=== PATIENT | female | born 1930 | race Caucasian/White ===

== ENCOUNTER → 2016-03-18 | Outpatient (CLI) | payer OTHER ==
[~2016-03-18] MED LIST: ACET-1311 PO; AMLO-110 PO; BIMA0.01 OPB; CHOL100027 PO; CLOP1TAB15 PO; LATA0.5S OPB; LEVE100021 PO; LOPE2TAB84 PO; MELO7.5T5 PO; METO-551 PO; MULT-506 PO; PANT1TAB48 PO; PLV75 PO; PRAV20TA PO; SIMV40TA2 PO
== END | disposition home or self-care (01) ==
LOC: C.LABSPEC 16:51
PROVIDERS: ATTEND Internal Medicine
DX: B34.9 Viral infection, unspecified (principal)

== ENCOUNTER → 2016-04-11 | Outpatient (CLI) | payer OTHER ==
--- NOTE | 2016-04-11 16:35 | DIAGNOSTIC IMAGING REPORT ---
AP PELVIS AND BILATERAL HIPS 5 VIEWS CLINICAL HISTORY: Pelvic and hip pain status post trauma COMPARISON: Conventional radiographic study of the left hip dated 08/19/2015, lumbar spine series dated 08/19/2015 DISCUSSION: There are degenerative changes present within the lower lumbar spine. A lucency beneath the right L4 pedicle was present on prior study and likely relates to facet joint arthropathy. There is a transitional vertebra present. No acute pelvic or hip fractures are visualized. There is no dislocation. There are mild degenerative changes present. IMPRESSION: No acute pelvic or hip fractures are visualized. Electronically signed by: Franck Rubin M.D. 04/11/2016 4:34 PM Dictated Date/Time: 04/11/2016 4:32 PM
--- NOTE | 2016-04-11 16:36 | DIAGNOSTIC IMAGING REPORT ---
LEFT FEMUR 4 VIEWS CLINICAL HISTORY: Left leg pain status post trauma COMPARISON: None DISCUSSION: No fractures or dislocations are visualized. IMPRESSION: No fractures or dislocations identified. Electronically signed by: Franck Rubin M.D. 04/11/2016 4:35 PM Dictated Date/Time: 04/11/2016 4:34 PM
--- NOTE | 2016-04-11 16:38 | DIAGNOSTIC IMAGING REPORT ---
LEFT WRIST MIN 3 VIEWS ROUTINE CLINICAL HISTORY: Left wrist pain status post trauma COMPARISON: None. DISCUSSION: The bones are osteopenic. No acute fractures or dislocations are visualized. There are osteoarthritic changes at the level of the first carpometacarpal joint. There is no evidence for soft tissue swelling. IMPRESSION: No acute fractures or dislocations identified. Electronically signed by: Franck Rubin M.D. 04/11/2016 4:37 PM Dictated Date/Time: 04/11/2016 4:36 PM
--- NOTE | 2016-04-11 16:38 | DIAGNOSTIC IMAGING REPORT ---
LEFT SHOULDER MIN 2 VIEWS ROUTINE, LEFT HUMERUS MIN 2 VIEWS ROUTINE CLINICAL HISTORY: Fall. Left shoulder and left arm pain. COMPARISON STUDY: None. FINDINGS: Lateral soft tissue swelling within the left shoulder. The bones are osteopenic. There is also lateral soft tissue swelling within the proximal arm. No fracture or dislocation. IMPRESSION: No fracture or dislocation within the left shoulder or left humerus. Electronically signed by: Saran Hawthorne M.D. 04/11/2016 4:36 PM Dictated Date/Time: 04/11/2016 4:33 PM
[2016-04-11 18:23] LABS: BASO % 0.4 %; BASO ABS # 0.06 K/uL (0-0.2); COMPLETE YES; EOS % 1.6 %; HEMATOCRIT 40.3 % (37-47); IG% 0.4 %; LYMPH % 43.9 %; LYMPH ABS # 6.22 K/uL (1.2-3.4); MEAN CELL VOLUME 94.6 fL (80-100); MEAN CORPUSCULAR HEMOGLOBIN 31.7 pg (25-34); MEAN CORPUSCULAR HGB CONC 33.5 g/dl (32-36); MONO % 6.5 %; NEUT % 47.2 %; PLATELET COUNT 246 K/uL (130-400); RED BLOOD COUNT 4.26 M/uL (4.2-5.4); WHITE BLOOD COUNT 14.18 K/uL (4.8-10.8)
== END | disposition home or self-care (01) ==
LOC: C.RAD1850 15:44
PROVIDERS: ATTEND Nurse Practitioner Adult Health
DX: R58 Hemorrhage, not elsewhere classified (principal); W19.XXXA Unspecified fall, initial encounter; M25.552 Pain in left hip; M79.605 Pain in left leg; M25.512 Pain in left shoulder

== ENCOUNTER → 2016-05-03 | Outpatient (CLI) | payer OTHER ==
--- NOTE | 2016-05-03 12:10 | DIAGNOSTIC IMAGING REPORT ---
LEFT THIGH ULTRASOUND CLINICAL HISTORY: Hematoma of left leg. Bruising. Recent fall. COMPARISON STUDY: Left femur radiographs April 11, 2016. FINDINGS: Sonography of the proximal lateral left thigh revealed a fluid collection measuring 4.1 x 2.4 x 4.5 cm within the deep soft tissues. This was minimally complex. Note is also made of an adjacent echogenic focus within the subcutaneous tissues that measures 6.9 x 2.4 x 5.5 cm. This is located immediately superior to the fluid collection. IMPRESSION: 4.1 x 2.4 x 4.5 cm collection within the deep soft tissues of the lateral left thigh. Given the clinical history, this likely reflects a resolving hematoma. Adjacent echogenic subcutaneous tissues may reflect a contusion. Follow-up in 2 months to ensure resolution is recommended. Electronically signed by: Rubio Rodriguez M.D. 05/03/2016 12:09 PM Dictated Date/Time: 05/03/2016 12:06 PM
== END | disposition home or self-care (01) ==
LOC: C.ULTR 11:28
PROVIDERS: ATTEND Nurse Practitioner Adult Health
DX: S80.10XA Contusion of unspecified lower leg, initial encounter (principal); X58.XXXA Exposure to other specified factors, initial encounter

== ENCOUNTER 2016-09-02 02:32 | Emergency (ER) | payer OTHER ==
[~2016-09-02] VITALS: Ht 142.2 cm; Wt 82.9 kg
[~2016-09-02 02:32] MED LIST changes: -AMLO-110 PO; -CLOP1TAB15 PO; -LEVE100021 PO; -PRAV20TA PO
[2016-09-02 02:37] VITALS: Ht 142.2 cm; Wt 82.9 kg
[2016-09-02] MEDS ORDERED: HydrALAZINE HCL 20 MG/ML VIAL IV. STA (02:48)
--- NOTE | 2016-09-02 03:07 | EMERGENCY ROOM VISIT NOTE ---
History Report prepared by Brea: Ronald Villalobos Under the Supervision of: Dr. Zara Stark M.D. First contact with patient: 02:38 Chief Complaint: NOSE BLEED (MINOR) Stated Complaint: NOSEBLEED History of Present Illness The patient is a 86 year old female who presents to the Emergency Room from [facility] with complaints of resolved right sided nosebleed starting about 5 hours ago. She noticed it while brushing her teeth. She did not think there was a large amount of blood from her nose or any gushing blood. The bleeding stopped about an hour ago. She currently denies any bleeding. The [facility] staff found her blood pressure to be 210/115. The patient's blood pressure systolically is in the 140s-150s. She has been taking Plavix for the past year. She is not on aspirin. She denies headache, chest pain, shortness of breath, abdominal pain, blood in urine, rectal bleeding, lower extremity pain/ swelling, or any other complaints. Source of History: patient Onset: about 5 hours ago Position: nose Quality: other (nosebleed) Timing: resolved Associated Symptoms: No headache, No chest pain, No SOB, No abdominal pain Review of Systems See HPI for pertinent positives & negatives. A total of 10 systems reviewed and were otherwise negative. Past Medical & Surgical Medical Problems: (1) Benign hypertension (2) Cataract surgery (3) Cholecystectomy (4) Craniotomy (5) History of - pneumonia (6) History of - tubal ligation (7) History of appendectomy (8) History of asthma (9) History of bronchitis (10) Hyperlipidemia (11) Tonsillectomy and adenoidectomy Family History Gallbladder disease Heart disease Hypertension Social History Smoking Status: Never Smoker Alcohol Use: none Drug Use: none Marital Status: Housing Status: lives with family Occupation Status: retired Current/Historical Medications Scheduled Amlodipine (Norvasc), 5 MG PO DAILY Cholecalciferol (Vitamin D 1000 Unit), 2,000 INTER.UNIT PO DAILY Clopidogrel (Plavix), 75 MG PO DAILY Latanoprost (Xalatan 0.005% Oph Keiko), 1 DROPS OPB HS Levetiracetam (Levetiracetam), 1,000 MG PO Q12 Metoprolol Tartrate (Lopressor), 50 MG PO BID Multivitamin (Multivitamin), 1 TAB PO QPM Pantoprazole (Protonix), 40 MG PO QAM Pravastatin (Pravachol ), 20 MG PO HS Scheduled PRN Acetaminophen (Tylenol), 325-650 MG PO BID PRN for Pain or Fever Loperamide Hcl (Anti-Diarrheal), 2 MG PO UD PRN for Diarrhea Allergies Coded Allergies: Penicillins (Verified Allergy, Mild, RASH, 09/02/16) Sulfa Drugs (Verified Allergy, Mild, RASH, 09/02/16) Aspirin (Verified Adverse Reaction, Unknown, BLEEDING, 09/02/16) Physical Exam Vital Signs Date Time Temp Pulse Resp B/P (MAP) Pulse Ox O2 Delivery O2 Flow Rate FiO2 09/02/16 04:14 37.1 60 16 166/93 94 09/02/16 03:58 60 16 166/93 94 Room Air 09/02/16 03:47 60 16 161/91 95 Room Air 09/02/16 03:03 60 09/02/16 03:00 61 16 157/76 96 Room Air 09/02/16 02:37 37.1 68 16 204/93 95 Room Air Physical Exam Vital signs reviewed. Noted to be hypertensive. General: Elderly, well-appearing, in no significant distress. HEENT: No scleral icterus, PERRLA, neck supple. Atraumatic. No active nasal bleeding. Cardiovascular: Regular rate and rhythm. Systolic ejection murmur. Pulmonary: Clear to auscultation bilaterally, normal work of breathing. Abdomen: Soft, nontender, nondistended, positive bowel sounds. Musculoskeletal: Atraumatic, no peripheral edema. Neurologic: Patient awake alert and oriented x 3, full strength in all 4 extremities. Cranial nerves 2 through 12 grossly intact. Skin: Warm, dry, no rash Medical Decision & Procedures Laboratory Results 09/02/16 02:20 Red Blood Count 4.34, Mean Corpuscular Volume 89.9, Mean Corpuscular Hemoglobin 28.8, Mean Corpuscular Hemoglobin Concent 32.1, Mean Platelet Volume 9.8, Neutrophils (%) (Auto) 38.3, Lymphocytes (%) (Auto) 53.2, Monocytes (%) (Auto) 6.3, Eosinophils (%) (Auto) 1.5, Basophils (%) (Auto) 0.4, Neutrophils # (Auto) 5.37, Lymphocytes # (Auto) 7.47, Monocytes # (Auto) 0.88, Eosinophils # (Auto) 0.21, Basophils # (Auto) 0.06 09/02/16 02:20 Test 09/02/16 02:20 09/02/16 03:30 White Blood Count 14.03 K/uL (4.8-10.8) Red Blood Count 4.34 M/uL (4.2-5.4) Hemoglobin 12.5 g/dL (12.0-16.0) Hematocrit 39.0 % (37-47) Mean Corpuscular Volume 89.9 fL (80-100) Mean Corpuscular Hemoglobin 28.8 pg (25-34) Mean Corpuscular Hemoglobin Concent 32.1 g/dl (32-36) Platelet Count 316 K/uL (130-400) Mean Platelet Volume 9.8 fL (7.4-10.4) Neutrophils (%) (Auto) 38.3 % Lymphocytes (%) (Auto) 53.2 % Monocytes (%) (Auto) 6.3 % Eosinophils (%) (Auto) 1.5 % Basophils (%) (Auto) 0.4 % Neutrophils # (Auto) 5.37 K/uL (1.4-6.5) Lymphocytes # (Auto) 7.47 K/uL (1.2-3.4) Monocytes # (Auto) 0.88 K/uL (0.11-0.59) Eosinophils # (Auto) 0.21 K/uL (0-0.5) Basophils # (Auto) 0.06 K/uL (0-0.2) RDW Standard Deviation 45.0 fL (36.4-46.3) RDW Coefficient of Variation 13.7 % (11.5-14.5) Immature Granulocyte % (Auto) 0.3 % Immature Granulocyte # (Auto) 0.04 K/uL (0.00-0.02) Red Blood Cell Morphology Unremarkable Anion Gap 5.0 mmol/L (3-11) Est Creatinine Clear Calc Drug Dose 37.0 ml/min Estimated GFR () 61.4 Estimated GFR (Non- 53.0 BUN/Creatinine Ratio 19.2 (10-20) Calcium Level 9.0 mg/dl (8.5-10.1) Total Bilirubin 0.3 mg/dl (0.2-1) Direct Bilirubin 0.1 mg/dl (0-0.2) Aspartate Amino Transf (AST/SGOT) 22 U/L (15-37) Alanine Aminotransferase (ALT/SGPT) 18 U/L (12-78) Alkaline Phosphatase 115 U/L (45-117) Total Protein 7.1 gm/dl (6.4-8.2) Albumin 3.5 gm/dl (3.4-5.0) Prothrombin Time 10.7 SECONDS (9.0-12.0) Prothromb Time International Ratio 1.0 (0.9-1.1) Activated Partial Thromboplast Time 26.1 SECONDS (21.0-31.0) Partial Thromboplastin Ratio 1.0 Laboratory results per my review. Medications Administered Medications (Trade) Dose Ordered Sig/Azra Route Start Time Stop Time Status Last Admin Dose Admin Amlodipine Besylate (Norvasc Tab) 5 mg NOW ONCE PO 09/02/16 04:00 09/02/16 04:01 DC 09/02/16 04:09 5 MG ED Course 0238: Past medical records reviewed. The patient was evaluated in room B12B. A complete history and physical examination was performed. 0400: Norvasc Tab 5 mg PO. Upon reevaluation, the patient appeared to have improvement of her symptoms. I discussed findings with her. She verbalized agreement of the treatment plan. She was discharged home. Medical Decision Medication Reconciliation: I attest that I have personally reviewed the patient' s current medication list. Blood Pressure Screening: Patient was found to have an elevated blood pressure and was referred to their primary doctor for recheck and further treatment. Differential diagnosis: Etiologies such as anterior epistaxis, coagulopathy, traumatic injury, fracture , septal hematoma, posterior epistaxis as well as other pathologies were entertained. This patient was evaluated and appeared to be in no significant distress. Patient's epistaxis had stopped bleeding at the time of my evaluation. Patient' s blood pressure was noted to be markedly elevated. On repeat, the blood pressure tended to travel down. Laboratory work is fairly unrevealing. H&H is stable. There is no more active bleeding. The patient was started on Norvasc 5 mg daily as she states high blood pressure has been an issue for the last several weeks. She declined any diuretic therapy. The patient will continue her other medications as prescribed and follow-up with her physician within the week for reevaluation. She will return to the ER for worsening of symptoms or any medical concerns. Impression Primary Impression: Epistaxis Additional Impression: Hypertension Scribe Attestation The scribe's documentation has been prepared under my direction and personally reviewed by me in its entirety. I confirm that the note above accurately reflects all work, treatment, procedures, and medical decision making performed by me. Departure Information Dispostion Home / Self-Care Prescriptions Amlodipine (Norvasc) 5 Mg Tab 5 MG PO DAILY, #30 TAB Prov: Zara Stark M.D. 09/02/16 Referrals [facility] (PCP) Landon Regan M.D. Forms HOME CARE DOCUMENTATION FORM, IMPORTANT VISIT INFORMATION, WORK / SCHOOL INSTRUCTIONS Patient Instructions My [facility] Additional Instructions Diagnosis: Epistaxis, hypertension Norvasc 5 mg daily Continue other medications as prescribed. Do not blow nose for 2 days. Use saline nasal spray several times daily. Use a humidifier in your bedroom. Follow up with your doctor this week for reevaluation. Return to emergency for worsening of symptoms or any medical concerns. Problem Qualifiers
[2016-09-02 03:28] LABS: MEAN CELL VOLUME 89.9 fL (80-100); MEAN CORPUSCULAR HEMOGLOBIN 28.8 pg (25-34); MEAN CORPUSCULAR HGB CONC 32.1 g/dl (32-36); MEAN PLATELET VOLUME 9.8 fL (7.4-10.4); PLATELET COUNT 316 K/uL (130-400); RED BLOOD COUNT 4.34 M/uL (4.2-5.4); WHITE BLOOD COUNT 14.03 K/uL (4.8-10.8)
[2016-09-02 03:35] LABS: BUN/CREATININE RATIO 19.2 (10-20); CREATININE 0.98 mg/dl (0.60-1.20); POTASSIUM 4.1 mmol/L (3.5-5.1)
[2016-09-02 03:56] LABS: PROTHROMBIN TIME (PATIENT) 10.7 SECONDS (9.0-12.0)
[2016-09-02] MEDS ORDERED: AMLO-110 PO (03:56)
[2016-09-02] MEDS ORDERED: PRAV20TA PO (03:57)
[2016-09-02] MEDS ORDERED: CLOP1TAB15 PO (03:58)
[2016-09-02] MEDS ORDERED: LEVE100021 PO (03:58)
[2016-09-02] MEDS ORDERED: AMLODIPINE BESYLATE 5 MG TAB PO ONE (04:00)
[2016-09-02 04:14] VITALS: BP 166/93; PULSE 60; TEMP 37.1; O2SAT 94
[2016-09-02 04:15] LABS: BASO % 0.4 %; BASO ABS # 0.06 K/uL (0-0.2); COMPLETE YES; EOS % 1.5 %; IG% 0.3 %; LYMPH % 53.2 %; LYMPH ABS # 7.47 K/uL (1.2-3.4); MONO % 6.3 %; NEUT % 38.3 %
== END 2016-09-02 04:14 | disposition home or self-care (01) ==
LOC: EDBD 02:32 → C.EDB 02:33
DX: R04.0 Epistaxis (principal); I10 Essential (primary) hypertension; Z79.01 Long term (current) use of anticoagulants; Z90.49 Acquired absence of other specified parts of digestive tract; Z98.49 Cataract extraction status, unspecified eye; Z87.01 Personal history of pneumonia (recurrent); Z98.51 Tubal ligation status; J45.909 Unspecified asthma, uncomplicated; E78.5 Hyperlipidemia, unspecified; Z82.49 Family history of ischemic heart disease and other diseases of the circulatory system; Z79.899 Other long term (current) drug therapy

== ENCOUNTER → 2016-11-01 | Outpatient (CLI) | payer OTHER ==
[~2016-11-01] MED LIST changes: +AMLO-110 PO; -BIMA0.01 OPB; +CLOP1TAB15 PO; +LEVE100021 PO; -MELO7.5T5 PO; -PLV75 PO; +PRAV20TA PO; -SIMV40TA2 PO
[2016-11-01 10:28] LABS: HEMATOCRIT 38.5 % (37-47); MEAN CELL VOLUME 87.1 fL (80-100); MEAN CORPUSCULAR HEMOGLOBIN 28.1 pg (25-34); MEAN CORPUSCULAR HGB CONC 32.2 g/dl (32-36); MEAN PLATELET VOLUME 9.5 fL (7.4-10.4); PLATELET COUNT 320 K/uL (130-400); RED BLOOD COUNT 4.42 M/uL (4.2-5.4); WHITE BLOOD COUNT 15.92 K/uL (4.8-10.8)
[2016-11-01 10:49] LABS: ALT/SGPT 18 U/L (12-78); BLOOD UREA NITROGEN 15 mg/dl (7-18); BUN/CREATININE RATIO 16.8 (10-20); CALCIUM 9.1 mg/dl (8.5-10.1); CARBON DIOXIDE 31 mmol/L (21-32); CHLORIDE 105 mmol/L (98-107); CHOLESTEROL 151 mg/dl (0-200); CREATININE 0.91 mg/dl (0.60-1.20); GLUCOSE 100 mg/dl (70-99); POTASSIUM 4.2 mmol/L (3.5-5.1); SODIUM 142 mmol/L (136-145); TRIGLYCERIDES 125 mg/dl (0-150); VERY LOW DENSITY LIPOPROT CALC 25 mg/dl
[2016-11-01 10:51] LABS: AST/SGOT 24 U/L (15-37); HDL CHOLESTEROL 50 mg/dl; LDL CHOLESTEROL CALCULATED 76 mg/dl
[2016-11-01 12:41] LABS: EOSINOPHIL % 0.9 %; LYMPH ABS # 9.65 K/uL (1.2-3.4); LYMPHOCYTE % 60.6 %; NEUTROPHILS % 34.2 %; SMUDGE CELLS PRESENT
[2016-11-01 12:49] LABS: COMPLETE YES
== END | disposition home or self-care (01) ==
LOC: C.LAB 08:26
PROVIDERS: ATTEND Internal Medicine
DX: D72.829 Elevated white blood cell count, unspecified (principal); I10 Essential (primary) hypertension; E78.5 Hyperlipidemia, unspecified

== ENCOUNTER → 2017-05-03 | Outpatient (CLI) | payer OTHER ==
[~2017-05-03] MED LIST changes: -AMLO-110 PO; +PANT1TAB3 PO; -PANT1TAB48 PO
--- NOTE | 2017-05-03 12:40 | DIAGNOSTIC IMAGING REPORT ---
CHEST 2 VIEWS ROUTINE CLINICAL HISTORY: R05 [id number] [id number] Hypoxemia dyspnea COMPARISON STUDY: 05/07/2015 FINDINGS: The bones soft tissues and hemidiaphragms are normal. The cardiomediastinal silhouette is normal. The lungs are clear. The pulmonary vasculature is normal. Small hiatal hernia IMPRESSION: Small hiatal hernia. Otherwise negative study. The above report was generated using voice recognition software. It may contain grammatical, syntax or spelling errors. Electronically signed by: Villa Powell M.D. 05/03/2017 12:39 PM Dictated Date/Time: 05/03/2017 12:38 PM
[2017-05-03 14:39] LABS: HEMATOCRIT 38.6 % (37-47); HEMOGLOBIN 12.8 g/dL (12.0-16.0); MEAN CELL VOLUME 86.7 fL (80-100); MEAN CORPUSCULAR HEMOGLOBIN 28.8 pg (25-34); MEAN CORPUSCULAR HGB CONC 33.2 g/dl (32-36); MEAN PLATELET VOLUME 9.8 fL (7.4-10.4); PLATELET COUNT 285 K/uL (130-400); RED CELL DISTRIBUTION WIDTH CV 14.8 % (11.5-14.5); WHITE BLOOD COUNT 13.67 K/uL (4.8-10.8)
[2017-05-03 14:55] LABS: BLOOD UREA NITROGEN 14 mg/dl (7-18); CALCIUM 9.2 mg/dl (8.5-10.1); CARBON DIOXIDE 29 mmol/L (21-32); GLUCOSE 113 mg/dl (70-99); POTASSIUM 3.9 mmol/L (3.5-5.1); SODIUM 138 mmol/L (136-145)
[2017-05-03 15:16] LABS: BASO % 0.4 %; BASO ABS # 0.05 K/uL (0-0.2); EOS % 0.9 %; EOS ABS # 0.12 K/uL (0-0.5); IG# 0.01 K/uL (0.00-0.02); LYMPH % 51.4 %; LYMPH ABS # 7.02 K/uL (1.2-3.4); MONO % 5.4 %; MONO ABS # 0.74 K/uL (0.11-0.59); NEUT % 41.8 %; NEUT ABS # 5.73 K/uL (1.4-6.5)
== END | disposition home or self-care (01) ==
LOC: C.RAD1850 12:22
PROVIDERS: ATTEND Internal Medicine
DX: R50.9 Fever, unspecified (principal); R05 Cough; R09.02 Hypoxemia

== ENCOUNTER → 2017-06-15 | Outpatient (CLI) | payer OTHER ==
[2017-06-15 12:41] LABS: HEMATOCRIT 38.6 % (37-47); HEMOGLOBIN 12.4 g/dL (12.0-16.0); MEAN CELL VOLUME 86.4 fL (80-100); MEAN CORPUSCULAR HEMOGLOBIN 27.7 pg (25-34); MEAN CORPUSCULAR HGB CONC 32.1 g/dl (32-36); MEAN PLATELET VOLUME 9.2 fL (7.4-10.4); PLATELET COUNT 369 K/uL (130-400); RED CELL DISTRIBUTION WIDTH CV 15.1 % (11.5-14.5); RED CELL DISTRIBUTION WIDTH SD 47.5 fL (36.4-46.3); WHITE BLOOD COUNT 18.23 K/uL (4.8-10.8)
[2017-06-15 13:58] LABS: BASO % 0.3 %; BASO ABS # 0.06 K/uL (0-0.2); EOS % 1.5 %; EOS ABS # 0.28 K/uL (0-0.5); IG# 0.03 K/uL (0.00-0.02); LYMPH % 50.7 %; LYMPH ABS # 9.25 K/uL (1.2-3.4); MONO % 4.7 %; MONO ABS # 0.85 K/uL (0.11-0.59); NEUT % 42.6 %; NEUT ABS # 7.76 K/uL (1.4-6.5)
== END | disposition home or self-care (01) ==
LOC: C.LABBFT 08:39
PROVIDERS: ATTEND Internal Medicine
DX: Z85.6 Personal history of leukemia (principal)

== ENCOUNTER → 2017-10-10 | Outpatient (CLI) | payer OTHER ==
[~2017-10-10] MED LIST changes: +ACET-1256 PO; -ACET-1311 PO; +AMLO5TAB2 PO; +CRFUDL PO; +LCTX PO; +LVQ750 PO
--- NOTE | 2017-10-10 11:37 | DIAGNOSTIC IMAGING REPORT ---
DOUBLE CONTRAST BARIUM ESOPHAGRAM CLINICAL HISTORY: Pneumonia. COMPARISON STUDY: Upper GI series dated 07/20/2005. TECHNIQUE: A standard air contrast barium esophagram is performed. Multiple spot images of the esophagus are acquired both upright and prone. FINDINGS: The patient swallowed barium and the barium pill without difficulty. The mucosal pattern is normal. The distal esophagus is tortuous, and there is moderate dysmotility in the mid to distal third. There is no evidence of intrinsic or extrinsic mass lesion. No aspiration was seen. The gastroesophageal junction distended normally. Gastroesophageal reflux was observed during the examination. A small hiatal hernia is identified. Fluoroscopy time: 1.4 minutes. Fluoroscopic images: 22 IMPRESSION: 1. Esophageal dysmotility. 2. Gastroesophageal reflux was observed. 3. Small hiatal hernia. Electronically signed by: Conner Wilson M.D. 10/10/2017 11:36 AM Dictated Date/Time: 10/10/2017 11:33 AM
--- NOTE | 2017-10-10 11:53 | SWALLOWING EVALUATION ---
HISTORY: This 87 year-old woman, from [facility], who was referred for a Barium Swallow followed by a VFSS at [facility]. 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 She has been seen by speech therapy multiple times in the past for bedside swallows secondary to right lower lobe pneumonia and was WFL on all evals. Currently the patient reports her diet level is regular with thins. PROCEDURE: The patient was seen in the Radiology Department of [facility] for the Barium Swallow ONLY. The VFSS was not completed secondary to pt. being WFL and no s/s of aspiration. Cursory examination of the oral cavity revealed adequate dentition. Movement of the articulators was WNL. Volitional phonation exercises completed in the A-P plane revealed bilateral vocal fold movement and vocal intensity within functional limits. Pt. was given multiple cups of barium in multiple positions as well as barium pill throughout the study. RESULTS OBTAINED FROM VIEWING OF BARIUM SWALLOW STUDYOral Phase:Pt. had adequate lip closure and no labial escape of any food or liquid items presented. Pt. had adequate tongue control and bolus hold by demonstrating a cohesive bolus between tongue and palatal seal. Bolus preparation and mastication was WFL as timely and efficient chewing and mashing was observed with all consistencies. Bolus transport and lingual motion were functional as pt. demonstrated brisk tongue motion and no oral residue resulting in complete oral clearance. * Overall WFL for oral phase of swallow. Pharyngeal Phase:Soft Palate Elevation was complete for all boluses and no bolus was between the soft palate and the pharyngeal wall. Laryngeal elevation was WFL. Anterior Hyoid excursion was noted anterior movement and epiglottic inversion. Pharyngeal contraction was complete for all tested items. Tongue base retraction was noted with all consistencies and tongue base made effective contact with posterior pharyngeal wall throughout study. There was mild Pharyngeal residue throughout the pharyngeal cavity after the swallow which was cleared with double swallows. *Overall WFL for pharyngeal stage of the swallow. Esophageal Phase:Opening and closing of the UES was timely and efficient with complete clearance of all tested items. SUMMARY/RECOMMENDATIONS: VIDEO SWALLOW STUDY WAS NOT COMPLETED SECONDARY TO NO ASPIRATION, PENETRATION, OR DIFFICULTY OBSERVED DRUING THE BARIUM SWALLOW *ALL INFORMATION WAS OBTAINED FROM VIEWING BARIUM SWALLOW STUDY* Overall pt. presents with NO oral or pharyngeal dysphagia. NO aspiration and NO penetration occurred throughout the BARIUM SWALLOW study. Recommendin. Regular diet with thin liquids All results and recommendations were discussed with the pt. Thank you for referral of this patient. Please contact me at if any additional information is needed.
== END | disposition home or self-care (01) ==
LOC: C.RAD 10:47
PROVIDERS: ATTEND Nurse Practitioner Family
DX: R13.10 Dysphagia, unspecified (principal); J18.1 Lobar pneumonia, unspecified organism

== ENCOUNTER 2018-08-27 01:18 | Observation (INO) ==
[2018-08-27 02:18] LABS: Hematocrit (blood only) 34.4 % (37-47); Hemoglobin 10.8 g/dL (12.0-16.0); Mean Corpuscular Hgb Conc 31.4 g/dL (32-36); Mean Corpuscular Volume 84.9 fL (80-100); Mean Platelet Volume 9.2 fL (7.4-10.4); Platelet Count 311 K/uL (130-400); RDW Coefficient of Variation 15.5 % (11.5-14.5); RDW Standard Deviation 47.9 fL (36.4-46.3); Red Blood Count 4.05 M/uL (4.2-5.4)
[2018-08-27 02:35] LABS: BUN Creatinine Ratio 14.2 (10-20); Blood Urea Nitrogen 14 mg/dl (7-18); Calcium 8.7 mg/dl (8.5-10.1); Carbon Dioxide 30 mmol/L (21-32); Chloride 107 mmol/L (98-107); Creatinine Clr Calc Pharmacy 38.1 ml/min; Est GFR (African American) 59.1; Glucose 105 mg/dl (70-99); Sodium 142 mmol/L (136-145)
[2018-08-27 02:39] LABS: Troponin I < 0.015 ng/ml (0-0.045)
[2018-08-27 03:16] LABS: Basophils # (auto) 0.06 K/uL (0-0.2); Basophils % (auto) 0.2 %; Eosinophils # (auto) 0.35 K/uL (0-0.5); Eosinophils % (auto) 1.4 %; Immature Granulocytes # (auto) 0.07 K/uL (0.00-0.02); Immature Granulocytes % (auto) 0.3 %; Lymphocytes # (auto) 16.01 K/uL (1.2-3.4); Lymphocytes % (auto) 64.3 %; Monocytes # (auto) 1.26 K/uL (0.11-0.59); Monocytes % (auto) 5.1 %; Neutrophils # (auto) 7.15 K/uL (1.4-6.5); Neutrophils % (auto) 28.7 %; Smudge Cells Present
[2018-08-27 03:26] LABS: Appearance Urine Clear (Clear); Bacteria Urine Automated Negative (Negative); Bilirubin Urine Negative (Negative); Blood Urine Negative (Negative); Cast Urine Automated 0 /lpf (0-5); Color Urine Yellow; Epithelial Cell Urine Auto 20-30 /lpf (0-5); Glucose Urine UA Negative (Negative); Ketones Urine Negative (Negative); Leukocyte Esterase Urine Trace (Negative); Nitrite Urine Negative (Negative); Protein Urine Negative (Negative); RBC Urine Automated 0-4 /hpf (0-4); Specific Gravity Urine 1.012 (1.000-1.030); Urobilinogen Urine Negative (Negative); pH Urine 7.5 (4.5-7.5)
--- NOTE | 2018-08-27 04:16 | History & Physical Report ---
Date of Service August 27, 2018 Assessment & Plan (1) Substernal chest pain: 88 yo F with history of HTN, HLD, CVA, ,GERD, CLL, Asthma, Epilepsy, Osteopenia, Meningioma presenting with history of chest pain. patient arrived afebrile , vs. WBC ct 24.97 however chronically elevated and within baseline, anemic at baseline, bmp unremarkable, UA unremarkable, ekg neg for ischemic changes, initial troponin negative. Patient did not receive aspirin due to listed allergy. - Admit To Telemetry - chest pain etiology unclear. ischemic less likely given negative ekg, initial troponin. however patient has multiple CAD risk factors as above. Chest pain may be secondary to known history of Aortic Stenosis - follow q6H troponin - currently chest pain remains resolved - patient to follow with Dr. Shea in outpatient setting regarding A.S. (2) Aortic stenosis: possible contributor to symptoms last echo 2013 shoed only mild Aortic stenosis recent PCP note reported progression to severe A.S. consider repeat Echocardiogram to evaluate (3) Hypertension: Continue Metoprolol, Amlodipine (4) Hyperlipidemia: Continue Pravastatin (5) History of stroke: Continue Plavix (6) History of chronic lymphocytic leukemia: asx stable elevation of WBC ct continue to monitor (7) Meningioma: s/p resection asx, stable (8) History of esophageal reflux: PPI (9) Seizure disorder: Continue Keppra asx (10) DVT prophylaxis: SCD's History of Present Illness Chief Complaint: chest pain Primary Care Provider: Landon Regan MD 88 yo F with history of HTN, HLD, CVA, ,GERD, CLL, Asthma, Epilepsy, Osteopenia, Meningioma presenting with history of chest pain. Patient reports chest pain radiating to back, shoulders, bilaterally. Pain started 10: 30 pm, sharp quality involving back with pressure sensation in chest, like a tightness. It lasted about 1-2 hrs. Symptoms occurred while patient was using the bathroom. She took no medication for symptoms. She also reported l ightheadedness, no fevers, chills, n/v, abdominal pain, sob, palpitation. Pain never recurred. She denies calf pain. Patient does have history asthma but feels symptoms are distinct form those symptoms. In the ED, patient arrived afebrile , vs. WBC ct 24.97 however chronically elevated and within baseline, anemic at baseline, bmp unremarkable, UA unremarkable, ekg neg for ischemic changes, initial troponin negative. Patient did not receive aspirin due to listed allergy. Allergies Allergy/AdvReac Type Severity Reaction Status Date / Time Penicillins Allergy Mild RASH Verified 08/27/18 03:10 Sulfa (Sulfonamide Allergy Mild RASH Verified 08/27/18 03:10 Antibiotics) aspirin AdvReac Unknown BLEEDING Verified 08/27/18 03:10 Home Medications Home Medications Medication Instructions Recorded Confirmed Type acetaminophen 500 mg tablet 500 - 1,000 mg PO BID PRN #30 tab 07/16/18 08/27/18 History MDD 3g/24hr amlodipine 5 mg tablet 5 mg PO DAILY #30 tab 07/16/18 08/27/18 History cholecalciferol (vitamin D3) 2,000 2,000 unit PO DAILY #30 tab 07/16/18 08/27/18 History unit tablet levetiracetam 1,000 mg tablet 1,000 mg PO BID #60 tab 07/16/18 08/27/18 History loperamide 2 mg capsule 2 mg PO UD PRN #30 cap MDD 8 caps 07/16/18 08/27/18 History pravastatin 20 mg tablet 20 mg PO DAILY #28 tab 07/16/18 08/27/18 History clopidogrel 75 mg tablet 75 mg PO DAILY #90 tab 08/14/18 08/27/18 Rx metoprolol tartrate 50 mg tablet 50 mg PO BID #180 tab 08/14/18 08/27/18 Rx multivitamin capsule 1 cap PO DAILY #30 cap 08/14/18 08/27/18 Rx pantoprazole 40 mg tablet,delayed 40 mg PO BID #180 tab 08/14/18 08/27/18 Rx release latanoprost 1 drops OPB QPM 08/27/18 08/27/18 History ranitidine HCl 150 mg PO BID 08/27/18 08/27/18 History sucralfate 1 gm PO TID PRN 08/27/18 08/27/18 History Past Med/Surg History Medical History Osteopenia (Acute) Meningioma (Acute) Left hip pain (Acute) Hypertension (Acute) Hyperlipidemia (Acute) History of stroke (Acute) History of fall (Acute) History of esophageal reflux (Acute) History of chronic lymphocytic leukemia (Acute) History of bronchitis (Acute 11/24/12) History of asthma (Acute 11/24/12) Glaucoma (Acute) 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) Aortic stenosis (Acute) Allergic rhinitis (Acute) Asthma (Acute) Asthma exacerbation (Acute 03/02/14) Craniotomy (Resolved 12/13/12) History of - pneumonia (Resolved 11/24/12) History of - tubal ligation (Resolved 11/24/12) Intractable nausea and vomiting PNA (pneumonia) (Acute) RLL pneumonia (Acute 03/02/14) Surgical History History of appendectomy (Acute 11/24/12) Social History Preferred Language: Greek Communication Ability: Effective Outboard Motor Assembler Required: No Beliefs That Will Affect Care: None Current Living Situation: Alone and Personal Care Facility Feels Safe at Home: Yes Safety Concerns: Feels Safe At This Time Smoking Status: Never smoker Hx Alcohol Use: No Hx Substance Use: No Review of Systems Review of Systems: All systems reviewed & are unremarkable except as noted in HPI & below Physical Exam Physical Exam: GENERAL APPEARANCE: alert and cooperative, and appears to be in no acute distress. HEAD: normocephalic. EYES: PERRL, EOMI. vision is grossly intact. EARS: hearing grossly intact. NOSE: No nasal discharge. NECK: Neck supple, non-tender without lymphadenopathy CARDIAC: Normal S1 and S2. Systolic ejection murmur, Rhythm is regular LUNGS: Clear to auscultation and percussion without rales, rhonchi, wheezing or diminished breath sounds. ABDOMEN: Positive bowel sounds. Soft, nondistended, nontender. No guarding or rebound. No masses. LOWER EXTREMITY: no edema NEUROLOGICAL: CN II-XII grossly intact. Strength and sensation symmetric and grossly intact throughout. SKIN: Skin normal color, texture and turgor with no lesions or eruptions. Results & Data Vital Signs (Past 12 Hours) Vital Signs Temp Pulse Resp BP Pulse Ox 08/27/18 02:31 64 24 155/52 H 94 08/27/18 02:30 63 22 93 08/27/18 02:06 61 28 H 141/80 H 94 08/27/18 02:00 62 18 94 08/27/18 01:30 62 21 146/63 H 93 08/27/18 01:25 36.5 C 63 17 148/75 H 95 08/27/18 01:24 65 24 95 08/27/18 01:22 63 20 148/75 H 95 Laboratory Results Laboratory Results WBC 24.90 K/uL (4.8-10.8) H 08/27/18 02:07 RBC 4.05 M/uL (4.2-5.4) L 08/27/18 02:07 Hgb 10.8 g/dL (12.0-16.0) L 08/27/18 02:07 Hct 34.4 % (37-47) L 08/27/18 02:07 MCV 84.9 fL (80-100) 08/27/18 02:07 MCH 26.7 pg (25-34) 08/27/18 02:07 MCHC 31.4 g/dL (32-36) L 08/27/18 02:07 RDW Std Deviation 47.9 fL (36.4-46.3) H 08/27/18 02:07 RDW Coeff of Esteban 15.5 % (11.5-14.5) H 08/27/18 02:07 Plt Count 311 K/uL (130-400) 08/27/18 02:07 MPV 9.2 fL (7.4-10.4) 08/27/18 02:07 Immature Gran % (Auto) 0.3 % 08/27/18 02:07 Neut % (Auto) 28.7 % 08/27/18 02:07 Lymph % (Auto) 64.3 % 08/27/18 02:07 [place] % (Auto) 5.1 % 08/27/18 02:07 Eos % (Auto) 1.4 % 08/27/18 02:07 Baso % (Auto) 0.2 % 08/27/18 02:07 Immature Gran # (Auto) 0.07 K/uL (0.00-0.02) H 08/27/18 02:07 Neut # (Auto) 7.15 K/uL (1.4-6.5) H 08/27/18 02:07 Lymph # (Auto) 16.01 K/uL (1.2-3.4) H 08/27/18 02:07 [place] # (Auto) 1.26 K/uL (0.11-0.59) H 08/27/18 02:07 Eos # (Auto) 0.35 K/uL (0-0.5) 08/27/18 02:07 Baso # (Auto) 0.06 K/uL (0-0.2) 08/27/18 02:07 Smudge Cells Present 08/27/18 02:07 Sodium 142 mmol/L (136-145) 08/27/18 02:07 Potassium 4.0 mmol/L (3.5-5.1) 08/27/18 02:07 Chloride 107 mmol/L (98-107) 08/27/18 02:07 Carbon Dioxide 30 mmol/L (21-32) 08/27/18 02:07 Anion Gap 5.0 (3-11) 08/27/18 02:07 BUN 14 mg/dl (7-18) 08/27/18 02:07 Creatinine 1.00 mg/dl (0.6-1.2) 08/27/18 02:07 Est Cr Clr Drug Dosing 38.1 ml/min 08/27/18 02:07 Est GFR ( Amer) 59.1 08/27/18 02:07 Est GFR (Non-Af Amer) 51.0 08/27/18 02:07 BUN/Creatinine Ratio 14.2 (10-20) 08/27/18 02:07 Glucose 105 mg/dl (70-99) H 08/27/18 02:07 Calcium 8.7 mg/dl (8.5-10.1) 08/27/18 02:07 Troponin I < 0.015 ng/ml (0-0.045) 08/27/18 02:07 Urine Color Yellow 08/27/18 03:00 Urine Appearance Clear (Clear) 08/27/18 03:00 Urine pH 7.5 (4.5-7.5) 08/27/18 03:00 Ur Specific [place] 1.012 (1.000-1.030) 08/27/18 03:00 Urine Protein Negative (Negative) 08/27/18 03:00 Urine Glucose (UA) Negative (Negative) 08/27/18 03:00 Urine Ketones Negative (Negative) 08/27/18 03:00 Urine Blood Negative (Negative) 08/27/18 03:00 Urine Nitrite Negative (Negative) 08/27/18 03:00 Urine Bilirubin Negative (Negative) 08/27/18 03:00 Urine Urobilinogen Negative (Negative) 08/27/18 03:00 Ur Leukocyte Esterase Trace (Negative) H 08/27/18 03:00 Urine WBC (Auto) 1-5 /hpf (0-5) 08/27/18 03:00 Urine RBC (Auto) 0-4 /hpf (0-4) 08/27/18 03:00 U Hyaline Cast (Auto) 0 /lpf (0-5) 08/27/18 03:00 U Epithel Cells (Auto) 20-30 /lpf (0-5) H 08/27/18 03:00 Urine Bacteria (Auto) Negative (Negative) 08/27/18 03:00 ECG Indication: chest pain Rate (beats per minute): 62 Rhythm: normal sinus Comparison ECG Date: from (August 11, 2017) Change: the following changes noted (no PVC present) Code Status & VTE Plan VTE Prophylaxis Plan VTE Prophylaxis will be ordered: Yes Supervising Physician Co-Signing Physician Notes Attending addendum: I have physically seen this patient, have supervised the medical residents activities, and agree with the H&P unless as otherwise noted. Assessment and Plan: Substernal chest pain self-limited/hypertension/aortic stenosis- The patient will be admitted to telemetry for serial cardiac enzymes, serial EKG's, cardiac rhythm monitoring and a 2-D echocardiogram with Dopplers. Continue amlodipine 5 mg p.o. daily, clopidogrel 75 mg p.o. daily, and metoprolol tartrate 50 mg p.o. twice daily. Patient not started on aspirin due to reported issue with bleeding. Consult cardiology Dr. Kenyon. Hyperlipidemia- Continue pravastatin. Check a fasting lipid panel. Remainder of orders and notations as noted. PG Care Time/CCT Total # of Minutes Spent Total Time Spent with Patient: Total time spent is greater than 50% in coordination of care (as documented) at patient's floor/unit and/or counseling patient:
--- NOTE | 2018-08-27 05:17 | Emergency Department Note ---
Entered by Paul Licea acting as a scribe for ED Provider Note Name: Mere Mesa Age: 88, female Arrives Via: EMS Informant: Patient CC: Chest pain HPI: The patient is an 88 year old female who presents to the emergency department with complaints of resolved chest pain beginning last night. The patient states that she had an episode of back pain that went around to her chest. She notes that her symptoms lasted for 2 hours but went away prior to EMS arrival. She denies any current discomfort. She reports that she felt fine during the day. She also complains of mild leg swelling. She denies any SOB, LOC, heart palpitations, headache, fever, rashes, diarrhea, urinary symptoms, and bloody/black stools. The patient states that she has a history of high cholesterol and hypertension but does not have a history of diabetes and heart attacks. She notes that her mom, dad, and two brothers all have had a history of heart attacks. ROS: See above HPI for pertinent positives & negatives. A total of 10 systems reviewed and were otherwise negative. Past Medical History: High cholesterol, hypertension, previous stroke, meningioma, asthma, pneumonia, stroke Past Surgical History: Appendectomy, tubal ligation Family History: Heart attacks Social History: Never smoker, does not drink alcohol, does not use drugs Home Medications: Please see medication list Allergies: Penicillins, Sulfa, Aspirin Physical: Vitals: BP 148/75 H, Pulse 63, Resp 17, Temp 97.7 F, O2 Sat 95 Exam: GENERAL: Patient is well appearing and in no acute distress. EYES: No scleral icterus, unremarkable pupils. ENT: Mucous membranes moist, no nasal congestion. NECK: No masses appreciated, no meningismus, trachea is midline. RESPIRATORY: No dyspnea. Clear to auscultation and equal bilaterally. No wheeze, no rhonchi. CARDIOVASCULAR: Regular rate and rhythm. No rubs and gallops appreciated. Systolic murmur. GASTROINTESTINAL: Abdomen soft, non-tender, no peritonitis. Bowel sounds positive. No masses appreciated. BACK: No midline tenderness, no CVA tenderness EXTREMITIES: Normal motion all extremities, no cyanosis. 2+ edema to the bilateral legs. NEUROLOGIC: Alert and oriented, no acute motor or sensory deficits, no focal weakness, cranial nerves grossly intact. SKIN: No rash, no jaundice, no diaphoresis. ED Course: Prior Medical Record, Triage/Nursing Notes, Medications, Allergies reviewed by Me 0120: The patient was evaluated in room B9. A complete history and physical exam was performed. 0248: Dr. Stallings - CHENTE Renner, was paged. 0311: Upon reevaluation, the patient is stable. I discussed the findings and the treatment plan with the patient. She expresses agreement and understanding. I spoke with Dr. Langley - objects conservator for CHENTE Meza. The patient will be evaluated for further management. Vital Signs: reviewed and remarkable for wnl Labs: Reviewed and remarkable for normal trop Interventions: Saline Lock, Aspirin Held as she notes allergy with excessive bleeding Imaging: CHEST X-ray: X ray results are stated below per my interpretation: Chest: 1 view: No infiltrate, no effusion, normal cardiac border. EKG: EKG results per my interpretation. Indication - Chest pain. Normal sinus, 62, no ectopy, no ischemia. Consults: 0311: I spoke with Dr. Langley - objects conservator for CHENTE Briceño. The patient will be evaluated for further management. Blood pressure: Elevated - Will be monitored by hospitalist. Disposition: Hospitalization Differential diagnosis includes: shingles, musculoskeletal pain, pericarditis, myocarditis, cardiac ischemia, pericardial tamponade, pneumonia, pneumothorax, pleural effusion, hemothorax, pleurisy, aortic pathology, pulmonary embolism, intra-abdominal process, as well as others were considered. Medical Decision Making: Pleasant 88 yr old female with HTN, DLP, known valvular disease and multiple fam with CAD/NH . She arrives for evaluation of substernal chest pain now resolved. Labs/ekg looking ok. CXR with calcified aorta but no acute findings. She has no further pain nor shob/breathlessness. Symptoms do not seem compatible with dissection, pe, pna. She was stable throughout ED stay and will come in for cardiac rule out given high risk criteria. Not given ASA as notes significant bleeding issue to asa in past. Impression: Substernal chest pain Federico Panchal MD The scribe's documentation has been prepared under my direction and personally reviewed by me in its entirety. I confirm that the note above accurately reflects all work, treatment, procedures, and medical decision making performed by me. 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) Aortic stenosis (Acute) Allergic rhinitis (Acute) Asthma (Acute) Asthma exacerbation (Acute 03/02/14) Craniotomy (Resolved 12/13/12) History of - pneumonia (Resolved 11/24/12) History of - tubal ligation (Resolved 11/24/12) Intractable nausea and vomiting PNA (pneumonia) (Acute) RLL pneumonia (Acute 03/02/14) Surgical History History of appendectomy (Acute 11/24/12) Social History Preferred Language: Upper Sorbian Communication Ability: Effective Feels Safe at Home: Yes Smoking Status: Never smoker Hx Alcohol Use: No Hx Substance Use: No Results & Data Vital Signs Vital Signs - 24 hr 08/27/18 01:22 08/27/18 01:24 08/27/18 01:25 Temperature 36.5 C Temperature Source Oral Sepsis Recent Fever Within 48 Hours No Sepsis New/Unexplained Change in Mental Status No Sepsis Action Taken by Nursing No Action Required Pulse Rate 63 65 63 Pulse Rate [Right] Pulse Rate from SpO2 Sensor 64 65 Pulse Rhythm Regular Pulse Rhythm [Right] Pulse Strength Normal Pulse Strength [Right] Respiratory Rate 20 24 17 Respiratory Effort / Characteristics Non-Labored Respiratory Depth Normal Respiratory Pattern Regular Blood Pressure 148/75 H 148/75 H Blood Pressure [Right Arm] Blood Pressure Mean 99 99 Blood Pressure Mean [Right Arm] Blood Pressure Position Lying Pulse Oximetry 95 95 95 Oxygen Delivery Method Room Air 08/27/18 01:30 08/27/18 02:00 08/27/18 02:06 Temperature Temperature Source Sepsis Recent Fever Within 48 Hours Sepsis New/Unexplained Change in Mental Status Sepsis Action Taken by Nursing Pulse Rate 62 62 61 Pulse Rate [Right] Pulse Rate from SpO2 Sensor 62 62 61 Pulse Rhythm Pulse Rhythm [Right] Pulse Strength Pulse Strength [Right] Respiratory Rate 21 18 28 H Respiratory Effort / Characteristics Respiratory Depth Respiratory Pattern Blood Pressure 146/63 H 141/80 H Blood Pressure [Right Arm] Blood Pressure Mean 90 100 Blood Pressure Mean [Right Arm] Blood Pressure Position Pulse Oximetry 93 94 94 Oxygen Delivery Method 08/27/18 02:30 08/27/18 02:31 08/27/18 04:23 Temperature Temperature Source Sepsis Recent Fever Within 48 Hours Sepsis New/Unexplained Change in Mental Status Sepsis Action Taken by Nursing Pulse Rate 63 64 Pulse Rate [Right] 60 Pulse Rate from SpO2 Sensor 64 63 Pulse Rhythm Pulse Rhythm [Right] Regular Pulse Strength Pulse Strength [Right] Normal Respiratory Rate 22 24 16 Respiratory Effort / Characteristics Non-Labored Spontaneous Respiratory Depth Normal Respiratory Pattern Blood Pressure 155/52 H Blood Pressure [Right Arm] 138/87 Blood Pressure Mean 86 Blood Pressure Mean [Right Arm] 104 Blood Pressure Position Pulse Oximetry 93 94 94 Oxygen Delivery Method Room Air 08/27/18 05:08 Temperature Temperature Source Sepsis Recent Fever Within 48 Hours Sepsis New/Unexplained Change in Mental Status Sepsis Action Taken by Nursing Pulse Rate 65 Pulse Rate [Right] Pulse Rate from SpO2 Sensor Pulse Rhythm Pulse Rhythm [Right] Pulse Strength Pulse Strength [Right] Respiratory Rate 16 Respiratory Effort / Characteristics Respiratory Depth Respiratory Pattern Blood Pressure 155/71 H Blood Pressure [Right Arm] Blood Pressure Mean Blood Pressure Mean [Right Arm] Blood Pressure Position Pulse Oximetry 95 Oxygen Delivery Method Room Air Home Medications Current Medication List: was personally reviewed by me Laboratory Data Attestation: I reviewed the patient's lab results. Result diagrams: 08/27/18 02:07 08/27/18 02:07 Lab Results 08/27/18 08/27/18 08/27/18 Range/Units 02:07 02:07 03:00 WBC 24.90 H (4.8-10.8) K/uL RBC 4.05 L (4.2-5.4) M/uL Hgb 10.8 L (12.0-16.0) g/dL Hct 34.4 L (37-47) % MCV 84.9 (80-100) fL MCH 26.7 (25-34) pg MCHC 31.4 L (32-36) g/dL RDW Std Deviation 47.9 H (36.4-46.3) fL RDW Coeff of Esteban 15.5 H (11.5-14.5) % Plt Count 311 (130-400) K/uL MPV 9.2 (7.4-10.4) fL Immature Gran % (Auto) 0.3 % Neut % (Auto) 28.7 % Lymph % (Auto) 64.3 % [place] % (Auto) 5.1 % Eos % (Auto) 1.4 % Baso % (Auto) 0.2 % Immature Gran # (Auto) 0.07 H (0.00-0.02) K/uL Neut # (Auto) 7.15 H (1.4-6.5) K/uL Lymph # (Auto) 16.01 H (1.2-3.4) K/uL [place] # (Auto) 1.26 H (0.11-0.59) K/uL Eos # (Auto) 0.35 (0-0.5) K/uL Baso # (Auto) 0.06 (0-0.2) K/uL Smudge Cells Present Sodium 142 (136-145) mmol/L Potassium 4.0 (3.5-5.1) mmol/L Chloride 107 (98-107) mmol/L Carbon Dioxide 30 (21-32) mmol/L Anion Gap 5.0 (3-11) BUN 14 (7-18) mg/dl Creatinine 1.00 (0.6-1.2) mg/dl Est Cr Clr Drug Dosing 38.1 ml/min Est GFR ( Amer) 59.1 Est GFR (Non-Af Amer) 51.0 BUN/Creatinine Ratio 14.2 (10-20) Glucose 105 H (70-99) mg/dl Calcium 8.7 (8.5-10.1) mg/dl Troponin I < 0.015 (0-0.045) ng/ml Urine Color Yellow Urine Appearance Clear (Clear) Urine pH 7.5 (4.5-7.5) Ur Specific [place] 1.012 (1.000-1.030) Urine Protein Negative (Negative) Urine Glucose (UA) Negative (Negative) Urine Ketones Negative (Negative) Urine Blood Negative (Negative) Urine Nitrite Negative (Negative) Urine Bilirubin Negative (Negative) Urine Urobilinogen Negative (Negative) Ur Leukocyte Esterase Trace H (Negative) Urine WBC (Auto) 1-5 (0-5) /hpf Urine RBC (Auto) 0-4 (0-4) /hpf U Hyaline Cast (Auto) 0 (0-5) /lpf U Epithel Cells (Auto) 20-30 H (0-5) /lpf Urine Bacteria (Auto) Negative (Negative) Discharge Plan Visit Data Chief Complaint: Cardiac Assessment Stated Complaint: CHEST PAIN ED Provider: Federico Panchal Discharge Problem: Substernal chest pain Patient Disposition: Being Evaluated by Hospitalist Discharge Instructions Interventions: ED Discharge Assessment Last Done: 08/27/18 05:08 Forms Stand Alone Forms: My [facility] Prescriptions Prescriptions: No Action levetiracetam 1,000 mg tablet 1,000 mg PO BID Qty: 60 RF: 0 cholecalciferol (vitamin D3) 2,000 unit tablet 2,000 unit PO DAILY Qty: 30 RF: 0 acetaminophen 500 mg tablet 500 - 1,000 mg PO BID MDD 3g/24hr PRN (Reason: Pain) Qty: 30 RF: 0 pravastatin 20 mg tablet 20 mg PO DAILY Qty: 28 RF: 0 amlodipine 5 mg tablet 5 mg PO DAILY Qty: 30 RF: 0 loperamide 2 mg capsule 2 mg PO UD MDD 8 caps PRN (Reason: loose stools) Qty: 30 RF: 0 clopidogrel 75 mg tablet 75 mg PO DAILY Qty: 90 RF: 3 metoprolol tartrate 50 mg tablet 50 mg PO BID Qty: 180 RF: 3 multivitamin capsule 1 cap PO DAILY Qty: 30 RF: 0 pantoprazole 40 mg tablet,delayed release (DR/EC) 40 mg PO BID Qty: 180 RF: 3 ranitidine HCl 150 mg Tablet 150 mg PO BID RF: 0 sucralfate 100 mg/mL suspension 1 gm PO TID PRN (Reason: indigestion or nausea) RF: 0 latanoprost 0.005 % drops 1 drops OPB QPM RF: 0 Referrals Referrals: Pro,Landon Spear MD [Primary Care Provider] - The scribe's documentation has been prepared under my direction and personally reviewed by me in its entirety. I confirm that the note above accurately reflects all work, treatment, procedures, and medical decision making performed by me.
[2018-08-27] MEDS ORDERED: ALUMINUM/MAGNESIUM SUSP 30 ML UDC PO PRN (05:58)
[2018-08-27] MEDS ORDERED: NITROGLYCERIN SL 0.4 MG/TAB TAB SL PRN (05:58)
[2018-08-27] MEDS ORDERED: ACETAMINOPHEN 325 MG TAB PO PRN (05:58)
[2018-08-27] MEDS ORDERED: ONDANSETRON INJ 2 MG/ML 2 ML VIAL IV PRN (05:58)
--- NOTE | 2018-08-27 07:10 | XRay Report ---
XR chest 1V portable CLINICAL HISTORY: 88 years-old Female presenting with CP. TECHNIQUE: Portable upright AP view of the chest was obtained. COMPARISON: 08/11/2017. FINDINGS: Atherosclerosis of the aortic arch. Cardiac silhouette enlarged. Mitral annular calcification noted. Mildly low lung volumes. Diffusely coarsened lung markings. Prior right midlung opacity has resolved. No focal opacity. No large effusion or pneumothorax. Degenerative changes of the thoracic spine. Upp er abdomen normal. IMPRESSION: 1. Cardiomegaly. No evidence of volume overload or pulmonary edema. 2. Mildly low lung volumes with hypoventilatory changes. Electronically signed by: Jensen Yuan M.D. 08/27/2018 7:09 AM
--- NOTE | 2018-08-27 07:45 | Family Medicine Progress Note ---
Date of Service August 27, 2018 Assessment & Plan (1) Substernal chest pain: See discharge summary from same date. Supervising Physician Co-Signing Physician Notes See discharge summary from same date. Results & Data Vital Signs (Past 12 Hours) Vital Signs Temp Pulse Pulse Resp BP BP Pulse Ox 08/27/18 06:55 36.7 C 59 L 18 127/73 92 08/27/18 05:45 36.5 C 66 16 152/78 H 92 08/27/18 05:08 65 16 155/71 H 95 08/27/18 04:23 60 16 138/87 94 08/27/18 02:31 64 24 155/52 H 94 08/27/18 02:30 63 22 93 08/27/18 02:06 61 28 H 141/80 H 94 08/27/18 02:00 62 18 94 08/27/18 01:30 62 21 146/63 H 93 08/27/18 01:25 36.5 C 63 17 148/75 H 95 08/27/18 01:24 65 24 95 08/27/18 01:22 63 20 148/75 H 95
[2018-08-27] MEDS ORDERED: AMLODIPINE BESYLATE 5 MG TAB PO SCH (09:00)
[2018-08-27] MEDS ORDERED: CLOPIDOGREL BISULFATE 75 MG TAB PO SCH (09:00)
[2018-08-27] MEDS ORDERED: METOPROLOL TARTRATE 50 MG TAB PO SCH (09:00)
[2018-08-27] MEDS ORDERED: PRAVASTATIN SOD 20 MG TAB PO SCH (09:00)
[2018-08-27] MEDS ORDERED: levETIRAcetam 500 MG TAB PO SCH (09:00)
[2018-08-27] MEDS ORDERED: PANTOprazole 40 MG TAB PO SCH (09:00)
--- NOTE | 2018-08-27 17:43 | Discharge Summary ---
Date of Service August 27, 2018 Admission HPI Per Admitting Provider 88 yo F with history of HTN, HLD, CVA, ,GERD, CLL, Asthma, Epilepsy, Osteopenia, Meningioma presenting with history of chest pain. Patient reports chest pain radiating to back, shoulders, bilaterally. Pain started 10: 30 pm, sharp quality involving back with pressure sensation in chest, like a tightness. It lasted about 1-2 hrs. Symptoms occurred while patient was using the bathroom. She took no medication for symptoms. She also reported lightheadedness, no fevers, chills, n/v, abdominal pain, sob, palpitation. Pain never recurred. She denies calf pain. Patient does have history asthma but feels symptoms are distinct form those symptoms. In the ED, patient arrived afebrile , vs. WBC ct 24.97 however chronically elevated and within baseline, anemic at baseline, bmp unremarkable, UA unremarkable, ekg neg for ischemic changes, initial troponin negative. Patient did not receive aspirin due to listed allergy. Admission Exam Per Admitting Provider GENERAL APPEARANCE: alert and cooperative, and appears to be in no acute distress. HEAD: normocephalic. EYES: PERRL, EOMI. vision is grossly intact. EARS: hearing grossly intact. NOSE: No nasal discharge. NECK: Neck supple, non-tender without lymphadenopathy CARDIAC: Normal S1 and S2. Systolic ejection murmur, Rhythm is regular LUNGS: Clear to auscultation and percussion without rales, rhonchi, wheezing or diminished breath sounds. ABDOMEN: Positive bowel sounds. Soft, nondistended, nontender. No guarding or rebound. No masses. LOWER EXTREMITY: no edema NEUROLOGICAL: CN II-XII grossly intact. Strength and sensation symmetric and grossly intact throughout. SKIN: Skin normal color, texture and turgor with no lesions or eruptions. Principal Diagnosis Chest Pain Discharge Exam General: Alert, oriented. No acute distress HEENT: NC/AT, PERRLA, EOMI, oropharynx moist. Chest: Nontender to palpation. CV: RRR, blowing murmur appreciated Resp: Breath sounds clear bilaterally, no increased effort of breathing. No crackles/rhonchi/rales. Abdomen: Soft, nontender, nondistended. No guarding. No organomegaly appreciated. Extremities: Dependent edema noted in lower extremities bilaterally. Discharge Data Allergies Allergy/AdvReac Type Severity Reaction Status Date / Time Penicillins Allergy Mild RASH Verified 08/27/18 03:10 Sulfa (Sulfonamide Allergy Mild RASH Verified 08/27/18 03:10 Antibiotics) aspirin AdvReac Unknown BLEEDING Verified 08/27/18 03:10 Consultations 08/27/18 02:46 ED Decision to Admit Stat 08/27/18 05:58 Consult Case Management - Discharge Planning Routine 08/27/18 16:23 Consult Case Management - Discharge Planning Routine Hospital Course (1) Substernal chest pain: 88 yo F with history of HTN, HLD, CVA, ,GERD, CLL, Asthma, Epilepsy, Osteopenia, Meningioma presenting with history of chest pain. Admitted on August 27 2018 and discharged the same day after ACS rule-out. Chest Pain -Described as back pain associated with chest pressure and tightness. -Normal EKG, negative troponin trend and no arrhythmias noted on telemetry overnight. -Echocardiography showed severe aortic stenosis -chest pain etiology unclear. ischemic less likely given negative ekg, troponin. However patient has multiple CAD risk factors as above. -Chest pain may be secondary to known history of Aortic Stenosis, esophageal spasm/reflux, etc. 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 Kenyon upon discharge, as well as PCP for continued workup (possible stress test?) and monitoring. (2) Aortic stenosis: possible contributor to symptoms last echo 2012 showed only mild Aortic stenosis recent PCP note reported progression to severe A.S. Followup with pt's blackjack supervisor and PCP strongly recommended. (3) Hypertension: Metoprolol, Amlodipine was continued (4) Hyperlipidemia: Pravastatin was continued (5) History of stroke: Plavix was continued. (6) History of chronic lymphocytic leukemia: Asymptomatic stable elevation of WBC ct Pt states she follows with PCP Dr. Regan, close PCP followup recommended. (7) Meningioma: s/p resection stable (8) History of esophageal reflux: PPI was continued. (9) Seizure disorder: Keppra was continued (10) DVT prophylaxis: SCD's Total Time Total Time Spent Total Time Spent (In Minutes): 60 Discharge Plan Discharge Items Patient Disposition: Home - Self-Care Reason For Visit: CHEST PAIN Discharge Diagnosis: NONTYPICAL CHEST PAIN Discharge Goals: Decrease discomfort and Improve function Activity: Per 'Additional Instructions' section Non-emergency contact: Primary Care Provider Call non-emergency contact if: your symptoms worsen and you have a fever Follow-up/Referrals: ProLandon MD [Primary Care Provider] - Diet: Regular Addtl Provider Instructions: Chest Pain -You were admitted to determine the cause of your chest pain. -We ruled out a heart cause as your EKG, heart enzymes and overnight monitoring of your heart showed no abnormalities. We also did an ultrasound of your heart and that showed severe aortic stenosis. Please follow up with your blackjack supervisor Dr. Kenyon in the next week. -We are not sure the cause of your chest pain but it is possible that it was related to you esophageal reflux, your asthma or your Hx of aortic stenosis. -Please followup with your primary care physician within the next week for this chest pain. Prescriptions: Continued levetiracetam 1,000 mg tablet 1,000 mg PO BID Qty: 60 RF: 0 cholecalciferol (vitamin D3) 2,000 unit tablet 2,000 unit PO DAILY Qty: 30 RF: 0 acetaminophen 500 mg tablet 500 - 1,000 mg PO BID MDD 3g/24hr PRN (Reason: Pain) Qty: 30 RF: 0 pravastatin 20 mg tablet 20 mg PO DAILY Qty: 28 RF: 0 amlodipine 5 mg tablet 5 mg PO DAILY Qty: 30 RF: 0 loperamide 2 mg capsule 2 mg PO UD MDD 8 caps PRN (Reason: loose stools) Qty: 30 RF: 0 clopidogrel 75 mg tablet 75 mg PO DAILY Qty: 90 RF: 3 metoprolol tartrate 50 mg tablet 50 mg PO BID Qty: 180 RF: 3 multivitamin capsule 1 cap PO DAILY Qty: 30 RF: 0 pantoprazole 40 mg tablet,delayed release (DR/EC) 40 mg PO BID Qty: 180 RF: 3 ranitidine HCl 150 mg Tablet 150 mg PO BID RF: 0 sucralfate 100 mg/mL suspension 1 gm PO TID PRN (Reason: indigestion or nausea) RF: 0 latanoprost 0.005 % drops 1 drops OPB QPM RF: 0 Stand-Alone Forms: My [facility] [employer]/Other Patient Handouts: GERD, Tips Control Acid Reflux, Stenosis Aortic Valve Dc Discharge Orders: Discharge Order (Routine); Ordered 08/27/18 Ordered By: Nataliya Dalton Admission Data Admit Date/Time: 08/27/18 04:15 Attending Provider: Mohamud Rutledge Admit Provider: Scot Stallings Primary Care Provider: Landon Regan Other Providers: Scot Stallings Service: Telemetry Other Interventions: Discharge Summary Assessment (RN) Last Done: 08/27/18 16:41 DC Date/Time DO NOT enter until pt leaves facility: 08/27/18 19:09 Supervising Physician Co-Signing Physician Notes Attending attestation Pt seen and examined in concert with Dr. Dalton. In agreement with the documented findings as noted in the resident documentation with any exceptions or additions as noted here. Resting comfortably in bed without recurrence of chest discomfort. Per patient, got up from the chair to go to the restroom and became mildly lightheaded, which is chronic for her, and then developed her chronic bilateral sharp back pain with the chest pressure in question for approx 2 hours without other symptoms. Chest pressure evaluated ~10 years prior w/ stress testing. On examination, S1/S2 nl RRR, +ve 3/6 ÁNGEL Nontypical chest pain - Negative troponins x 2. Echocardiogram w/ severe aortic stenosis without likely contributory to pain Aortic stenosis - follows w/ Dr. Kenyon, would follow for outpatient evaluation and management Else see resident documentation as noted. Resident Activity Tracking Resident Involvement: Resident Care Provided Care Provided: Adult Hospital Medicine
[2018-08-27] MEDS ORDERED: LATANOPROST 0.005% OP SOLN 2.5 ML BTL OPB SCH (21:00)
== END 2018-08-27 19:09 | disposition home or self-care (01) ==
LOC: ED 01:18 → 2S 01:18 → SUATTDRO 04:15 → 2S 05:08

== ENCOUNTER 2019-01-10 19:30 | Inpatient (IN) ==
--- NOTE | 2019-01-10 20:39 | XRay Report ---
XR chest 1V portable HISTORY: 88 years-old Female SOB acute shortness of breath COMPARISON: Chest radiograph 08/27/2018 TECHNIQUE: Portable AP view of the chest FINDINGS: Cardiac silhouette is enlarged, unchanged. Hiatal hernia. Calcified plaque of the thoracic aortic arc h. No pneumothorax, pleural effusion, overt pulmonary edema or airspace consolidation. Mild linear waggoner bsegmental atelectasis/scarring of the lung bases and lateral right midlung. Degenerative changes of the shoulders and spine. IMPRESSION: 1. Cardiomegaly without acute process. 2. Hiatal hernia. The above report was generated using voice recognition software. It may contain grammatical, syntax o r spelling errors. Electronically signed by: Chuy Mohamud M.D. 01/10/2019 8:38 PM
[2019-01-10 21:45] LABS: Hematocrit (blood only) 25.3 % (37-47); Hemoglobin 7.6 g/dL (12.0-16.0); Mean Corpuscular Volume 76.4 fL (80-100); Mean Platelet Volume 8.4 fL (7.4-10.4); Platelet Count 396 K/uL (130-400); RDW Coefficient of Variation 15.8 % (11.5-14.5); RDW Standard Deviation 44.1 fL (36.4-46.3); Red Blood Count 3.31 M/uL (4.2-5.4); White Blood Count 24.76 K/uL (4.8-10.8)
[2019-01-10 21:55] LABS: Partial Thromboplastin Ratio 0.9; Partial Thromboplastin Time 24.4 Seconds (21.0-31.0); Prothrombin Time 10.6 Seconds (9.0-12.0)
[2019-01-10 22:06] LABS: Alanine Aminotransferase 15 U/L (12-78); Aspartate Aminotransferase 20 U/L (15-37); BUN Creatinine Ratio 12.8 (10-20); Blood Urea Nitrogen 15 mg/dl (7-18); Calcium 8.9 mg/dl (8.5-10.1); Carbon Dioxide 25 mmol/L (21-32); Chloride 106 mmol/L (98-107); Creatinine Clr Calc Pharmacy 32.4 ml/min; Est GFR (African American) 49.4; Est GFR (Non-African American) 42.6; Glucose 114 mg/dl (70-99); Potassium 4.5 mmol/L (3.5-5.1); Sodium 138 mmol/L (136-145)
[2019-01-10 22:10] LABS: Albumin Globulin Ratio 1.1 (0.9-2); Alkaline Phosphatase 118 U/L (45-117); Bilirubin,Total 0.2 mg/dl (0.2-1); Globulin 3.7 gm/dl (2.5-4.0); Total Protein 7.7 gm/dl (6.4-8.2); Troponin I < 0.015 ng/ml (0-0.045)
[2019-01-10 22:54] LABS: Basophils # (auto) 0.08 K/uL (0-0.2); Basophils % (auto) 0.3 %; Eosinophils % (auto) 1.6 %; Hypochromasia Present; Immature Granulocytes # (auto) 0.04 K/uL (0.00-0.02); Immature Granulocytes % (auto) 0.2 %; Lymphocytes # (auto) 16.94 K/uL (1.2-3.4); Lymphocytes % (auto) 68.4 %; Monocytes # (auto) 1.31 K/uL (0.11-0.59); Monocytes % (auto) 5.3 %; Neutrophils # (auto) 5.99 K/uL (1.4-6.5); Neutrophils % (auto) 24.2 %; Ovalocytes 1+; Smudge Cells Present
--- NOTE | 2019-01-11 00:41 | Emergency Department Note ---
Entered by Caty Lino acting as a scribe for Jozef Royal MD History of Present Illness General Chief complaint: Respiratory Problems Stated complaint: COUGH, SOB, FLUID RETENTION, PULSE 80 Time Seen by Provider: 01/10/19 20:42 Source: patient History of Present Illness Onset (ago): day(s) (several) Location: chest Pain Consistency: + intermittent Maximum Pain Intensity: 0 Quality: + other (cough) Associated symptoms: + denies other symptoms (blood in stools) and + other (congestion, leg swelling); no fever/chills The patient is a 88 year old female who presents to the Emergency Room with complaints of an intermittent cough beginning several days ago. The patient states she visited her PCP 2 hours ago who listened to her chest, said it was congested, and told her she needed to go to the ER for possible pneumonia. The patient notes her cough brings up clear mucous but no blood. She notes swelling in her legs. She denies fever, chills, blood in stools. She reports she is currently on Plavix. She denies taking a diarrhetic. The patient reports being treated for bronchitis with Azithromycin 10 days ago. The patient reports a history of leukemia, an irregular heartbeat, and seizures. She denies a history of lung problems. She reports chronic lightheadedness, but currently no change from her normal. Home Medications Home Medications Medication Instructions Recorded Confirmed Type acetaminophen 500 mg tablet 500 - 1,000 mg PO BID PRN #30 tab 07/16/18 01/10/19 History MDD 3g/24hr cholecalciferol (vitamin D3) 2,000 2,000 unit PO DAILY #30 tab 07/16/18 01/10/19 History unit tablet levetiracetam 1,000 mg tablet 1,000 mg PO BID #60 tab 07/16/18 01/10/19 History loperamide 2 mg capsule 2 mg PO UD PRN #30 cap MDD 8 caps 07/16/18 01/10/19 History clopidogrel 75 mg tablet 75 mg PO DAILY #90 tab 08/14/18 01/10/19 Rx multivitamin capsule 1 cap PO DAILY #30 cap 08/14/18 01/10/19 Rx latanoprost 1 drops OPB QPM 08/27/18 01/10/19 History sucralfate 1 gm PO TID PRN 08/27/18 01/10/19 History metoprolol tartrate 50 mg tablet 50 mg PO BID #180 tab 09/12/18 01/10/19 Rx amlodipine 5 mg tablet 5 mg PO DAILY #90 tab 11/06/18 01/10/19 Rx pravastatin 20 mg tablet 20 mg PO DAILY #90 tab 11/06/18 01/10/19 Rx pantoprazole 40 mg tablet,delayed 40 mg PO BID #180 tab 12/10/18 01/10/19 Rx release famotidine 20 mg tablet 20 mg PO DAILY 12/31/18 01/10/19 History Allergies Allergy/AdvReac Type Severity Reaction Status Date / Time Penicillins Allergy Mild RASH Verified 01/10/19 22:30 Sulfa (Sulfonamide Allergy Mild RASH Verified 01/10/19 22:30 Antibiotics) aspirin AdvReac Unknown BLEEDING Verified 01/10/19 22:30 Past Med/Surg History Medical History Osteopenia (Acute) Meningioma (Acute) Left hip pain (Acute) Hypertension (Acute) Hyperlipidemia (Acute) History of stroke (Acute) History of fall (Acute) History of esophageal reflux (Acute) History of chronic lymphocytic leukemia (Acute) History of bronchitis (Acute 11/24/12) History of asthma (Acute 11/24/12) Glaucoma (Acute) 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) Aortic stenosis (Acute) Allergic rhinitis (Acute) Asthma (Acute) Asthma exacerbation (Acute 03/02/14) Craniotomy (Resolved 12/13/12) History of - pneumonia (Resolved 11/24/12) History of - tubal ligation (Resolved 11/24/12) Intractable nausea and vomiting PNA (pneumonia) (Acute) RLL pneumonia (Acute 03/02/14) Surgical History History of appendectomy (Acute 11/24/12) Family History Other No pertinent family history Social History Preferred Language: Estonian Communication Ability: Effective Insurance Account Specialist Required: No Beliefs That Will Affect Care: None Current Living Situation: Alone and Personal Care Facility Feels Safe at Home: Yes Smoking Status: Never smoker Hx Alcohol Use: No Hx Substance Use: No Seatbelt Use: always Review of Systems See HPI for pertinent positives & negatives. and A total of 10 systems reviewed and were otherwise negative Physical Exam Vital Signs Vital Signs - 24 hr 01/10/19 19:56 01/10/19 20:08 01/10/19 20:30 Temperature 36.7 C Temperature Source Oral Sepsis Recent Fever Within 48 Hours No Sepsis New/Unexplained Change in Mental Status No Sepsis Action Taken by Nursing No Action Required Pulse Rate 58 L 63 61 Pulse Rate from SpO2 Sensor 61 59 L Respiratory Rate 20 21 22 Blood Pressure 94/47 L 122/58 L 124/51 L Blood Pressure Mean 62 79 75 Pulse Oximetry 96 93 94 Oxygen Delivery Method Room Air 01/10/19 20:39 01/10/19 20:41 01/10/19 20:42 Temperature Temperature Source Sepsis Recent Fever Within 48 Hours Sepsis New/Unexplained Change in Mental Status Sepsis Action Taken by Nursing Pulse Rate 60 Pulse Rate from SpO2 Sensor 62 Respiratory Rate 22 Blood Pressure 124/51 L Blood Pressure Mean 75 Pulse Oximetry 96 95 95 Oxygen Delivery Method Room Air Room Air 01/10/19 21:00 01/10/19 21:30 01/10/19 22:01 Temperature Temperature Source Sepsis Recent Fever Within 48 Hours Sepsis New/Unexplained Change in Mental Status Sepsis Action Taken by Nursing Pulse Rate 59 L 59 L 59 L Pulse Rate from SpO2 Sensor 59 L Respiratory Rate 19 21 22 Blood Pressure 126/76 123/55 L 123/77 Blood Pressure Mean 92 77 92 Pulse Oximetry 96 96 94 Oxygen Delivery Method Room Air Room Air 01/10/19 22:30 01/10/19 23:02 01/10/19 23:30 Temperature Temperature Source Sepsis Recent Fever Within 48 Hours Sepsis New/Unexplained Change in Mental Status Sepsis Action Taken by Nursing Pulse Rate 58 L 60 60 Pulse Rate from SpO2 Sensor 58 L Respiratory Rate 23 22 18 Blood Pressure 129/61 137/50 L 115/46 L Blood Pressure Mean 83 79 69 Pulse Oximetry 94 94 94 Oxygen Delivery Method Room Air 01/11/19 00:33 01/11/19 01:01 Temperature Temperature Source Sepsis Recent Fever Within 48 Hours Sepsis New/Unexplained Change in Mental Status Sepsis Action Taken by Nursing Pulse Rate 68 62 Pulse Rate from SpO2 Sensor 67 62 Respiratory Rate 27 H 23 Blood Pressure 117/75 144/58 H Blood Pressure Mean 89 86 Pulse Oximetry 93 93 Oxygen Delivery Method General: Non-ill appearing older female in no acute distress. HEENT: Normal cephalic atraumatic. Pupils are equal round and reactive to light. Extraocular movements are intact. Oropharynx is pink with moist mucous membranes. No swelling of the mouth lips or tongue. Neck: Supple with a midline trachea. No meningeal signs or stiffness, no JVD or bruits. No Stridor. Chest: Clear to auscultation bilaterally. No wheezes or rhonchi. No increased work of breathing. Heart: regular rate and rhythm. Abdomen: Soft nontender, nondistended without rebound guarding or rigidity. Extremities: No cyanosis clubbing or edema. No calf tenderness or asymmetry Spine/Back. Non tender to palpation. No CVA tenderness Skin: Good turgor without rashes. Neurologic exam: Cranial nerves two through 12 are intact. Motor and sensation are intact and symmetrical throughout. Course 2044: Past medical records reviewed. The patient was evaluated in room B04B. A complete history and physical exam was performed. 2244: Upon reevaluation, the patient was resting more comfortably. I discussed findings and results with the patient. She verbalized agreement of the treatment plan. 2319: Upon reevaluation, I discussed findings and results with the patient. She verbalized agreement of the treatment plan. I spoke with Dr. Stallings of the [facility] Hospitalist Service. The patient will be evaluated for further management and care. Medical Decision Making Differential Diagnosis Differential diagnosis: CHF, cardiac disease, PE, pneumonia, electrolyte and metabolic abnormality Medical Records Attestation: I reviewed the patient's medical records. Home Medications Current Medication List: was personally reviewed by me Laboratory Data Attestation: I reviewed the patient's lab results. Result diagrams: 01/10/19 21:37 01/10/19 21:37 Lab Results 01/10/19 01/10/19 01/10/19 Range/Units 21:37 21:37 21:37 WBC 24.76 H (4.8-10.8) K/uL RBC 3.31 L (4.2-5.4) M/uL Hgb 7.6 L (12.0-16.0) g/dL Hct 25.3 L (37-47) % MCV 76.4 L (80-100) fL MCH 23.0 L (25-34) pg MCHC 30.0 L (32-36) g/dL RDW Std Deviation 44.1 (36.4-46.3) fL RDW Coeff of Esteban 15.8 H (11.5-14.5) % Plt Count 396 (130-400) K/uL MPV 8.4 (7.4-10.4) fL Immature Gran % (Auto) 0.2 % Neut % (Auto) 24.2 % Lymph % (Auto) 68.4 % Stearns % (Auto) 5.3 % Eos % (Auto) 1.6 % Baso % (Auto) 0.3 % Immature Gran # (Auto) 0.04 H (0.00-0.02) K/uL Neut # (Auto) 5.99 (1.4-6.5) K/uL Lymph # (Auto) 16.94 H (1.2-3.4) K/uL Stearns # (Auto) 1.31 H (0.11-0.59) K/uL Eos # (Auto) 0.40 (0-0.5) K/uL Baso # (Auto) 0.08 (0-0.2) K/uL Smudge Cells Present Hypochromasia Present Ovalocytes 1+ PT 10.6 (9.0-12.0) Seconds INR 1.0 (0.9-1.1) APTT 24.4 (21.0-31.0) Seconds PTT Ratio 0.9 Sodium 138 (136-145) mmol/L Potassium 4.5 (3.5-5.1) mmol/L Chloride 106 (98-107) mmol/L Carbon Dioxide 25 (21-32) mmol/L Anion Gap 7.0 (3-11) BUN 15 (7-18) mg/dl Creatinine 1.16 (0.6-1.2) mg/dl Est Cr Clr Drug Dosing 32.4 ml/min Est GFR ( Amer) 49.4 Est GFR (Non-Af Amer) 42.6 BUN/Creatinine Ratio 12.8 (10-20) Glucose 114 H (70-99) mg/dl Calcium 8.9 (8.5-10.1) mg/dl Total Bilirubin 0.2 (0.2-1) mg/dl AST 20 (15-37) U/L ALT 15 (12-78) U/L Alkaline Phosphatase 118 H (45-117) U/L Troponin I < 0.015 (0-0.045) ng/ml Total Protein 7.7 (6.4-8.2) gm/dl Albumin 4.0 (3.4-5.0) gm/dl Globulin 3.7 (2.5-4.0) gm/dl Albumin/Globulin Ratio 1.1 (0.9-2) Blood Type Antibody Screen 01/10/19 Range/Units 23:17 WBC (4.8-10.8) K/uL RBC (4.2-5.4) M/uL Hgb (12.0-16.0) g/dL Hct (37-47) % MCV (80-100) fL MCH (25-34) pg MCHC (32-36) g/dL RDW Std Deviation (36.4-46.3) fL RDW Coeff of Esteban (11.5-14.5) % Plt Count (130-400) K/uL MPV (7.4-10.4) fL Immature Gran % (Auto) % Neut % (Auto) % Lymph % (Auto) % Stearns % (Auto) % Eos % (Auto) % Baso % (Auto) % Immature Gran # (Auto) (0.00-0.02) K/uL Neut # (Auto) (1.4-6.5) K/uL Lymph # (Auto) (1.2-3.4) K/uL Stearns # (Auto) (0.11-0.59) K/uL Eos # (Auto) (0-0.5) K/uL Baso # (Auto) (0-0.2) K/uL Smudge Cells Hypochromasia Ovalocytes PT (9.0-12.0) Seconds INR (0.9-1.1) APTT (21.0-31.0) Seconds PTT Ratio Sodium (136-145) mmol/L Potassium (3.5-5.1) mmol/L Chloride (98-107) mmol/L Carbon Dioxide (21-32) mmol/L Anion Gap (3-11) BUN (7-18) mg/dl Creatinine (0.6-1.2) mg/dl Est Cr Clr Drug Dosing ml/min Est GFR ( Amer) Est GFR (Non-Af Amer) BUN/Creatinine Ratio (10-20) Glucose (70-99) mg/dl Calcium (8.5-10.1) mg/dl Total Bilirubin (0.2-1) mg/dl AST (15-37) U/L ALT (12-78) U/L Alkaline Phosphatase (45-117) U/L Troponin I (0-0.045) ng/ml Total Protein (6.4-8.2) gm/dl Albumin (3.4-5.0) gm/dl Globulin (2.5-4.0) gm/dl Albumin/Globulin Ratio (0.9-2) Blood Type A Negative Antibody Screen NEGATIVE Imaging Data Radiologist's Impression: Radiology results as stated below per my review and the radiologist's interpretation: XR chest 1V portable HISTORY: 88 years-old Female SOB acute shortness of breath COMPARISON: Chest radiograph 08/27/2018 TECHNIQUE: Portable AP view of the chest FINDINGS: Cardiac silhouette is enlarged, unchanged. Hiatal hernia. Calcified plaque of the thoracic aortic arch. No pneumothorax, pleural effusion, overt pulmonary edema or airspace consolidation. Mild linear subsegmental atelectasis/scarring of the lung bases and lateral right midlung. Degenerative changes of the shoulders and spine. IMPRESSION: 1. Cardiomegaly without acute process. 2. Hiatal hernia. The above report was generated using voice recognition software. It may contain grammatical, syntax or spelling errors. Electronically signed by: Chuy Mohamud M.D. 01/10/2019 8:38 PM ECG Data Attestation: I personally reviewed and interpreted this ECG as follows: Indication: SOB/dyspnea Rate (beats per minute): 63 Rhythm: sinus bradycardia ECG Findings: PACs (frequent) and Other (no ST elevation, no ST depression) Comparison ECG Date: from (08/27/2018) Change: the following changes noted (PACs now present) Blood Pressure Blood Pressure Findings: Low blood pressure Blood Pressure Disposition: further management by hospitalist [facility] Narrative This patient comes in as described above. she has had some shortness of breath. She has had a cough. Her symptoms are mostly on exertion. She looks well at rest and is stable normal vital signs. She is not tachycardic. she is normotensive. she is non-hypoxemic. She is seen in her primary doctor's office and referred to the ER with concern for possible CHF or pneumonia. Chest x-ray was clear. EKG shows PACs but no ischemic changes or significant arrhythmia. She has no acute electrolyte or metabolic abnormalities. Her white count is elevated 24,000. This is consistent with her chronic leukemia. Her hemoglobin however was low at 7.6. She does not recall lose any blood in her stool but she said her stool was dark a week or so ago when she was on azithromycin for a couple days but not at present. I did do a rectal exam with a female nurse present and her stool was brown and normal-appearing it was however guaiac positive. I think that she likely does have a GI bleed. she was typed and screened and most likely that is the cause of her anemia given her history of CLL that could also be contributing and there could be a bone marrow cause as well. I do think she needs to be admitted for further treatment and evaluation and possible transfusion I have consulted Dr. Celestin to see her in the ER for these measures. Impression & Plan Anemia, MARCANO (dyspnea on exertion), Chronic lymphocytic leukemia, Heme positive stool, Weakness Discharge Plan Visit Data Chief Complaint: Respiratory Problems Stated Complaint: COUGH, SOB, FLUID RETENTION, PULSE 80 ED Provider: Jozef Royal Discharge Problem: Anemia, MARCANO (dyspnea on exertion), Chronic lymphocytic leukemia, Heme positive stool, Weakness Patient Disposition: Being Evaluated by Hospitalist Forms Stand Alone Forms: My [facility] Prescriptions Prescriptions: No Action metoprolol tartrate 50 mg tablet 50 mg PO BID Qty: 180 RF: 3 pravastatin 20 mg tablet 20 mg PO DAILY Qty: 90 RF: 1 amlodipine 5 mg tablet 5 mg PO DAILY Qty: 90 RF: 1 pantoprazole 40 mg tablet,delayed release (DR/EC) 40 mg PO BID Qty: 180 RF: 3 levetiracetam 1,000 mg tablet 1,000 mg PO BID Qty: 60 RF: 0 cholecalciferol (vitamin D3) 2,000 unit tablet 2,000 unit PO DAILY Qty: 30 RF: 0 acetaminophen 500 mg tablet 500 - 1,000 mg PO BID MDD 3g/24hr PRN (Reason: Pain) Qty: 30 RF: 0 loperamide 2 mg capsule 2 mg PO UD MDD 8 caps PRN (Reason: loose stools) Qty: 30 RF: 0 clopidogrel 75 mg tablet 75 mg PO DAILY Qty: 90 RF: 3 multivitamin capsule 1 cap PO DAILY Qty: 30 RF: 0 famotidine 20 mg tablet 20 mg PO DAILY RF: 0 sucralfate 100 mg/mL suspension 1 gm PO TID PRN (Reason: indigestion or nausea) RF: 0 latanoprost 0.005 % drops 1 drops OPB QPM RF: 0 Referrals Referrals: Landon Regan MD [Primary Care Provider] - Discharge Problem: Anemia Qualifiers: Anemia type: other cause Other causes of anemia: other cause, not classified Qualified Code(s): D64.89 - Other specified anemias The scribe's documentation has been prepared under my direction and personally reviewed by me in its entirety. I confirm that the note above accurately reflects all work, treatment, procedures, and medical decision making performed by me.
[2019-01-11] MEDS ORDERED: ACETAMINOPHEN 325 MG TAB PO PRN (01:57)
[2019-01-11] MEDS ORDERED: POLYETHYLENE (MIRALAX) 17 GM PACK PO PRN (01:57)
[2019-01-11] MEDS ORDERED: SUCRALFATE 1 GM/10 ML UDC PO PRN (01:57)
[2019-01-11] MEDS ORDERED: SODIUM CHLORIDE 0.9% 250 ML IV PRN ×2 (02:10→05:09)
--- NOTE | 2019-01-11 02:10 | History & Physical Report ---
Date of Service January 11, 2019 Assessment & Plan (1) Anemia: 88-year-old female with a history of aortic stenosis, hypertension, hyperlipidemia, and meningioma subsequent seizure disorder, CVA, CLL presents with hypoxia with exertion. Found to have hemoglobin of 7.6. Patient stools were heme positive, but did not appear melanotic. Symptomatic microcytic anemia, possibly secondary to an upper GI source Patient had heme positive stools, GI consulted, appreciate recommendations Patient typed and screened, consented for blood, transfuse 1 unit Continue additional work-up of anemia: Iron, ferritin, TIBC, reticulocyte count, LDH, peripheral smear Hold Plavix, keep the patient n.p.o., hold all oral medications at least 4 hours prior to upper GI study, adding daily Pepcid, continue Protonix, Aortic stenosis Chest x-ray showed cardiomegaly without pulmonary edema Meningioma, seizure disorder Continue Keppra Hypertension/hyperlipidemia/history of CVA Continue amlodipine, metoprolol, atorvastatin Hold Plavix GERD Continue Protonix Add Pepcid CODE STATUSDNR/DNI Dietn.p.o. 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 Patient was dyspneic this morning and was found in her PCPs office to have desaturations in the 80s with ambulation. Patient states that the dyspnea has been ongoing over the past couple months, but she is recently noticed a cough and some hoarseness. She denies any bear blood with bowel movements, she denies melanotic stools, she denies hemoptysis. She denies abdominal pain, nausea/vomiting/diarrhea. She denies a history of colon cancer, ulcerative colitis, Crohn's disease. She denies a history of hemorrhoids, but reports occasional spotting on toilet paper. Her last colonoscopy was over 10 years ago, she denies any abnormal colonoscopies in the past. 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 Patient admits to cognitive issues following her history of meningioma, craniotomy and subsequent seizure disorder. She says these issues have improved with rehab and she currently lives at an assisted living facility. Review of systems Constitutional; no fevers, chills, night sweats HEENT; reports hoarseness, denies sore throat, runny nose CV; denies chest pain, palpitations, worsening edema Pulmonary; reports dyspnea with exertion, denies hemoptysis, reports a persistent cough Abdomen; denies abdominal pain, nausea/vomiting/diarrhea Allergies Allergy/AdvReac Type Severity Reaction Status Date / Time Penicillins Allergy Mild RASH Verified 01/10/19 22:30 Sulfa (Sulfonamide Allergy Mild RASH Verified 01/10/19 22:30 Antibiotics) aspirin AdvReac Unknown BLEEDING Verified 01/10/19 22:30 Home Medications Home Medications Medication Instructions Recorded Confirmed Type acetaminophen 500 mg tablet 500 - 1,000 mg PO BID PRN #30 tab 07/16/18 01/10/19 History MDD 3g/24hr cholecalciferol (vitamin D3) 2,000 2,000 unit PO DAILY #30 tab 07/16/18 01/10/19 History unit tablet levetiracetam 1,000 mg tablet 1,000 mg PO BID #60 tab 07/16/18 01/10/19 History loperamide 2 mg capsule 2 mg PO UD PRN #30 cap MDD 8 caps 07/16/18 01/10/19 History clopidogrel 75 mg tablet 75 mg PO DAILY #90 tab 08/14/18 01/10/19 Rx multivitamin capsule 1 cap PO DAILY #30 cap 08/14/18 01/10/19 Rx latanoprost 1 drops OPB QPM 08/27/18 01/10/19 History sucralfate 1 gm PO TID PRN 08/27/18 01/10/19 History metoprolol tartrate 50 mg tablet 50 mg PO BID #180 tab 09/12/18 01/10/19 Rx amlodipine 5 mg tablet 5 mg PO DAILY #90 tab 11/06/18 01/10/19 Rx pravastatin 20 mg tablet 20 mg PO DAILY #90 tab 11/06/18 01/10/19 Rx pantoprazole 40 mg tablet,delayed 40 mg PO BID #180 tab 12/10/18 01/10/19 Rx release famotidine 20 mg tablet 20 mg PO DAILY 12/31/18 01/10/19 History Past Med/Surg History Medical History Osteopenia (Acute) Meningioma (Acute) Left hip pain (Acute) Hypertension (Acute) Hyperlipidemia (Acute) History of stroke (Acute) History of fall (Acute) History of esophageal reflux (Acute) History of chronic lymphocytic leukemia (Acute) History of bronchitis (Acute 11/24/12) History of asthma (Acute 11/24/12) Glaucoma (Acute) 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) Aortic stenosis (Acute) Allergic rhinitis (Acute) Asthma (Acute) Asthma exacerbation (Acute 03/02/14) Craniotomy (Resolved 12/13/12) History of - pneumonia (Resolved 11/24/12) History of - tubal ligation (Resolved 11/24/12) Intractable nausea and vomiting PNA (pneumonia) (Acute) RLL pneumonia (Acute 03/02/14) Aortic stenosis Moderate to severe Atrial fibrillation Surgical History History of appendectomy (Acute 11/24/12) Family History Other No pertinent family history Social History Preferred Language: Slovak Communication Ability: Effective Hr Operations Advisor Required: No Beliefs That Will Affect Care: None marital status: / Current Living Situation: Personal Care Facility Current Living Situation Comment: [facility] Other Information That Helps Us Care for You: No Feels Safe at Home: Yes Safety Concerns: Feels Safe At This Time Smoking Status: Never smoker Hx Alcohol Use: No Hx Substance Use: No Seatbelt Use: always Review of Systems Review of Systems: All systems reviewed & are unremarkable except as noted in HPI & below Physical Exam Constitutional: WD/WN, vitals as above Eyes: PERRL, conjunctivae normal, anicteric sclerae ENMT: external ear and nose normal, oropharynx normal Neck: trachea midline, no thyromegaly Respiratory: normal respiratory effort, lungs clear to auscultation Cardiovascular: Rate/Rhythm: regular rate and regular rhythm Heart Sounds: + murmur (2 out of 6 systolic murmur); no gallop and no cardiac rub Gastrointestinal (Abdomen): normal bowel sounds, soft, nontender, no hepatosplenomegaly Musculoskeletal: no cyanosis or clubbing, extremities motor strength 5/5 Skin: no rashes, warm and dry Neurologic: PERRL, EOMI, accommodation nl, no face palsy, no dysarthria Psychiatric: A+Ox3, euthymic affect Results & Data Vital Signs (Past 12 Hours) Vital Signs Temp Pulse Resp BP Pulse Ox 01/11/19 01:38 98 01/11/19 01:32 62 20 137/82 97 01/11/19 01:31 87 L 01/11/19 01:01 62 23 144/58 H 93 01/11/19 00:33 68 27 H 117/75 93 01/10/19 23:30 60 18 115/46 L 94 01/10/19 23:02 60 22 137/50 L 94 01/10/19 22:30 58 L 23 129/61 94 01/10/19 22:01 59 L 22 123/77 94 01/10/19 21:30 59 L 21 123/55 L 96 01/10/19 21:00 59 L 19 126/76 96 01/10/19 20:42 95 01/10/19 20:41 60 22 124/51 L 95 01/10/19 20:39 96 01/10/19 20:30 61 22 124/51 L 94 01/10/19 20:08 63 21 122/58 L 93 01/10/19 19:56 36.7 C 58 L 20 94/47 L 96 Code Status & VTE Plan Code Status Full code VTE Prophylaxis Plan VTE Prophylaxis will be ordered: No Reason for no VTE drug order: Contraindicated Reason for no VTE mechanical prophylaxis: Contraindicated (Symptomatic anemia, will order SCDs) Supervising Physician Co-Signing Physician Notes Attending addendum: I have physically seen this patient, have supervised the medical residents activities, and agree with the H&P unless as otherwise noted. Assessment and Plan: Symptomatic anemia with heme positive stool- Admit to monitored bed. H&H every 6 hours NPO Transfuse 1 unit PRBCs tonight. Hold Plavix for now. Pantoprazole 40 mg IV per protocol. Routine anemia work-up as noted. Consult gastroenterology for possible EGD. Aortic valve disease- Echocardiogram. If significant stenosis, will need to monitor preload closely. Remainder of orders and notations as noted. PG Care Time/CCT Total # of Minutes Spent Total Time Spent with Patient: Total time spent is greater than 50% in coordination of care (as documented) at patient's floor/unit and/or counseling patient: Resident Activity Tracking Resident Involvement: Resident Care Provided Care Provided: Adult Hospital Medicine (1) Anemia Anemia type: other cause Other causes of anemia: other cause, not classified Qualified Code(s): D64.89 - Other specified anemias
[2019-01-11] MEDS ORDERED: FAMOTIDINE 20 MG in SYRINGE 3 ML IV ONE (02:15)
[2019-01-11 06:26] LABS: Hematocrit (blood only) 24.8 % (37-47); Hemoglobin 7.4 g/dL (12.0-16.0); Mean Corpuscular Hemoglobin 22.8 pg (25-34); Mean Corpuscular Hgb Conc 29.8 g/dL (32-36); Mean Corpuscular Volume 76.5 fL (80-100); Mean Platelet Volume 8.5 fL (7.4-10.4); Platelet Count 407 K/uL (130-400); RDW Coefficient of Variation 15.8 % (11.5-14.5); RDW Standard Deviation 44.4 fL (36.4-46.3); Red Blood Count 3.24 M/uL (4.2-5.4); Reticulocyte % 1.6 % (0.5-2.0); Reticulocytes # 0.05 10^6/uL (0.02-0.10); White Blood Count 26.54 K/uL (4.8-10.8)
--- NOTE | 2019-01-11 06:52 | Gastrointestinal Consultation ---
Date of Consultation January 11, 2019 History of Present Illness Reason for Consultation: Heme positive, symptomatic anemia Requesting Physician: Dr. Stallings Attending Physician: Scot Stallings MD History of Present Illness Ms. Mere Mesa is an 88 yr old female pt of Dr. Regan with a hx of aortic stenosis, HTN, hyperlipidemia, and meningioma subsequent seizure disorder, CVA, CLL who presented to her PCP yesterday for SOB. She was directed to the ED where testing did not suggest acute CHF or respiratory illness but instead found new anemia and occult positive stool for which GI is consulted. Though the consult was placed for Dr. Church, because Ms. Mesa [facility] we were happy to provide care for this patient. On arrival, Hb was 7.6 ->7.4 this morning, down from 11.8 in early 2018. BUN on arrival 15. The pt denies any gross GI bleeding. ED records mention that her occult positive stool was brown and formed. CXR showed cardiomegaly and hiatal hernia. WBC is 26.5, which is her baseline secondary to CLL. Allergies Allergy/AdvReac Type Severity Reaction Status Date / Time Penicillins Allergy Mild RASH Verified 01/10/19 22:30 Sulfa (Sulfonamide Allergy Mild RASH Verified 01/10/19 22:30 Antibiotics) aspirin AdvReac Unknown BLEEDING Verified 01/10/19 22:30 Home Medications Home Medications Medication Instructions Recorded Confirmed Type acetaminophen 500 mg tablet 500 - 1,000 mg PO BID PRN #30 tab 07/16/18 01/10/19 History MDD 3g/24hr cholecalciferol (vitamin D3) 2,000 2,000 unit PO DAILY #30 tab 07/16/18 01/10/19 History unit tablet levetiracetam 1,000 mg tablet 1,000 mg PO BID #60 tab 07/16/18 01/10/19 History loperamide 2 mg capsule 2 mg PO UD PRN #30 cap MDD 8 caps 07/16/18 01/10/19 History clopidogrel 75 mg tablet 75 mg PO DAILY #90 tab 08/14/18 01/10/19 Rx multivitamin capsule 1 cap PO DAILY #30 cap 08/14/18 01/10/19 Rx latanoprost 1 drops OPB QPM 08/27/18 01/10/19 History sucralfate 1 gm PO TID PRN 08/27/18 01/10/19 History metoprolol tartrate 50 mg tablet 50 mg PO BID #180 tab 09/12/18 01/10/19 Rx amlodipine 5 mg tablet 5 mg PO DAILY #90 tab 11/06/18 01/10/19 Rx pravastatin 20 mg tablet 20 mg PO DAILY #90 tab 11/06/18 01/10/19 Rx pantoprazole 40 mg tablet,delayed 40 mg PO BID #180 tab 12/10/18 01/10/19 Rx release famotidine 20 mg tablet 20 mg PO DAILY 12/31/18 01/10/19 History Patient History Medical History Osteopenia (Acute) Meningioma (Acute) Left hip pain (Acute) Hypertension (Acute) Hyperlipidemia (Acute) History of stroke (Acute) History of fall (Acute) History of esophageal reflux (Acute) History of chronic lymphocytic leukemia (Acute) History of bronchitis (Acute 11/24/12) History of asthma (Acute 11/24/12) Glaucoma (Acute) 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) Aortic stenosis (Acute) Allergic rhinitis (Acute) Asthma (Acute) Asthma exacerbation (Acute 03/02/14) Craniotomy (Resolved 12/13/12) History of - pneumonia (Resolved 11/24/12) History of - tubal ligation (Resolved 11/24/12) Intractable nausea and vomiting PNA (pneumonia) (Acute) RLL pneumonia (Acute 03/02/14) Surgical History History of appendectomy (Acute 11/24/12) Family History Other No pertinent family history Social History Preferred Language: [place] Citizen Communication Ability: Effective Administrative Services Director Required: No Beliefs That Will Affect Care: None Current Living Situation: Personal Care Facility Current Living Situation Comment: [facility] Other Information That Helps Us Care for You: No Feels Safe at Home: Yes Safety Concerns: Feels Safe At This Time Smoking Status: Never smoker Hx Alcohol Use: No Hx Substance Use: No Seatbelt Use: always Results & Data Vital Signs (Past 12 Hours) Vital Signs Temp Pulse Pulse Resp BP BP Pulse Ox 01/11/19 06:19 36.4 C L 60 20 150/75 H 99 01/11/19 05:58 36.5 C 61 22 146/75 H 99 01/11/19 03:13 57 L 01/11/19 01:55 36.4 C L 64 22 151/54 H 99 01/11/19 01:38 98 01/11/19 01:32 62 20 137/82 97 01/11/19 01:31 87 L 01/11/19 01:01 62 23 144/58 H 93 01/11/19 00:33 68 27 H 117/75 93 01/10/19 23:30 60 18 115/46 L 94 01/10/19 23:02 60 22 137/50 L 94 01/10/19 22:30 58 L 23 129/61 94 01/10/19 22:01 59 L 22 123/77 94 01/10/19 21:30 59 L 21 123/55 L 96 01/10/19 21:00 59 L 19 126/76 96 01/10/19 20:42 95 01/10/19 20:41 60 22 124/51 L 95 01/10/19 20:39 96 01/10/19 20:30 61 22 124/51 L 94 01/10/19 20:08 63 21 122/58 L 93 01/10/19 19:56 36.7 C 58 L 20 94/47 L 96
[2019-01-11 06:53] LABS: BUN Creatinine Ratio 12.1 (10-20); Calcium 8.5 mg/dl (8.5-10.1); Creatinine Clr Calc Pharmacy 39.7 ml/min; Est GFR (African American) 62.1; Est GFR (Non-African American) 53.6; Potassium 3.7 mmol/L (3.5-5.1)
[2019-01-11 07:47] LABS: Basophils # (auto) 0.08 K/uL (0-0.2); Basophils % (auto) 0.3 %; Eosinophils # (auto) 0.46 K/uL (0-0.5); Eosinophils % (auto) 1.7 %; Hypochromasia Present; Immature Granulocytes # (auto) 0.07 K/uL (0.00-0.02); Immature Granulocytes % (auto) 0.3 %; Lymphocytes # (auto) 16.28 K/uL (1.2-3.4); Lymphocytes % (auto) 61.3 %; Microcytosis Present; Monocytes # (auto) 1.06 K/uL (0.11-0.59); Neutrophils # (auto) 8.59 K/uL (1.4-6.5); Neutrophils % (auto) 32.4 %; Smudge Cells Present
[2019-01-11] MEDS: PRAVASTATIN SOD 20 MG TAB PO SCH (08:43)
[2019-01-11] MEDS: levETIRAcetam 500 MG TAB PO SCH ×2 (08:43→20:43)
[2019-01-11] MEDS: PANTOprazole 40 MG TAB PO SCH ×2 (08:43→20:43)
[2019-01-11] MEDS: AMLODIPINE BESYLATE 5 MG TAB PO SCH (08:43)
[2019-01-11] MEDS: FAMOTIDINE 20 MG TAB PO SCH (08:43)
[2019-01-11] MEDS: METOPROLOL TARTRATE 50 MG TAB PO SCH ×2 (08:43→20:43)
--- NOTE | 2019-01-11 09:20 | Gastrointestinal Consultation ---
Date of Consultation January 11, 2019 Assessment & Plan (1) Heme positive stool: (2) Symptomatic anemia: 1. Keep NPO. 2. Discussed with Yas, who is agreeable to consent patient for EGD with Dr. Church today. 3. Continue Pantoprazole 40 mg BID. 4. Additional recommendations will be made pending results of testing. Supervising Physician Co-Signing Physician Notes Agree with CHARI Segura Abd: Soft, NT, ND, +BS Continue current therapy Proceed with EGD History of Present Illness Reason for Consultation: Heme positive stool Requesting Physician: Dr. Verma Attending Physician: Pepito Kohler MD History of Present Illness Patient is a 88 year-old female with a history of CLL, CVA and meningioma with seizure disorder admitted with symptomatic anemia. She does have some memory deficits and her POA is her daughter Yas. Per patient and daughter, the patient has been becoming more short of breath with exertion. Patient also reports some dizziness but no syncopal episodes. Denies any chest pain or palpitations. She does carry an established diagnosis of chronic nausea with intermittent vomiting for the past ~60 years and the patient was in consideration for upper endoscopy with [facility] in the past. Denies any abdominal pain or overt GIB symptoms such as melena, hematochezia, BRBPR, or hematemesis. For that indication, however, the daughter did not wish to pursue an invasive work up. She is now interested, however, given the concern for possible bleeding. From review of the chart, it appears the patient has been chronically anemic but her H&H was 10.8/34.4. She now demonstrates worsened iron deficiency anemia as follows: Hgb 7.4, Hct 24.8, MCV 76.5 and ferritin 5. She has been made NPO and started on Protonix 40 mg BID. Allergies Allergy/AdvReac Type Severity Reaction Status Date / Time Penicillins Allergy Mild RASH Verified 01/10/19 22:30 Sulfa (Sulfonamide Allergy Mild RASH Verified 01/10/19 22:30 Antibiotics) aspirin AdvReac Unknown BLEEDING Verified 01/10/19 22:30 Home Medications Home Medications Medication Instructions Recorded Confirmed Type acetaminophen 500 mg tablet 500 - 1,000 mg PO BID PRN #30 tab 07/16/18 01/10/19 History MDD 3g/24hr cholecalciferol (vitamin D3) 2,000 2,000 unit PO DAILY #30 tab 07/16/18 01/10/19 History unit tablet levetiracetam 1,000 mg tablet 1,000 mg PO BID #60 tab 07/16/18 01/10/19 History loperamide 2 mg capsule 2 mg PO UD PRN #30 cap MDD 8 caps 07/16/18 01/10/19 History clopidogrel 75 mg tablet 75 mg PO DAILY #90 tab 08/14/18 01/10/19 Rx multivitamin capsule 1 cap PO DAILY #30 cap 08/14/18 01/10/19 Rx latanoprost 1 drops OPB QPM 08/27/18 01/10/19 History sucralfate 1 gm PO TID PRN 08/27/18 01/10/19 History metoprolol tartrate 50 mg tablet 50 mg PO BID #180 tab 09/12/18 01/10/19 Rx amlodipine 5 mg tablet 5 mg PO DAILY #90 tab 11/06/18 01/10/19 Rx pravastatin 20 mg tablet 20 mg PO DAILY #90 tab 11/06/18 01/10/19 Rx pantoprazole 40 mg tablet,delayed 40 mg PO BID #180 tab 12/10/18 01/10/19 Rx release famotidine 20 mg tablet 20 mg PO DAILY 12/31/18 01/10/19 History Patient History Medical History Osteopenia (Acute) Meningioma (Acute) Left hip pain (Acute) Hypertension (Acute) Hyperlipidemia (Acute) History of stroke (Acute) History of fall (Acute) History of esophageal reflux (Acute) History of chronic lymphocytic leukemia (Acute) History of bronchitis (Acute 11/24/12) History of asthma (Acute 11/24/12) Glaucoma (Acute) 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) Aortic stenosis (Acute) Allergic rhinitis (Acute) Asthma (Acute) Asthma exacerbation (Acute 03/02/14) Craniotomy (Resolved 12/13/12) History of - pneumonia (Resolved 11/24/12) History of - tubal ligation (Resolved 11/24/12) Intractable nausea and vomiting PNA (pneumonia) (Acute) RLL pneumonia (Acute 03/02/14) Aortic stenosis Moderate to severe Surgical History History of appendectomy (Acute 11/24/12) Family History Other No pertinent family history Social History Preferred Language: Azeri Communication Ability: Effective Firestopper Technician Required: No Beliefs That Will Affect Care: None marital status: / Current Living Situation: Personal Care Facility Current Living Situation Comment: [facility] Other Information That Helps Us Care for You: No Feels Safe at Home: Yes Safety Concerns: Feels Safe At This Time Smoking Status: Never smoker Hx Alcohol Use: No Hx Substance Use: No Seatbelt Use: always Review of Systems Constitutional: as per Subjective / HPI Eyes: no problem reported Ear, Nose, Mouth, Throat: + dysphagia; no pain with swallowing Respiratory: as per Subjective / HPI Cardiovascular: as per Subjective / HPI Gastrointestinal: as per Subjective / HPI Genitourinary: no problem reported Musculoskeletal: no problem reported Integumentary: no problem reported Neurologic: no problem reported Psychiatric: as per Subjective / HPI Physical Exam Constitutional: WD/WN, vitals as above Eyes: EOM intact bilaterally Neck: normal appearance Respiratory: normal respiratory effort, lungs clear to auscultation Cardiovascular: Rate/Rhythm: regular rate and regular rhythm Heart Sounds: + murmur Gastrointestinal (Abdomen): normal bowel sounds, soft, nontender, no hepatosplenomegaly Inspection/Auscultation: abdomen not distended Musculoskeletal: Extremities: no cyanosis no lower extremity edema Skin: no rashes, warm and dry Neurologic: moves all extremities Psychiatric: A+Ox3, euthymic affect Results & Data Vital Signs (Past 12 Hours) Vital Signs Temp Pulse Pulse Resp BP BP Pulse Ox 01/11/19 08:22 36.5 C 62 19 135/72 99 01/11/19 07:17 62 01/11/19 06:45 36.4 C L 61 20 138/74 98 01/11/19 06:19 36.4 C L 60 20 150/75 H 99 01/11/19 05:58 36.5 C 61 22 146/75 H 99 01/11/19 03:13 57 L 01/11/19 01:55 36.4 C L 64 22 151/54 H 99 01/11/19 01:38 98 11/01/19 01:32 62 20 137/82 97 01/11/19 01:31 87 L 01/11/19 01:01 62 23 144/58 H 93 01/11/19 00:33 68 27 H 117/75 93 01/10/19 23:30 60 18 115/46 L 94 01/10/19 23:02 60 22 137/50 L 94 01/10/19 22:30 58 L 23 129/61 94 01/10/19 22:01 59 L 22 123/77 94 01/10/19 21:30 59 L 21 123/55 L 96 Laboratory Results Abnormal lab results 01/10/19 01/10/19 01/10/19 Range/Units 21:37 21:37 23:17 WBC 24.76 H (4.8-10.8) K/uL RBC 3.31 L (4.2-5.4) M/uL Hgb 7.6 L (12.0-16.0) g/dL Hct 25.3 L (37-47) % MCV 76.4 L (80-100) fL MCH 23.0 L (25-34) pg MCHC 30.0 L (32-36) g/dL RDW Coeff of Esteban 15.8 H (11.5-14.5) % Plt Count (130-400) K/uL Immature Gran # (Auto) 0.04 H (0.00-0.02) K/uL Neut # (Auto) (1.4-6.5) K/uL Lymph # (Auto) 16.94 H (1.2-3.4) K/uL Boyle # (Auto) 1.31 H (0.11-0.59) K/uL Chloride (98-107) mmol/L Glucose 114 H (70-99) mg/dl Iron (35-150) mcg/dl Ferritin (8-388) ng/ml Alkaline Phosphatase 118 H (45-117) U/L Crossmatch See Detail 01/11/19 01/11/19 Range/Units 05:47 05:47 WBC 26.54 H (4.8-10.8) K/uL RBC 3.24 L (4.2-5.4) M/uL Hgb 7.4 L (12.0-16.0) g/dL Hct 24.8 L (37-47) % MCV 76.5 L (80-100) fL MCH 22.8 L (25-34) pg MCHC 29.8 L (32-36) g/dL RDW Coeff of Esteban 15.8 H (11.5-14.5) % Plt Count 407 H (130-400) K/uL Immature Gran # (Auto) 0.07 H (0.00-0.02) K/uL Neut # (Auto) 8.59 H (1.4-6.5) K/uL Lymph # (Auto) 16.28 H (1.2-3.4) K/uL Boyle # (Auto) 1.06 H (0.11-0.59) K/uL Chloride 109 H (98-107) mmol/L Glucose 101 H (70-99) mg/dl Iron 12 L (35-150) mcg/dl Ferritin 5.0 L (8-388) ng/ml Alkaline Phosphatase (45-117) U/L Crossmatch PG Care Time/CCT Total # of Minutes Spent Total Time Spent with Patient: Total time spent is greater than 50% in coordination of care (as documented) at patient's floor/unit and/or counseling patient:
--- NOTE | 2019-01-11 12:23 | Anesthesiology Consultation ---
Date of Service January 11, 2019 Patient is receiving 1 unit PRBC Assessment & Plan (1) Encounter for pre-operative examination: (2) Encounter for pre-operative examination: History Surgery Operation Date: 01/11/19 08:30 Proposed Procedures p Esophagogastroduodenoscopy Dr Church - Tahir Greer Case, DO Height/Weight Height: 4 ft 10 in Weight: 88 kg Allergies Allergy/AdvReac Type Severity Reaction Status Date / Time Penicillins Allergy Mild RASH Verified 01/10/19 22:30 Sulfa (Sulfonamide Allergy Mild RASH Verified 01/10/19 22:30 Antibiotics) aspirin AdvReac Unknown BLEEDING Verified 01/10/19 22:30 Medications Home Medications Medication Instructions Recorded Confirmed Last Taken acetaminophen 500 mg tablet 500 - 1,000 mg PO BID PRN #30 tab 07/16/18 01/10/19 Unknown MDD 3g/24hr cholecalciferol (vitamin D3) 2,000 2,000 unit PO DAILY #30 tab 07/16/18 01/10/19 Unknown unit tablet levetiracetam 1,000 mg tablet 1,000 mg PO BID #60 tab 07/16/18 01/10/19 Unknown loperamide 2 mg capsule 2 mg PO UD PRN #30 cap MDD 8 caps 07/16/18 01/10/19 Unknown clopidogrel 75 mg tablet 75 mg PO DAILY #90 tab 08/14/18 01/10/19 Unknown multivitamin capsule 1 cap PO DAILY #30 cap 08/14/18 01/10/19 Unknown latanoprost 1 drops OPB QPM 08/27/18 01/10/19 Unknown sucralfate 1 gm PO TID PRN 08/27/18 01/10/19 Unknown metoprolol tartrate 50 mg tablet 50 mg PO BID #180 tab 09/12/18 01/10/19 Unknown amlodipine 5 mg tablet 5 mg PO DAILY #90 tab 11/06/18 01/10/19 Unknown pravastatin 20 mg tablet 20 mg PO DAILY #90 tab 11/06/18 01/10/19 Unknown pantoprazole 40 mg tablet,delayed 40 mg PO BID #180 tab 12/10/18 01/10/19 Unknown release famotidine 20 mg tablet 20 mg PO DAILY 12/31/18 01/10/19 Unknown Active Medications Generic Name Dose Route Start Last Admin Trade Name Freq PRN Reason Stop Dose Admin Amlodipine Besylate 5 mg 01/11/19 09:00 01/11/19 08:43 Norvasc PO 02/10/19 08:59 5 mg DAILY MALIK Administration Famotidine 20 mg 01/11/19 09:00 01/11/19 08:43 Pepcid PO 02/10/19 08:59 20 mg DAILY MALIK Administration Levetiracetam 1,000 mg 01/11/19 09:00 01/11/19 08:43 Keppra PO 02/10/19 08:59 1,000 mg BID MALIK Administration Metoprolol Tartrate 50 mg 01/11/19 09:00 01/11/19 08:43 Lopressor PO 02/10/19 08:59 50 mg BID MALIK Administration Pantoprazole Sodium 40 mg 01/11/19 09:00 01/11/19 08:43 Protonix PO 02/10/19 08:59 40 mg BID MALIK Administration Pravastatin Sodium 20 mg 01/11/19 09:00 01/11/19 08:43 Pravachol PO 02/10/19 08:59 20 mg DAILY MALIK Administration Past Medical History Medical History Osteopenia (Acute) Meningioma (Acute) Left hip pain (Acute) Hypertension (Acute) Hyperlipidemia (Acute) History of stroke (Acute) History of fall (Acute) History of esophageal reflux (Acute) History of chronic lymphocytic leukemia (Acute) History of bronchitis (Acute 11/24/12) History of asthma (Acute 11/24/12) Glaucoma (Acute) 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) Aortic stenosis (Acute) Allergic rhinitis (Acute) Asthma (Acute) Asthma exacerbation (Acute 03/02/14) Craniotomy (Resolved 12/13/12) History of - pneumonia (Resolved 11/24/12) History of - tubal ligation (Resolved 11/24/12) Intractable nausea and vomiting PNA (pneumonia) (Acute) RLL pneumonia (Acute 03/02/14) Aortic stenosis Moderate to severe Atrial fibrillation Past Family History Family History Other No pertinent family history Past Surgical History Surgical History History of appendectomy (Acute 11/24/12) Social History Smoking Status: Never smoker Hx Alcohol Use: No Hx Substance Use: No Physical Exam Vital Signs Last Vital Signs Temp 36.7 C 01/11/19 12:47 Pulse 63 01/11/19 12:47 Resp 18 01/11/19 12:47 BP 145/66 H 01/11/19 12:47 Pulse Ox 95 01/11/19 12:47 Testing Laboratory Results 01/11/19 05:47 01/11/19 05:47 PT 10.6 Seconds (9.0-12.0) 01/10/19 21:37 INR 1.0 (0.9-1.1) 01/10/19 21:37 APTT 24.4 Seconds (21.0-31.0) 01/10/19 21:37 Blood Type A Negative 01/10/19 23:17 Antibody Screen NEGATIVE 01/10/19 23:17 Electrocardiogram Date: 01/10/19 Atrial fibrillation Abnormal ECG When compared with ECG of 27-AUG-2018 01:23, Atrial fibrillation has replaced Sinus rhythm Chest X-Ray Date: 01/10/19 IMPRESSION: 1. Cardiomegaly without acute process. 2. Hiatal hernia. Echocardiogram Date: 08/27/18 EF: 60-65% LV Function: normal Valvular Disease: + (moderate to severe) and + MR (mild to mod)
[2019-01-11] MEDS ORDERED: PHENYLEPHRINE 100MCG/ML 5ML SYR ONE (12:31)
[2019-01-11] MEDS ORDERED: LIDOCAINE HCL 2% 2 ML VIAL/AMP(20MG/ML) INFIL ONE (12:31)
[2019-01-11] MEDS ORDERED: PROPOFOL IV EMULSION 10 MG/ML 20 ML VIAL IV ONE (12:31)
[2019-01-11] MEDS ORDERED: BENZOCAIN/TETRACA/BUTAM SPRAY 200 APPLN/20 GM SPRY EXT ONE (13:25)
--- NOTE | 2019-01-11 13:51 | GI REPORT ---
Patient Name: Mere Mesa Procedure Date: 01/11/2019 12:43 PM Date of : 1930 Admit Type: Inpatient Age: 88 Gender: Female Attending MD: Tahir Church DO Procedure: Upper GI endoscopy Providers: Tahir Church DO Referring MD: Pepito Kohler Md Indications: Iron deficiency anemia Medicines: Monitored Anesthesia Care Complications: No immediate complications. Estimated Blood Loss: Estimated blood loss: none. Procedure: Pre-Anesthesia Assessment: - Prior to the procedure, a History and Physical was performed, and patient medications and allergies were reviewed. The patient's tolerance of previous anesthesia was also reviewed. The risks and benefits of the procedure and the sedation options and risks were discussed with the patient. All questions were answered, and informed consent was obtained. Prior Anticoagulants: The patient has taken aspirin, last dose was 1 day prior to procedure. ASA Grade Assessment: IV - A patient with severe systemic disease that is a constant threat to life. After reviewing the risks and benefits, the patient was deemed in satisfactory condition to undergo the procedure. After obtaining informed consent, the endoscope was passed under direct vision. Throughout the procedure, the patient's blood pressure, pulse, and oxygen saturations were monitored continuously. The Endoscope was introduced through the mouth, and advanced to the second part of duodenum. The upper GI endoscopy was accomplished without difficulty. The patient tolerated the procedure well. Findings: The esophagus was normal. A large hiatal hernia was present. Diffuse moderate inflammation characterized by congestion (edema) and erythema was found on the greater curvature of the stomach, on the lesser curvature of the stomach and in the gastric antrum. The examined duodenum was normal. Impression: - Normal esophagus. - Large hiatal hernia. - Chronic gastritis. - Normal examined duodenum. - No specimens collected. Recommendation: - Return patient to [facility] for ongoing care. - Resume previous diet. - Continue present medications. - Continue supportive care. Consider colonoscopy with further decline in H/H. Tahir Church DO 01/11/2019 1:51:13 PM This report has been signed electronically. Note Initiated On: 01/11/2019 12:43 PM Number of Addenda: 0 I attest to the content of the Intraoperative Record and orders documented therein, exceptions below {[id number]}
--- NOTE | 2019-01-11 14:06 | Anesthesiology Progress Note ---
Date of Service January 11, 2019 Anesthesia Post Procedure Vital Signs Vital Signs: Temp Pulse Pulse Pulse Resp BP BP 01/11/19 12:47 36.7 C 63 18 145/66 H 01/11/19 12:30 36.7 C 65 18 133/71 01/11/19 11:30 36.6 C 66 18 138/71 01/11/19 11:00 36.7 C 64 20 145/66 H 01/11/19 10:30 36.5 C 70 18 137/72 01/11/19 10:15 36.8 C 63 18 138/63 01/11/19 09:55 36.5 C 64 20 128/63 01/11/19 08:45 36.6 C 62 20 145/69 H 01/11/19 08:22 36.5 C 62 19 135/72 01/11/19 07:17 62 01/11/19 07:15 36.5 C 62 19 135/72 01/11/19 06:45 36.4 C L 61 20 138/74 01/11/19 06:19 36.4 C L 60 20 150/75 H 01/11/19 05:58 36.5 C 61 22 146/75 H 01/11/19 03:13 57 L 01/11/19 01:55 36.4 C L 64 22 151/54 H 01/11/19 01:38 01/11/19 01:32 62 20 137/82 01/11/19 01:31 01/11/19 01:01 62 23 144/58 H 01/11/19 00:33 68 27 H 117/75 01/10/19 23:30 60 18 115/46 L 01/10/19 23:02 60 22 137/50 L 01/10/19 22:30 58 L 23 129/61 01/10/19 22:01 59 L 22 123/77 01/10/19 21:30 59 L 21 123/55 L 01/10/19 21:00 59 L 19 126/76 01/10/19 20:42 01/10/19 20:41 60 22 124/51 L 01/10/19 20:39 01/10/19 20:30 61 22 124/51 L 01/10/19 20:08 63 21 122/58 L 01/10/19 19:56 36.7 C 58 L 20 94/47 L Pulse Ox 01/11/19 12:47 95 01/11/19 12:30 96 01/11/19 11:30 96 01/11/19 11:00 94 01/11/19 10:30 95 01/11/19 10:15 96 01/11/19 09:55 01/11/19 08:45 01/11/19 08:22 99 01/11/19 07:17 01/11/19 07:15 99 01/11/19 06:45 98 01/11/19 06:19 99 01/11/19 05:58 99 01/11/19 03:13 01/11/19 01:55 99 01/11/19 01:38 98 01/11/19 01:32 97 01/11/19 01:31 87 L 01/11/19 01:01 93 01/11/19 00:33 93 01/10/19 23:30 94 01/10/19 23:02 94 01/10/19 22:30 94 01/10/19 22:01 94 01/10/19 21:30 96 01/10/19 21:00 96 01/10/19 20:42 95 01/10/19 20:41 95 01/10/19 20:39 96 01/10/19 20:30 94 01/10/19 20:08 93 01/10/19 19:56 96 Transfer of Care Handoff Completed per policy Notes Mental Status: alert / awake / arousable and participated in evaluation Patient Amnestic to Procedure: Yes Nausea / Vomiting: adequately controlled Pain: adequately controlled Airway Patency, RR, SpO2: stable & adequate BP & HR: stable & adequate Hydration State: stable & adequate Anesthetic Complications: no major complications apparent and Pt Satisfied with anesthetic care
--- NOTE | 2019-01-11 14:47 | Hospitalist Progress Note ---
Date of Service January 11, 2019 Assessment & Plan (1) Symptomatic anemia: s/p 2 units packed RBCs. Iron deficiency anemia with, melanic stool episode and heme positive stool suggestive of UGI bleed. (2) Aortic stenosis: Concerning for progressive symptoms of this over the last year with some chest pain at rest. Likely exacerbated by current anemia. Previously discussed surgical options with Dr. Kenyon and decided on monitoring for now. Recommend routine follow-up with cardiology. (3) Cough: Suspect this is secondary to reflux. Worse with lying down. No pneumonia on chest x-ray or lung auscultation to warrant antibiotics. Treat GERD as above (4) GI bleed: Suspected from melena, heme positive stool, history of such. (5) Chronic lymphocytic leukemia: Appears to be at baseline without progression Appreciate heme-onc consult (6) Seizure disorder: (7) DVT prophylaxis: Contraindicated chemical prophylaxis in the setting of GI bleed. SCDs (8) Discharge planning issues: PT and OT eval's following EGD Lives in personal residential, plan to return here once GI workup complete and Hgb stable. (9) GERD (gastroesophageal reflux disease): Subjective Patient feeling well today. She denies any acute shortness of breath, chest pain, lightheadedness. She does endorse chronic problems with this progressively getting worse over the last year which she has put down to her progressive aortic stenosis. Revisited history with the patient. She reports 2 weeks of cough, treated initially with azithromycin. Results & Data Vital Signs (Past 12 Hours) Vital Signs Temp Pulse Pulse Pulse Resp BP BP 01/11/19 14:13 62 18 153/66 H 01/11/19 14:00 61 18 141/64 H 01/11/19 13:47 65 18 145/75 H 01/11/19 12:47 98.1 F 63 18 145/66 H 01/11/19 12:30 98.1 F 65 18 133/71 01/11/19 11:30 97.9 F 66 18 138/71 01/11/19 11:00 98.1 F 64 20 145/66 H 01/11/19 10:30 97.7 F 70 18 137/72 01/11/19 10:15 98.2 F 63 18 138/63 01/11/19 09:55 97.7 F 64 20 128/63 01/11/19 08:45 97.9 F 62 20 145/69 H 01/11/19 08:22 97.7 F 62 19 135/72 01/11/19 07:17 62 01/11/19 07:15 97.7 F 62 19 135/72 01/11/19 06:45 97.5 F L 61 20 138/74 01/11/19 06:19 97.5 F L 60 20 150/75 H 01/11/19 05:58 97.7 F 61 22 146/75 H 01/11/19 03:13 57 L Pulse Ox 01/11/19 14:13 95 01/11/19 14:00 95 01/11/19 13:47 97 01/11/19 12:47 95 01/11/19 12:30 96 01/11/19 11:30 96 01/11/19 11:00 94 01/11/19 10:30 95 01/11/19 10:15 96 01/11/19 09:55 01/11/19 08:45 01/11/19 08:22 99 01/11/19 07:17 01/11/19 07:15 99 01/11/19 06:45 98 01/11/19 06:19 99 01/11/19 05:58 99 01/11/19 03:13 PG Care Time/CCT Total # of Minutes Spent Total Time Spent with Patient: Total time spent is greater than 50% in coordination of care (as documented) at patient's floor/unit and/or counseling patient: (1) Aortic stenosis Cardiac valve disease etiology: nonrheumatic Qualified Code(s): I35.0 - Nonrheumatic aortic (valve) stenosis (2) GI bleed GI bleed type/associated pathology: melena Qualified Code(s): K92.1 - Melena
--- NOTE | 2019-01-11 16:34 | Oncology Consultation ---
Date of Consultation January 11, 2019 Assessment & Plan (1) Anemia: She has a microcytic anemia with a ferritin of 5, which is pathognomic of iron deficiency. She has had two units of PRBCs and corrected. She is also undergoing EGD today. I would like to set her up to come to my office, both to address her iron deficiency with some IV iron and to resume follow up for her CLL. She may also have other components to her anemia, though we will need to assess those once her iron deficit is addressed. 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 She has gone 6 years now without any treatment or marked change in her lymphocyte count. I would like to see her in the office in the coming weeks, both to address her iron deficiency as above and to re-establish care for her CLL. I will make these arrangements with my staff. Present on Admission?: Yes History of Present Illness Reason for Consultation: Iron-deficiency anemia CLL Attending Physician: Pepito Kohler MD History of Present Illness Ms. 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 The latter disease was diagnosed in 2012 after incidental discovery of lymphocytosis. She has a 17p deletion, which typically portends an aggressive disease course. However, since that time, she has not required any treatment. In fact, her absolute lymphocyte count was never consistently above 10K until early this year. She has had a nagging cough for a few months and has been treated for bronchitis, getting better for a time before getting a bit worse again in the weeks leading up to this stay. She also noticed some increase in exercise intolerance and shortness of breath. The nurses at her facility felt she was looking unwell and so they brought her to the ER yesterday. A chest x-ray revealed cardiomegaly but no evidence of pneumonia. Her hemoglobin on admission was 7.6 with an MCV of 76 and normal platelets, with an ALC of 16K. Her ferritin was 5, consistent with iron deficiency. She has received 2 units of PRBCs today and her hemoglobin responded to 10.7. She denies any hematochezia, melena, or other bleeding, though she rarely notices spots of blood on her toilet tissue. She denied any fevers, night sweats, or enlarging lymph nodes. She also had no acute pain anywhere. Allergies Allergy/AdvReac Type Severity Reaction Status Date / Time Penicillins Allergy Mild RASH Verified 01/10/19 22:30 Sulfa (Sulfonamide Allergy Mild RASH Verified 01/10/19 22:30 Antibiotics) aspirin AdvReac Unknown BLEEDING Verified 01/10/19 22:30 Home Medications Home Medications Medication Instructions Recorded Confirmed Type acetaminophen 500 mg tablet 500 - 1,000 mg PO BID PRN #30 tab 07/16/18 01/10/19 History MDD 3g/24hr cholecalciferol (vitamin D3) 2,000 2,000 unit PO DAILY #30 tab 07/16/18 01/10/19 History unit tablet levetiracetam 1,000 mg tablet 1,000 mg PO BID #60 tab 07/16/18 01/10/19 History loperamide 2 mg capsule 2 mg PO UD PRN #30 cap MDD 8 caps 07/16/18 01/10/19 History clopidogrel 75 mg tablet 75 mg PO DAILY #90 tab 08/14/18 01/10/19 Rx multivitamin capsule 1 cap PO DAILY #30 cap 08/14/18 01/10/19 Rx latanoprost 1 drops OPB QPM 08/27/18 01/10/19 History sucralfate 1 gm PO TID PRN 08/27/18 01/10/19 History metoprolol tartrate 50 mg tablet 50 mg PO BID #180 tab 09/12/18 01/10/19 Rx amlodipine 5 mg tablet 5 mg PO DAILY #90 tab 11/06/18 01/10/19 Rx pravastatin 20 mg tablet 20 mg PO DAILY #90 tab 11/06/18 01/10/19 Rx pantoprazole 40 mg tablet,delayed 40 mg PO BID #180 tab 12/10/18 01/10/19 Rx release famotidine 20 mg tablet 20 mg PO DAILY 12/31/18 01/10/19 History Patient History Medical History Osteopenia (Acute) Meningioma (Acute) Left hip pain (Acute) Hypertension (Acute) Hyperlipidemia (Acute) History of stroke (Acute) History of fall (Acute) History of esophageal reflux (Acute) History of chronic lymphocytic leukemia (Acute) History of bronchitis (Acute 11/24/12) History of asthma (Acute 11/24/12) Glaucoma (Acute) 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) Aortic stenosis (Acute) Allergic rhinitis (Acute) Asthma (Acute) Asthma exacerbation (Acute 03/02/14) Craniotomy (Resolved 12/13/12) History of - pneumonia (Resolved 11/24/12) History of - tubal ligation (Resolved 11/24/12) Intractable nausea and vomiting PNA (pneumonia) (Acute) RLL pneumonia (Acute 03/02/14) Aortic stenosis Moderate to severe Atrial fibrillation Surgical History History of appendectomy (Acute 11/24/12) Family History Other No pertinent family history Social History Preferred Language: Yi Communication Ability: Effective Teller Coordinator Required: No Beliefs That Will Affect Care: None marital status: / Current Living Situation: Personal Care Facility Current Living Situation Comment: [facility] Other Information That Helps Us Care for You: No Feels Safe at Home: Yes Safety Concerns: Feels Safe At This Time Smoking Status: Never smoker Hx Alcohol Use: No Hx Substance Use: No Seatbelt Use: always Review of Systems Review of Systems: All systems reviewed & are unremarkable except as noted in HPI & below Physical Exam Constitutional: comfortable; no acute distress and not ill appearing ENMT: external ear and nose normal, oropharynx normal Respiratory: normal respiratory effort, lungs clear to auscultation Cardiovascular: Rate/Rhythm: regular rate and regular rhythm Heart Sounds: + murmur (prominent murmur) Gastrointestinal (Abdomen): Inspection/Auscultation: normal bowel sounds; abdomen not distended Percussion/Palpation: abdomen soft; abdomen nontender Skin: no rashes, warm and dry Psychiatric: A+Ox3, euthymic affect Lymphatic: no cervical or axillary lymphadenopathy Results & Data Vital Signs (Past 12 Hours) Vital Signs Temp Pulse Pulse Pulse Resp BP BP 01/11/19 15:41 36.8 C 60 20 127/58 L 01/11/19 14:13 62 18 153/66 H 01/11/19 14:00 61 18 141/64 H 01/11/19 13:47 65 18 145/75 H 01/11/19 12:47 36.7 C 63 18 145/66 H 01/11/19 12:30 36.7 C 65 18 133/71 01/11/19 11:30 36.6 C 66 18 138/71 01/11/19 11:00 36.7 C 64 20 145/66 H 01/11/19 10:30 36.5 C 70 18 137/72 01/11/19 10:15 36.8 C 63 18 138/63 01/11/19 09:55 36.5 C 64 20 128/63 01/11/19 08:45 36.6 C 62 20 145/69 H 01/11/19 08:22 36.5 C 62 19 135/72 01/11/19 07:17 62 01/11/19 07:15 36.5 C 62 19 135/72 01/11/19 06:45 36.4 C L 61 20 138/74 01/11/19 06:19 36.4 C L 60 20 150/75 H 01/11/19 05:58 36.5 C 61 22 146/75 H Pulse Ox 01/11/19 15:41 94 01/11/19 14:13 95 01/11/19 14:00 95 01/11/19 13:47 97 01/11/19 12:47 95 01/11/19 12:30 96 01/11/19 11:30 96 01/11/19 11:00 94 01/11/19 10:30 95 01/11/19 10:15 96 01/11/19 09:55 01/11/19 08:45 01/11/19 08:22 99 01/11/19 07:17 01/11/19 07:15 99 01/11/19 06:45 98 01/11/19 06:19 99 01/11/19 05:58 99 Laboratory Results Abnormal lab results 01/10/19 01/10/19 01/10/19 Range/Units 21:37 21:37 23:17 WBC 24.76 H (4.8-10.8) K/uL RBC 3.31 L (4.2-5.4) M/uL Hgb 7.6 L (12.0-16.0) g/dL Hct 25.3 L (37-47) % MCV 76.4 L (80-100) fL MCH 23.0 L (25-34) pg MCHC 30.0 L (32-36) g/dL RDW Coeff of Esteban 15.8 H (11.5-14.5) % Plt Count (130-400) K/uL Immature Gran # (Auto) 0.04 H (0.00-0.02) K/uL Neut # (Auto) (1.4-6.5) K/uL Lymph # (Auto) 16.94 H (1.2-3.4) K/uL [place] # (Auto) 1.31 H (0.11-0.59) K/uL Chloride (98-107) mmol/L Glucose 114 H (70-99) mg/dl Iron (35-150) mcg/dl Ferritin (8-388) ng/ml Alkaline Phosphatase 118 H (45-117) U/L Crossmatch See Detail 01/11/19 01/11/19 01/11/19 Range/Units 05:47 05:47 15:50 WBC 26.54 H (4.8-10.8) K/uL RBC 3.24 L (4.2-5.4) M/uL Hgb 7.4 L 10.7 L D (12.0-16.0) g/dL Hct 24.8 L (37-47) % MCV 76.5 L (80-100) fL MCH 22.8 L (25-34) pg MCHC 29.8 L (32-36) g/dL RDW Coeff of Esteban 15.8 H (11.5-14.5) % Plt Count 407 H (130-400) K/uL Immature Gran # (Auto) 0.07 H (0.00-0.02) K/uL Neut # (Auto) 8.59 H (1.4-6.5) K/uL Lymph # (Auto) 16.28 H (1.2-3.4) K/uL [place] # (Auto) 1.06 H (0.11-0.59) K/uL Chloride 109 H (98-107) mmol/L Glucose 101 H (70-99) mg/dl Iron 12 L (35-150) mcg/dl Ferritin 5.0 L (8-388) ng/ml Alkaline Phosphatase (45-117) U/L Crossmatch (1) Anemia Anemia type: other cause Other causes of anemia: other cause, not classified Qualified Code(s): D64.89 - Other specified anemias
[2019-01-11] MEDS ORDERED: LATANOPROST 0.005% OP SOLN 2.5 ML BTL OPB SCH (21:00)
[2019-01-12] MEDS: METOPROLOL TARTRATE 50 MG TAB PO SCH (08:21)
[2019-01-12] MEDS: AMLODIPINE BESYLATE 5 MG TAB PO SCH (08:22)
[2019-01-12] MEDS: FAMOTIDINE 20 MG TAB PO SCH (08:22)
[2019-01-12] MEDS: PRAVASTATIN SOD 20 MG TAB PO SCH (08:22)
[2019-01-12] MEDS: PANTOprazole 40 MG TAB PO SCH (08:22)
[2019-01-12] MEDS: levETIRAcetam 500 MG TAB PO SCH (08:22)
[2019-01-12 08:23] LABS: Hematocrit (blood only) 34.8 % (37-47); Hemoglobin 10.7 g/dL (12.0-16.0); Mean Corpuscular Hemoglobin 24.9 pg (25-34); Mean Corpuscular Hgb Conc 30.7 g/dL (32-36); Mean Corpuscular Volume 80.9 fL (80-100); Platelet Count 336 K/uL (130-400); RDW Coefficient of Variation 17.3 % (11.5-14.5); RDW Standard Deviation 50.4 fL (36.4-46.3); White Blood Count 21.31 K/uL (4.8-10.8)
[2019-01-12 08:48] LABS: Albumin Level 3.5 gm/dl (3.4-5.0); BUN Creatinine Ratio 10.7 (10-20); Bilirubin,Total 0.7 mg/dl (0.2-1); Calcium 8.6 mg/dl (8.5-10.1); Creatinine Clr Calc Pharmacy 43.3 ml/min; Est GFR (African American) 71.9; Globulin 3.5 gm/dl (2.5-4.0); Potassium 4.3 mmol/L (3.5-5.1)
[2019-01-12 09:25] LABS: Basophils # (auto) 0.05 K/uL (0-0.2); Basophils % (auto) 0.2 %; Eosinophils # (auto) 0.34 K/uL (0-0.5); Eosinophils % (auto) 1.6 %; Immature Granulocytes # (auto) 0.06 K/uL (0.00-0.02); Immature Granulocytes % (auto) 0.3 %; Lymphocytes # (auto) 13.11 K/uL (1.2-3.4); Lymphocytes % (auto) 61.5 %; Monocytes # (auto) 0.97 K/uL (0.11-0.59); Monocytes % (auto) 4.6 %; Neutrophils # (auto) 6.78 K/uL (1.4-6.5); Neutrophils % (auto) 31.8 %; Smudge Cells Present; Spherocytes Occasional
[2019-01-12] MEDS ORDERED: ALBUT/IPRATROP 3MG/0.5MG NEB 3 ML VIAL NEB STA (12:30)
--- NOTE | 2019-01-12 17:31 | Discharge Summary ---
Date of Service January 12, 2019 Admission HPI Per Admitting Provider 88-year-old female with a history of aortic stenosis, hypertension, hyperlipidemia, and meningioma subsequent seizure disorder, CVA, CLL presents with hypoxia with exertion. Patient was dyspneic this morning and was found in her PCPs office to have desaturations in the 80s with ambulation. Patient states that the dyspnea has been ongoing over the past couple months, but she is recently noticed a cough and some hoarseness. She denies any bear blood with bowel movements, she denies melanotic stools, she denies hemoptysis. She denies abdominal pain, nausea/vomiting/diarrhea. She denies a history of colon cancer, ulcerative colitis, Crohn's disease. She denies a history of hemorrhoids, but reports occasional spotting on toilet paper. Her last colonoscopy was over 10 years ago, she denies any abnormal colonoscopies in the past. 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 Patient admits to cognitive issues following her history of meningioma, craniotomy and subsequent seizure disorder. She says these issues have improved with rehab and she currently lives at an assisted living facility. Review of systems Constitutional; no fevers, chills, night sweats HEENT; reports hoarseness, denies sore throat, runny nose CV; denies chest pain, palpitations, worsening edema Pulmonary; reports dyspnea with exertion, denies hemoptysis, reports a persistent cough Abdomen; denies abdominal pain, nausea/vomiting/diarrhea Discharge Data Allergies Allergy/AdvReac Type Severity Reaction Status Date / Time Penicillins Allergy Mild RASH Verified 01/10/19 22:30 Sulfa (Sulfonamide Allergy Mild RASH Verified 01/10/19 22:30 Antibiotics) aspirin AdvReac Unknown BLEEDING Verified 01/10/19 22:30 Consultations 01/10/19 23:01 ED Decision to Admit Stat 01/11/19 01:57 Consult Case Management - Discharge Planning Routine Consult Gastroenterology Routine 01/11/19 08:31 Consult Oncology Routine Procedures Performed Operation Date: 01/11/19 08:30 Actual Procedures p Esophagogastroduodenoscopy - Tahir Greer Case, DO Hospital Course (1) Anemia: (2) MARCANO (dyspnea on exertion): (3) Chronic lymphocytic leukemia: Appears to be at baseline without progression Appreciate heme-onc consult (4) Heme positive stool: (5) Weakness: (6) Seizure disorder: (7) History of stroke: (8) Hyperlipidemia: (9) Hypertension: (10) Meningioma: (11) Focal epilepsy with impairment of consciousness: (12) Aortic stenosis: Concerning for progressive symptoms of this over the last year with some chest pain at rest. Likely exacerbated by current anemia. Previously discussed surgical options with Dr. Kenyon and decided on monitoring for now. Recommend routine follow-up with cardiology. Discharge Plan Discharge Items Patient Disposition: Personal Skilled Nursing Reason For Visit: SYMPTOMATIC ANEMIA Discharge Diagnosis: Gastrointestinal bleeding Iron deficiency anemia Chronic gastritis Gastroesophageal reflux causing cough Large hiatal hernia Condition on Discharge: Good Activity: Resume your previous activity Non-emergency contact: Primary Care Provider Call non-emergency contact if: you have any medication questions and your symptoms worsen Follow-up/Referrals: Tahir Church DO [Physician] - (2-4 weeks) Landon Regan MD [Primary Care Provider] - (within 1 week) Paul Kuo [Physician] - Diet: Regular Ambulatory Orders: Hemoglobin and Hematocrit (Routine) Timeframe: [id number] Location: Determined by Patient Ordered By: Pepito Eldridge Attending Provider Instructions: You were admitted to [facility] on January 11, 2019 with shortness of breath and low oxygen levels on exertion. You were diagnosed with acute gastrointestinal bleeding causing symptomatic anemia. This was treated with 2 units of blood. You underwent endoscopy to establish a cause of the bleeding - this showed a large hiatal hernia and chronic gastritis (inflammation of your stomach. I suspect the gastritis caused your bleeding, possibly exacerbated by recent azithromycin use, although no active bleeding was present at the time. Please continue your pantoprazole and famotidine to treat this. Recommend using your carate regularly for the next 2 weeks three times a day to help calm down the inflammation. Your hemoglobin remained stable after transfusions and your shortness of breath resolved to baseline. Please stop your clopidogrel until following up with your primary care provider in the next 1-2 weeks. Please repeat your lab test (as provided) on Monday to check for worsening anemia. Your cough is most likely secondary to reflux given it occurs consistently with lying down. Recommend reducing foods known to make this worse (acidic, spicy, chocolate or caffeine), no eating 2 hours prior to bed and keeping your head elevated in bed (see sheet below). Your baseline chest pain and shortness of breath on exertion is due to your severe aortic stenosis and would recommend you discuss this with your barrer and tacker at your next appointment since it appears to have progressed significantly over the last year. Please follow up with gastroenterology regarding your gastrointestinal bleed, appointment to be arranged. Please call the number above for Dr Church's office if you have not heard back after 7 days. You were also reviewed by hematology regarding your chronic lymphocytic leukemia. Please call the number above for Dr Kuo's office if you have not heard back after 7 days. Pending Studies at Discharge: No Stand-Alone Forms: My Krush, Smoking Cessation Skilled Items Patient informed of condition?: Yes DNR: Yes Discharge Level of Care: Other Communicable Disease: No Discharge Prognosis: Stable Lines: None Urinary Catheter: No Medications and DC Order Prescriptions: Continued metoprolol tartrate 50 mg tablet 50 mg PO BID Qty: 180 RF: 3 pravastatin 20 mg tablet 20 mg PO DAILY Qty: 90 RF: 1 amlodipine 5 mg tablet 5 mg PO DAILY Qty: 90 RF: 1 pantoprazole 40 mg tablet,delayed release (DR/EC) 40 mg PO BID Qty: 180 RF: 3 levetiracetam 1,000 mg tablet 1,000 mg PO BID Qty: 60 RF: 0 cholecalciferol (vitamin D3) 2,000 unit tablet 2,000 unit PO DAILY Qty: 30 RF: 0 acetaminophen 500 mg tablet 500 - 1,000 mg PO BID MDD 3g/24hr PRN (Reason: Pain) Qty: 30 RF: 0 loperamide 2 mg capsule 2 mg PO UD MDD 8 caps PRN (Reason: loose stools) Qty: 30 RF: 0 multivitamin capsule 1 cap PO DAILY Qty: 30 RF: 0 famotidine 20 mg tablet 20 mg PO DAILY RF: 0 latanoprost 0.005 % drops 1 drops OPB QPM RF: 0 Changed sucralfate 100 mg/mL suspension 1 gm PO TID Qty: 0 RF: 0 Discontinued clopidogrel 75 mg tablet 75 mg PO DAILY Qty: 90 RF: 3 Discharge Orders: Discharge Order (Routine); Ordered 01/12/19 Ordered By: Pepito M. Edita Admission Data Admit Date/Time: 01/11/19 01:10 Attending Provider: Pepito Kohler Admit Provider: Geoff Verma Primary Care Provider: Landon Regan Other Providers: Scot Stallings ; Paul Kuo ; Tahir Church Other Interventions: Discharge Summary Assessment (RN) Last Done: 01/12/19 17:18
== END 2019-01-12 18:26 | disposition home or self-care (01) | DRG 811 ==
LOC: ED 19:30 → 2N 01-11 01:10 → SUATTDRO 01-11 01:10 → 2N 01-11 01:38

== ENCOUNTER 2020-07-27 08:42 | Inpatient (IN) ==
--- NOTE | 2020-07-27 08:57 | Emergency Department Note ---
History of Present Illness General Chief complaint: Confusion Time Seen by Provider: 07/27/20 08:47 Source: patient, EMS and old records reviewed Mode of arrival: EMS Limitations: no limitations History of Present Illness This patient is brought in by EMS after being called out for possible strokelike symptoms. Her last known well was about 6 PM yesterday. EMS called and said the only potential deficit is speech. She has no slurred speech but just answers questions inappropriately. When I asked her what her name is she says okay and when I asked her other question she says okay. She does follow commands but is unable to give any history due to confusion. According to EMS she has had Covid vaccine series. Home Medications Medication Instructions Recorded Confirmed Type acetaminophen 500 mg tablet 500 - 1,000 mg PO BID PRN #30 tab 07/16/18 07/27/20 History MDD 3g/24hr cholecalciferol (vitamin D3) 50 2,000 unit PO DAILY #30 tab 07/16/18 07/27/20 History mcg (2,000 unit) tablet levetiracetam 1,000 mg tablet 1,000 mg PO BID #60 tab 07/16/18 07/27/20 History multivitamin 1 cap PO DAILY #30 cap 08/14/18 07/27/20 Rx latanoprost 1 drops OPB QPM 08/27/18 07/27/20 History metoprolol tartrate 50 mg tablet 50 mg PO BID #180 tab 09/12/18 07/27/20 Rx pravastatin 20 mg tablet 20 mg PO DAILY #90 tab 11/06/18 07/27/20 Rx pantoprazole 40 mg tablet,delayed 40 mg PO BID #180 tab 12/10/18 07/27/20 Rx release amlodipine 2.5 mg tablet 2.5 mg PO DAILY #90 tab 03/18/19 07/27/20 Rx sucralfate 100 mg/mL oral 1 g PO TID #420 ml 02/18/20 07/27/20 Rx suspension loperamide 2 mg capsule 2 mg PO UD PRN #30 cap MDD 8 caps 04/10/20 07/27/20 Rx ferrous sulfate 325 mg PO DAILY 07/27/20 07/27/20 History Allergies Allergy/AdvReac Type Severity Reaction Status Date / Time Penicillins Allergy Mild RASH Verified 05/17/21 09:36 Sulfa (Sulfonamide Allergy Mild RASH Verified 07/27/20 09:36 Antibiotics) aspirin AdvReac Unknown BLEEDING Verified 07/27/20 09:36 Past Med/Surg History Medical History (Updated 07/27/20 @ 14:28 by Jozef Royal MD) Allergic rhinitis Aortic stenosis Aortic stenosis Moderate to severe Asthma Atrial fibrillation 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 Glaucoma History of - pneumonia (11/24/12) History of - tubal ligation (11/24/12) History of bronchitis (11/24/12) History of chronic lymphocytic leukemia History of stroke Hyperlipidemia Hypertension Left hip pain Meningioma Osteopenia RLL pneumonia (03/02/14) Surgical History (Updated 07/27/20 @ 14:28 by Jozef Royal MD) History of appendectomy (11/24/12) History of resection of meningioma S/P cholecystectomy S/P tonsillectomy and adenoidectomy S/P tubal ligation Family History Mother Heart disease Myocardial infarction Father Heart disease Myocardial infarction Grandfather Heart disease Myocardial infarction Brother Myocardial infarction Grandmother (Maternal) Myocardial infarction Other No pertinent family history Denies family history of Ovarian cancer Prostate cancer Breast cancer Colorectal cancer Social History Smoking Status: Unknown if ever smoked Second Hand Exposure: Yes; Hx Alcohol Use: No Hx Substance Use: No Preferred Language: Chinese Communication Ability: Impaired Communication Ability Comment: expressive aphasia Visual Impairment: Partially Limited Hearing Ability: Normal Senior Payroll Administrator Required: No Beliefs That Will Affect Care: None marital status: / Current Living Situation: Personal Care Facility Current Living Situation Comment: [facility] current occupational status: retired How many Children do You have: 2 How many Children do You have Comment: 1 boy 1 girl Other Information That Helps Us Care for You: No Feels Safe at Home: Yes Safety Concerns: Feels Safe At This Time Childhood Exposure to Second-Hand Smoke: No during the past year weight has: remained stable Dental Care, Regularly: Yes Physical Activity Frequency: Daily Seatbelt Use: always Sunscreen Use: Yes Assistive Devices: Glasses and Walker Review of Systems A total of 10 systems reviewed and were otherwise negative Physical Exam Vital Signs Vital Signs - 24 hr 07/27/20 08:51 07/27/20 09:03 07/27/20 10:01 Temperature 36.7 C Temperature Source Oral Pulse Rate 53 L 56 L 56 L Pulse Rate from SpO2 Sensor 53 L 56 L Pulse Rhythm Regular Pulse Strength Normal Respiratory Rate 20 24 25 H Respiratory Effort / Characteristics Non-Labored Spontaneous Respiratory Depth Normal Respiratory Pattern Regular Blood Pressure 167/66 H 167/66 H 178/69 H Blood Pressure Mean 99 99 105 Blood Pressure Position Lying Pulse Oximetry 95 97 95 Oxygen Delivery Method Room Air Sepsis Recent Fever Within 48 Hours No Sepsis New/Unexplained Change in Mental Status Yes Sepsis Action Taken by Nursing MD Previously Notified 07/27/20 10:30 07/27/20 11:00 Temperature Temperature Source Pulse Rate 55 L 54 L Pulse Rate from SpO2 Sensor 54 L 54 L Pulse Rhythm Pulse Strength Respiratory Rate 29 H 23 Respiratory Effort / Characteristics Respiratory Depth Respiratory Pattern Blood Pressure 155/71 H 165/68 H Blood Pressure Mean 99 100 Blood Pressure Position Pulse Oximetry 96 96 Oxygen Delivery Method Sepsis Recent Fever Within 48 Hours Sepsis New/Unexplained Change in Mental Status Sepsis Action Taken by Nursing General: Well developed well nourished older female who appears awake and alert and in no acute distress, breathing comfortably on room air. Normal speech, nonslurred. When I ask her questions she responds mostly as"ok" HEENT: Normal cephalic atraumatic. Pupils are equal round and reactive to light. Extraocular movements are intact. Oropharynx is pink with moist mucous membranes. No swelling of the mouth lips or tongue. Facial asymmetry or droop Neck: Supple with a midline trachea. No meningeal signs or stiffness, no JVD or bruits. No Stridor. Chest: Clear to auscultation bilaterally. No wheezes or rhonchi. No increased work of breathing. Heart: Regular rate and rhythm without murmurs or gallops. Abdomen: Soft nontender, nondistended without rebound guarding or rigidity. Extremities: No cyanosis clubbing or edema. No calf tenderness or assymetry Spine/Back. Non tender to palpation. No CVA tenderness Skin: Good turgor without rashes. Neurologic exam: Cranial nerves two through 12 are intact. Motor and sensation are intact and symmetrical throughout. Course Administered Medications Discontinued Medications Aspirin (Aspirin 81 Mg Chew) 324 mg PO NOW ONE Stop: 07/27/20 11:26 Last Admin: 07/27/20 11:39 Dose: 324 mg Documented by: [id number] Medical Decision Making Differential Diagnosis Stroke, sepsis, UTI, toxicologic, electrolyte or metabolic abnormality, seizure, intracranial process, infection, Covid Medical Records Attestation: I reviewed the patient's medical records. Home Medications Current Medication List: was personally reviewed by me Laboratory Data Attestation: I reviewed the patient's lab results. Result diagrams: 07/27/20 09:39 07/27/20 12:57 Lab Results 07/27/20 07/27/20 07/27/20 Range/Units 09:39 09:39 09:39 WBC 30.20 H* (4.8-10.8) K/uL RBC 4.57 (4.2-5.4) M/uL Hgb 14.8 (12.0-16.0) g/dL POC Hgb (12.0-16.0) g/dl Hct 45.5 (37-47) % POC Hct (37-47) % MCV 99.6 (80-100) fL MCH 32.4 (25-34) pg MCHC 32.5 (32-36) g/dL RDW Std Deviation 50.7 H (36.4-46.3) fL RDW Coeff of Esteban 14.0 (11.5-14.5) % Plt Count 199 (130-400) K/uL MPV 9.6 (7.4-10.4) fL Immature Gran % (Auto) 0.2 % Neut % (Auto) 20.2 % Lymph % (Auto) 75.7 % Pima % (Auto) 3.2 % Eos % (Auto) 0.5 % Baso % (Auto) 0.2 % Neut # (Auto) 6.06 (1.4-6.5) K/uL Lymph # (Auto) 22.87 H (1.2-3.4) K/uL [place]ima # (Auto) 0.97 H (0.11-0.59) K/uL Eos # (Auto) 0.16 (0-0.5) K/uL Baso # (Auto) 0.07 (0-0.2) K/uL Immature Gran # (Auto) 0.07 H (0.00-0.02) K/uL Smudge Cells Present PT 10.5 (9.0-12.0) Seconds INR 1.0 (0.9-1.1) APTT 25.5 (21.0-31.0) Seconds PTT Ratio 1.0 POC Sodium (135-144) mmol/L Sodium 139 (136-145) mmol/L POC Potassium (3.3-5.0) mmol/L Potassium 4.4 (3.5-5.1) mmol/L POC Chloride (101-112) mmol/L Chloride 107 (98-107) mmol/L Carbon Dioxide 26 (21-32) mmol/L POC Total CO2 (24-31) mmol/L Anion Gap 6.0 (3-11) POC Anion Gap (16-25) mmol/L POC BUN (7-18) mg/dl BUN 10 (7-18) mg/dl Creatinine 0.68 (0.6-1.2) mg/dl POC Creatinine (0.6-1.3) mg/dl Est Cr Clr Drug Dosing 54.8 ml/min Est GFR ( Amer) 91.2 ml/min Est GFR (Non-Af Amer) 78.6 ml/min BUN/Creatinine Ratio 14.2 (10-20) Glucose 104 H (70-99) mg/dl POC Glucose (other) (70-99) mg/dl Calcium 9.0 (8.5-10.1) mg/dl POC Ioniz Calcium Estelle (1.12-1.32) mmol/l Magnesium 2.3 (1.8-2.4) mg/dl Total Bilirubin 0.8 (0.2-1) mg/dl AST 24 (15-37) U/L ALT 18 (12-78) U/L Alkaline Phosphatase 127 H (45-117) U/L Troponin I < 0.015 (0-0.045) ng/ml Total Protein 6.8 (6.4-8.2) gm/dl Albumin 3.5 (3.4-5.0) gm/dl Globulin 3.3 (2.5-4.0) gm/dl Albumin/Globulin Ratio 1.1 (0.9-2) Urine Color Urine Appearance (Clear) Urine pH (4.5-7.5) Ur Specific Rolette (1.000-1.030) Urine Protein (Negative) Urine Glucose (UA) (Negative) Urine Ketones (Negative) Urine Blood (Negative) Urine Nitrite (Negative) Urine Bilirubin (Negative) Urine Urobilinogen (Negative) Ur Leukocyte Esterase (Negative) COVID-19 Eval Order SARS-CoV-2 (PCR) (Negative) 07/27/20 07/27/20 07/27/20 Range/Units 09:44 09:53 09:53 WBC (4.8-10.8) K/uL RBC (4.2-5.4) M/uL Hgb (12.0-16.0) g/dL POC Hgb 15.0 (12.0-16.0) g/dl Hct (37-47) % POC Hct 44 (37-47) % MCV (80-100) fL MCH (25-34) pg MCHC (32-36) g/dL RDW Std Deviation (36.4-46.3) fL RDW Coeff of Esteban (11.5-14.5) % Plt Count (130-400) K/uL MPV (7.4-10.4) fL Immature Gran % (Auto) % Neut % (Auto) % Lymph % (Auto) % [place] % (Auto) % Eos % (Auto) % Baso % (Auto) % Neut # (Auto) (1.4-6.5) K/uL Lymph # (Auto) (1.2-3.4) K/uL Pima # (Auto) (0.11-0.59) K/uL Eos # (Auto) (0-0.5) K/uL Baso # (Auto) (0-0.2) K/uL Immature Gran # (Auto) (0.00-0.02) K/uL Smudge Cells PT (9.0-12.0) Seconds INR (0.9-1.1) APTT (21.0-31.0) Seconds PTT Ratio POC Sodium 139 (135-144) mmol/L Sodium (136-145) mmol/L POC Potassium 4.4 (3.3-5.0) mmol/L Potassium (3.5-5.1) mmol/L POC Chloride 104 (101-112) mmol/L Chloride (98-107) mmol/L Carbon Dioxide (21-32) mmol/L POC Total CO2 28 (24-31) mmol/L Anion Gap (3-11) POC Anion Gap 13.0 L (16-25) mmol/L POC BUN 9 (7-18) mg/dl BUN (7-18) mg/dl Creatinine (0.6-1.2) mg/dl POC Creatinine 0.8 (0.6-1.3) mg/dl Est Cr Clr Drug Dosing ml/min Est GFR ( Amer) ml/min Est GFR (Non-Af Amer) ml/min BUN/Creatinine Ratio (10-20) Glucose (70-99) mg/dl POC Glucose (other) 102 H (70-99) mg/dl Calcium (8.5-10.1) mg/dl POC Ioniz Calcium Estelle 1.13 (1.12-1.32) mmol/l Magnesium (1.8-2.4) mg/dl Total Bilirubin (0.2-1) mg/dl AST (15-37) U/L ALT (12-78) U/L Alkaline Phosphatase (45-117) U/L Troponin I (0-0.045) ng/ml Total Protein (6.4-8.2) gm/dl Albumin (3.4-5.0) gm/dl Globulin (2.5-4.0) gm/dl Albumin/Globulin Ratio (0.9-2) Urine Color Urine Appearance (Clear) Urine pH (4.5-7.5) Ur Specific Rolette (1.000-1.030) Urine Protein (Negative) Urine Glucose (UA) (Negative) Urine Ketones (Negative) Urine Blood (Negative) Urine Nitrite (Negative) Urine Bilirubin (Negative) Urine Urobilinogen (Negative) Ur Leukocyte Esterase (Negative) COVID-19 Eval Order Covid19 at [facility] SARS-CoV-2 (PCR) NEGATIVE (Negative) 07/27/20 Range/Units 10:17 WBC (4.8-10.8) K/uL RBC (4.2-5.4) M/uL Hgb (12.0-16.0) g/dL POC Hgb (12.0-16.0) g/dl Hct (37-47) % POC Hct (37-47) % MCV (80-100) fL MCH (25-34) pg MCHC (32-36) g/dL RDW Std Deviation (36.4-46.3) fL RDW Coeff of Esteban (11.5-14.5) % Plt Count (130-400) K/uL MPV (7.4-10.4) fL Immature Gran % (Auto) % Neut % (Auto) % Lymph % (Auto) % [place] % (Auto) % Eos % (Auto) % Baso % (Auto) % Neut # (Auto) (1.4-6.5) K/uL Lymph # (Auto) (1.2-3.4) K/uL [place] # (Auto) (0.11-0.59) K/uL Eos # (Auto) (0-0.5) K/uL Baso # (Auto) (0-0.2) K/uL Immature Gran # (Auto) (0.00-0.02) K/uL Smudge Cells PT (9.0-12.0) Seconds INR (0.9-1.1) APTT (21.0-31.0) Seconds PTT Ratio POC Sodium (135-144) mmol/L Sodium (136-145) mmol/L POC Potassium (3.3-5.0) mmol/L Potassium (3.5-5.1) mmol/L POC Chloride (101-112) mmol/L Chloride (98-107) mmol/L Carbon Dioxide (21-32) mmol/L POC Total CO2 (24-31) mmol/L Anion Gap (3-11) POC Anion Gap (16-25) mmol/L POC BUN (7-18) mg/dl BUN (7-18) mg/dl Creatinine (0.6-1.2) mg/dl POC Creatinine (0.6-1.3) mg/dl Est Cr Clr Drug Dosing ml/min Est GFR ( Amer) ml/min Est GFR (Non-Af Amer) ml/min BUN/Creatinine Ratio (10-20) Glucose (70-99) mg/dl POC Glucose (other) (70-99) mg/dl Calcium (8.5-10.1) mg/dl POC Ioniz Calcium Estelle (1.12-1.32) mmol/l Magnesium (1.8-2.4) mg/dl Total Bilirubin (0.2-1) mg/dl AST (15-37) U/L ALT (12-78) U/L Alkaline Phosphatase (45-117) U/L Troponin I (0-0.045) ng/ml Total Protein (6.4-8.2) gm/dl Albumin (3.4-5.0) gm/dl Globulin (2.5-4.0) gm/dl Albumin/Globulin Ratio (0.9-2) Urine Color Yellow Urine Appearance Clear (Clear) Urine pH 8.5 H (4.5-7.5) Ur Specific Rolette 1.010 (1.000-1.030) Urine Protein Negative (Negative) Urine Glucose (UA) Negative (Negative) Urine Ketones Negative (Negative) Urine Blood Negative (Negative) Urine Nitrite Negative (Negative) Urine Bilirubin Negative (Negative) Urine Urobilinogen Negative (Negative) Ur Leukocyte Esterase Negative (Negative) COVID-19 Eval Order SARS-CoV-2 (PCR) (Negative) Imaging Data Attestation: I personally reviewed and interpreted this imaging study as follows: My Impression: Head CTthere was no acute hemorrhage or blood. There is a hypodensity in the left temporal parietal lobe. There is encephalomalacia related to previous brain surgery in the frontal lobes. Radiologist's Impression: Head CT 07/27/20 08:49 CT OF THE HEAD WITHOUT CONTRAST CLINICAL HISTORY: Stroke Like Symptoms. Confusion. COMPARISON STUDY: Head CT October 26, 2015. MRI of the brain May 08, 2015. CT DOSE: 537.48 mGy.cm TECHNIQUE: Helical axial images of the head were obtained without IV contrast. Automated exposure control was utilized for the study. A dose lowering technique was utilized adhering to the principles of ALARA. FINDINGS: No acute intracranial hemorrhage is present. Encephalomalacia within the bilateral frontal lobes is unchanged since exam of October 26, 2015. Frontal craniotomy is noted. Ventricular system is unremarkable. Basal cisterns are armando nt. Note is made of hypodensity with loss of jameson-white differentiation within the left temporal and parietal lobes. There is no mass effect. This also subtle hypodensity within the right parietal lobe on axial image 16. This contains a 3 mm hyperdense focus. Left maxillary sinus is largely opacified. IMPRESSION: 1. Hypodensity with loss of jameson-white differentiation within the left temporal and parietal lobes. This suggests an acute posterior left MCA distribution infarct. Findings discussed with Dr. Royal at time of dictation. 2. Smaller hypodense focus within the right parietal lobe. This is equivocal for an additional infarct. This contains a 3 mm hypodense focus which could reflect a calcification, possibly within a vessel. This does not appear to represent hemorrhage. 3. Otherwise, unchanged appearance of the brain with bifrontal encephalomalacia. ACT 112: Negative or not required by law. Electronically signed by: Rubio Rodriguez M.D. 07/27/2020 9:42 AM ECG Data Attestation: I personally reviewed and interpreted this ECG as follows: Indication: + altered mental status Rate (beats per minute): 57 Rhythm: + sinus bradycardia ECG Intervals/blocks: + Normal QRS, + Normal QT and + Normal ME ECG [place]: + Normal ECG ST segments: + Normal ST segments ECG Findings: no PACs and no PVCs Comparison ECG Date: from (12/07/19) Change: no significant change MDM Narrative This patient comes in as described above. I did talk to EMS prior to arrival and they alerted me of her she has potential strokelike symptoms but there is also multiple other etiologies for her symptoms. We did not call a stroke alert initially due to the fact that she has had nonfocal symptoms and additionally her symptoms have been going on for over 14 hours therefore she is outside the window for TPA and likely any other intervention. I saw her upon arrival she looks well except for seeming confused or aphasic. She has no facial droop or asymmetry in her neurologic exam. Her words are not slurred. Looking through h er chart she does have a history of seizures and meningioma. She looks like she is on Keppra for this is possible this could have been related seizure and she could be postictal. It could also be related to intracranial mass or hemorrhage. IV access was established we did a strokelike work-up on her and obtained a CAT scan of her head. CAT scan of her head does show a temporal/parietal lobe infarct and there may also be another infarct EKG shows normal sinus rhythm is not A. fib. Her white count is elevated however she has chronic CLL. She is not anemic she is no significant electrolyte or metabolic abnormalities. I did discuss the case at length with Dr. Neal who is the [place] stroke neurologist that we used for telestroke. She agrees that she is outside the TPA window and also feels she is outside any interventional window as its been 14 to 16 hours and her CAT scan already shows infarct and at this point she does not feel there is likely any intervention that they can do. I talked to the daughter at length about this she acknowledges this and agrees. I also talked about CODE STATUS and she tells me she is a DO NOT RESUSCITATE/DO NOT INTUBATE according to her living will which she has at bedside and the patient daughter agrees with this as well. She also did confirm to me the last known well time as the the son called her last evening and was worried about her speech and confusion at that time. I did consult [place] hospital[place] to see her in the ER for further treatment evaluations and admission. Covid testing was negative. Continuous cardiac monitoring: Order was placed in the EMR for continuous cardiac monitoring. The patient was noted to be in sinus bradycardia with a rate of 58. Impression & Plan Stroke, Chronic lymphocytic leukemia, Aphasia, History of resection of meningi lena, Lab test negative for COVID-19 virus Discharge Plan Visit Data Chief Complaint: Confusion ED Provider: Jozef Royal Discharge Problem: Stroke, Chronic lymphocytic leukemia, Aphasia, History of resection of meningio ma, Lab test negative for COVID-19 virus Patient Disposition: Admitted As Inpatient Discharge Instructions Interventions: ED Discharge Assessment Last Done: 07/27/20 12:17 Discharge Problem: Stroke Qualifiers: CVA mechanism: unspecified Qualified Code(s): I63.9 - Cerebral infarction, unspecified
--- NOTE | 2020-07-27 09:44 | CT Scan Report ---
CT OF THE HEAD WITHOUT CONTRAST CLINICAL HISTORY: Stroke Like Symptoms. Confusion. COMPARISON STUDY: Head CT October 26, 2015. MRI of the brain May 08, 2015. CT DOSE: 537.48 mGy.cm TECHNIQUE: Helical axial images of the head were obtained without IV contrast. Automated exposure con trol was utilized for the study. A dose lowering technique was utilized adhering to the principles o f ALARA. FINDINGS: No acute intracranial hemorrhage is present. Encephalomalacia within the bilateral frontal lobes is unchanged since exam of October 26, 2015. Frontal craniotomy is noted. Ventricular system is unremarkable. Basal cisterns are patent. Note is made of hypodensity with loss of jameson-white differen tiation within the left temporal and parietal lobes. There is no mass effect. This also subtle hypode nsity within the right parietal lobe on axial image 16. This contains a 3 mm hyperdense focus. Left m axillary sinus is largely opacified. IMPRESSION: 1. Hypodensity with loss of jameson-white differentiation within the left temporal and parietal lobes. T his suggests an acute posterior left MCA distribution infarct. Findings discussed with Dr. Royal at time of dictation. 2. Smaller hypodense focus within the right parietal lobe. This is equivocal for an additional infarc t. This contains a 3 mm hypodense focus which could reflect a calcification, possibly within a vessel . This does not appear to represent hemorrhage. 3. Otherwise, unchanged appearance of the brain with bifrontal encephalomalacia. ACT 112: Negative or not required by law. Electronically signed by: Rubio Rodriguez M.D. 07/27/2020 9:42 AM
[2020-07-27 09:58] LABS: Hematocrit (blood only) 45.5 % (37-47); Hemoglobin 14.8 g/dL (12.0-16.0); Mean Corpuscular Hemoglobin 32.4 pg (25-34); Mean Corpuscular Hgb Conc 32.5 g/dL (32-36); Mean Corpuscular Volume 99.6 fL (80-100); Mean Platelet Volume 9.6 fL (7.4-10.4); Platelet Count 199 K/uL (130-400); RDW Standard Deviation 50.7 fL (36.4-46.3); Red Blood Count 4.57 M/uL (4.2-5.4)
[2020-07-27 10:03] LABS: Partial Thromboplastin Time 25.5 Seconds (21.0-31.0); Prothrombin Time 10.5 Seconds (9.0-12.0)
[2020-07-27 10:16] LABS: Alanine Aminotransferase 18 U/L (12-78); Albumin Level 3.5 gm/dl (3.4-5.0); Aspartate Aminotransferase 24 U/L (15-37); BUN Creatinine Ratio 14.2 (10-20); Blood Urea Nitrogen 10 mg/dl (7-18); Carbon Dioxide 26 mmol/L (21-32); Chloride 107 mmol/L (98-107); Creatinine Clr Calc Pharmacy 54.8 ml/min; Est GFR (African American) 91.2 ml/min; Est GFR (Non-African American) 78.6 ml/min; Glucose 104 mg/dl (70-99); Magnesium 2.3 mg/dl (1.8-2.4); Potassium 4.4 mmol/L (3.5-5.1); Sodium 139 mmol/L (136-145)
[2020-07-27 10:20] LABS: Albumin Globulin Ratio 1.1 (0.9-2); Alkaline Phosphatase 127 U/L (45-117); Bilirubin,Total 0.8 mg/dl (0.2-1); Globulin 3.3 gm/dl (2.5-4.0); Total Protein 6.8 gm/dl (6.4-8.2); Troponin I < 0.015 ng/ml (0-0.045)
[2020-07-27 10:30] LABS: Appearance Urine Clear (Clear); Bilirubin Urine Negative (Negative); Blood Urine Negative (Negative); Color Urine Yellow; Glucose Urine UA Negative (Negative); Ketones Urine Negative (Negative); Leukocyte Esterase Urine Negative (Negative); Nitrite Urine Negative (Negative); Protein Urine Negative (Negative); Urobilinogen Urine Negative (Negative); pH Urine 8.5 (4.5-7.5)
[2020-07-27 10:42] LABS: Basophils # (auto) 0.07 K/uL (0-0.2); Basophils % (auto) 0.2 %; Eosinophils # (auto) 0.16 K/uL (0-0.5); Eosinophils % (auto) 0.5 %; Immature Granulocytes # (auto) 0.07 K/uL (0.00-0.02); Immature Granulocytes % (auto) 0.2 %; Lymphocytes # (auto) 22.87 K/uL (1.2-3.4); Lymphocytes % (auto) 75.7 %; Monocytes # (auto) 0.97 K/uL (0.11-0.59); Monocytes % (auto) 3.2 %; Neutrophils # (auto) 6.06 K/uL (1.4-6.5); Neutrophils % (auto) 20.2 %; Smudge Cells Present
[2020-07-27] MEDS ORDERED: ASPIRIN 81 MG CHEW PO ONE (11:25)
--- NOTE | 2020-07-27 11:44 | History & Physical Report ---
Date of Service July 27, 2020 Assessment & Plan (1) Ischemic stroke: Posterior left MCA infarct: Hypodensity with loss of jameson-white differentiation within the left temporal and parietal lobes. This suggests an acute posterior left MCA distribution infarct. Smaller hypodense focus within the right parietal lobe. This is equivocal for an additional infarct. This contains a 3 mm hypodense focus which could reflect a calcification, possibly within a vessel. This does not appear to represent h emorrhage. 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 meningioma - Continue as above - No acute needs at this time has been well controlled (3) Hypertension: Allow permissive HTN as above - Hold Amlodpinie tonight, can restart in morning in needed - Hold Metoprolol XL 50 mg BID for tonight- restart in morning - Can give PRN 5mg lopressor IV if needed for HR >100 (4) Hyperlipidemia: Lipid panel in morning - change to high intensity statin- Atrovastatin 20 mg tomorrow morning (5) Aortic stenosis: Repeat ECHO as above - no acute needs at this time, patient reportedly declined intervention in the past - Last ECHO 2019 (6) Mitral regurgitation: As above, mild to moderate (7) CHF (congestive heart failure): HFpEF- 55-60% - Echo pending as above - restart BB in morning - Not on any other disease modifying medications at home (8) GERD (gastroesophageal reflux disease): Patient did have EGD for gastritis as well as anemia in 2019 - Continue PPI and Carafate - Monitor HGB/HCT while on daily asa - Regular diet (9) Chronic lymphocytic leukemia: No acute needs as of now, [facility] - Follow WBC count- currently lymph predmonimnet - no evidence of acute infection- blood cultures pending, CXR no acute process lactate pending (10) Obesity: Patient participates in activities at the senior care and apparently has put on excess weight since there - PT/OT and rehab afterwards may assist (11) Glaucoma: No acute needs - continue home eye drops. History of Present Illness Primary Care Provider: [facility] 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 Patient is at [facility]. She was out with her family yesterday and went to lunch, and then returned to [facility] around 1500. Her son called her on the phone yesterday around 1800, noted she was not making any sense so called his sister who is with the patient now. The sister called [facility] last night to have her checked on and was reported to be "OK" reading a book. This morning the patient was noted to be confused and moderate aphasia, so was brought to the emergency room. In the emergency room the patient had a CT scan of the head performed which showed left MCA dist ribution ischemic CVA. Dr. Royal ([facility] physician) reports that he discussed the case with Dr. Gunn ([place] telestroke) and after reviewing her images was not deemed an interventional candidate secondary to completion of her stroke. Hospitalist team was notified for admission. She will be admitted for acute left MCA distribution infarct. Not a tPA candidate secondary to time last known well when she arrived to [facility] yesterday ~1500 Not an interventional candidate secondary to completion of stroke Will give 324mg Oral aspirin now NIHSS-4 Allergies Allergy/AdvReac Type Severity Reaction Status Date / Time Penicillins Allergy Mild RASH Verified 07/27/20 09:36 Sulfa (Sulfonamide Allergy Mild RASH Verified 07/27/20 09:36 Antibiotics) aspirin AdvReac Unknown BLEEDING Verified 07/27/20 09:36 Home Medications Medication Instructions Recorded Confirmed Type acetaminophen 500 mg tablet 500 - 1,000 mg PO BID PRN #30 tab 07/16/18 07/27/20 History MDD 3g/24hr cholecalciferol (vitamin D3) 50 2,000 unit PO DAILY #30 tab 07/16/18 07/27/20 History mcg (2,000 unit) tablet levetiracetam 1,000 mg tablet 1,000 mg PO BID #60 tab 07/16/18 07/27/20 History multivitamin 1 cap PO DAILY #30 cap 08/14/18 07/27/20 Rx latanoprost 1 drops OPB QPM 08/27/18 07/27/20 History metoprolol tartrate 50 mg tablet 50 mg PO BID #180 tab 09/12/18 07/27/20 Rx pravastatin 20 mg tablet 20 mg PO DAILY #90 tab 11/06/18 07/27/20 Rx pantoprazole 40 mg tablet,delayed 40 mg PO BID #180 tab 12/10/18 07/27/20 Rx release amlodipine 2.5 mg tablet 2.5 mg PO DAILY #90 tab 03/18/19 07/27/20 Rx sucralfate 100 mg/mL oral 1 g PO TID #420 ml 02/18/20 07/27/20 Rx suspension loperamide 2 mg capsule 2 mg PO UD PRN #30 cap MDD 8 caps 04/10/20 07/27/20 Rx ferrous sulfate 325 mg PO DAILY 07/27/20 07/27/20 History Past Med/Surg History Medical History (Updated 07/27/20 @ 14:28 by Jozef Royal MD) Allergic rhinitis Aortic stenosis Aortic stenosis Moderate to severe Asthma Atrial fibrillation 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 Glaucoma History of - pneumonia (11/24/12) History of - tubal ligation (11/24/12) History of bronchitis (11/24/12) History of chronic lymphocytic leukemia History of stroke Hyperlipidemia Hypertension Left hip pain Meningioma Osteopenia RLL pneumonia (03/02/14) Surgical History (Updated 07/27/20 @ 14:28 by Jozef Royal MD) History of appendectomy (11/24/12) History of resection of meningioma S/P cholecystectomy S/P tonsillectomy and adenoidectomy S/P tubal ligation Family History Mother Heart disease Myocardial infarction Father Heart disease Myocardial infarction Grandfather Heart disease Myocardial infarction Brother Myocardial infarction Grandmother (Maternal) Myocardial infarction Other No pertinent family history Denies family history of Ovarian cancer Prostate cancer Breast cancer Colorectal cancer Social History Smoking Status: Unknown if ever smoked Second Hand Exposure: Yes; Hx Alcohol Use: No Hx Substance Use: No Preferred Language: Albanian Communication Ability: Impaired Communication Ability Comment: expressive aphasia Visual Impairment: Partially Limited Hearing Ability: Normal Sharepoint Architect Required: No Beliefs That Will Affect Care: None marital status: / Current Living Situation: Personal Care Facility Current Living Situation Comment: [facility] current occupational status: retired How many Children do You have: 2 How many Children do You have Comment: 1 boy 1 girl Other Information That Helps Us Care for You: No Feels Safe at Home: Yes Safety Concerns: Feels Safe At This Time Childhood Exposure to Second-Hand Smoke: No during the past year weight has: remained stable Dental Care, Regularly: Yes Physical Activity Frequency: Daily Seatbelt Use: always Sunscreen Use: Yes Assistive Devices: Glasses and Walker Review of Systems Review of Systems: REVIEW OF SYSTEMS: Constitutional: No fever, sweats or chills Eyes: No diplopia, no worsening or blurred vision ENT: normal hearing, no trouble swallowing Respiratory: No cough, sputum, dyspnea at rest or on exertion Cardiovascular: No chest pain, tightness or palpitations Abdomen: No pain, nausea, vomiting, diarrhea or constipation Musculoskeletal: No joint pain, calf pain, swelling Neurologic: (+) aphasia, No weakness, numbness/tingling, or balance problems Psychiatric: No anxiety or depression Skin: No rash or itch Physical Exam Physical Exam: PHYSICAL EXAM: General: awake, alert, no apparent distress Head: Normocephalic, atraumatic ENT:no pharyngeal exudate, mucous membranes moist Neuro: AAO x 3, speech with loss of fluidity and ability to form complete sentences or name objects, Patient appears to receive the information well and follows commands, strength intact bilaterally 5/5, sensation intact and equal all extremities and dermatomes, no pronator drift. No vision deficits noted Chest: equal rise and fall of the chest, no accessory muscle use, no heaves or thrills, Clear to auscultation, on room air, Cardiac: Regular rate and rhythm, telemetry reviewed, skin warm dry, cap refill <3 seconds, peripheral pules +2 no JVD, +2 systolic murmur at left sternal border, +2 systolic murmur radiates to axiale, no JVD, +2 edema, to bilateral lower extremities mid calf GI: NABS x 4 quadrants, soft, nontender to palpation, no rebound, guarding or tenderness : sandhu placed by EMD, draining light elle urine, no pain, no CVA tenderness, Extremities: Normal inspection, no peripheral edema or erythema, calfs nontender to palpation Psych: Normal mood and affect Skin: no rash or erythema Results & Data Results & Data ([facility]) Vital Signs (Past 12 Hours) Vital Signs Temp Pulse Resp BP Pulse Ox 07/27/20 11:00 54 L 23 165/68 H 96 07/27/20 10:30 55 L 29 H 155/71 H 96 07/27/20 10:01 56 L 25 H 178/69 H 95 07/27/20 09:03 36.7 C 56 L 24 167/66 H 97 07/27/20 08:51 53 L 20 167/66 H 95 Laboratory Results Abnormal lab results 07/27/20 07/27/20 07/27/20 Range/Units 09:39 09:39 10:17 WBC 30.20 H* (4.8-10.8) K/uL RDW Std Deviation 50.7 H (36.4-46.3) fL Lymph # (Auto) 22.87 H (1.2-3.4) K/uL Caroline # (Auto) 0.97 H (0.11-0.59) K/uL Immature Gran # (Auto) 0.07 H (0.00-0.02) K/uL Glucose 104 H (70-99) mg/dl Alkaline Phosphatase 127 H (45-117) U/L Urine pH 8.5 H (4.5-7.5) Diagnostic Findings Head CT 07/27/20 08:49 CT OF THE HEAD WITHOUT CONTRAST CLINICAL HISTORY: Stroke Like Symptoms. Confusion. COMPARISON STUDY: Head CT October 26, 2015. MRI of the brain May 08, 2015. CT DOSE: 537.48 mGy.cm TECHNIQUE: Helical axial images of the head were obtained without IV contrast. Automated exposure control was utilized for the study. A dose lowering technique was utilized adhering to the principles of ALARA. FINDINGS: No acute intracranial hemorrhage is present. Encephalomalacia within the bilateral frontal lobes is unchanged since exam of October 26, 2015. Frontal craniotomy is noted. Ventricular system is unremarkable. Basal cisterns are patent. Note is made of hypodensity with loss of jameson-white differentiation within the left temporal and parietal lobes. There is no mass effect. This also subtle hypodensity within the right parietal lobe on axial image 16. This contains a 3 mm hyperdense focus. Left maxillary sinus is largely opacified. IMPRESSION: 1. Hypodensity with loss of jameson-white differentiation within the left temporal and parietal lobes. This suggests an acute posterior left MCA distribution infarct. Findings discussed with Dr. Royal at time of dictation. 2. Smaller hypodense focus within the right parietal lobe. This is equivocal for an additional infarct. This contains a 3 mm hypodense focus which could reflect a calcification, possibly within a vessel. This does not appear to represent hemorrhage. 3. Otherwise, unchanged appearance of the brain with bifrontal encephalomalacia. Electronically signed by: Rubio Rodriguez M.D. 07/27/2020 9:42 AM Medications Administered Discontinued Medications Aspirin (Aspirin 81 Mg Chew) 324 mg PO NOW ONE Stop: 07/27/20 11:26 Last Admin: 07/27/20 11:39 Dose: 324 mg Documented by: [id number] ECG Additional Comments: Sinus bradycardia Otherwise normal ECG When compared with ECG of 07-DEC-2019 11:39, No significant change was found Code Status & VTE Plan Code Status VTE: Mechanical for 24 hours then add chemoprophylaxis CODE: DNR/DNI VTE Prophylaxis Plan VTE Prophylaxis will be ordered: Yes Supervising Physician Co-Signing Physician Notes Patient was seen and examined independently I discussed the case with Ralf MARCELINO I reviewed pertinent past medical social family history and also the plan of care and agree with the plan of care. Patient time last known well is unknown and the patient was not acting appropriately on the phone call last evening 1 day prior to presentation. In the ER she has expressive aphasia and she has evidence of CT scan changes of a left-sided likely MCA distribution stroke. Reportedly Dr. Royal the ER attending did speak with Dr. Neal who is a stroke on-call doctor at [facility] and felt it was not needed to enact a stroke code nor use a telemedicine cart. As the patient already is showing signs of brain injury on CT scan at time of presentation. In the ER the patient was accompanied by her daughter the patient can answer with some words sometimes appropriate sometimes not she did have some mild perceptible right hand and leg weakness but grossly she can move her arm and leg against gravity. She is able to drink and swallow in the ER without concern Patiently brought in for stroke work-up without TPA aspirin and a potent statin will be given pending the results of her lipid panel in the morning neurology consultation. 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 Any exceptions will be noted below PG Care Time/CCT Total # of Minutes Spent Total Time Spent with Patient: Total time spent is greater than 50% in coordination of care (as documented) at patient's floor/unit and/or counseling patient: Coding Level of Care Code 95235 Initial Inpt Care Lvl 3 Diagnoses Ischemic stroke I63.9 Seizure disorder G40.909 Hypertension I10 Hypertension type: essential hypertension Hyperlipidemia E78.5 Hyperlipidemia type: unspecified Aortic stenosis I35.0 Cardiac valve disease etiology: nonrheumatic Mitral regurgitation I34.0 Cardiac valve disease etiology: etiology unspecified CHF (congestive heart failure) I50.32 Heart failure chronicity: chronic Heart failure type: diastolic GERD (gastroesophageal reflux disease) K21.9 Esophagitis presence: without esophagitis Chronic lymphocytic leukemia C91.10 Obesity E66.01; Z68.41 Body mass index: BMI 40.0-44.9 Obesity classification: adult class 3 (BMI >= 40) Obesity type: due to excess calories Serious obesity comorbidity presence: with serious comorbidity Glaucoma H40.9 Glaucoma type: unspecified Laterality: unspecified laterality (1) CHF (congestive heart failure) Heart failure chronicity: chronic Heart failure type: diastolic Qualified Code(s): I50.32 - Chronic diastolic (congestive) heart failure (2) Aortic stenosis Cardiac valve disease etiology: nonrheumatic Qualified Code(s): I35.0 - Nonrheumatic aortic (valve) stenosis (3) Hyperlipidemia Hyperlipidemia type: unspecified Qualified Code(s): E78.5 - Hyperlipidemia, unspecified (4) Mitral regurgitation Cardiac valve disease etiology: etiology unspecified Qualified Code(s): I34.0 - Nonrheumatic mitral (valve) insufficiency (5) GERD (gastroesophageal reflux disease) Esophagitis presence: without esophagitis Qualified Code(s): K21.9 - Gastro- esophageal reflux disease without esophagitis (6) Glaucoma Glaucoma type: unspecified Laterality: unspecified laterality Qualified Code(s): H40.9 - Unspecified glaucoma (7) Hypertension Hypertension type: essential hypertension Qualified Code(s): I10 - Essential (primary) hypertension (8) Obesity Body mass index: BMI 40.0-44.9 Obesity classification: adult class 3 (BMI >= 40) Obesity type: due to excess calories Serious obesity comorbidity presence: with serious comorbidity Qualified Code(s): E66.01 - Morbid (severe) obesity d ue to excess calories; Z68.41 - Body mass index [BMI]40.0-44.9, adult
[2020-07-27 12:36] LABS: iSTAT Creatinine 0.8 mg/dl (0.6-1.3); iSTAT Ionized Calcium 1.13 mmol/l (1.12-1.32); iSTAT Potassium 4.4 mmol/L (3.3-5.0)
[2020-07-27] MEDS ORDERED: ONDANSETRON INJ 2 MG/ML 2 ML VIAL IV PRN (12:43)
[2020-07-27] MEDS ORDERED: PHARMACIST DISCHARGE MED REC CONSULT PRN (12:43)
--- NOTE | 2020-07-27 13:12 | XRay Report ---
XR chest 1V portable HISTORY: Shortness of breath. evaluation of pulmonary status COMPARISON: Chest 12/07/2019. FINDINGS: There are low lung volumes. No pneumothorax. No pleural effusions. A few small linear scarl irena density at the left lung base, unchanged. No new focal lung consolidations to suggest pneumonia. No evidence for pulmonary edema. The heart remains mildly enlarged. Calcifications within the aortic knob. IMPRESSION: No significant change compared to the prior study. No acute process. Stable mild cardiomegaly. ACT 112: Negative or not required by law. Electronically signed by: Saran Hawthorne M.D. 07/27/2020 1:10 PM
[2020-07-27 14:07] LABS: BUN Creatinine Ratio 12.3 (10-20); Calcium 8.8 mg/dl (8.5-10.1); Creatinine Clr Calc Pharmacy 49.7 ml/min; Est GFR (African American) 83.1 ml/min; Est GFR (Non-African American) 71.7 ml/min; Potassium 4.5 mmol/L (3.5-5.1)
[2020-07-27] MEDS: SUCRALFATE 1 GM/10 ML UDC PO SCH ×2 (15:40→21:44)
--- NOTE | 2020-07-27 15:47 | XCELERA ---
[id number]
--- NOTE | 2020-07-27 17:58 | Electrocardiogram Report ---
Test Reason : Blood Pressure : / mmHG Vent. Rate : 057 BPM Atrial Rate : 057 BPM P-R Int : 156 ms QRS Dur : 082 ms QT Int : 424 ms P-R-T Axes : 033 -15 020 degrees QTc Int : 412 ms Sinus bradycardia Otherwise normal ECG When compared with ECG of 07-DEC-2019 11:39, No significant change was found Confirmed by José Miguel Billingsley ([id number]) on 07/27/2020 5:58:26 PM Referred By: Confirmed By:Jason Billingsley
--- NOTE | 2020-07-27 20:53 | Magnetic Resonance Report ---
Brain MRI WITHOUT CONTRAST HISTORY: Aphasia. Abnormal CT. Left MCA territory infarct. TECHNIQUE: Multiplanar multisequence MRI of the brain was performed without the use of contrast. COMPARISON STUDY: Head CT 07/27/2020. FINDINGS: There is a 5 cm area of restricted diffusion involving the temporoparietal region consisten t with an acute left MCA territory infarct. Complete opacification of the left maxillary sinus. Encep halomalacia within the anterior frontal lobes consistent with old postoperative change. Evidence for prior frontal craniotomy. Increased T2 signal surrounding the frontal cephalization favors scoliosis. Additional scattered areas of T2 hyperintensity within the periarticular white matter likely represe nts microvascular ischemic change. There is cytotoxic edema at the left MCA territory infarct. No ass ociated with mild shift or mass effect. No definite acute intracranial hemorrhage identified. The roger tricles and sulci demonstrate mild age-related involutional changes. IMPRESSION: 1. Confirmation of the acute left MCA territory infarct involving the left temporoparietal region. Th is measures approximately 5 cm in size.. 2. Old postoperative changes with frontal encephalomalacia is again noted. ACT 112: Negative or not required by law. Electronically signed by: Saran Hawthorne M.D. 07/27/2020 8:52 PM
[2020-07-27] MEDS: PANTOprazole 40 MG TAB PO SCH (21:43)
[2020-07-27] MEDS: levETIRAcetam 500 MG TAB PO SCH (21:44)
[2020-07-27] MEDS: LATANOPROST 0.005% OP SOLN 2.5 ML BTL OPB SCH (21:44)
[2020-07-28] MEDS: CHOLECALCIFEROL 1,000 UNITS 25 MCG TAB PO SCH (07:36)
[2020-07-28] MEDS: SUCRALFATE 1 GM/10 ML UDC PO SCH ×3 (07:36→20:10)
[2020-07-28] MEDS: PANTOprazole 40 MG TAB PO SCH ×2 (07:36→20:11)
[2020-07-28] MEDS: FERROUS SULFATE 325 MG TAB PO SCH (07:37)
[2020-07-28] MEDS: METOPROLOL TARTRATE 50 MG TAB PO SCH ×2 (07:37→20:10)
[2020-07-28] MEDS: ASPIRIN 81 MG ECTAB PO SCH (07:37)
[2020-07-28] MEDS: ATORVASTATIN 20 MG TAB PO SCH (07:37)
[2020-07-28] MEDS: levETIRAcetam 500 MG TAB PO SCH ×2 (07:38→20:10)
[2020-07-28] MEDS ORDERED: OPTIRAY 350 500ml IV ONE (08:10)
[2020-07-28 08:13] LABS: BUN Creatinine Ratio 12.4 (10-20); Creatinine Clr Calc Pharmacy 45.3 ml/min; Est GFR (African American) 76.8 ml/min; Est GFR (Non-African American) 66.3 ml/min
--- NOTE | 2020-07-28 08:23 | Neurology Consultation ---
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 Clinically she manifests with a significant a facial which I believe is a combination of receptive and expressive. She does not have any focal weakness or obvious sensory deficits however, her exam is difficult because of the aphasia. I am wondering about some right homonymous hemianopsia however. She is post meningioma resection in 2012 resulting in a seizure disorder, well controlled on levetiracetam. There is no meningioma recurrence. She has a history of hypertension and dyslipidemia on medication and her blood pressure is fairly well controlled. She also has chronic lymphocytic leukemia. Echocardiogram reveals severe calcific aortic stenosis. Recommendations: 1. CT angiography of the head and neck. 2. Continue 81 milligram aspirin tablet daily. 3. physical, occupational, and speech therapy consult. She will need intensive speech therapy. 4. increase activity as able. 5. Keep levetiracetam dose the same for now. Overall, I spent a total of 65 minutes with this case including review of records, review of MRI and CT films, direct evaluation the patient bedside, and discussion of the case with the patient and RN at bedside and Dr. Marvin, including differential diagnosis and treatment options. History of Present Illness Reason for Consultation: An 89-year-old, who I was asked to see at the request of CHARI Pompa, neurologic consultation regarding stroke Requesting Physician: CHARI Pompa Attending Physician: Anay Marvin, History of Present Illness This patient has a history of frontal meningioma surgical removal 2012. two thousand sixteen she had significant seizure activity an MRI of the brain was unremarkable. Continuous EEG at [facility] showed right greater than left general was slowing and no potentially epileptogenic activity. She has been on levetiracetam 1000 milligrams twice daily ever since and has had no seizures. She was followed by Dr. Delgadillo recently and lasts all Mary Roberts, in our office September 1999. she has been stable on medication with no seizures.She cares diagnoses of hypertension, dyslipidemia, aortic stenosis, congestive heart failure, glaucoma, asthma, gastroesophageal reflux disease, and previous GI bleed. She carries a diagnosis of chronic lymphocytic leukemia. recently she was in her usual state of reasonable health and was seen well at 6 p.m. on July 26. She was found on the morning July 27 with speech issues. She can't say the word "okay" but was speaking nonsense. She followed commands. She arrived to the emergency room July 27 at 0851, with a temperature 36.7, pulse 56 regular, blood pressure 167/66, and O2 saturation 97 percent. White count was 30 with increase limbs and CBC was otherwise unremarkable. Chem profile shows a glucose of 0 4, alk-phos 27 and was otherwise. Urinalysis was unremarkable. CT scan of the head showed possible left temporoparietal stroke in the middle cerebral artery territory. There was hypodensity in the right parietal head region also as well as old frontal encephalomalacia. I reviewed these films. MRI of the brain showed acute left middle cerebral artery territory stroke in the left temporal and posterior parietal head regions at least 5 centimeters in diameter. There was old ischemia of of [id number] nature and old bifrontal encephalomalacia. I reviewed these MRI. Echocardiogram showed severe calcified aortic stenosis. She does not seem to be in pain but it is very difficult to communicate with her. She is in normal sinus rhythm the 70s. Allergies Allergy/AdvReac Type Severity Reaction Status Date / Time Penicillins Allergy Mild RASH Verified 07/27/20 09:36 Sulfa (Sulfonamide Allergy Mild RASH Verified 07/27/20 09:36 Antibiotics) aspirin AdvReac Unknown BLEEDING Verified 07/27/20 09:36 Home Medications Medication Instructions Recorded Confirmed Type acetaminophen 500 mg tablet 500 - 1,000 mg PO BID PRN #30 tab 07/16/18 07/27/20 History MDD 3g/24hr cholecalciferol (vitamin D3) 50 2,000 unit PO DAILY #30 tab 07/16/18 07/27/20 History mcg (2,000 unit) tablet levetiracetam 1,000 mg tablet 1,000 mg PO BID #60 tab 07/16/18 07/27/20 History multivitamin 1 cap PO DAILY #30 cap 08/14/18 07/27/20 Rx latanoprost 1 drops OPB QPM 08/27/18 07/27/20 History metoprolol tartrate 50 mg tablet 50 mg PO BID #180 tab 09/12/18 07/27/20 Rx pravastatin 20 mg tablet 20 mg PO DAILY #90 tab 11/06/18 07/27/20 Rx pantoprazole 40 mg tablet,delayed 40 mg PO BID #180 tab 12/10/18 07/27/20 Rx release amlodipine 2.5 mg tablet 2.5 mg PO DAILY #90 tab 03/18/19 07/27/20 Rx sucralfate 100 mg/mL oral 1 g PO TID #420 ml 02/18/20 07/27/20 Rx suspension loperamide 2 mg capsule 2 mg PO UD PRN #30 cap MDD 8 caps 04/10/20 07/27/20 Rx ferrous sulfate 325 mg PO DAILY 07/27/20 07/27/20 History Patient History Medical History Allergic rhinitis Aortic stenosis Aortic stenosis Moderate to severe Asthma Atrial fibrillation 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 Glaucoma History of - pneumonia (11/24/12) History of - tubal ligation (11/24/12) History of bronchitis (11/24/12) History of chronic lymphocytic leukemia History of stroke Hyperlipidemia Hypertension Left hip pain Meningioma Osteopenia RLL pneumonia (03/02/14) Surgical History History of appendectomy (11/24/12) History of resection of meningioma S/P cholecystectomy S/P tonsillectomy and adenoidectomy S/P tubal ligation Family History Mother Heart disease Myocardial infarction Father Heart disease Myocardial infarction Grandfather Heart disease Myocardial infarction Brother Myocardial infarction Grandmother (Maternal) Myocardial infarction Other No pertinent family history Denies family history of Ovarian cancer Prostate cancer Breast cancer Colorectal cancer Social History Smoking Status: Unknown if ever smoked Second Hand Exposure: Yes; Hx Alcohol Use: No Hx Substance Use: No Preferred Language: Kinyarwanda Communication Ability: Impaired Communication Ability Comment: expressive aphasia Visual Impairment: Partially Limited Hearing Ability: Normal Interactive Marketing Strategist Required: No Beliefs That Will Affect Care: None marital status: / Current Living Situation: Personal Care Facility Current Living Situation Comment: [facility] current occupational status: retired How many Children do You have: 2 How many Children do You have Comment: 1 boy 1 girl Other Information That Helps Us Care for You: No Feels Safe at Home: Yes Safety Concerns: Feels Safe At This Time Childhood Exposure to Second-Hand Smoke: No during the past year weight has: remained stable Dental Care, Regularly: Yes Physical Activity Frequency: Daily Seatbelt Use: always Sunscreen Use: Yes Assistive Devices: None Review of Systems Review of Systems: Other ( Review of systems is extremely difficult because of her severe aphasia.) She does not seem to be in pain or have visual issues. He does not appear dizzy . Exam (Neuro) Physical Exam: The patient is right-handed. The patient is awake, alert, and attentive. Speech is Severely aphasic. She can comprehend some but I am not certain she comprehends completely. The words she uses to describe objects or reading sentences or explaining her history are nonsensical words and syllables. she is very sincere when she tries to retest words or sentences or identify objects. When she points to the object to identify she will use the same nonsensical word each time I go back to that object. She will say the word "okay" and not her head when she agrees or recognizes a correct answer. She can recognize her correct name and other objects when given a series of choices. Mood sees reasonable and affect seems appropriate. Appearance and grooming were unremarkable. She is very common pleasant and cooperative. She can imitate following directions fairly well. Pupils are 3 mm bilaterally and reactive to light. Extraocular eye muscles are intact without nystagmus. Visual acuity seems normal grossly to confrontation. I am not certain whether she can see completely well off to the right. She does not move her eyes completely to the right following my finger. There are no deficits to sensation in the face in all 3 distributions of the fifth cranial nerve bilaterally. Corneal reflexes are positive bilaterally. Facial strength and symmetry was normal bilaterally. Hearing seems normal to whisper and finger rub bilaterally. Palate moves well without asymmetry. There is normal sternocleidomastoid and trapezius (shoulder shrug) strength bilaterally. Tongue is midline with good strength bilaterally. Neck has a full range of motion without discomfort. There are no cervical bruits bilaterally. There are no cranial or ocular bruits. Heart is without murmur. There is a regular rhythm and rate. Cervical, thoracic, and lumbar spine are nontender to palpation. Gait is not tested, but stance sitting up in bed in the chair is quite good With outstretched arms there is no obvious drift. There are no resting, postural, or action tremors. There is no ataxia with finger to nose testing, but it is difficult to get her to do this well by imitation. There is reasonable facility in the hands. No other abnormal involuntary movements are noted. Motor strength is 5/5 diffusely in the arms bilaterally including deltoids, biceps, triceps, brachioradialis, wrist flexors and extensors, fish farm laborer, and intrinsic hand muscles. Motor strength is 5/5 diffusely in the legs bilaterally including hip flexors, quadriceps, hamstrings, gastrocnemius, tibialis anterior, tibialis posterior, and Peroneii muscles. Toe extensors are normal and there is good bulk in the extensor digitorum brevis muscles bilaterally. I do not note any focal weakness. The limbs have good tone without rigidity or spasticity. There is no atrophy noted in the muscles. Muscle bulk is normal, there is no tenderness to palpation, no myotonia to percussion, and no fasciculations seen. Sensory examination is intact to touch and pin throughout all 4 limbs diffusely. Reflexes are 0/4 in the biceps, triceps, brachioradialis, quadriceps, and Achilles tendons bilaterally. There is no clonus bilaterally. Toes are downgoing with plantar stimulation bilaterally. Peripheral pulses are present and of normal quality distally in all 4 limbs. There is no peripheral edema noted in the limbs. Results & Data ([facility]) Vital Signs (Past 12 Hours) Vital Signs Temp Pulse Pulse Resp BP BP Pulse Ox 07/28/20 07:32 36.6 C 66 18 132/74 91 07/28/20 04:56 36.9 C 64 20 126/69 92 07/28/20 00:38 37.1 C 57 L 16 156/74 H 92 07/27/20 22:00 58 L 07/27/20 20:09 37.1 C 93 H 18 135/72 93 PG Care Time/CCT Total # of Minutes Spent Total Time Spent with Patient: Total time spent is greater than 50% in coordination of care (as documented) at patient's floor/unit and/or counseling patient: Coding Level of Care Code 45742 Initial Inpt Care Lvl 3 Diagnoses Acute CVA (cerebrovascular accident) I63.9 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 I63.9; R47.01 Seizure disorder G40.909 History of resection of meningioma Z98.890; Z86.03 Time Spent (min) 65
--- NOTE | 2020-07-28 08:37 | CT Scan Report ---
CT angio neck with con, CT angio head wo/w CLINICAL HISTORY: 89 years-old Female with posterior MCA. Follow-up study in a patient with acute infarct of the left MCA territory. COMPARISON STUDY: MRI brain 07/27/2020, head CT 07/27/2020 TECHNIQUE: Following the IV administration of 112 mL of Optiray, CT angiogram of the head and neck wa s performed from the aortic arch to the skull apex. Images are reviewed in the axial, sagittal, and c oronal planes. Noncontrast head CT also obtained. 3-D MIPS images are created and assessed. IV contra st was administered without complication. All measurements were calculated based on NASCET criteria. A dose lowering technique was utilized adhering to the principles of ALARA. CT DOSE: 1046.88 mGy.cm FINDINGS: CT HEAD: Encephalomalacia within the anterior frontal lobes compatible with chronic postoperative changes with prior frontal craniotomy. Additional scattered white matter hypodensities suggestive of chronic micr ovascular ischemic disease. Cytotoxic edema within the left MCA temporal parietal distribution measur es up to approximately 5.5 cm compatible with acute infarct. No acute intracranial hemorrhage, midlin e shift, abnormal extra-axial collection, hydrocephalus or intracranial mass. Cerebral vascular calci fications. No additional area of acute infarct identified. No acute calvarial fracture. Mucoperiostea l thickening with moderate greater than 50% opacification of the left maxillary sinus. Trace left mas toid effusion. Right mastoid air cells are clear. Unremarkable soft tissues. Prior bilateral lens rep air. CTA HEAD AND NECK: The imaged opacified pulmonary artery is unremarkable. Moderate atherosclerotic plaque the thoracic a ortic arch and proximal great vessels. There is patency of the innominate and imaged subclavian arter ies. The common carotid arteries are patent. There is moderate atherosclerotic plaque of the carotid bulbs and proximal cervical segments of the internal carotid arteries resulting in less than 50% sten osis bilaterally. There is a 3 x 2 x 2 mm saccular aneurysm projecting over the medial aspect of the distal cervical segment of the left ICA, image 253 series 6. Calcified plaque of the cavernous and waggoner praclinoid segments without significant stenosis. Mild multifocal luminal narrowing of the middle and anterior cerebral arteries. There is a focal area of high-grade stenosis versus occlusion involving an M2 branch of the left middle cerebral artery on image 122 series 5 with distal reconstitution of f low. Dominant left vertebral artery. Tortuosity of the vertebral arteries. The vertebral, basilar and posterior cerebral arteries are patent. Cerebral venous sinuses are patent. There is no abnormal int racranial enhancement. There is no pneumothorax. 6 mm nodular focus of the left lung apex is suggestive of probable pleural parenchymal scarring. Unremarkable soft tissues. Degenerative changes of the spine. IMPRESSION: 1. Acute infarct of the left MCA territory temporoparietal distribution measures over 5 cm in greates t dimension. 2. No acute intracranial hemorrhage or midline shift. 3. Focal area of high-grade stenosis versus occlusion involves the M2 branch of the left middle cereb ral artery with distal reconstitution of flow. 4. 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 5. Chronic findings as above. ACT 112: Negative or not required by law. The above report was generated using voice recognition software. It may contain grammatical, syntax o r spelling errors. Electronically signed by: Caleb Mohamud M.D. 07/28/2020 8:35 AM
[2020-07-28 08:52] LABS: Basophils # (auto) 0.08 K/uL (0-0.2); Basophils % (auto) 0.3 %; Eosinophils # (auto) 0.09 K/uL (0-0.5); Eosinophils % (auto) 0.3 %; Hemoglobin 14.7 g/dL (12.0-16.0); Immature Granulocytes # (auto) 0.06 K/uL (0.00-0.02); Immature Granulocytes % (auto) 0.2 %; Lymphocytes # (auto) 23.44 K/uL (1.2-3.4); Lymphocytes % (auto) 73.3 %; Mean Corpuscular Hemoglobin 32.1 pg (25-34); Mean Corpuscular Hgb Conc 33.4 g/dL (32-36); Mean Corpuscular Volume 96.1 fL (80-100); Mean Platelet Volume 9.8 fL (7.4-10.4); Monocytes # (auto) 1.12 K/uL (0.11-0.59); Monocytes % (auto) 3.5 %; Neutrophils # (auto) 7.19 K/uL (1.4-6.5); Neutrophils % (auto) 22.4 %; Platelet Count 210 K/uL (130-400); RDW Coefficient of Variation 13.7 % (11.5-14.5); RDW Standard Deviation 48.1 fL (36.4-46.3); Red Blood Count 4.58 M/uL (4.2-5.4); Smudge Cells Present; Toxic Granulation 1+; White Blood Count 31.98 K/uL (4.8-10.8)
[2020-07-28 09:13] LABS: Estimated Average Glucose 117 mg/dl; Hemoglobin A1C 5.7 % (4.5-5.6)
--- NOTE | 2020-07-28 10:32 | Medical Student Progress Note ---
Date of Service July 28, 2020 Assessment & Plan (1) Stroke: Mere Mesa is an 89-year-old female with a PMHx of HTN, HLD, Aortic stenosis, HFpEF, meningioma resection with postoperative seizures, and CLL who presented to [facility] emergency department on 07/27/20 with confusion and aphasia. She was not a candidate for tPA because she was outside of the time window. Brain MRI revealed an acute left MCA infarct of the left temporoparietal region and she was admitted for further workup and management of an acute ischemic stroke. At this time, her main deficit is severe is severe expressive and receptive aphasia. 1. Ischemic Stroke * Non-contrast head CT: No intracranial bleeding * Brain MRI: Acute left MCA infarct of the left temporoparietal region * CTA head and neck: Acute infarct of the left MCA territory and temporoparietal distribution measuring 5 cm in diameter. Focal area of high-grade stenosis vs. occlusion of the M2 branch of the left MCA. 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 * TTE: Normal LV size and function. Grade 2 diastolic dysfunction. Severe AV stenosis. Moderate mitral annular calcification. Mild LA dilation. * ECG: Sinus bradycardia, otherwise normal. * Given ASA 324 mg in ED. Continue ASA 81 mg * HbA1c 5.7 * Lipid panel: Triglycerides 115, HDL 52, LDL 97, Chol/HDL ratio = 3. Started Atorvastatin 20 mg. Escalate to high-intensity dose. * Neuro consult appreciated * PT/OT consult appreciated * Speech consult appreciated 2. HTN * Initially held home hypertensive medications to allow for permissive hypertension * Restarted home Metoprolol 3. Hyperlipidemia * Started Atorvastatin 20 mg. Escalate to high-intensity dose 4. Seizure disorder * Continue home Keppra Code Status: DNR/DNI F/E/N: Normal Diet VTE PPx: SCDs Dispo: Medical floor CVA mechanism: unspecified Qualified Code(s): I63.9 - Cerebral infarction, unspecified Admission and Anticipated Discharge Date Admission Date: July 27, 2020 Supervising Attestation Patient seen and examined with MS Milan Orozco and PGY-2 Dr. Barfield. Agree with history, exam findings, assessment and plan of care as outlined. In brief, Ms. Mesa is an 89 year old female with history of HTN, aortic stenosis, HFpEF, and prior meningioma resection with post-op seizures and CLL admitted with new onset confusion and aphasia with MRI findings consistent with stroke. Expressive and receptive aphasia. Agraphia. 1. Left MCA infarct. Acute. CTA head/neck with high-grade stenosis vs occlusion of the M2 branch of the left MCA with collaterals. 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 TTE with severe . Grade 2 DD. Continue with ASA 81mg, atorvastatin. PT/OT/Speech. 2. HTN. Allow for permissive hypertension. Restart home metoprolol. 3. Seizure disorder. Continue with home keppra. Dispo: pending PT/OT/speech evals. May require higher level of care temporarily post-hospital before being able to return to [facility]. Subjective A subjective history was unable to be obtained due to significant receptive and expressive aphasia. Review of Systems Review of Systems: Unobtainable due to cognitive status Physical Exam Constitutional: WD/WN, vitals as above cooperative; no acute distress Eyes: PERRL, conjunctivae normal, anicteric sclerae ENMT: external ear and nose normal, oropharynx normal Neck: normal visual inspection Respiratory: normal respiratory effort, lungs clear to auscultation Cardiovascular: RRR, no murmur, no edema Gastrointestinal (Abdomen): normal bowel sounds, soft, nontender, no hepatosplenomegaly Musculoskeletal: no cyanosis or clubbing, extremities motor strength 5/5 Skin: no rashes, warm and dry Neurologic: normal touch/pain/proprioception and plantar reflexes intact bilaterally Speech / Cognition: + abnormal speech (Agraphia. Unable to write name. Unable to follow verbal instructions. ), + expressive aphasia and + receptive aphasia Motor/Sensory: normal movement Cranial Nerves: PERRL, normal facial strength, tongue midline, normal hearing, able to rotate head bilaterally, able to elevate shoulders bilaterally, no nystagmus and symmetric palate elevation; + EOM not intact (Unable to formally test EOM or visual plaza due to receptive aphasia ) Coordination: normal [id number] test and normal rapid alternating movements Psychiatric: A+Ox3, euthymic affect (Unable to assess to to aphasia ) Results & Data ([facility]) Vital Signs (Past 12 Hours) Vital Signs Temp Pulse Pulse Resp BP BP Pulse Ox 07/28/20 08:00 65 07/28/20 07:32 36.6 C 66 18 132/74 91 07/28/20 04:56 36.9 C 64 20 126/69 92 07/28/20 00:38 37.1 C 57 L 16 156/74 H 92
[2020-07-28] MEDS: LATANOPROST 0.005% OP SOLN 2.5 ML BTL OPB SCH (20:09)
[2020-07-29 06:58] LABS: Hematocrit (blood only) 42.9 % (37-47); Hemoglobin 14.4 g/dL (12.0-16.0); Mean Corpuscular Hemoglobin 32.1 pg (25-34); Mean Corpuscular Hgb Conc 33.6 g/dL (32-36); Mean Corpuscular Volume 95.8 fL (80-100); Mean Platelet Volume 9.8 fL (7.4-10.4); Platelet Count 199 K/uL (130-400); RDW Standard Deviation 48.8 fL (36.4-46.3); Red Blood Count 4.48 M/uL (4.2-5.4); White Blood Count 27.93 K/uL (4.8-10.8)
[2020-07-29] MEDS: ATORVASTATIN 20 MG TAB PO SCH (07:28)
[2020-07-29] MEDS: METOPROLOL TARTRATE 50 MG TAB PO SCH (07:28)
[2020-07-29] MEDS: CHOLECALCIFEROL 1,000 UNITS 25 MCG TAB PO SCH (07:28)
[2020-07-29] MEDS: ASPIRIN 81 MG ECTAB PO SCH (07:28)
[2020-07-29] MEDS: levETIRAcetam 500 MG TAB PO SCH ×2 (07:28→20:41)
[2020-07-29] MEDS: FERROUS SULFATE 325 MG TAB PO SCH (07:28)
[2020-07-29] MEDS: PANTOprazole 40 MG TAB PO SCH ×2 (07:28→20:41)
[2020-07-29] MEDS: SUCRALFATE 1 GM/10 ML UDC PO SCH ×3 (07:29→20:56)
[2020-07-29 07:38] LABS: BUN Creatinine Ratio 14.1 (10-20); Calcium 9.1 mg/dl (8.5-10.1); Creatinine Clr Calc Pharmacy 42.3 ml/min; Est GFR (African American) 72.4 ml/min; Est GFR (Non-African American) 62.5 ml/min; Potassium 3.7 mmol/L (3.5-5.1)
[2020-07-29 07:53] LABS: Basophils # (auto) 0.05 K/uL (0-0.2); Basophils % (auto) 0.2 %; Eosinophils % (auto) 1.1 %; Immature Granulocytes # (auto) 0.04 K/uL (0.00-0.02); Immature Granulocytes % (auto) 0.1 %; Lymphocytes # (auto) 21.23 K/uL (1.2-3.4); Monocytes # (auto) 1.11 K/uL (0.11-0.59); Neutrophils % (auto) 18.6 %; Smudge Cells Present
[2020-07-29] MEDS: lisinopril 10 MG TAB PO SCH (16:15)
--- NOTE | 2020-07-29 18:20 | Medical Student Progress Note ---
Date of Service July 29, 2020 Assessment & Plan (1) Stroke: Mere Mesa is an 89-year-old female with a PMHx of HTN, HLD, Aortic stenosis, HFpEF, meningioma resection with postoperative seizures, and CLL who presented to [facility] emergency department on 07/27/20 with confusion and aphasia. She was not a candidate for tPA because she was outside of the time window. Brain MRI revealed an acute left MCA infarct of the left temporoparietal region and she was admitted for further workup and management of an acute ischemic stroke. At this time, her main deficit is severe is severe expressive and receptive aphasia. Following discharge, Ms. Mesa will be going to [facility] for rehabilitation. 1. Ischemic Stroke * Non-contrast head CT: No intracranial bleeding * Brain MRI: Acute left MCA infarct of the left temporoparietal region * CTA head and neck: Acute infarct of the left MCA territory and temporoparietal distribution measuring 5 cm in diameter. Focal area of high-grade stenosis vs. occlusion of the M2 branch of the left MCA. 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 * TTE: Normal LV size and function. Grade 2 diastolic dysfunction. Severe AV stenosis. Moderate mitral annular calcification. Mild LA dilation. * ECG: Sinus bradycardia, otherwise normal. * Given ASA 324 mg in ED. Continue ASA 81 mg * HbA1c 5.7 * Lipid panel: Triglycerides 115, HDL 52, LDL 97, Chol/HDL ratio = 3. Started Atorvastatin 20 mg. Escalate to high-intensity dose. * Neuro consult appreciated * PT/OT, Speech, and Case management consulted. Following discharge, patient will be admitted to [facility] for rehabilitation 2. HTN * Initially held home hypertensive medications to allow for permissive hypertension * Due to mild bradycardia after restarting the patient's home beta daphnie, the decision was made to discontinue the beta daphnie and initiate and NEDA inhibitor for afterload reduction. Lisinopril 10 mg daily. 3. Hyperlipidemia * Started Atorvastatin 40 mg daily 4. Seizure disorder * Continue home Kera Code Status: DNR/DNI F/E/N: Normal Diet VTE PPx: SCDs Dispo: Medical floor. Plan to discharge to [facility] tomorrow CVA mechanism: unspecified Qualified Code(s): I63.9 - Cerebral infarction, unspecified Admission and Anticipated Discharge Date Admission Date: July 27, 2020 Supervising Attestation Patient seen and examined with MS Milan Orozco and PGY-2 Dr. Barfield. Agree with history, exam findings, assessment and plan of care as outlined. In brief, Ms. Mesa is an 89 year old female with history of HTN, aortic stenosis, HFpEF, and prior meningioma resection with post-op seizures and CLL admitted with new onset confusion and aphasia with MRI findings consistent with stroke. Expressive and receptive aphasia. Agraphia. 1. Left MCA infarct. Acute. CTA head/neck with high-grade stenosis vs occlusion of the M2 branch of the left MCA with collaterals. 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 TTE with severe . Grade 2 DD. Continue with ASA 81mg, atorvastatin. PT/OT/Speech. 2. HTN. Allow for permissive hypertension. Discontinued home metoprolol (unclear from her history whether there is an indication for a beta-daphnie alone for blood pressure). Started lisinopril. 3. Bradycardia. Likely due to re-initiation of beta-dpahnie. Switched metoprolol to lisinopril for blood pressure management. 34Seizure disorder. Continue with home keppra. Dispo: Will require rehab at discharge. Placement pending. Subjective A subjective history was unable to be obtained from the patient due to severe receptive and expressive aphasia. Per the patient's nurse, Ms. Mesa requires prompting in order for her to eat. When attempting to offer a water basin for bedside bathing, the patient pushed the basin away due to apparent confusion. She remembered how to brush her teeth but she did not understand how to use mouthwash. Physical Exam Constitutional: WD/WN, vitals as above no acute distress Eyes: PERRL, conjunctivae normal, anicteric sclerae ENMT: external ear and nose normal, oropharynx normal Neck: normal visual inspection Respiratory: normal respiratory effort, lungs clear to auscultation Cardiovascular: RRR, no murmur, no edema Gastrointestinal (Abdomen): normal bowel sounds, soft, nontender, no hepatosplenomegaly Musculoskeletal: no cyanosis or clubbing, extremities motor strength 5/5 Skin: no rashes, warm and dry Neurologic: normal touch/pain/proprioception and CN's II-XI intact bilaterally Speech / Cognition: + expressive aphasia (largely unchanged since yesterday) and + receptive aphasia (largely unchanged since yesterday) Coordination: normal [id number] test and normal rapid alternating movements Psychiatric: Orientation: + not oriented x 3 (Unable to assess orientation due to severe receptive and expressive aphasia) Results & Data ([facility]) Vital Signs (Past 12 Hours) Vital Signs Temp Pulse Pulse Resp BP Pulse Ox 07/29/20 15:51 36.4 C L 55 L 20 131/66 93 07/29/20 11:09 36.6 C 52 L 14 144/76 H 95 07/29/20 08:00 58 L 07/29/20 07:12 36.6 C 54 L 18 138/80 95
[2020-07-29] MEDS: LATANOPROST 0.005% OP SOLN 2.5 ML BTL OPB SCH (20:41)
[2020-07-30] MEDS: PANTOprazole 40 MG TAB PO SCH ×2 (07:22→19:20)
[2020-07-30] MEDS: levETIRAcetam 500 MG TAB PO SCH ×2 (07:22→19:19)
[2020-07-30] MEDS: FERROUS SULFATE 325 MG TAB PO SCH (07:23)
[2020-07-30] MEDS: ASPIRIN 81 MG ECTAB PO SCH (07:23)
[2020-07-30] MEDS: CHOLECALCIFEROL 1,000 UNITS 25 MCG TAB PO SCH (07:24)
[2020-07-30] MEDS: ATORVASTATIN 20 MG TAB PO SCH (07:24)
[2020-07-30] MEDS: lisinopril 10 MG TAB PO SCH (07:25)
[2020-07-30] MEDS: SUCRALFATE 1 GM/10 ML UDC PO SCH ×3 (07:25→19:19)
[2020-07-30 07:30] LABS: Hematocrit (blood only) 43.5 % (37-47); Hemoglobin 14.3 g/dL (12.0-16.0); Mean Corpuscular Hemoglobin 32.4 pg (25-34); Mean Corpuscular Hgb Conc 32.9 g/dL (32-36); Mean Corpuscular Volume 98.4 fL (80-100); Mean Platelet Volume 9.8 fL (7.4-10.4); Platelet Count 209 K/uL (130-400); RDW Standard Deviation 50.3 fL (36.4-46.3); Red Blood Count 4.42 M/uL (4.2-5.4); White Blood Count 27.52 K/uL (4.8-10.8)
[2020-07-30 08:07] LABS: BUN Creatinine Ratio 16.5 (10-20); Calcium 8.8 mg/dl (8.5-10.1); Creatinine Clr Calc Pharmacy 40.4 ml/min; Est GFR (African American) 68.5 ml/min; Est GFR (Non-African American) 59.1 ml/min; Potassium 3.8 mmol/L (3.5-5.1)
[2020-07-30 08:42] LABS: Basophils # (auto) 0.09 K/uL (0-0.2); Basophils % (auto) 0.3 %; Eosinophils # (auto) 0.32 K/uL (0-0.5); Eosinophils % (auto) 1.2 %; Immature Granulocytes # (auto) 0.03 K/uL (0.00-0.02); Immature Granulocytes % (auto) 0.1 %; Lymphocytes # (auto) 20.61 K/uL (1.2-3.4); Lymphocytes % (auto) 74.9 %; Monocytes # (auto) 0.96 K/uL (0.11-0.59); Monocytes % (auto) 3.5 %; Neutrophils # (auto) 5.51 K/uL (1.4-6.5)
--- NOTE | 2020-07-30 16:40 | Med Student Discharge Summary ---
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 Patient is at [facility]. She was out with her family yesterday and went to lunch, and then returned to [facility] around 1500. Her son called her on the phone yesterday around 1800, noted she was not making any sense so called his sister who is with the patient now. The sister called [facility] last night to have her checked on and was reported to be "OK" reading a book. This morning the patient was noted to be confused and moderate aphasia, so was brought to the emergency room. In the emergency room the patient had a CT scan of the head performed which showed left MCA distr ibution ischemic CVA. Dr. Royal ([facility] physician) reports that he discussed the case with Dr. Gunn ([place] [facility]estroke) and after reviewing her images was not deemed an interventional candidate secondary to completion of her stroke. Hospitalist team was notified for admission. She will be admitted for acute left MCA distribution infarct. Not a tPA candidate secondary to time last known well when she arrived to [facility] yesterday ~1500 Not an interventional candidate secondary to completion of stroke Will give 324mg Oral aspirin now NIHSS-4 Discharge Data Consultations 07/27/20 12:43 Consult Neurology Routine Hospital Course (1) Stroke: Mere Mesa is an 89-year-old female with a PMHx of HTN, HLD, Aortic stenosis, HFpEF, meningioma resection with postoperative seizures, and CLL who presented to [facility] emergency department on 07/27/20 with confusion and aphasia. She was not a candidate for tPA because she was outside of the time window. Brain MRI revealed an acute left MCA infarct of the left temporoparietal region and she was admitted for further workup and management of an acute ischemic stroke. At this time, her main deficit is severe is severe expressive and receptive aphasia. Following discharge, Ms. Mesa will be going to [facility] for rehabilitation. 1. Ischemic Stroke The patient developed severe receptive and expressive aphasia following the ischemic stroke of the left temporoparietal region. However, between the day of admission and discharge, noticeable improvement was observed in the patient's degree of aphasia. There is a waxing and waning quality to her level of aphasia. She is able to put together meaningful sentences at times and she is able to write her name, which she could not do at the time of admission. * Non-contrast head CT: No intracranial bleeding * Brain MRI: Acute left MCA infarct of the left temporoparietal region * CTA head and neck: Acute infarct of the left MCA territory and temporoparietal distribution measuring 5 cm in diameter. Focal area of high-grade stenosis vs. occlusion of the M2 branch of the left MCA. 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 * TTE: Normal LV size and function. Grade 2 diastolic dysfunction. Severe AV stenosis. Moderate mitral annular calcification. Mild LA dilation. * ECG: Sinus bradycardia, otherwise normal. * Given ASA 324 mg in ED. Continue ASA 81 mg * HbA1c 5.7 * Lipid panel: Triglycerides 115, HDL 52, LDL 97, Chol/HDL ratio = 3. Started Atorvastatin 20 mg. Escalate to high-intensity dose. * Neuro consult appreciated * PT/OT, Speech, and Case management consulted. Following discharge, patient will be admitted to [facility] for rehabilitation 2. HTN * Initially held home hypertensive medications to allow for permissive hypertension * Due to mild bradycardia after restarting the patient's home beta daphnie, the decision was made to discontinue the beta daphnie and initiate and NEDA inhibitor for afterload reduction. Lisinopril 10 mg daily. 3. Hyperlipidemia * Started Atorvastatin 40 mg daily 4. Seizure disorder * Continue home [facility] Code Status: DNR/DNI F/E/N: Normal Diet VTE PPx: SCDs Dispo: Discharge to [facility] for stroke rehabilitation Discharge Plan Discharge Items Reason For Visit: ISCHEMIC STROKE Follow-up/Referrals: SANDRA Hathaway [Primary Care Provider] - Medications and DC Order Prescriptions: No Action metoprolol tartrate 50 mg tablet 50 mg PO BID Qty: 180 RF: 3 pravastatin 20 mg tablet 20 mg PO DAILY Qty: 90 RF: 1 pantoprazole 40 mg tablet,delayed release (DR/EC) 40 mg PO BID Qty: 180 RF: 3 amlodipine 2.5 mg tablet 2.5 mg PO DAILY Qty: 90 RF: 3 sucralfate 100 mg/mL suspension 1 g PO TID Qty: 420 RF: 3 loperamide 2 mg capsule 2 mg PO UD MDD 8 caps PRN (Reason: loose stools) Qty: 30 RF: 1 levetiracetam 1,000 mg tablet 1,000 mg PO BID Qty: 60 RF: 0 cholecalciferol (vitamin D3) 2,000 unit tablet 2,000 unit PO DAILY Qty: 30 RF: 0 acetaminophen 500 mg tablet 500 - 1,000 mg PO BID MDD 3g/24hr PRN (Reason: Pain) Qty: 30 RF: 0 multivitamin capsule 1 cap PO DAILY Qty: 30 RF: 0 latanoprost 0.005 % drops 1 drops OPB QPM RF: 0 ferrous sulfate 325 mg (65 mg iron) Tablet 325 mg PO DAILY RF: 0 Admission Data Admit Date/Time: 07/27/20 11:34 Attending Provider: Mohamud Rutledge Admit Provider: Morgan Ramsay [facility] Other Providers: [facility] ; [place] ; [facility] ; Andre Rodriguez Supervising Attestation Patient was not discharged today. Please see progress note.
--- NOTE | 2020-07-30 18:14 | Hospitalist Progress Note ---
Date of Service July 30, 2020 Assessment & Plan (1) Stroke: Mere Mesa is an 89-year-old female with a PMHx of HTN, HLD, Aortic stenosis, HFpEF, meningioma resection with postoperative seizures, and CLL who presented to [facility] emergency department on 07/27/20 with confusion and aphasia. She was not a candidate for tPA because she was outside of the time window. Awaiting insurance auth at this time. Ischemic Stroke: - continuation of severe receptive and expressive aphasia following the ischemic stroke of the left temporoparietal region; however, considerable waxing and waning quality to her level of aphasia. She is able to put together meaningful sentences at times and she is able to write her name, which she could not do at the time of admission. - CT Head demonstrating no intracranial bleeding - Brain MRI demonstrating acute left MCA infarct of the left temporoparietal region - CTA head and neck demonstrating acute infarct of the left MCA territory and temporoparietal distribution measuring 5 cm in diameter. Focal area of high- grade stenosis vs. occlusion of the M2 branch of the left MCA. 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 - TTE demonstrating normal LV size and function. Grade 2 diastolic dysfunction. Severe AV stenosis. Moderate mitral annular calcification. Mild LA dilation. - HbA1c 5.7 - Lipid panel: Triglycerides 115, HDL 52, LDL 97 - awaiting insurance authorization for stroke rehabilitation HTN: - mild bradycardia after restarting the patient's home beta daphnie, the decision was made to discontinue the beta daphnie - continue lisinopril 10 mg daily. Hyperlipidemia: - continue Atorvastatin 40 mg daily Seizure disorder: - Continue home Keppra Code Status: DNR/DNI F/E/N: Normal Diet VTE PPx: SCDs Admission and Anticipated Discharge Date Admission Date: July 27, 2020 Supervising Physician Co-Signing Physician Notes Patient seen and examined with MS Milan Orozco and PGY-2 Dr. Barfield. Agree with history, exam findings, assessment and plan of care as outlined. In brief, Ms. Mesa is an 89 year old female with history of HTN, aortic stenosis, HFpEF, and prior meningioma resection with post-op seizures and CLL admitted with new onset confusion and aphasia with MRI findings consistent with stroke. Expressive and receptive aphasia--waxes and wanes. Able to write her name in crusive 1. Left MCA infarct. Acute. CTA head/neck with high-grade stenosis vs occlusion of the M2 branch of the left MCA with collaterals. 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 TTE with severe . Grade 2 DD. Continue with ASA 81mg, atorvastatin. PT/OT/Speech. 2. HTN. Discontinued home metoprolol (unclear from her history whether there is an indication for a beta-daphnie alone for blood pressure). Started lisinopril. 3. Bradycardia. Likely due to re-initiation of beta-daphnie. Switched metoprolol to lisinopril for blood pressure management. 4. Seizure disorder. Continue with home keppra. Dispo: Medically stable for discharge. Plans for discharge to [facility]--awaiting insurance approval. Subjective Continuing to do well, following some of nursing commands and direction at this point, still unable to formulate complete coherent sentences but demonstrates frustration with and recognition of this problem. Review of Systems Review of Systems: Unobtainable due to cognitive status Physical Exam Constitutional: WD/WN, vitals as above cooperative; no acute distress Eyes: PERRL, conjunctivae normal, anicteric sclerae ENMT: external ear and nose normal, oropharynx normal Neck: normal visual inspection Respiratory: normal respiratory effort, lungs clear to auscultation Cardiovascular: RRR, no murmur, no edema Gastrointestinal (Abdomen): normal bowel sounds, soft, nontender, no hepatosplenomegaly Musculoskeletal: no cyanosis or clubbing, extremities motor strength 5/5 Skin: no rashes, warm and dry Neurologic: normal touch/pain/proprioception and CN's II-XI intact bilaterally Speech / Cognition: + expressive aphasia (largely unchanged since yesterday) and + receptive aphasia (largely unchanged since yesterday) Psychiatric: Orientation: + not oriented x 3 (Unable to assess orientation due to severe receptive and expressive aphasia) Results & Data Results & Data ([facility]) Vital Signs (Past 12 Hours) Vital Signs Temp Pulse Resp BP BP Pulse Ox 07/30/20 15:50 37.0 C 59 L 20 123/58 L 94 07/30/20 06:19 36.6 C 53 L 18 98/65 L 93 Resident Activity Tracking Resident Involvement: Resident Care Provided Care Provided: Adult Hospital Medicine (1) Stroke CVA mechanism: unspecified Qualified Code(s): I63.9 - Cerebral infarction, unspecified
[2020-07-30] MEDS: LATANOPROST 0.005% OP SOLN 2.5 ML BTL OPB SCH (19:20)
[2020-07-31] MEDS: PANTOprazole 40 MG TAB PO SCH ×2 (08:24→20:14)
[2020-07-31] MEDS: FERROUS SULFATE 325 MG TAB PO SCH (08:25)
[2020-07-31] MEDS: levETIRAcetam 500 MG TAB PO SCH ×2 (08:25→20:14)
[2020-07-31] MEDS: ATORVASTATIN 20 MG TAB PO SCH (08:25)
[2020-07-31] MEDS: lisinopril 10 MG TAB PO SCH (08:26)
[2020-07-31] MEDS: CHOLECALCIFEROL 1,000 UNITS 25 MCG TAB PO SCH (08:26)
[2020-07-31] MEDS: ASPIRIN 81 MG ECTAB PO SCH (08:26)
[2020-07-31] MEDS: SUCRALFATE 1 GM/10 ML UDC PO SCH ×3 (08:27→20:14)
--- NOTE | 2020-07-31 17:25 | Medical Student Progress Note ---
Date of Service July 31, 2020 Assessment & Plan (1) Stroke: Mere Mesa is an 89-year-old female with a PMHx of HTN, HLD, Aortic stenosis, HFpEF, meningioma resection with postoperative seizures, and CLL who presented to [facility] emergency department on 07/27/20 with confusion and aphasia. She was not a candidate for tPA because she was outside of the time window. Brain MRI revealed an acute left MCA infarct of the left temporoparietal region and she was admitted for further workup and management of an acute ischemic stroke. At this time, her main deficit is severe is severe expressive and receptive aphasia. Following discharge, Ms. Mesa will be going to [facility] for rehabilitation. 1. Ischemic Stroke The patient developed severe receptive and expressive aphasia following the ischemic stroke of the left temporoparietal region. However, between the day of admission and discharge, noticeable improvement was observed in the patient's degree of aphasia. There is a waxing and waning quality to her level of aphasia. She is able to put together meaningful sentences at times and she is able to write her name, which she could not do at the time of admission. * Non-contrast head CT: No intracranial bleeding * Brain MRI: Acute left MCA infarct of the left temporoparietal region * CTA head and neck: Acute infarct of the left MCA territory and temporoparietal distribution measuring 5 cm in diameter. Focal area of high-grade stenosis vs. occlusion of the M2 branch of the left MCA. 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 * TTE: Normal LV size and function. Grade 2 diastolic dysfunction. Severe AV stenosis. Moderate mitral annular calcification. Mild LA dilation. * ECG: Sinus bradycardia, otherwise normal. * Given ASA 324 mg in ED. Continue ASA 81 mg * HbA1c 5.7 * Lipid panel: Triglycerides 115, HDL 52, LDL 97, Chol/HDL ratio = 3. Started Atorvastatin 20 mg. Escalate to high-intensity dose. * Neuro consult appreciated * PT/OT, Speech, and Case management consulted. Following discharge, patient will be admitted to [facility] for rehabilitation 2. HTN * Initially held home hypertensive medications to allow for permissive hypertension * Due to mild bradycardia after restarting the patient's home beta daphnie, the decision was made to discontinue the beta daphnie and initiate and NEDA inhibitor for afterload reduction. Lisinopril 10 mg daily. 3. Hyperlipidemia * Started Atorvastatin 40 mg daily 4. Seizure disorder * Continue home Kera Code Status: DNR/DNI F/E/N: Normal Diet VTE PPx: SCDs Dispo: Medical floor. Awaiting placement for rehabilitation CVA mechanism: unspecified Qualified Code(s): I63.9 - Cerebral infarction, unspecified Admission and Anticipated Discharge Date Admission Date: July 27, 2020 Supervising Attestation Attending attestation Pt seen and examined in concert with St. Dr. Pam Ashraf. In agreement with the documented findings as noted in the resident documentation with any exceptions or additions as noted here. Resting comfortably in bed with subjective improvement in aphasia, though still with considerable difficulty with providing cohesive answers to questions and following instructions. On examination, S1/S2 nl RRR no MCG. CTAB. Abd NT/ND BS+ve. CNII-XII grossly intact as tested. 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 Subjective Patient continues to show improvement in her aphasia. However, a subjective history was still unable to be obtained. Physical Exam Constitutional: WD/WN, vitals as above no acute distress Eyes: PERRL, conjunctivae normal, anicteric sclerae ENMT: external ear and nose normal, oropharynx normal Neck: normal visual inspection Respiratory: normal respiratory effort, lungs clear to auscultation Cardiovascular: RRR, no murmur, no edema Gastrointestinal (Abdomen): normal bowel sounds, soft, nontender, no hepatosplenomegaly Skin: no rashes, warm and dry Neurologic: Speech / Cognition: + expressive aphasia and + receptive aphasia Expressive aphasia > receptive aphasia at this point. Patient able to state name and write name. Also able to read my name tag. Unable to follow verbal commands or name objects. Psychiatric: A+Ox3, euthymic affect (unable to accurately assess due to expressive and receptive aphasia ) Results & Data ([facility]) Vital Signs (Past 12 Hours) Vital Signs Temp Pulse Resp BP Pulse Ox 07/31/20 15:21 36.8 C 83 16 110/65 98 07/31/20 06:30 36.9 C 57 L 18 132/71 95
[2020-07-31] MEDS: LATANOPROST 0.005% OP SOLN 2.5 ML BTL OPB SCH (20:46)
[2020-08-01] MEDS: lisinopril 5 MG TAB PO SCH (07:35)
[2020-08-01] MEDS: levETIRAcetam 500 MG TAB PO SCH ×2 (07:35→22:06)
[2020-08-01] MEDS: CHOLECALCIFEROL 1,000 UNITS 25 MCG TAB PO SCH (07:35)
[2020-08-01] MEDS: PANTOprazole 40 MG TAB PO SCH ×2 (07:35→22:06)
[2020-08-01] MEDS: SUCRALFATE 1 GM/10 ML UDC PO SCH ×3 (07:35→22:06)
[2020-08-01] MEDS: FERROUS SULFATE 325 MG TAB PO SCH (07:36)
[2020-08-01] MEDS: ATORVASTATIN 20 MG TAB PO SCH (07:36)
[2020-08-01] MEDS: ASPIRIN 81 MG ECTAB PO SCH (07:36)
--- NOTE | 2020-08-01 15:05 | Hospitalist Progress Note ---
Date of Service August 01, 2020 Assessment & Plan (1) Stroke: Mere Mesa is an 89-year-old female with a PMHx of HTN, HLD, Aortic stenosis, HFpEF, meningioma resection with postoperative seizures, and CLL who presented to [facility] emergency department on 07/27/20 with confusion and aphasia. She was not a candidate for tPA because she was outside of the time window. Awaiting insurance auth at this time. Acute left middle cerebral artery stroke - continuation of severe receptive and expressive aphasia following the ischemic stroke of the left temporoparietal region; however, considerable waxing and waning quality to her level of aphasia. She is able to put together meaningful sentences at times and she is able to write her name, which she could not do at the time of admission. - CT Head showed no intracranial bleeding - Brain MRI demonstrating acute left MCA infarct of the left temporoparietal region - CTA head and neck demonstrating acute infarct of the left MCA territory and temporoparietal distribution measuring 5 cm in diameter. Focal area of high- grade stenosis vs. occlusion of the M2 branch of the left MCA. 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 - TTE demonstrating normal LV size and function. Grade 2 diastolic dysfunction. Severe AV stenosis. Moderate mitral annular calcification. Mild LA dilation. - HbA1c 5.7 - Lipid panel: Triglycerides 115, HDL 52, LDL 97 - [facility] On evaluation while her speech is limited by aphasia, she appears to have adequate strength and would likely benefit from rehab services. Physical therapy reevaluation pending, peer to peer to be attempted by noon Monday. Insurance [id number] line available at [phone], will discuss following PT assessment and updated recommendations. - Continue 81 milligram aspirin tablet daily. HTN: - Home metoprolol 50 mg twice daily discontinued due to bradycardia. Patient was slightly hypotensive, and was decreased to 5 mg normotensive today. - Continue lisinopril 5 mg daily Hyperlipidemia: - continue Atorvastatin 40 mg daily Seizure disorder: - Continue home Keppra 1 g twice daily Code Status: DNR/DNI F/E/N: Normal Diet VTE PPx: SCDs Admission and Anticipated Discharge Date Admission Date: July 27, 2020 Supervising Physician Co-Signing Physician Notes Attending attestation Pt seen and examined in concert with Dr. Baresel. In agreement with the documented findings as noted in the resident documentation with any exceptions or additions as noted here. Persistent but improved speech hesitancy with expressive and receptive aphasia. L MCA CVA w/ aphasia - PT/OT re-evaluation today to better guide disposition of care. Continue ASA, atorvastatin 40mg Hypotension with h/o HTN - off metoprolol at present, halved dose of lisinopril today with stable BP throughtout the day. Continue monitoring. Else see resident documentation as noted. Subjective Mere is seen at the bedside today. History is limited by expressive written and spoken aphasia. She appears in no acute distress. She nods and shakes her head and is able to consistently express agreement and disagreement appropriate to questions. She indicates that she is not in pain, and understands that she is awaiting PT evaluation and placement. Does not indicate that she has additional questions at time of visit. Review of Systems Review of Systems: Unobtainable due to cognitive status (Expressive aphasia secondary to CVA) Physical Exam Physical Exam: General: Alert, orientation evaluation limited by aphasia. NAD. Cooperative. HEENT: Atraumatic, normocephalic. Neuro: Alert. Speech with expressive aphasia. Patient follows 1 and two-step commands appropriately. Pupils equal and reactive to light and accommodation. EOM intact without nystagmus. No facial asymmetry. Sensation/strength as noted below. Pulm: CTAB A&P. -wheezes, -rales, -rhonchi. Symmetrical chest rise. No increase work of breathing. No respiratory distress. Cardiac: RRR, systolic murmur best appreciated at LUSB. Radial pulses intact and symmetrical. Abdominal: Nontender, nondistended, soft. BS present. Extremities: Glass Bulb Machine Adjuster strength, elbow flexion/extension, knee flexion/extension, ankle dorsiflexion/plantar flexion 4+/5. Hip flexion 4 -/5 bilaterally. Sensation intact to soft touch in ankles and fingertips bilaterally. Results & Data Results & Data ([facility]) Vital Signs (Past 12 Hours) Vital Signs Temp Pulse Resp BP Pulse Ox 08/01/20 11:30 36.5 C 63 19 103/62 93 08/01/20 07:33 36.6 C 61 16 106/63 94 08/01/20 03:11 36.8 C 57 L 18 101/60 95 Resident Activity Tracking Resident Involvement: Resident Care Provided Care Provided: Adult [facility] Medicine (1) Stroke CVA mechanism: unspecified Qualified Code(s): I63.9 - Cerebral infarction, unspecified
[2020-08-01] MEDS: LATANOPROST 0.005% OP SOLN 2.5 ML BTL OPB SCH (22:06)
[2020-08-02] MEDS: CHOLECALCIFEROL 1,000 UNITS 25 MCG TAB PO SCH (07:10)
[2020-08-02] MEDS: lisinopril 5 MG TAB PO SCH (07:10)
[2020-08-02] MEDS: SUCRALFATE 1 GM/10 ML UDC PO SCH ×3 (07:10→20:01)
[2020-08-02] MEDS: PANTOprazole 40 MG TAB PO SCH ×2 (07:10→20:02)
[2020-08-02] MEDS: FERROUS SULFATE 325 MG TAB PO SCH (07:10)
[2020-08-02] MEDS: levETIRAcetam 500 MG TAB PO SCH ×2 (07:10→20:02)
[2020-08-02] MEDS: ASPIRIN 81 MG ECTAB PO SCH (07:11)
[2020-08-02] MEDS: ATORVASTATIN 20 MG TAB PO SCH (07:11)
--- NOTE | 2020-08-02 07:29 | Hospitalist Progress Note ---
Date of Service August 02, 2020 Assessment & Plan (1) Stroke: Mere Mesa is an 89-year-old female with a PMHx of HTN, HLD, Aortic stenosis, HFpEF, meningioma resection with postoperative seizures, and CLL who presented to [facility] emergency department on 07/27/20 with confusion and aphasia. She was not a candidate for tPA because she was outside of the time window. Awaiting insurance auth at this time. Acute left middle cerebral artery stroke - continuation of severe receptive and expressive aphasia following the ischemic stroke of the left temporoparietal region; however, considerable waxing and waning quality to her level of aphasia. She is able to put together meaningful sentences at times and she is able to write her name, which she could not do at the time of admission. - CT Head showed no intracranial bleeding - Brain MRI demonstrating acute left MCA infarct of the left temporoparietal region - CTA head and neck demonstrating acute infarct of the left MCA territory and temporoparietal distribution measuring 5 cm in diameter. Focal area of high- grade stenosis vs. occlusion of the M2 branch of the left MCA. 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 - TTE demonstrating normal LV size and function. Grade 2 diastolic dysfunction. Severe AV stenosis. Moderate mitral annular calcification. Mild LA dilation. - HbA1c 5.7 - Lipid panel: Triglycerides 115, HDL 52, LDL 97 - [facility] On evaluation while her speech is limited by aphasia, she appears to have adequate strength and would likely benefit from rehab services. Physical therapy reevaluation pending, peer to peer to be attempted by noon Monday. Insurance [id number] line [phone], was called 08/01 and 08/02 but is not available over the weekend. Peer to peer to be addressed Monday morning prior to noon, answering service not available for scheduling Monday/Monday. - Continue 81 milligram aspirin tablet daily. HTN: - Home metoprolol 50 mg twice daily discontinued due to bradycardia. - Continue lisinopril 5 mg daily Hyperlipidemia: - continue Atorvastatin 40 mg daily Seizure disorder: - Continue home Keppra 1 g twice daily Code Status: DNR/DNI F/E/N: Normal Diet VTE PPx: SCDs Admission and Anticipated Discharge Date Admission Date: July 27, 2020 Supervising Physician Co-Signing Physician Notes Attending attestation Pt seen and examined in concert with Dr. Orellana. In agreement with the documented findings as noted in the resident documentation with any exceptions or additions as noted here. Continued improvement in speech fluency and speed, though still with evident word finding difficulties. L MCA CVA w/ aphasia - PT/OT re-evaluation pending to guide disposition of care. Continue ASA, atorvastatin 40mg Hypotension with h/o HTN - continue lisinopril 5mg, BP well controlled. Else see resident documentation as noted. Subjective Mere is seen at the bedside this morning. Her expressive aphasia is noticeably better, and is able to express some 3 and 4 word sentences with appropriate language. Continue to use to have word finding and some aphasia, but noticeably improved. Affirms that she is not in pain this morning, is not having shortness of breath, is not having chest pain, vision change, or other new symptoms. Review of Systems Review of Systems: Limited by expressive aphasia, as noted in HPI Physical Exam Physical Exam: General: Alert, orientation evaluation limited by aphasia. NAD. Cooperative. HEENT: Atraumatic, normocephalic. Neuro: Alert. Speech with expressive aphasia. Patient overall improved compared to prior, uses some appropriate 3 and 4 word sentences. Patient follows one and two-step commands appropriately. Pupils equal and reactive to light and accommodation. EOM intact without nystagmus. No facial asymmetry. Sensation/strength as noted below. Pulm: CTAB A&P. -wheezes, -rales, -rhonchi. Symmetrical chest rise. No increase work of breathing. No respiratory distress. Cardiac: RRR, systolic murmur best appreciated at LUSB. Radial pulses intact and symmetrical. Abdominal: Nontender, nondistended, soft. BS present. Extremities: Senior Attorney strength, elbow flexion/extension, knee flexion/extension, ankle dorsiflexion/plantar flexion 4+/5. Hip flexion 4 -/5 bilaterally. Sensation intact to soft touch in ankles and fingertips bilaterally.Mild hyperesthesia to soft touch in the lower extremities bilaterally. No pitting edema appreciated. No calf asymmetry. Results & Data Results & Data ([facility]) Vital Signs (Past 12 Hours) Vital Signs Temp Pulse Resp BP Pulse Ox 08/02/20 03:59 36.4 C L 66 18 120/70 91 08/01/20 22:42 36.6 C 61 19 138/81 94 08/01/20 19:40 36.8 C 73 16 116/74 93 Resident Activity Tracking Resident Involvement: Resident Care Provided Care Provided: Adult Hospital Medicine (1) Stroke CVA mechanism: unspecified Qualified Code(s): I63.9 - Cerebral infarction, unspecified
[2020-08-02] MEDS: LATANOPROST 0.005% OP SOLN 2.5 ML BTL OPB SCH (20:01)
[2020-08-03] MEDS: FERROUS SULFATE 325 MG TAB PO SCH (08:11)
[2020-08-03] MEDS: ATORVASTATIN 20 MG TAB PO SCH (08:11)
[2020-08-03] MEDS: lisinopril 5 MG TAB PO SCH (08:11)
[2020-08-03] MEDS: PANTOprazole 40 MG TAB PO SCH ×2 (08:11→20:05)
[2020-08-03] MEDS: SUCRALFATE 1 GM/10 ML UDC PO SCH ×3 (08:11→20:04)
[2020-08-03] MEDS: CHOLECALCIFEROL 1,000 UNITS 25 MCG TAB PO SCH (08:11)
[2020-08-03] MEDS: levETIRAcetam 500 MG TAB PO SCH ×2 (08:11→20:05)
[2020-08-03] MEDS: ASPIRIN 81 MG ECTAB PO SCH (08:11)
--- NOTE | 2020-08-03 15:31 | Hospitalist Progress Note ---
Date of Service August 03, 2020 Assessment & Plan (1) Stroke: Mere Mesa is an 89-year-old female with a PMHx of HTN, HLD, Aortic stenosis, HFpEF, meningioma resection with postoperative seizures, and CLL who presented to [facility] emergency department on 07/27/20 with confusion and aphasia. She was not a candidate for tPA because she was outside of the time window. Awaiting insurance auth at this time. Acute left middle cerebral artery stroke - continuation of severe receptive and expressive aphasia following the ischemic stroke of the left temporoparietal region; however, considerable waxing and waning quality to her level of aphasia. She is able to put together meaningful sentences at times and she is able to write her name, which she could not do at the time of admission. - CT Head showed no intracranial bleeding - Brain MRI demonstrating acute left MCA infarct of the left temporoparietal region - CTA head and neck demonstrating acute infarct of the left MCA territory and temporoparietal distribution measuring 5 cm in diameter. Focal area of high- grade stenosis vs. occlusion of the M2 branch of the left MCA. 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 - TTE demonstrating normal LV size and function. Grade 2 diastolic dysfunction. Severe AV stenosis. Moderate mitral annular calcification. Mild LA dilation. - HbA1c 5.7 - Lipid panel: Triglycerides 115, HDL 52, LDL 97 - Continue 81 milligram aspirin tablet daily. HTN: - Home metoprolol 50 mg twice daily discontinued due to bradycardia. - Continue lisinopril 5 mg daily Hyperlipidemia: - continue Atorvastatin 40 mg daily Seizure disorder: - Continue home Keppra 1 g twice daily Code Status: DNR/DNI F/E/N: Normal Diet VTE PPx: SCDs Dispo: awaiting determination on availability of post-stroke therapeutic services at [facility] Admission and Anticipated Discharge Date Admission Date: July 27, 2020 Supervising Physician Co-Signing Physician Notes I personally examined the patient and verified all lopez points of history and exam, discussed case, and agree with decision making with Dr Barfield. Still having difficulty with word finding. [id number] review completed by Dr. Barfield, unfortunately insurance still refusing rehab. Vitals noted, in general she is awake and alert pleasant no distress. HEENT normocephalic atraumatic mucous membranes moist. Breathing unlabored no accessory muscle use good effort. Skin shows no rashes no pallor or icterus. Neuro most notable for difficulty with word finding. Stroke with significant aphasiasecondary risk reduction. Unconscious notably her insurance company is refusing to allow her to go to rehab, so we will do the best within the confines of what they will approve, although it is quite concerning to me that her insurance company would not allow acute inpatient rehab after a stroke. Fortunately she does overall appear stable. Case management working on the best plan that we can put together. Otherwise as above. Subjective Mere expressive/receptive aphasia is continuing to fluctuate daily but is considerably better than early last week. Is able to express some 3 word sentences. Continue to use to have word finding and some aphasia, but this continues to fluctuate throughout the day. Attempted to overturn denial of placement at stroke rehabilitation center; however, [id number] was denied as it was felt that she was doing too well for post-stroke rehabilitation. Review of Systems Review of Systems: Unobtainable due to cognitive status Physical Exam Constitutional: WD/WN, vitals as above cooperative; no acute distress Eyes: PERRL, conjunctivae normal, anicteric sclerae ENMT: external ear and nose normal, oropharynx normal Neck: normal visual inspection Respiratory: normal respiratory effort, lungs clear to auscultation Cardiovascular: RRR, no murmur, no edema Gastrointestinal (Abdomen): normal bowel sounds, soft, nontender, no hepatosplenomegaly Musculoskeletal: no cyanosis or clubbing, extremities motor strength 5/5 Skin: no rashes, warm and dry Neurologic: normal touch/pain/proprioception and CN's II-XI intact bilaterally Speech / Cognition: + expressive aphasia and + receptive aphasia Psychiatric: Orientation: + not oriented x 3 (Unable to assess orientation due to severe receptive and expressive aphasia) Results & Data Results & Data ([facility]) Vital Signs (Past 12 Hours) Vital Signs Temp Pulse Resp BP Pulse Ox 08/03/20 15:27 36.5 C 91 H 16 116/72 93 08/03/20 11:48 36.8 C 73 16 112/68 93 08/03/20 07:45 36.4 C L 69 16 124/83 94 Medications Administered Current Inpatient Medications Aspirin (Aspirin 81 Mg Ectab) [facility] Stop: 08/27/20 08:59 Last Admin: 08/03/20 08:11 Dose: 81 mg Documented by: Atorvastatin Calcium (Atorvastatin 20 Mg Tab) 40 mg PO QAM [facility] Stop: 08/27/20 08:59 Last Admin: 08/03/20 08:11 Dose: 40 mg Documented by: Ferrous Sulfate (Ferrous Sulfate 325 Mg Tab) 325 mg PO DAILY [facility] Stop: 08/27/20 08:59 Last Admin: 08/03/20 08:11 Dose: 325 mg Documented by: Latanoprost (Latanoprost 0.005% Op Soln 2.5 Ml Btl) 1 drops OPB QPM [facility] Stop: 08/26/20 20:59 Last Admin: 08/02/20 20:01 Dose: 1 drops Documented by: Levetiracetam (Levetiracetam 500 Mg Tab) 1,000 mg PO BID [facility] Stop: 08/26/20 20:59 Last Admin: 08/03/20 08:11 Dose: 1,000 mg Documented by: Lisinopril (Lisinopril 5 Mg Tab) 5 mg PO QAM [facility] Stop: 08/31/20 08:59 Last Admin: 08/03/20 08:11 Dose: 5 mg Documented by: Miscellaneous Information (Pharmacist Discharge Med Rec Consult) 1 ea N/A UD PRN PRN Reason: Consult Stop: 08/26/20 12:42 Ondansetron HCl (Ondansetron Inj 2 Mg/Ml 2 Ml Vial) 4 mg IV Q6H PRN PRN Reason: Nausea Stop: 08/26/20 12:42 Pantoprazole Sodium (Pantoprazole 40 Mg Tab) 40 mg PO BID [facility] Stop: 08/26/20 20:59 Last Admin: 08/03/20 08:11 Dose: 40 mg Documented by: Sucralfate (Sucralfate 1 Gm/10 Ml Udc) 1 gm PO TID [facility] Stop: 08/26/20 13:59 Last Admin: 08/03/20 14:18 Dose: 1 gm Documented by: Vitamin D (Cholecalciferol 1,000 Units 25 Mcg Tab) 2,000 units PO DAILY [facility] Stop: 08/27/20 08:59 Last Admin: 08/03/20 08:11 Dose: 2,000 units Documented by: Resident Activity Tracking Resident Involvement: Resident Care Provided Care Provided: Adult Hospital Medicine (1) Stroke CVA mechanism: unspecified Qualified Code(s): I63.9 - Cerebral infarction, unspecified
--- NOTE | 2020-08-03 17:40 | Billing Data ---
Date of Service August 03, 2020 Coding Level of Care Code 10404 Subseq Hosp Care Lvl 2
[2020-08-03] MEDS: LATANOPROST 0.005% OP SOLN 2.5 ML BTL OPB SCH (20:04)
[2020-08-04] MEDS: levETIRAcetam 500 MG TAB PO SCH (07:57)
[2020-08-04] MEDS: PANTOprazole 40 MG TAB PO SCH (07:57)
[2020-08-04] MEDS: FERROUS SULFATE 325 MG TAB PO SCH (07:57)
[2020-08-04] MEDS: SUCRALFATE 1 GM/10 ML UDC PO SCH ×2 (07:57→13:25)
[2020-08-04] MEDS: CHOLECALCIFEROL 1,000 UNITS 25 MCG TAB PO SCH (07:58)
[2020-08-04] MEDS: ASPIRIN 81 MG ECTAB PO SCH (07:58)
[2020-08-04] MEDS: ATORVASTATIN 20 MG TAB PO SCH (07:58)
--- NOTE | 2020-08-04 09:42 | Discharge Summary ---
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 Patient is at [facility]. She was out with her family yesterday and went to lunch, and then returned to [facility] around 1500. Her son called her on the phone yesterday around 1800, noted she was not making any sense so called his sister who is with the patient now. The sister called [facility] last night to have her checked on and was reported to be "OK" reading a book. This morning the patient was noted to be confused and moderate aphasia, so was brought to the emergency room. In the emergency room the patient had a CT scan of the head performed which showed left MCA distr ibution ischemic CVA. Dr. Royal ([facility] physician) reports that he discussed the case with Dr. Gunn ([place] [facility]) and after reviewing her images was not deemed an interventional candidate secondary to completion of her stroke. Hospitalist team was notified for admission. She will be admitted for acute left MCA distribution infarct. Not a tPA candidate secondary to time last known well when she arrived to [facility] yesterday ~1500 Not an interventional candidate secondary to completion of stroke Will give 324mg Oral aspirin now NIHSS-4 Principal Diagnosis MCA Ischemic stroke Discharge Exam Constitutional WD/WN, vitals as above cooperative; no acute distress Eyes PERRL, conjunctivae normal, anicteric sclerae ENMT external ear and nose normal, oropharynx normal Neck normal visual inspection Respiratory normal respiratory effort, lungs clear to auscultation Cardiovascular RRR, no murmur, no edema Gastrointestinal (Abdomen) normal bowel sounds, soft, nontender, no hepatosplenomegaly Musculoskeletal no cyanosis or clubbing, extremities motor strength 5/5 Skin no rashes, warm and dry Neurologic normal touch/pain/proprioception and CN's II-XI intact bilaterally Speech / Cognition: + expressive aphasia and + receptive aphasia Psychiatric Orientation: + not oriented x 3 (Unable to assess orientation due to severe receptive and expressive aphasia) Discharge Data Allergies Allergy/AdvReac Type Severity Reaction Status Date / Time Penicillins Allergy Mild RASH Verified 07/27/20 09:36 Sulfa (Sulfonamide Allergy Mild RASH Verified 07/27/20 09:36 Antibiotics) aspirin AdvReac Unknown BLEEDING Verified 07/27/20 09:36 Consultations 07/27/20 12:43 Consult Neurology Routine Ordered Studies 07/27/20 08:49 CT head/brain wo con Stat 07/27/20 12:09 MR brain wo con Routine 07/28/20 05:05 CT angio head wo/w Routine 07/28/20 08:01 CT angio neck with con Urgent Hospital Course (1) Stroke: Mere Mesa is an 89-year-old female with a PMHx of HTN, HLD, Aortic stenosis, HFpEF, meningioma resection with postoperative seizures, and CLL who presented to [facility] emergency department on 07/27/20 with confusion and aphasia. She was not a candidate for tPA because she was outside of the time window. A waiting insurance auth at this time. Acute left middle cerebral artery stroke - continuation of severe receptive and expressive aphasia following the ischemic stroke of the left temporoparietal region; however, considerable waxing and waning quality to her level of aphasia. She is able to put together meaningful sentences at times and she is able to write her name, which she could not do at the time of admission. - CT Head showed no intracranial bleeding - Brain MRI demonstrating acute left MCA infarct of the left temporoparietal region - CTA head and neck demonstrating acute infarct of the left MCA territory and temporoparietal distribution measuring 5 cm in diameter. Focal area of high- grade stenosis vs. occlusion of the M2 branch of the left MCA. 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 - TTE demonstrating normal LV size and function. Grade 2 diastolic dysfunction. Severe AV stenosis. Moderate mitral annular calcification. Mild LA dilation. - HbA1c 5.7 - Lipid panel: Triglycerides 115, HDL 52, LDL 97 - Continue 81mg aspirin tablet daily - continue PT/OT/ Speech therapy at [facility] post stroke HTN: - Home metoprolol discontinued due to bradycardia. - Continue lisinopril 5 mg daily Hyperlipidemia: - continue Atorvastatin 40 mg daily Seizure disorder: - Continue home Keppra 1 g twice daily Total Time Total Time Spent Total Time Spent (In Minutes): <30 Discharge Plan Discharge Items Patient Disposition: Trans Resident Long-Term Care Reason For Visit: ISCHEMIC STROKE Discharge Diagnosis: ischemic stroke Activity: Per Instructions section Non-emergency contact: Primary Care Provider Call non-emergency contact if: you have any medication questions and your symptoms worsen Follow-up/Referrals: EMMA Hathaway [Primary Care Provider] - Diet: Heart Healthy Addtl Attending Provider Instructions: Mere Mesa was seen and admitted for concerns of new onset aphasia. During this admission, unfortunately it was discovered that she had had a stroke that covered the left side of her head, and affected her speech and hearing centers of the brain. Now that Pending Studies at Discharge: No Stand-Alone Forms: My [facility] Skilled Items Patient informed of condition?: Yes DNR: Yes Discharge Level of Care: Other Communicable Disease: No Discharge Prognosis: Stable Lines: None Urinary Catheter: No Medications and DC Order Prescriptions: New atorvastatin 20 mg tablet 40 mg PO HS 30 Days Qty: 60 RF: 0 lisinopril 5 mg tablet 5 mg PO DAILY Qty: 30 RF: 0 aspirin [Aspirin Low Dose] 81 mg tablet,delayed release (DR/EC) 81 mg PO DAILY 30 Days Qty: 30 RF: 0 Continued pantoprazole 40 mg tablet,delayed release (DR/EC) 40 mg PO BID Qty: 180 RF: 3 sucralfate 100 mg/mL suspension 1 g PO TID Qty: 420 RF: 3 loperamide 2 mg capsule 2 mg PO UD MDD 8 caps PRN (Reason: loose stools) Qty: 30 RF: 1 levetiracetam 1,000 mg tablet 1,000 mg PO BID Qty: 60 RF: 0 cholecalciferol (vitamin D3) 2,000 unit tablet 2,000 unit PO DAILY Qty: 30 RF: 0 acetaminophen 500 mg tablet 500 - 1,000 mg PO BID MDD 3g/24hr PRN (Reason: Pain) Qty: 30 RF: 0 multivitamin capsule 1 cap PO DAILY Qty: 30 RF: 0 latanoprost 0.005 % drops 1 drops OPB QPM RF: 0 ferrous sulfate 325 mg (65 mg iron) Tablet 325 mg PO DAILY RF: 0 Discontinued metoprolol tartrate 50 mg tablet 50 mg PO BID Qty: 180 RF: 3 pravastatin 20 mg tablet 20 mg PO DAILY Qty: 90 RF: 1 amlodipine 2.5 mg tablet 2.5 mg PO DAILY Qty: 90 RF: 3 Discharge Orders: Discharge Order (Routine); Ordered 08/04/20 Ordered By: Mark Garner/Other Patient Handouts: What Is Aphasia?, Aphasia: Improving Communication, Preparing Your Home After Stroke, Stroke: Self-Care, Treating Aphasia, Discharge Instructions for Stroke, Risk Factors for Stroke, Healthy Lifestyle to Prevent ... Admission Data Admit Date/Time: 07/27/20 11:34 Attending Provider: Alan Parra Admit Provider: Morgan Ramsay [facility] Other Providers: [facility] ; [place] ; Niesha Martin [facility] ; Andre Rodriguez Other Interventions: Discharge Summary Assessment (RN) Last Done: 08/04/20 11:23 Supervising Physician Co-Signing Physician Notes I personally examined the patient and verified all lopez points of history and exam, discussed case, and agree with decision making with Dr Barfield. Still having difficulty with word finding. ready for return to [facility] - extra services set up there. Vitals noted, in general she is awake and alert pleasant no distress. HEENT normocephalic atraumatic mucous membranes moist. Breathing unlabored no accesso ry muscle use good effort. Skin shows no rashes no pallor or icterus. Neuro most notable for difficulty with word finding. Stroke with significant aphasiasecondary risk reduction. Unconscionably her insurance company is refusing to allow her to go to rehab, so we will do the best within the confines of what they will approve, although it is quite concerning to me that her insurance company would not allow acute inpatient rehab after a stroke. Fortunately she does overall appear stable. fortunately she has an excellent [facility] and hopefully wiht extra services she will be able to maximize her recovery. stable for tx. Otherwise as above. Resident Activity Tracking Resident Involvement: Resident Care Provided Care Provided: Adult Hospital Medicine
[2020-08-04] MEDS: lisinopril 5 MG TAB PO SCH (09:53)
[2020-08-04] MEDS ORDERED: STROKE PATIENT DISCHARGE STA (12:17)
--- NOTE | 2020-08-04 18:20 | Billing Data ---
Date of Service August 04, 2020 Coding Level of Care Code D/C Day Management <30 mins
== END 2020-08-04 14:24 | DRG 65 ==
LOC: ED 08:42 → 2S 11:34 → SUATTDRO 11:34 → 2S 12:17 → 2N 07-29 15:43

== ENCOUNTER 2021-11-04 08:31 | Observation (INO) ==
[2021-11-04] MEDS ORDERED: dilTIAZem HCl 5 MG/ML 5 ML VIAL IV STA (08:40)
[2021-11-04] MEDS ORDERED: STAT IV Infusion **Titration per Protocol STA (08:40)
[2021-11-04] MEDS ORDERED: SODIUM CHLORIDE 0.9% 1000ML 1,000 ML IV SCH (08:45)
[2021-11-04] MEDS ORDERED: dilTIAZem HCL 125 MG in DEXTROSE 5% 100 ML IV SCH (08:45)
--- NOTE | 2021-11-04 08:57 | XRay Report ---
XR chest 1V portable CLINICAL HISTORY: Chest pain. Cough. COMPARISON STUDY: Chest radiograph and chest CT January 10, 2021. FINDINGS: There is no consolidation to suggest pneumonia. No pneumothorax or pleural effusion is note d. Linear left basilar opacity reflects atelectasis. There is cardiomegaly without evidence for pulmo nary edema. A moderate sized hiatal hernia is present. Appearance of the chest is unchanged. IMPRESSION: No acute cardiopulmonary findings. No change in appearance of the chest. ACT 112: Negative or not required by law. Electronically signed by: Rubio Rodriguez M.D. 11/04/2021 8:56 AM
--- NOTE | 2021-11-04 09:08 | Emergency Department Note ---
History of Present Illness General Chief complaint: Cardiac Assessment Time Seen by Provider: 11/04/21 08:39 Source: patient and EMS Mode of arrival: EMS Limitations: physical limitation History of Present Illness Provider complaint: chest pain This is an 89-year-old female presents emergency department via EMS with complaints of chest pain. Patient is from [facility] and complained there to staff of chest pain. Patient does have difficulty with communication due to her prior surgery for meningioma and prior CVA. Upon EMS arrival, they found the patient to be tachycardic and placed on their monitor she was noted to be in atrial fibrillation. Patient was otherwise hemodynamically stable. No treatment was given by EMS prior to arrival as they were unable to establish an IV. Patient can answer yes/no questions and seems to understand what is going on around her, however does have some expressive aphasia making additional history difficult. Was noted to have a coarse cough, she denies fevers. Denies any abdominal pain. No prior documented history of atrial fibrillation. Pt seen during a time of high acuity and national emergency pandemic while wearing PPE. Home Medications Medication Instructions Recorded Confirmed Type acetaminophen 500 mg tablet 500 - 1,000 mg PO BID PRN Pain #30 07/16/18 11/04/21 History tabs cholecalciferol (vitamin D3) 50 2,000 unit PO DAILY #30 tabs 07/16/18 11/04/21 History mcg (2,000 unit) tablet latanoprost 0.005 % eye drops 1 drops OPB QPM 08/27/18 11/04/21 History ferrous sulfate 325 mg (65 mg 325 mg PO DAILY 07/27/20 11/04/21 History iron) tablet multivitamin 1 tab PO DAILY 01/10/21 11/04/21 History famotidine 20 mg tablet 20 mg PO BID 01/25/21 11/04/21 History atorvastatin 40 mg tablet 40 mg PO DAILY 30 days #30 tabs 02/08/21 11/04/21 Rx pantoprazole 40 mg tablet,delayed 40 mg PO BID #180 tabs 04/08/21 11/04/21 Rx release loperamide 2 mg capsule 2 mg PO UD PRN loose stools #30 05/13/21 11/04/21 Rx caps sucralfate 100 mg/mL oral 1 g (10 mL) PO UD PRN 05/13/21 11/04/21 Rx suspension INDIGESTION/NAUSEA #420 mL lidocaine 4 % topical patch 1 patch topical DAILY PRN pain #30 06/23/21 11/04/21 Rx ea lisinopril 5 mg tablet 5 mg PO DAILY #30 tabs 07/22/21 11/04/21 Rx ondansetron 4 mg disintegrating 4 mg PO Q6H 07/29/21 11/04/21 History tablet levetiracetam 1,000 mg tablet 1,000 mg PO BID #60 tabs 09/17/21 11/04/21 Rx Allergies Allergy/AdvReac Type Severity Reaction Status Date / Time Penicillins Allergy Mild RASH Verified 10/28/21 15:51 Sulfa (Sulfonamide Allergy Mild RASH Verified 10/28/21 15:51 Antibiotics) aspirin AdvReac Unknown BLEEDING Verified 10/28/21 15:51 Past Med/Surg History Medical History (Updated 11/05/21 @ 15:40 by Yas Sweet DO) Acute CVA (cerebrovascular accident) (07/2020) Allergic rhinitis Anemia due to GI blood loss (2018) 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 (07/2020) Asthma COVID-19 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 Glaucoma 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 History of - pneumonia (11/24/12) History of - tubal ligation (11/24/12) History of bronchitis (11/24/12) History of chronic lymphocytic leukemia History of stroke Hyperlipidemia Hypertension Osteopenia RLL pneumonia (03/02/14) Surgical History History of appendectomy (11/24/12) History of resection of meningioma History of resection of meningioma S/P cholecystectomy S/P tonsillectomy and adenoidectomy S/P tubal ligation Family History Mother Heart disease Myocardial infarction Father Heart disease Myocardial infarction Grandfather Heart disease Myocardial infarction Brother Myocardial infarction Grandmother (Maternal) Myocardial infarction Other No pertinent family history Denies family history of Ovarian cancer Prostate cancer Breast cancer Colorectal cancer Social History Smoking Status: Unknown if ever smoked Second Hand Exposure: Yes; Hx Alcohol Use: No Hx Substance Use: No Preferred Language: American Communication Ability: Impaired Visual Impairment: Partially Limited Hearing Ability: Normal Employee Wellness/Fitness Coordinator Required: No Beliefs That Will Affect Care: None marital status: / Current Living Situation: Personal Care Facility Current Living Situation Comment: [facility] current occupational status: retired How many Children do You have: 2 How many Children do You have Comment: 1 boy 1 girl Feels Safe at Home: Yes Childhood Exposure to Second-Hand Smoke: No during the past year weight has: remained stable Dental Care, Regularly: Yes Physical Activity Frequency: Daily Seatbelt Use: always Sunscreen Use: Yes Assistive Devices: Walker Review of Systems A total of 10 systems reviewed and were otherwise negative All systems reviewed & are unremarkable except as noted in HPI & below Physical Exam Vital Signs Vital Signs - 24 hr 11/04/21 08:37 11/04/21 09:34 11/04/21 08:34 Temperature 36.7 C Temperature Source Oral Pulse Rate 152 H 140 H Pulse Rate [Right Finger] Pulse Rhythm Irregular Pulse Rhythm [Right Finger] Pulse Strength Normal Pulse Strength [Right Finger] Respiratory Rate 26 H 27 H Respiratory Effort / Characteristics Non-Labored Spontaneous Respiratory Depth Normal Respiratory Pattern Blood Pressure 144/105 H Blood Pressure [Right Arm] Blood Pressure Mean 118 Blood Pressure Mean [Right Arm] Blood Pressure Position Sitting Blood Pressure Position [Right Arm] Pulse Oximetry 96 94 Oxygen Delivery Method Room Air Room Air Oxygen Flow Rate Sepsis Recent Fever Within 48 Hours No Sepsis New/Unexplained Change in Mental Status N/A Sepsis Action Taken by Nursing No Action Required 11/04/21 08:36 11/04/21 08:36 11/04/21 08:40 Temperature Temperature Source Pulse Rate 152 H 159 H Pulse Rate [Right Finger] Pulse Rhythm Pulse Rhythm [Right Finger] Pulse Strength Pulse Strength [Right Finger] Respiratory Rate 22 24 Respiratory Effort / Characteristics Respiratory Depth Respiratory Pattern Blood Pressure 144/105 H Blood Pressure [Right Arm] Blood Pressure Mean 118 Blood Pressure Mean [Right Arm] Blood Pressure Position Blood Pressure Position [Right Arm] Pulse Oximetry 94 Oxygen Delivery Method Room Air Oxygen Flow Rate Sepsis Recent Fever Within 48 Hours Sepsis New/Unexplained Change in Mental Status Sepsis Action Taken by Nursing 11/04/21 08:50 11/04/21 09:00 11/04/21 09:10 Temperature Temperature Source Pulse Rate 151 H 150 H 106 H Pulse Rate [Right Finger] Pulse Rhythm Pulse Rhythm [Right Finger] Pulse Strength Pulse Strength [Right Finger] Respiratory Rate 22 23 20 Respiratory Effort / Characteristics Respiratory Depth Respiratory Pattern Blood Pressure Blood Pressure [Right Arm] Blood Pressure Mean Blood Pressure Mean [Right Arm] Blood Pressure Position Blood Pressure Position [Right Arm] Pulse Oximetry 93 Oxygen Delivery Method Room Air Oxygen Flow Rate Sepsis Recent Fever Within 48 Hours Sepsis New/Unexplained Change in Mental Status Sepsis Action Taken by Nursing 11/04/21 09:11 11/04/21 09:11 11/04/21 09:20 Temperature Temperature Source Pulse Rate 112 H 113 H Pulse Rate [Right Finger] Pulse Rhythm Pulse Rhythm [Right Finger] Pulse Strength Pulse Strength [Right Finger] Respiratory Rate 22 20 Respiratory Effort / Characteristics Respiratory Depth Respiratory Pattern Blood Pressure 117/88 Blood Pressure [Right Arm] Blood Pressure Mean 97 Blood Pressure Mean [Right Arm] Blood Pressure Position Blood Pressure Position [Right Arm] Pulse Oximetry 93 94 Oxygen Delivery Method Room Air Room Air Oxygen Flow Rate Sepsis Recent Fever Within 48 Hours Sepsis New/Unexplained Change in Mental Status Sepsis Action Taken by Nursing 11/04/21 09:21 11/04/21 09:21 11/04/21 11:00 Temperature Temperature Source Pulse Rate 128 H Pulse Rate [Right Finger] 84 Pulse Rhythm Pulse Rhythm [Right Finger] Regular Pulse Strength Pulse Strength [Right Finger] Normal Respiratory Rate 15 18 Respiratory Effort / Characteristics Non-Labored Respiratory Depth Normal Respiratory Pattern Regular Blood Pressure 137/58 L Blood Pressure [Right Arm] 167/87 H Blood Pressure Mean 84 Blood Pressure Mean [Right Arm] 113 Blood Pressure Position Blood Pressure Position [Right Arm] Lying Pulse Oximetry 95 97 Oxygen Delivery Method Room Air Room Air Oxygen Flow Rate Sepsis Recent Fever Within 48 Hours Sepsis New/Unexplained Change in Mental Status Sepsis Action Taken by Nursing 11/04/21 13:00 Temperature Temperature Source Pulse Rate Pulse Rate [Right Finger] 83 Pulse Rhythm Pulse Rhythm [Right Finger] Regular Pulse Strength Pulse Strength [Right Finger] Normal Respiratory Rate 18 Respiratory Effort / Characteristics Non-Labored Respiratory Depth Normal Respiratory Pattern Regular Blood Pressure Blood Pressure [Right Arm] 157/79 H Blood Pressure Mean Blood Pressure Mean [Right Arm] 105 Blood Pressure Position Blood Pressure Position [Right Arm] Lying Pulse Oximetry 96 Oxygen Delivery Method Nasal Cannula Oxygen Flow Rate 2 Sepsis Recent Fever Within 48 Hours Sepsis New/Unexplained Change in Mental Status Sepsis Action Taken by Nursing GENERAL: alert, well appearing, well nourished, no distress, non-toxic EYE EXAM: normal conjunctiva, PERRL and EOM's grossly intact OROPHARYNX: no exudate, no erythema, lips, buccal mucosa, and tongue normal and mucous membranes are moist NECK: supple, no nuchal rigidity, no adenopathy, non-tender LUNGS: Clear to auscultation. Normal chest wall mechanics, no w/r/r HEART: no murmurs, S1 normal and S2 normal ABDOMEN: abdomen soft, non-tender, normo-active bowel sounds, no masses, no rebo und or guarding. BACK: Back is symmetrical on inspection and there is no deformity, no midline tenderness, no CVA tenderness. SKIN: no rashes and no bruising UPPER EXTREMITIES: upper extremities are grossly normal. FROM, nml pulses b/l. LOWER EXTREMITIES: No pitting edema. FROM, nml pulses b/l. NEURO EXAM: Normal sensorium, cranial nerves II-XII grossly intact, expressive aphasia, no gross weakness of arms, no gross weakness of legs. Gross sensation intact. Course Administered Medications Acyclovir (Acyclovir 400 Mg Tab) 800 mg PO QID [facility] Stop: 11/11/21 16:59 Last Admin: 11/05/21 14:24 Dose: 800 mg Documented By: Admin: 11/05/21 08:43 Dose: 800 mg Documented By: Admin: 11/04/21 20:13 Dose: 800 mg Documented By: Admin: 11/04/21 16:34 Dose: 800 mg Documented By: ANABELB Amiodarone HCl (Amiodarone 200 Mg Tab) 200 mg PO TID [facility] Stop: 12/04/21 21:59 Last Admin: 11/05/21 08:44 Dose: 200 mg Documented By: Admin: 11/04/21 21:52 Dose: 200 mg Documented By: JO Atorvastatin Calcium (Atorvastatin 40 Mg Tab) 40 mg PO DAILY [facility] Stop: 12/05/21 08:59 Last Admin: 11/05/21 08:44 Dose: 40 mg Documented By: WS Famotidine (Famotidine 20 Mg Tab) 20 mg PO DAILY [facility]; Protocol Stop: 12/05/21 08:59 Last Admin: 11/05/21 08:43 Dose: 20 mg Documented By: WS Ferrous Sulfate (Ferrous Sulfate 325 Mg Tab) 325 mg PO DAILY [facility] Stop: 12/05/21 08:59 Last Admin: 11/05/21 08:44 Dose: 325 mg Documented By: YOGESH Latanoprost (Latanoprost 0.005% Op Soln 2.5 Ml Btl) 1 drops OPB QPM [facility] Stop: 12/04/21 20:59 Last Admin: 11/04/21 20:14 Dose: 1 drops Documented By: JO Levetiracetam (Levetiracetam 500 Mg Tab) 1,000 mg PO BID [facility] Stop: 12/04/21 20:59 Last Admin: 11/05/21 08:42 Dose: 1,000 mg Documented By: Admin: 11/04/21 20:13 Dose: 1,000 mg Documented By: JO Multivitamins (Multivitamin Tab) 1 tab PO DAILY [facility] Stop: 12/05/21 08:59 Last Admin: 11/05/21 08:44 Dose: 1 tab Documented By: YOGESH Pantoprazole Sodium (Pantoprazole 40 Mg Tab) 40 mg PO BID [facility] Stop: 12/04/21 20:59 Last Admin: 11/05/21 08:43 Dose: 40 mg Documented By: Admin: 11/04/21 20:13 Dose: 40 mg Documented By: JO Vitamin D (Cholecalciferol 1,000 Units 25 Mcg Tab) 2,000 units PO DAILY [facility] Stop: 12/05/21 08:59 Last Admin: 11/05/21 08:44 Dose: 2,000 units Documented By: YOGESH Discontinued Medications Amiodarone HCl (Amiodarone 200 Mg Tab) 200 mg PO NOW ONE Stop: 11/04/21 14:10 Last Admin: 11/04/21 16:33 Dose: 200 mg Documented By: GIORGIO Diltiazem HCl (Diltiazem Hcl 5 Mg/Ml 5 Ml Vial) 10 mg IV NOW STA Stop: 11/04/21 08:41 Last Admin: 11/04/21 08:58 Dose: 10 mg Documented By: HUANG Co-signed By: ARTHUR Sodium Chloride (Nss 1000ml) 1,000 mls @ 125 mls/hr IV .Q8H [facility] Stop: 12/04/21 08:44 Last Infusion: 11/04/21 17:16 Dose: 0 mls/hr Documented By: Admin: 11/04/21 09:25 Dose: 125 mls/hr Documented By: HUANG Diltiazem HCl 125 mg/ Dextrose 125 mls @ 5 mls/hr IV .Q24H [facility]; Protocol Stop: 12/04/21 08:44 Last Titration: 11/04/21 17:16 Dose: 0 mg/hr, 0 mls/hr Documented By: GIORGIO Co-signed By: DIPTI Admin: 11/04/21 09:06 Dose: 5 mg/hr, 5 mls/hr Documented By: HUANG Co-signed By: RAÚL Metoprolol Succinate (Metoprolol Succ 25mg Ext Rel Tab) 25 mg PO Q6H [facility] Stop: 12/04/21 13:44 Last Admin: 11/04/21 14:54 Dose: Not Given Documented By: CAROL Miscellaneous (Stat Iv Infusion Titration Per Protocol) 1 each N/A NOW STA Stop: 11/04/21 08:41 Last Admin: 11/04/21 17:16 Dose: Not Given Documented By: GIORGIO Pneumococcal Polyvalent Vaccine (Pneumococcal Polysaccharides 25 Mcg/0.5 Ml Vial/Syr) 25 mcg IM .ONCE ONE Stop: 11/04/21 16:03 Last Admin: 11/04/21 18:10 Dose: Not Given Documented By: GIORGIO Critical Care Time Critical Care Time: Yes Total Critical Care Time: 42 Critical care of 42 min performed to assess and manage high likelihood of life- threatening dysrhythmia, involving labs and imaging performed with assessment to evaluate dysrhythmia diagnosis with frequent reassessment. This time includes bedside time, treatment discussions with patient/family/consultants, documentation time and excludes procedure time. Medical Decision Making Differential Diagnosis Differential diagnoses includes but is not limited to acute coronary syndrome, myocardial infarction, pericarditis, pulmonary embolus, aortic dissection, pneumonia, pneumothorax, musculoskeletal, shingles, esophageal. Medical Records Attestation: I reviewed the patient's medical records. Home Medications Current Medication List: was personally reviewed by me Laboratory Data Attestation: I reviewed the patient's lab results. Result diagrams: 11/05/21 05:54 11/05/21 05:54 Lab Results 11/04/21 11/04/21 11/04/21 Range/Units 08:45 08:52 08:52 WBC 39.05 H* (4.8-10.8) K/ul RBC 4.66 (3.93-5.22) M/uL Hgb 14.8 (12.0-16.0) g/dl Hct 45.0 H (34.1-44.9) % MCV 96.6 (80.0-100.0) fL MCH 31.8 (25.0-34.0) pg MCHC 32.9 (32.0-36.0) g/dL RDW Std Deviation 47.8 H (36.4-46.3) fL RDW Coeff of Esteban 13.7 (11.5-14.5) % Plt Count 265 (130-400) K/uL MPV 10.3 (9.4-12.3) fL Immature Gran % (Auto) 0.2 % Neut % (Auto) 15.5 % Lymph % (Auto) 81.0 % Maury % (Auto) 2.2 % Eos % (Auto) 0.5 % Baso % (Auto) 0.6 % Neut # (Auto) 6.06 (1.4-6.5) K/uL Lymph # (Auto) 31.62 H (1.2-3.4) K/uL Maury # (Auto) 0.86 H (0.24-0.82) K/uL Eos # (Auto) 0.18 (0-0.50) K/uL Baso # (Auto) 0.24 H (0-0.2) K/uL Immature Gran # (Auto) 0.09 H (0.00-0.02) K/uL Absolute Nucleated RBC 0.36 H (0-0) K/uL Nucleated RBC % (auto) 0.9 % Sodium Cancelled Potassium Cancelled Chloride Cancelled Carbon Dioxide Cancelled Anion Gap Cancelled BUN Cancelled Creatinine Cancelled Est Cr Clr Drug Dosing Cancelled Est GFR ( Amer) Cancelled Est GFR (Non-Af Amer) Cancelled BUN/Creatinine Ratio Cancelled Glucose Cancelled Calcium Cancelled Magnesium Cancelled Total Bilirubin Cancelled AST Cancelled ALT Cancelled Alkaline Phosphatase Cancelled Troponin I High Sens Cancelled Total Protein Cancelled Albumin Cancelled Globulin Cancelled Albumin/Globulin Ratio Cancelled Lipase Cancelled TSH (0.300-4.500) uIu/ml Lyme Disease IgG Ab (Negative) Lyme Disease IgM Ab (Negative) SARS-CoV-2 (PCR) NEGATIVE (Negative) Influenza Type A (PCR) Negative (Neg) Influenza Type B (PCR) Negative (Neg) RSV (RT-PCR) Negative (Neg) 11/04/21 11/04/21 11/04/21 Range/Units 10:40 10:40 10:40 WBC (4.8-10.8) K/ul RBC (3.93-5.22) M/uL Hgb (12.0-16.0) g/dl Hct (34.1-44.9) % MCV (80.0-100.0) fL MCH (25.0-34.0) pg MCHC (32.0-36.0) g/dL RDW Std Deviation (36.4-46.3) fL RDW Coeff of Esteban (11.5-14.5) % Plt Count (130-400) K/uL MPV (9.4-12.3) fL Immature Gran % (Auto) % Neut % (Auto) % Lymph % (Auto) % Maury % (Auto) % Eos % (Auto) % Baso % (Auto) % Neut # (Auto) (1.4-6.5) K/uL Lymph # (Auto) (1.2-3.4) K/uL Maury # (Auto) (0.24-0.82) K/uL Eos # (Auto) (0-0.50) K/uL Baso # (Auto) (0-0.2) K/uL Immature Gran # (Auto) (0.00-0.02) K/uL Absolute Nucleated RBC (0-0) K/uL Nucleated RBC % (auto) % Sodium 143 Potassium 4.3 Chloride 108 H Carbon Dioxide 22 Anion Gap 13 H BUN 12 Creatinine 0.89 Est Cr Clr Drug Dosing 42.4 Est GFR ( Amer) 66.6 Est GFR (Non-Af Amer) 57.5 BUN/Creatinine Ratio 13.5 Glucose 110 H Calcium 9.7 Magnesium 2.1 Total Bilirubin 1.0 AST 31 ALT 16 Alkaline Phosphatase 116 H Troponin I High Sens 51.4 H* Total Protein 7.2 Albumin 4.3 Globulin 2.9 Albumin/Globulin Ratio 1.5 Lipase 19 TSH 2.054 (0.300-4.500) uIu/ml Lyme Disease IgG Ab Negative (Negative) Lyme Disease IgM Ab Negative (Negative) SARS-CoV-2 (PCR) (Negative) Influenza Type A (PCR) (Neg) Influenza Type B (PCR) (Neg) RSV (RT-PCR) (Neg) Imaging Data Radiologist's Impression: Chest X-Ray 11/04/21 08:40 XR chest 1V portable CLINICAL HISTORY: Chest pain. Cough. COMPARISON STUDY: Chest radiograph and chest CT January 10, 2021. FINDINGS: There is no consolidation to suggest pneumonia. No pneumothorax or pleural effusion is noted. Linear left basilar opacity reflects atelectasis. There is cardiomegaly without evidence for pulmonary edema. A moderate sized hiatal hernia is present. Appearance of the chest is unchanged. IMPRESSION: No acute cardiopulmonary findings. No change in appearance of the chest. ACT 112: Negative or not required by law. Electronically signed by: Rubio Rodriguez M.D. 11/04/2021 8:56 AM ECG Data Attestation: I personally reviewed and interpreted this ECG as follows: Indication: + chest pain Rate (beats per minute): 158 Rhythm: + atrial fibrillation ECG Intervals/blocks: + Normal QRS and + Normal QT ECG [place]: + Normal ECG ST segments: + Nonspecific ST abnormalities MDM Narrative An order was placed for continuous cardiac monitoring. The monitor shows a rate of _159__ with _atrial_fibrillation_ rhythm. This is an 89-year-old female who presents emergency room via EMS after complaining of chest pain and being found on EMS evaluation to be in rapid A. fib. Patient remained hemodynamically stable in the emergency room, she was given Cardizem bolus and drip and eventually did spontaneously convert back to normal sinus rhythm. Patient found to have an elevated troponin, likely demand secondary to rapid heart rate and advanced age. I do not suspect underlying ACS. No prior cardiac history according to patient however on further review of EMR, patient was found to have a history of aortic stenosis and mitral regurgitation. Case discussed with hospitalist for additional evaluation and management. Patient significant leukocytosis is chronic secondary to her CLL. I do not suspect occult infectious etiology leading to her dysrhythmia. Impression & Plan Atrial fibrillation with rapid ventricular response, Chronic lymphocytic leukemia, Elevated troponin Discharge Plan Visit Data Chief Complaint: Cardiac Assessment ED Provider: Yas Sweet Discharge Problem: Atrial fibrillation with rapid ventricular response, Chronic lymphocytic leukemia, Elevated troponin Patient Disposition: Admitted As Inpatient Discharge Instructions Interventions: ED Discharge Assessment Last Done: 11/04/21 16:41
[2021-11-04 09:42] LABS: Influenza A virus by PCR Negative (Neg); Influenza B virus by PCR Negative (Neg); RSV by PCR Negative (Neg); SARS CoV2 RNA(COVID-19) InHosp NEGATIVE (Negative)
[2021-11-04 10:00] LABS: Appearance Urine Clear (Clear); Bacteria Urine Automated Negative (Negative); Bilirubin Urine Negative (Negative); Blood Urine Trace (Negative); Color Urine Yellow; Epithelial Cell Urine Auto >30 /lpf (0-5); Glucose Urine UA Negative (Negative); Ketones Urine Negative (Negative); Leukocyte Esterase Urine Negative (Negative); Nitrite Urine Negative (Negative); Protein Urine Negative (Negative); RBC Urine Automated 0-4 /hpf (0-4); Specific Gravity Urine 1.006 (1.000-1.030); Urobilinogen Urine Negative (Negative); pH Urine 8.5 (4.5-7.5)
[2021-11-04 10:14] LABS: Hemoglobin 14.8 g/dl (12.0-16.0); Mean Corpuscular Hemoglobin 31.8 pg (25.0-34.0); Mean Corpuscular Hgb Conc 32.9 g/dL (32.0-36.0); Mean Corpuscular Volume 96.6 fL (80.0-100.0); Mean Platelet Volume 10.3 fL (9.4-12.3); Nucleated RBC # (auto) 0.36 K/uL (0-0); Nucleated RBC % (auto) 0.9 %; Platelet Count 265 K/uL (130-400); RDW Coefficient of Variation 13.7 % (11.5-14.5); RDW Standard Deviation 47.8 fL (36.4-46.3); Red Blood Count 4.66 M/uL (3.93-5.22); White Blood Count 39.05 K/ul (4.8-10.8)
[2021-11-04 11:01] LABS: Basophils # (auto) 0.24 K/uL (0-0.2); Basophils % (auto) 0.6 %; Eosinophils # (auto) 0.18 K/uL (0-0.50); Eosinophils % (auto) 0.5 %; Immature Granulocytes # (auto) 0.09 K/uL (0.00-0.02); Immature Granulocytes % (auto) 0.2 %; Lymphocytes # (auto) 31.62 K/uL (1.2-3.4); Monocytes # (auto) 0.86 K/uL (0.24-0.82); Monocytes % (auto) 2.2 %; Neutrophils # (auto) 6.06 K/uL (1.4-6.5); Neutrophils % (auto) 15.5 %
[2021-11-04 11:40] LABS: Albumin Globulin Ratio 1.5 (0.9-2); Albumin Level 4.3 gm/dl (3.4-5.0); BUN Creatinine Ratio 13.5 (10-20); Calcium 9.7 mg/dl (8.5-10.1); Creatinine Clr Calc Pharmacy 42.4 ml/min; Est GFR (African American) 66.6 ml/min; Est GFR (Non-African American) 57.5 ml/min; Globulin 2.9 gm/dl (2.5-4.0); Magnesium 2.1 mg/dl (1.7-2.4); Potassium 4.3 mmol/L (3.5-5.1); Total Protein 7.2 gm/dl (6.0-8.3)
[2021-11-04 11:46] LABS: Troponin I High Sensitivity 51.4 pg/ml (0-14)
[2021-11-04 11:57] LABS: Lyme Ab IgM w/WB Rflx Negative (Negative)
[2021-11-04 11:58] LABS: Lyme Ab IgG w/WB Rflx Negative (Negative)
--- NOTE | 2021-11-04 12:38 | History & Physical Report ---
Date of Service November 04, 2021 Assessment & Plan (1) Atrial fibrillation with RVR: Plan: -Admit to med/tele -Currently afebrile, hemodynamically stable, and stable on 1L NC -Unsure of the exact cause of the afib at the current time but she has multiple risk factors -Was started on Cardizem drip and converted to NSR -Cardiology consulted, appreciate them seeing her so quickly >Start amiodarone 200 mg PO TID now in order to control her rhythm, can turn Diltiazem drip off when she gets first dose of Amiodarone >[id number] Score is 7 = 11.2% stroke risk per year >HAS-BLED score is 4 = High risk of major bleeding >Per cardiology, hold anticoagulation for now since she is back in NSR, can determine need for anticoagulation pior to DC -First troponin elevated in the 50's, will repeat another now to ensure it has peaked after HR was controlled -TSH WNL -Will get new TTE -Monitor on tele -PRN IV metoprolol for HR greater than 110 (2) Aortic stenosis: Plan: -Per cards, would not try and replace her aortic valave at this time if they can adequately control her heart rhythm (3) Hypertension: Plan: -Hold MEDICAL MANAGEMENT SPECIALIST lisiopril for now until we see how she responds to the diltiazem and Amiodarone (4) CHF (congestive heart failure): Plan: -Not on diuretics at this time -Mildly edematous inthe LE's -May try a dose of lasix if she continues to be hypoxic (5) 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: Plan: -At baseline (6) History of resection of meningioma: Plan: -At baseline (7) Mitral regurgitation: Plan: -See aortic stenosis (8) GERD (gastroesophageal reflux disease): Plan: -MEDICAL MANAGEMENT SPECIALIST omeprazole and famotidine (9) Chronic lymphocytic leukemia: Plan: -No current actions needed (10) Seizure disorder: Plan: -MEDICAL MANAGEMENT SPECIALIST levetiracetam (11) Hyperlipidemia: Plan: -MEDICAL MANAGEMENT SPECIALIST statin Present on Admission?: Yes (12) Shingles: Plan: -Unclear if patient completed treatment per the completed med rec, will call [facility] to try and confirm Plan The plan was discussed with Dr. Ortiz at the time of admission History of Present Illness Chief Complaint: Chest pain Primary Care Provider: [facility] Mere is an 89 year old female with a PMH significant for COVID-19 (), vaccinated Feb/[place] (2020), HTN, HLD, FE deficient anemia, CLL- 17P deletion(last [id number] years ago), aortic stenosis, meningioma resection with postoperative seizures, EGD with chronic gastritis (which is why her ASA is listed as contraindication), HFpEF (2018 moderate to severe and mild-moderate MR), and left MCA ischemic stroke in 2020 who presented to the [facility] via EMS for chest pain. The patient is a resident of [facility] living [facility]. History was obtained from the patient's daughter who was sitting bedside at the time of the exam. Due to the patient's severe expressive aphasia history was unable to be obtained from her. The patient's daughter states the facility told her the patient was complaining of chest pain and they called EMS. When asked, she states that they patient had been doing well recently besides being diagnosed with shingles on 10/28/21 and starting treatment. In the ED the patient was found to be in afib RVR with HR in the 150's, she remained hemodynamically stable. She was given a bolus dose of cardizem and then started on a cardizem drip and subsequently converted back to NSR. The patient's daughter does not believe that the patient has a history, or at least has not been told that she has a history. Allergies Allergy/AdvReac Type Severity Reaction Status Date / Time Penicillins Allergy Mild RASH Verified 10/28/21 15:51 Sulfa (Sulfonamide Allergy Mild RASH Verified 10/28/21 15:51 Antibiotics) aspirin AdvReac Unknown BLEEDING Verified 10/28/21 15:51 Home Medications Medication Instructions Recorded Confirmed Type acetaminophen 500 mg tablet 500 - 1,000 mg PO BID PRN Pain #30 07/16/18 11/04/21 History tabs cholecalciferol (vitamin D3) 50 2,000 unit PO DAILY #30 tabs 07/16/18 11/04/21 History mcg (2,000 unit) tablet latanoprost 0.005 % eye drops 1 drops OPB QPM 08/27/18 11/04/21 History ferrous sulfate 325 mg (65 mg 325 mg PO DAILY 07/27/20 11/04/21 History iron) tablet multivitamin 1 tab PO DAILY 01/10/21 11/04/21 History atorvastatin 40 mg tablet 40 mg PO DAILY 30 days #30 tabs 02/08/21 11/04/21 Rx pantoprazole 40 mg tablet,delayed 40 mg PO BID #180 tabs 04/08/21 11/04/21 Rx release loperamide 2 mg capsule 2 mg PO UD PRN loose stools #30 05/13/21 11/04/21 Rx caps sucralfate 100 mg/mL oral 1 g (10 mL) PO UD PRN 05/13/21 11/04/21 Rx suspension INDIGESTION/NAUSEA #420 mL lidocaine 4 % topical patch 1 patch topical DAILY PRN pain #30 06/23/21 11/04/21 Rx ea ondansetron 4 mg disintegrating 4 mg PO Q6H 07/29/21 11/04/21 History tablet levetiracetam 1,000 mg tablet 1,000 mg PO BID #60 tabs 09/17/21 11/04/21 Rx acyclovir 400 mg tablet 800 mg PO 5XD #28 tabs 11/06/21 Rx amiodarone 200 mg tablet 200 mg PO BID #60 tabs 11/06/21 Rx famotidine 20 mg tablet 20 mg PO DAILY #30 tabs 11/06/21 11/04/21 Rx lisinopril 5 mg tablet 5 mg PO DAILY #30 tabs 11/09/21 Rx Past Med/Surg History Medical History (Updated 11/05/21 @ 15:40 by Yas Sweet DO) Acute CVA (cerebrovascular accident) (07/2020) Allergic rhinitis Anemia due to GI blood loss (2018) 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 (07/2020) Asthma COVID-19 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 Glaucoma 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 History of - pneumonia (11/24/12) History of - tubal ligation (11/24/12) History of bronchitis (11/24/12) History of chronic lymphocytic leukemia History of stroke Hyperlipidemia Hypertension Osteopenia RLL pneumonia (03/02/14) Surgical History History of appendectomy (11/24/12) History of resection of meningioma History of resection of meningioma S/P cholecystectomy S/P tonsillectomy and adenoidectomy S/P tubal ligation Family History Mother Heart disease Myocardial infarction Father Heart disease Myocardial infarction Grandfather Heart disease Myocardial infarction Brother Myocardial infarction Grandmother (Maternal) Myocardial infarction Other No pertinent family history Denies family history of Ovarian cancer Prostate cancer Breast cancer Colorectal cancer Social History Smoking Status: Unknown if ever smoked Second Hand Exposure: Yes; Hx Alcohol Use: No Hx Substance Use: No Preferred Language: Nepali Communication Ability: Impaired Visual Impairment: Partially Limited Hearing Ability: Normal Snowboarding Instructor Required: No Beliefs That Will Affect Care: None marital status: / Current Living Situation: Personal Care Facility Current Living Situation Comment: [facility] current occupational status: retired How many Children do You have: 2 How many Children do You have Comment: 1 boy 1 girl Feels Safe at Home: Yes Childhood Exposure to Second-Hand Smoke: No during the past year weight has: remained stable Dental Care, Regularly: Yes Physical Activity Frequency: Daily Seatbelt Use: always Sunscreen Use: Yes Assistive Devices: None Review of Systems Review of Systems: Denies current fever, chills, headache, changes in vision, hearing, taste, and smell, chest pain, SOB, cough, abdominal pain, nausea, vomiting, diarrhea, hematemesis, melena, dysuria, hematuria, and recent falls. Physical Exam Physical Exam: Physical Exam: General: In no acute distress, stated age, chronically ill-appearing HEENT: Normocephalic, atraumatic, no scleral icterus, pupils around round, symmetrical, and reactive to light, moist mucus membranes, trachea midline, no thyromegaly Chest/Pulm: No respiratory distress, symmetrical chest expansion, clear breath sounds throughout Cardiac: RRR, no murmurs noted Abdomen: Negative for ascites and bruising, normoactive bowel sounds, soft, non-tender to palpation throughout Musculoskeletal: Symmetrical and without signs of acute trauma, upper and lower extremities with full ROM, no atrophy, spasticity, or flaccidity Extremities: Patient with +1 pitting edema in the BL LE's, vesicular rash running across the upper right thigh Neuro: Alert, unable to cooperate with orientation questioning due to severe expressive aphasia, CN II-XII tested and intact, Psych: No acute distress, calm and cooperative during the exam Results & Data Results & Data ([facility]) Vital Signs (Past 12 Hours) Vital Signs Temp Pulse Pulse Resp BP BP Pulse Ox 11/04/21 11:00 84 18 167/87 H 97 11/04/21 09:21 137/58 L 11/04/21 09:21 128 H 15 95 11/04/21 09:20 113 H 20 94 11/04/21 09:11 117/88 11/04/21 09:11 112 H 22 93 11/04/21 09:10 106 H 20 93 11/04/21 09:00 150 H 23 11/04/21 08:50 151 H 22 11/04/21 08:40 159 H 24 11/04/21 08:36 152 H 22 94 11/04/21 08:36 144/105 H 11/04/21 08:34 140 H 27 H 11/04/21 09:34 94 11/04/21 08:37 36.7 C 152 H 26 H 144/105 H 96 O2 Del Method 11/04/21 11:00 Room Air 11/04/21 09:21 11/04/21 09:21 Room Air 11/04/21 09:20 Room Air 11/04/21 09:11 11/04/21 09:11 Room Air 11/04/21 09:10 Room Air 11/04/21 09:00 11/04/21 08:50 11/04/21 08:40 11/04/21 08:36 Room Air 11/04/21 08:36 11/04/21 08:34 11/04/21 09:34 Room Air 11/04/21 08:37 Room Air Laboratory Results Abnormal lab results 11/04/21 11/04/21 11/04/21 Range/Units 08:52 10:40 Unknown WBC 39.05 H* (4.8-10.8) K/ul Hct 45.0 H (34.1-44.9) % RDW Std Deviation 47.8 H (36.4-46.3) fL Lymph # (Auto) 31.62 H (1.2-3.4) K/uL [place] # (Auto) 0.86 H (0.24-0.82) K/uL Baso # (Auto) 0.24 H (0-0.2) K/uL Immature Gran # (Auto) 0.09 H (0.00-0.02) K/uL Absolute Nucleated RBC 0.36 H (0-0) K/uL Chloride 108 H (98-107) mmol/L Anion Gap 13 H (3-11) Glucose 110 H (70-99(Fasting)) mg/dl Alkaline Phosphatase 116 H (34-104) U/L Troponin I High Sens 51.4 H* (0-14) pg/ml Urine pH 8.5 H (4.5-7.5) Urine Blood Trace H (Negative) U Epithel Cells (Auto) >30 H (0-5) /lpf Diagnostic Findings Chest X-Ray 11/04/21 08:40 XR chest 1V portable CLINICAL HISTORY: Chest pain. Cough. COMPARISON STUDY: Chest radiograph and chest CT January 10, 2021. FINDINGS: There is no consolidation to suggest pneumonia. No pneumothorax or pleural effusion is noted. Linear left basilar opacity reflects atelectasis. There is cardiomegaly without evidence for pulmonary edema. A moderate sized hiatal hernia is present. Appearance of the chest is unchanged. IMPRESSION: No acute cardiopulmonary findings. No change in appearance of the chest. ACT 112: Negative or not required by law. Electronically signed by: Rubio Rodriguez M.D. 11/04/2021 8:56 AM Medications Administered Sodium Chloride (Nss 1000ml) 1,000 mls @ 125 mls/hr IV .Q8H [facility] Stop: 12/04/21 08:44 Last Admin: 11/04/21 09:25 Dose: 125 mls/hr Documented By: HUANG Diltiazem HCl 125 mg/ Dextrose 125 mls @ 5 mls/hr IV .Q24H MALIK; Protocol Stop: 12/04/21 08:44 Last Admin: 11/04/21 09:06 Dose: 5 mg/hr, 5 mls/hr Documented By: HUANG Co-signed By: RAÚL ECG Additional Comments: Normal sinus rhythm Normal ECG When compared with ECG of 04-NOV-2021 08:35, (unconfirmed) Sinus rhythm has replaced Atrial fibrillation Vent. rate has decreased BY 75 BPM Questionable change in QRS duration Code Status & VTE Plan Code Status No code VTE Prophylaxis Plan VTE Prophylaxis will be ordered: Yes Supervising Physician Co-Signing Physician Notes Patient seen and examined at bedside. During face to face encounter, I obtained a physical examination and clinical history at bedside. Discussed plan of care with patient and APC Peno Patient will be admitted for Atrial fibrillation with RVR. PLACED ON CARDIZEM DRIP. will monitor. PG Care Time/CCT Total # of Minutes Spent Total Time Spent with Patient: Total time spent is greater than 50% in coordination of care (as documented) at patient's floor/unit and/or counseling patient: [place] [address] Initial Inpt Care Lvl 1 Patient Type Established Medical Decision Making Straight Forward Diagnoses Atrial fibrillation with RVR I48.91 Aortic stenosis I35.0 Hypertension I10 Hypertension type: essential hypertension CHF (congestive heart failure) I50.32 Heart failure chronicity: chronic Heart failure type: diastolic 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 I63.9; R47.01 History of resection of meningioma Z98.890; Z86.03 Mitral regurgitation I34.0 Cardiac valve disease etiology: etiology unspecified GERD (gastroesophageal reflux disease) K21.9 Esophagitis presence: without esophagitis Chronic lymphocytic leukemia C91.10 Seizure disorder G40.909 Hyperlipidemia E78.5 Hyperlipidemia type: unspecified Shingles B02.9 (1) CHF (congestive heart failure) Heart failure chronicity: chronic Heart failure type: diastolic Qualified Code(s): I50.32 - Chronic diastolic (congestive) heart failure (2) Hyperlipidemia Hyperlipidemia type: unspecified Qualified Code(s): E78.5 - Hyperlipidemia, unspecified (3) Mitral regurgitation Cardiac valve disease etiology: etiology unspecified Qualified Code(s): I34.0 - Nonrheumatic mitral (valve) insufficiency (4) GERD (gastroesophageal reflux disease) Esophagitis presence: without esophagitis Qualified Code(s): K21.9 - Gastro- esophageal reflux disease without esophagitis (5) Hypertension Hypertension type: essential hypertension Qualified Code(s): I10 - Essential (primary) hypertension
[2021-11-04] MEDS ORDERED: METOPROLOL SUCC 25MG EXT REL TAB PO SCH (13:45)
[2021-11-04] MEDS ORDERED: AMIODARONE 200 MG TAB PO ONE (14:09)
--- NOTE | 2021-11-04 14:20 | Cardiology Consultation ---
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 She converted to sinus rhythm on diltiazem drip and was comfortable at the time of our evaluation. Given her post CVA relative debilitation and limited functional status, she is unlikely to proceed to transcatheter aortic valve replacement (TAVR) in the absence of routine symptoms. However, the presence of severe aortic stenosis renders recurrent atrial fibrillation a potentially life-threatening phenomenon, therefore aggressive management by proceeding directly to antiarrhythmic therapy is warranted. Recommend initiation of amiodarone, loading dose could be oral amiodarone 200 mg 3 times daily, if she has any recurrent atrial fibrillation could IV load. At this point, would recommend first trying oral loading, since she has already received diltiazem and there is a drug conflict with decreased clearance of both diltiazem and amiodarone. Could continue the IV diltiazem until she receives her first oral dose of amiodarone, at which point IV diltiazem should be discontinued. She is a poor anticoagulation candidate with history of a major GI bleed (hemoglobin 7.4) in 2019. She also has longstanding aspirin intolerance. This would be an additional reason to make robust attempts at maintaining sinus rhythm. Could forego anticoagulation currently, since she is in sinus rhythm, and allow her to remain off anticoagulation with monitoring at the [facility] for any abrupt increase in heart rate which might indicate recurrent atrial fibrillation. If necessary, could consider temporary anticoagulation at the [facility] if she develops recurrent atrial fibrillation which lasts for more than a few days. She appears euvolemic currently, no evidence of heart failure. At the time of our evaluation, she was free of cardiopulmonary symptoms, in sinus rhythm, and hemodynamically stable. She follows with Dr. Landon Kenyon as an outpatient. History of Present Illness Reason for Consultation: A. fib with RVR, aortic stenosis Requesting Physician: Piotr Santoyo MD Attending Physician: Piotr Santoyo MD History of Present Illness 89-year-old woman who resides at [facility], h/o CLL, status post CVA July 2020 with resultant receptive/expressive aphasia, history of severe aortic stenosis (no imminent plans for TAVR given limited functional status and absence of symptoms), uncertain history of dysrhythmias (, who is admitted today (11/04/2021) with new onset atrial fibrillation with rapid ventricular response resulting in anginal chest discomfort. Fortunately, she converted back to sinus rhythm on a diltiazem drip in the emergency department and is currently chest pain-free and comfortable. Due to her expressive aphasia, history is very limited. She was accompanied by her daughter, who notes that the patient can walk short distances (from her room to dinner) without angina or dyspnea and that she has had no overt heart failure symptoms or previous anginal symptoms. Other than the sensation of having to urinate (which is apparently chronic), the patient had no somatic complaints at the time of our evaluation. Allergies Allergy/AdvReac Type Severity Reaction Status Date / Time Penicillins Allergy Mild RASH Verified 10/28/21 15:51 Sulfa (Sulfonamide Allergy Mild RASH Verified 10/28/21 15:51 Antibiotics) aspirin AdvReac Unknown BLEEDING Verified 10/28/21 15:51 Home Medications Medication Instructions Recorded Confirmed Type acetaminophen 500 mg tablet 500 - 1,000 mg PO BID PRN Pain #30 07/16/18 11/04/21 History tabs cholecalciferol (vitamin D3) 50 2,000 unit PO DAILY #30 tabs 07/16/18 11/04/21 History mcg (2,000 unit) tablet latanoprost 0.005 % eye drops 1 drops OPB QPM 08/27/18 11/04/21 History ferrous sulfate 325 mg (65 mg 325 mg PO DAILY 07/27/20 11/04/21 History iron) tablet multivitamin 1 tab PO DAILY 01/10/21 11/04/21 History famotidine 20 mg tablet 20 mg PO BID 01/25/21 11/04/21 History atorvastatin 40 mg tablet 40 mg PO DAILY 30 days #30 tabs 02/08/21 11/04/21 Rx pantoprazole 40 mg tablet,delayed 40 mg PO BID #180 tabs 04/08/21 11/04/21 Rx release loperamide 2 mg capsule 2 mg PO UD PRN loose stools #30 05/13/21 11/04/21 Rx caps sucralfate 100 mg/mL oral 1 g (10 mL) PO UD PRN 05/13/21 11/04/21 Rx suspension INDIGESTION/NAUSEA #420 mL lidocaine 4 % topical patch 1 patch topical DAILY PRN pain #30 06/23/21 11/04/21 Rx ea lisinopril 5 mg tablet 5 mg PO DAILY #30 tabs 07/22/21 11/04/21 Rx ondansetron 4 mg disintegrating 4 mg PO Q6H 07/29/21 11/04/21 History tablet levetiracetam 1,000 mg tablet 1,000 mg PO BID #60 tabs 09/17/21 11/04/21 Rx Patient History Medical History (Updated 11/04/21 @ 15:03 by Felipe Martinez MD) Acute CVA (cerebrovascular accident) (07/2020) Allergic rhinitis Anemia due to GI blood loss (2018) 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 (07/2020) Asthma COVID-19 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 Glaucoma 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 History of - pneumonia (11/24/12) History of - tubal ligation (11/24/12) History of bronchitis (11/24/12) History of chronic lymphocytic leukemia History of stroke Hyperlipidemia Hypertension Osteopenia RLL pneumonia (03/02/14) Surgical History History of appendectomy (11/24/12) History of resection of meningioma History of resection of meningioma S/P cholecystectomy S/P tonsillectomy and adenoidectomy S/P tubal ligation Family History Mother Heart disease Myocardial infarction Father Heart disease Myocardial infarction Grandfather Heart disease Myocardial infarction Brother Myocardial infarction Grandmother (Maternal) Myocardial infarction Other No pertinent family history Denies family history of Ovarian cancer Prostate cancer Breast cancer Colorectal cancer Social History Smoking Status: Unknown if ever smoked Second Hand Exposure: Yes; Hx Alcohol Use: No Hx Substance Use: No Preferred Language: Arabic Communication Ability: Impaired Visual Impairment: Partially Limited Hearing Ability: Normal Telesales Manager Required: No Beliefs That Will Affect Care: None marital status: / Current Living Situation: Personal Care Facility Current Living Situation Comment: [facility] current occupational status: retired How many Children do You have: 2 How many Children do You have Comment: 1 boy 1 girl Feels Safe at Home: Yes Childhood Exposure to Second-Hand Smoke: No during the past year weight has: remained stable Dental Care, Regularly: Yes Physical Activity Frequency: Daily Seatbelt Use: always Sunscreen Use: Yes Assistive Devices: Walker Physical Exam Physical Exam: Elderly woman with "word salad" conversation who appeared comfortable. BP mildly hypertensive. Pulse 84 bpm and regular. Skin: no ecchymoses or generalized lesions. HEENT: unremarkable. Neck: Jugular venous pulse minimally elevated (just above the clavicle) , carotids with transmitted murmur. Lungs: Mildly decreased breath sounds, generally clear. No accessory muscle use. Cardiac: regular rhythm, 4/6 crescendo decrescendo systolic murmur at the base radiating widely (carotids, apex, axilla), and audible aortic closure sound, mildly increased pulmonic closure sound, no diastolic murmur. Abdomen: Mild diffuse abdominal tenderness. No guarding or rigidity. Nondistended. Extremities: no edema, pulses intact. Neurologic: Alert, nonsensical conversation (stroke sequelae with expressive aphasia), otherwise grossly nonfocal. Results & Data ([facility]) Laboratory Results WBC 39,000, hemoglobin 14.8, normal platelet count. Normal electrolytes, BUN 12, creatinine 0.89. Magnesium 2.1 Hemoglobin 110, recent hemoglobin A1c 5.9%. High-sensitivity troponin 51.4. Normal TSH. Normal lipase. Normal transaminases. Diagnostic Findings Initial ECG showed atrial fibrillation with rapid ventricular response of 158 bpm with some lateral ST depression. Compared to 2020 ECG, atrial fibrillation was new. Repeat ECG showed sinus rhythm at 83 bpm. Chest x-ray was unremarkable. Echocardiogram 2020 showed normal LV systolic function with grade 2 diastolic dysfunction, s evere calcific aortic stenosis, mild mitral regurgitation, severe pulmonary hypertension. PG Care Time/CCT Total # of Minutes Spent Total Time Spent with Patient: Total time spent is greater than 50% in coordination of care (as documented) at patient's floor/unit and/or counseling patient: Coding Level of Care Code 77876 Inpt Consult Level 4 Diagnoses Atrial fibrillation with RVR I48.91 Severe aortic stenosis I35.0 Combined receptive and expressive aphasia as late effect of cerebrovascular a ccident (CVA) I69.320 Chronic lymphocytic leukemia C91.10
[2021-11-04] MEDS ORDERED: SUCRALFATE 1 GM/10 ML UDC PO PRN (15:48)
[2021-11-04] MEDS ORDERED: ACETAMINOPHEN 325 MG TAB PO PRN (15:48)
[2021-11-04] MEDS ORDERED: METOPROLOL TARTRATE 1 MG/ML VIAL IV PRN (15:48)
--- NOTE | 2021-11-04 15:52 | XCELERA ---
[id number]
[2021-11-04] MEDS ORDERED: PNEUMOCOCCAL POLYSACCHARIDES 25 MCG/0.5 ML VIAL/SYR IM ONE (16:02)
--- NOTE | 2021-11-04 16:26 | Electrocardiogram Report ---
Test Reason : Blood Pressure : / mmHG Vent. Rate : 158 BPM Atrial Rate : 156 BPM P-R Int : 000 ms QRS Dur : 072 ms QT Int : 292 ms P-R-T Axes : 000 -13 016 degrees QTc Int : 473 ms Poor data quality, interpretation may be adversely affected Atrial fibrillation with rapid ventricular response ST depression in Anterolateral leads , may be rate related Abnormal ECG When compared with ECG of 10-JAN-2021 12:19, Atrial fibrillation has replaced Sinus rhythm Vent. rate has increased BY [address] now depressed in Anterolateral leads Confirmed by Felipe Martinez ([id number]) on 11/04/2021 4:26:27 PM Referred By: [facility] Confirmed By:Felipe Martinez
[2021-11-04] MEDS: ACYCLOVIR 400 MG TAB PO SCH ×2 (16:34→20:13)
--- NOTE | 2021-11-04 16:38 | Electrocardiogram Report ---
Test Reason : Blood Pressure : / mmHG Vent. Rate : 083 BPM Atrial Rate : 083 BPM P-R Int : 154 ms QRS Dur : 090 ms QT Int : 372 ms P-R-T Axes : -15 -22 -04 degrees QTc Int : 437 ms Normal sinus rhythm Normal ECG When compared with ECG of 04-NOV-2021 08:35, Sinus rhythm has replaced Atrial fibrillation Vent. rate has decreased BY 75 BPM Confirmed by Felipe Martinez ([id number]) on 11/04/2021 4:38:20 PM Referred By: [facility] Confirmed By:Felipe Martinez
[2021-11-04] MEDS: levETIRAcetam 500 MG TAB PO SCH (20:13)
[2021-11-04] MEDS: PANTOprazole 40 MG TAB PO SCH (20:13)
[2021-11-04] MEDS: LATANOPROST 0.005% OP SOLN 2.5 ML BTL OPB SCH (20:14)
[2021-11-04] MEDS ORDERED: FAMOTIDINE 20 MG TAB PO SCH (21:00)
[2021-11-04] MEDS: AMIODARONE 200 MG TAB PO SCH (21:52)
[2021-11-05 06:38] LABS: Hematocrit (blood only) 43.7 % (34.1-44.9); Mean Corpuscular Hemoglobin 31.2 pg (25.0-34.0); Mean Corpuscular Volume 97.3 fL (80.0-100.0); Mean Platelet Volume 9.4 fL (9.4-12.3); Platelet Count 226 K/uL (130-400); RDW Coefficient of Variation 13.8 % (11.5-14.5); RDW Standard Deviation 48.1 fL (36.4-46.3); Red Blood Count 4.49 M/uL (3.93-5.22); White Blood Count 40.96 K/ul (4.8-10.8)
[2021-11-05 07:17] LABS: Calcium 8.7 mg/dl (8.5-10.1); Creatinine Clr Calc Pharmacy 43.4 ml/min; Est GFR (African American) 74.6 ml/min; Est GFR (Non-African American) 64.4 ml/min; Potassium 3.8 mmol/L (3.5-5.1)
[2021-11-05] MEDS: levETIRAcetam 500 MG TAB PO SCH ×2 (08:42→20:21)
[2021-11-05] MEDS: PANTOprazole 40 MG TAB PO SCH ×2 (08:43→20:21)
[2021-11-05] MEDS: FAMOTIDINE 20 MG TAB PO SCH (08:43)
[2021-11-05] MEDS: ACYCLOVIR 400 MG TAB PO SCH ×4 (08:43→20:20)
[2021-11-05] MEDS: CHOLECALCIFEROL 1,000 UNITS 25 MCG TAB PO SCH (08:44)
[2021-11-05] MEDS: ATORVASTATIN 40 MG TAB PO SCH (08:44)
[2021-11-05] MEDS: FERROUS SULFATE 325 MG TAB PO SCH (08:44)
[2021-11-05] MEDS: AMIODARONE 200 MG TAB PO SCH ×3 (08:44→20:20)
[2021-11-05] MEDS: MULTIVITAMIN TAB PO SCH (08:44)
--- NOTE | 2021-11-05 14:26 | Cardiology Progress Note ---
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 Continue oral amiodarone loading at 200 mg 3 times daily while in hospital, reduce amiodarone to 200 mg twice daily upon discharge. Given the risks associated with any recurrent tachycardic dysrhythmia in the context of severe aortic stenosis as well as the patient's relatively compromised state with advanced age/multiple comorbidities/communication issues, reasonable to continue oral amiodarone loading for another day. She should be okay for hospital discharge tomorrow if she remains in sinus rhythm and free of symptoms. As noted, she is a poor anticoagulation candidate, so it would be reasonable to discharge her off anticoagulation with close monitoring of her hemodynamics at the personal-senior care. She has a longstanding aspirin intolerance, so this option is excluded as well. If she were to develop recurrent atrial fibrillation in the context of severe aortic stenosis, she likely would require repeat hospitalization and could be anticoagulated at that time. Alternatively, if her rate is better controlled during any recurrent atrial fibrillation, could decide at that point whether temporary anticoagulation benefits would exceed risks. She remains euvolemic, no evidence of heart failure. She follows with Dr. Landon Kenyon as an outpatient. Admission and Anticipated Discharge Date Admission Date: November 04, 2021 Subjective Patient had no complaints. Denied chest pain, dyspnea, palpitations, lightheadedness, presyncope, or syncope. History remains unreliable given her expressive and receptive aphasias. Telemetry showed sinus rhythm over the past 24 hours, no recurrence of atrial fibrillation since yesterday morning. Physical Exam Physical Exam: No distress, appears comfortable eating lunch BP mildly hypertensive. Pulse 74 bpm and regular. Skin: no ecchymoses or generalized lesions. HEENT: unremarkable. Neck: Jugular venous pulse minimally elevated (just above the clavicle) , carotids with transmitted murmur. Lungs: Mildly decreased breath sounds, generally clear. No accessory muscle use. Cardiac: regular rhythm, 4/6 crescendo decrescendo systolic murmur at the base radiating widely (carotids, apex, axilla), and audible aortic closure sound, mildly increased pulmonic closure sound, no diastolic murmur. Abdomen: Benign. Extremities: no edema, pulses intact. Neurologic: Alert, nonsensical conversation (stroke sequelae with expressive aphasia), otherwise grossly nonfocal. Results & Data ([facility] [place]) Vital Signs (Past 12 Hours) Vital Signs Temp Pulse Pulse Resp BP Pulse Ox O2 Del Method 11/05/21 06:12 66 11/05/21 11:15 98.8 F 74 17 160/80 H 95 Room Air 11/05/21 08:40 Nasal Cannula 11/05/21 07:54 97.7 F 77 16 153/65 H 94 Room Air 11/05/21 03:38 98.8 F 70 16 137/65 98 Nasal Cannula O2 Flow Rate 11/05/21 06:12 11/05/21 11:15 11/05/21 08:40 1 11/05/21 07:54 11/05/21 03:38 1 Laboratory Results Normal electrolytes, BUN 13, creatinine 0.81. High-sensitivity troponin 51 and 151. Diagnostic Findings Echocardiogram showed normal LV systolic function with no wall motion abnormalities. Moderate LVH with grade 1 diastolic dysfunction. Severe valvular aortic stenosis with calculated valve area of 1.0 cm. Right ventricular systolic pressure 30 to 40 mmHg. Compared with 2020 study, probably no significant change (current study images appear to allow for more accurate assessment of valve area and right ventricular systolic pressure). 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
[2021-11-05] MEDS: LATANOPROST 0.005% OP SOLN 2.5 ML BTL OPB SCH (20:21)
--- NOTE | 2021-11-05 22:34 | Hospitalist Progress Note ---
Date of Service November 05, 2021 Assessment & Plan (1) Atrial fibrillation with RVR: Plan: -Admit to med/tele -Currently afebrile, hemodynamically stable, and stable on 1L NC -Unsure of the exact cause of the afib at the current time but she has multiple risk factors -Was started on Cardizem drip and converted to NSR -Cardiology consulted, appreciate them seeing her so quickly >Start amiodarone 200 mg PO TID now in order to control her rhythm, can turn Diltiazem drip off when she gets first dose of Amiodarone >[id number] Score is 7 = 11.2% stroke risk per year >HAS-BLED score is 4 = High risk of major bleeding >Per cardiology, hold anticoagulation for now since she is back in NSR, can determine need for anticoagulation pior to DC -First troponin elevated in the 50's, will repeat another now to ensure it has peaked after HR was controlled -TSH WNL -Will get new TTE -Monitor on tele -PRN IV metoprolol for HR greater than 110 On 11/05 Patient improved on amiodarone, Patient cardioverted. Appreciate input from cardio. (2) Aortic stenosis: Plan: -Per cards, would not try and replace her aortic valave at this time if they can adequately control her heart rhythm (3) Hypertension: Plan: -Hold OFFSET PRESS OPERATOR lisiopril for now until we see how she responds to the diltiazem and Amiodarone (4) CHF (congestive heart failure): Plan: -Not on diuretics at this time -Mildly edematous inthe LE's -May try a dose of lasix if she continues to be hypoxic (5) 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: Plan: -At baseline (6) History of resection of meningioma: Plan: -At baseline (7) Mitral regurgitation: Plan: -See aortic stenosis (8) GERD (gastroesophageal reflux disease): Plan: -OFFSET PRESS OPERATOR omeprazole and famotidine (9) Chronic lymphocytic leukemia: Plan: -No current actions needed (10) Seizure disorder: Plan: -OFFSET PRESS OPERATOR levetiracetam (11) Hyperlipidemia: Plan: -OFFSET PRESS OPERATOR statin (12) Shingles: Plan: -Unclear if patient completed treatment per the completed med rec, will call Daniel Lebron to try and confirm Plan The plan was discussed with Dr. Ortiz at the time of admission Admission and Anticipated Discharge Date Admission Date: November 04, 2021 Subjective 89 yo female reports feeling well. She has no new complaints. Heart rate has improved. Review of Systems Review of Systems: All systems reviewed & are unremarkable except as noted in HPI & below Physical Exam Physical Exam: General:Patient is sitting up. In no acute distress. HEENT:Normocephalic, atraumatic, no scleral icterus, pupils around round, symmetrical, and reactive to light, moist mucus membranes, trachea midline, no thyromegaly Chest/Pulm:No respiratory distress, symmetrical chest expansion, clear breath sounds throughout Cardiac:RRR, no murmurs noted Abdomen:soft, non-tender to palpation throughout Musculoskeletal:Symmetrical and without signs of acute trauma, upper and lower extremities with full ROM, no atrophy, spasticity, or flaccidity Extremities: Patient with +1 pitting edema in the BL LE's Neuro:Alert, unable to cooperate with orientation questioning due to severe expressive aphasia, CN II-XII tested and intact, Psych:No acute distress, calm and cooperative during the exam Results & Data Results & Data ([facility]) Vital Signs (Past 12 Hours) Vital Signs Temp Pulse Pulse Resp BP Pulse Ox O2 Del Method 11/05/21 20:31 36.9 C 95 H 19 161/103 H 96 Room Air 11/05/21 14:08 78 11/05/21 15:45 37.0 C 79 17 170/91 H 98 Room Air 11/05/21 11:15 37.1 C 74 17 160/80 H 95 Room Air PG Care Time/CCT Total # of Minutes Spent Total Time Spent with Patient: Total time spent is greater than 50% in coordination of care (as documented) at patient's floor/unit and/or counseling patient: Coding Level of Care Code 20513 Subseq Hosp Care Lvl 2 Diagnoses Atrial fibrillation with RVR I48.91 Aortic stenosis I35.0 Hypertension I10 Hypertension type: essential hypertension CHF (congestive heart failure) I50.32 Heart failure chronicity: chronic Heart failure type: diastolic 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 I63.9; R47.01 History of resection of meningioma Z98.890; Z86.03 Mitral regurgitation I34.0 Cardiac valve disease etiology: etiology unspecified GERD (gastroesophageal reflux disease) K21.9 Esophagitis presence: without esophagitis Chronic lymphocytic leukemia C91.10 Seizure disorder G40.909 Hyperlipidemia E78.5 Hyperlipidemia type: unspecified Shingles B02.9 Time Spent (min) 25 (1) CHF (congestive heart failure) Heart failure chronicity: chronic Heart failure type: diastolic Qualified Code(s): I50.32 - Chronic diastolic (congestive) heart failure (2) Hyperlipidemia Hyperlipidemia type: unspecified Qualified Code(s): E78.5 - Hyperlipidemia, unspecified (3) Mitral regurgitation Cardiac valve disease etiology: etiology unspecified Qualified Code(s): I34.0 - Nonrheumatic mitral (valve) insufficiency (4) GERD (gastroesophageal reflux disease) Esophagitis presence: without esophagitis Qualified Code(s): K21.9 - Gastro- esophageal reflux disease without esophagitis (5) Hypertension Hypertension type: essential hypertension Qualified Code(s): I10 - Essential (primary) hypertension
[2021-11-06] MEDS: CHOLECALCIFEROL 1,000 UNITS 25 MCG TAB PO SCH (08:16)
[2021-11-06] MEDS: AMIODARONE 200 MG TAB PO SCH ×2 (08:16→14:49)
[2021-11-06] MEDS: ATORVASTATIN 40 MG TAB PO SCH (08:16)
[2021-11-06] MEDS: FERROUS SULFATE 325 MG TAB PO SCH (08:16)
[2021-11-06] MEDS: FAMOTIDINE 20 MG TAB PO SCH (08:16)
[2021-11-06] MEDS: ACYCLOVIR 400 MG TAB PO SCH ×2 (08:16→13:54)
[2021-11-06] MEDS: PANTOprazole 40 MG TAB PO SCH (08:17)
[2021-11-06] MEDS: MULTIVITAMIN TAB PO SCH (08:17)
[2021-11-06] MEDS: levETIRAcetam 500 MG TAB PO SCH (08:17)
[2021-11-06 08:46] LABS: Hematocrit (blood only) 44.7 % (34.1-44.9); Hemoglobin 14.4 g/dl (12.0-16.0); Mean Corpuscular Hemoglobin 31.3 pg (25.0-34.0); Mean Corpuscular Hgb Conc 32.2 g/dL (32.0-36.0); Mean Corpuscular Volume 97.2 fL (80.0-100.0); Mean Platelet Volume 9.2 fL (9.4-12.3); Platelet Count 244 K/uL (130-400); RDW Coefficient of Variation 13.8 % (11.5-14.5); RDW Standard Deviation 48.4 fL (36.4-46.3)
[2021-11-06 09:00] LABS: BUN Creatinine Ratio 14.6 (10-20); Calcium 9.2 mg/dl (8.5-10.1); Creatinine Clr Calc Pharmacy 39.4 ml/min; Est GFR (African American) 66.6 ml/min; Est GFR (Non-African American) 57.5 ml/min
--- NOTE | 2021-11-06 13:23 | Discharge Summary ---
Date of Service November 06, 2021 Admission HPI Per Admitting Provider Mere is an 89 year old female with a PMH significant for COVID-19 (), vaccinated Feb/[place] (2020), HTN, HLD, FE deficient anemia, CLL- 17P deletion(last [id number] years ago), aortic stenosis, meningioma resection with postoperative seizures, EGD with chronic gastritis (which is why her ASA is listed as contraindication), HFpEF (2018 moderate to severe and mild-moderate MR), and left MCA ischemic stroke in 2020 who presented to the [facility] via EMS for chest pain. The patient is a resident of [facility]. History was obtained from the patient's daughter who was sitting bedside at the time of the exam. Due to the patient's severe expressive aphasia history was unable to be obtained from her. The patient's daughter states the facility told her the patient was complaining of chest pain and they called EMS. When asked, she states that they patient had been doing well recently besides being diagnosed with shingles on 10/28/21 and starting treatment. In the ED the patient was found to be in afib RVR with HR in the 150's, she remained hemodynamically stable. She was given a bolus dose of cardizem and then started on a cardizem drip and subsequently converted back to NSR. The patient's daughter does not believe that the patient has a history, or at least has not been told that she has a history. Principal Diagnosis A fib RVR Discharge Exam General:Patient is sitting up. In no acute distress. HEENT:Normocephalic, atraumatic, no scleral icterus, pupils around round, symmetrical, and reactive to light, moist mucus membranes, trachea midline, no thyromegaly Chest/Pulm:No respiratory distress, symmetrical chest expansion, clear breath sounds throughout Cardiac:RRR, no murmurs noted Abdomen:soft, non-tender to palpation throughout Musculoskeletal:Symmetrical and without signs of acute trauma, upper and lower extremities with full ROM, no atrophy, spasticity, or flaccidity Extremities: Patient with +1 pitting edema in the BL LE's Neuro:Alert, unable to cooperate with orientation questioning due to severe expressive aphasia, CN II-XII tested and intact, Psych:No acute distress, calm and cooperative during the exam Discharge Data Allergies Allergy/AdvReac Type Severity Reaction Status Date / Time Penicillins Allergy Mild RASH Verified 10/28/21 15:51 Sulfa (Sulfonamide Allergy Mild RASH Verified 10/28/21 15:51 Antibiotics) aspirin AdvReac Unknown BLEEDING Verified 10/28/21 15:51 Consultations 11/04/21 12:27 ED Decision to Admit Stat 11/04/21 13:19 Consult Cardiology Stat Hospital Course (1) Atrial fibrillation with RVR: On Admission Admit to med/tele -Currently afebrile, hemodynamically stable, and stable on 1L NC -Unsure of the exact cause of the afib at the current time but she has multiple risk factors -Was started on Cardizem drip and converted to NSR -Cardiology consulted, appreciate them seeing her so quickly >Start amiodarone 200 mg PO TID now in order to control her rhythm, can turn Diltiazem drip off when she gets first dose of Amiodarone >[id number] Score is 7 = 11.2% stroke risk per year >HAS-BLED score is 4 = High risk of major bleeding >Per cardiology, hold anticoagulation for now since she is back in NSR, can determine need for anticoagulation pior to DC -First troponin elevated in the 50's, will repeat another now to ensure it has peaked after HR was controlled -TSH WNL -Will get new TTE -Monitor on tele -PRN IV metoprolol for HR greater than 110 Hospital course: Patient cardioverted on amiodarone, Appreciate input from cardio. Patient has remained in sinus. Patient will be discharged. (2) Aortic stenosis: -Per cards, would not try and replace her aortic valave at this time if they can adequately control her heart rhythm (3) Hypertension: -Will Hold lisinopril for now until we see how she responds to the diltiazem and Amiodarone. May consider restarting at outpatient followup. (4) CHF (congestive heart failure): -Not on diuretics at this time -Mildly edematous inthe LE's -May try a dose of lasix if she continues to be hypoxic (5) 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: -At baseline (6) History of resection of meningioma: -At baseline (7) Mitral regurgitation: -See aortic stenosis (8) GERD (gastroesophageal reflux disease): -PATIENT RESOURCE COORDINATOR omeprazole and famotidine (9) Chronic lymphocytic leukemia: -No current actions needed (10) Seizure disorder: -PATIENT RESOURCE COORDINATOR levetiracetam (11) Hyperlipidemia: -PATIENT RESOURCE COORDINATOR statin (12) Shingles: -Unclear if patient completed treatment per the completed med rec, will call Daniel Lebron to try and confirm (13) Elevated troponin: Demand ischemia in the setting of A. fib RVR TREATED ABOVE Total Time Total Time Spent Total Time Spent (In Minutes): 35 Discharge Plan Discharge Items Patient Disposition: Personal Retirement Reason For Visit: CHEST PAIN Discharge Diagnosis: chest pain Activity: Resume your previous activity Non-emergency contact: Primary Care Provider Call non-emergency contact if: you have any medication questions [facility] - Diet: Heart Healthy Addtl Attending Provider Instructions: You have been hospitalized for an acute medical problem. During your stay at [facility], we have made an effort to correct the problem that brought you to the hospital while keeping you as comfortable as possible. Medications were used to bring your condition under control and your discharge instructions will include directions for any medications you should take after leaving the hospital. Please make sure you see your Primary Care Provider as part of your follow up plan. Pending Studies at Discharge: No Stand-Alone Forms: [facility], Smoking Cessation Skilled Items Patient informed of condition?: Yes DNR: Yes Discharge Level of Care: Other Communicable Disease: No Discharge Prognosis: Stable Lines: None Urinary Catheter: No Medications and DC Order Prescriptions: New amiodarone 200 mg Tablet 200 mg PO BID Qty: 60 0RF acyclovir 400 mg Tablet 800 mg PO 5XD Qty: 28 0RF Continued atorvastatin 40 mg tablet 40 mg PO DAILY 30 Days Qty: 30 5RF pantoprazole 40 mg tablet,delayed release (DR/EC) 40 mg PO BID Qty: 180 3RF loperamide 2 mg capsule 2 mg PO UD MDD 8 caps PRN (Reason: loose stools) Qty: 30 1RF Rx Instructions: take 2 caps after 1st loose stool,then 1 cap thereafter, max 8 cap/24hr sucralfate 100 mg/mL suspension 1 g PO UD PRN (Reason: INDIGESTION/NAUSEA) Qty: 420 1RF lidocaine 4 % adhesive patch,medicated 1 patch topical DAILY PRN (Reason: pain) Qty: 30 5RF levetiracetam 1,000 mg tablet 1,000 mg PO BID Qty: 60 5RF ondansetron 4 mg tablet,disintegrating 4 mg PO Q6H cholecalciferol (vitamin D3) 2,000 unit tablet 2,000 unit PO DAILY Qty: 30 acetaminophen 500 mg tablet 500 - 1,000 mg PO BID MDD 3g/24hr PRN (Reason: Pain) Qty: 30 latanoprost 0.005 % drops 1 drops OPB QPM ferrous sulfate 325 mg (65 mg iron) Tablet 325 mg PO DAILY multivitamin Tablet 1 tab PO DAILY Changed famotidine 20 mg tablet 20 mg PO DAILY Qty: 30 0RF No Action lisinopril 5 mg tablet 5 mg PO DAILY Qty: 30 3RF Rx Instructions: HOLD FOR SBP <100 Discharge Orders: Discharge Order (Routine); Ordered 11/06/21 Ordered By: Piotr Ortiz Admission Data Admit Date/Time: 11/04/21 13:01 Attending Provider: Piotr Ortiz Admit Provider: Piotr Ortiz [facility] Other Providers: Felipe Martinez ; Piotr Ortiz Other Interventions: Discharge Summary Assessment (RN) Last Done: 11/06/21 14:53 Coding Level of Care Code 31052 OBS Care - Discharge Diagnoses Atrial fibrillation with RVR I48.91 Aortic stenosis I35.0 Hypertension I10 Hypertension type: essential hypertension CHF (congestive heart failure) I50.32 Heart failure chronicity: chronic Heart failure type: diastolic 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 I63.9; R47.01 History of resection of meningioma Z98.890; Z86.03 Mitral regurgitation I34.0 Cardiac valve disease etiology: etiology unspecified GERD (gastroesophageal reflux disease) K21.9 Esophagitis presence: without esophagitis Chronic lymphocytic leukemia C91.10 Seizure disorder G40.909 Hyperlipidemia E78.5 Hyperlipidemia type: unspecified Shingles B02.9 Elevated troponin R77.8
== END 2021-11-06 16:15 | disposition home or self-care (01) ==
LOC: ED 08:31 → INTOOBSV 13:01 → 2E 13:01

== ENCOUNTER 2022-02-02 22:14 | Observation (INO) ==
--- NOTE | 2022-02-02 22:31 | Emergency Department Note ---
Impression & Plan Hypoxia, Fall, Chronic lymphocytic leukemia, Altered mental status, Lower back pain, Elevated troponin ED Provider Note NAME: OMA ONEAL AGE: 89 SEX: F : 1930 ARRIVES VIA: Ambulance INFORMANT: [Patient][ems, nursing] ED PROVIDER(S): [Conner King MD] CHIEF COMPLAINT: Altered mental status HISTORY OF PRESENT ILLNESS: The patient is an 89-year-old female presents to the ER after an unwitnessed fall. The patient apparently was more confused after the fall complaining of some back pain. She was brought for evaluation. The patient does have a history of expressive aphasia and stroke. She currently denies pain to me. She does admit to falling. No further history obtainable given her mental state. Of note, per family, the patient is a DNR. REVIEW OF SYSTEMS: Unobtainable given the mental state. PMHx/PSHx: See Below SOCIAL HISTORY: See Below. PHYSICAL EXAM: GENERAL: Patient is in no acute distress. HEENT: No acute trauma, normocephalic atraumatic, mucous membranes moist, no nasal congestion, no scleral icterus. No scalp hematomas. Pupils equal round and reactive to light. NECK: No stridor, no adenopathy no C-spine step-off however, the entire C-spine is tender to touch. LUNGS: Few scattered wheezes heard, no respiratory distress, breath sounds equal. HEART: 4/6 systolic murmur, regular rate and rhythm. ABDOMEN: Soft, nontender, bowel sounds positive, no peritonitis. EXTREMITIES: No cyanosis, moderate bilateral pedal edema, full range of motion of all the joints without pain or difficulty, no signs for acute trauma. NEUROLOGIC: Awake and alert, no acute motor or sensory deficits, no focal weakness. SKIN: No rash, no jaundice, no diaphoresis. DIFFERENTIAL DIAGNOSIS: Intracranial bleeding, C-spine injury, thoracic or lumbar spine injury, UTI, anemia, electrolyte imbalance, dehydration, extremity injury, among others. EMERGENCY DEPARTMENT COURSE/PROCEDURES: ECG: Indication was fall. The ECG shows a normal sinus rhythm with a rate of 73. There is some baseline artifact. There is no ST elevation, no PVCs. The QTc is 449. Continuous Cardiac Monitoring: An order was placed for continuous cardiac monitoring. The monitor shows a rate of 76 with normal sinus rhythm. MEDICAL DECISION MAKING: White count is quite elevated consistent with her CLL. There was a normal hemoglobin and platelet count. No renal failure or significant electrolyte abnormality. No concerning liver enzyme elevation. ECG showed a normal sinus rhythm, no obvious ischemia. Cardiac enzyme testing is elevated, there was a slight rise when comparing the 1st and 2nd test. This troponin elevation of course could be consistent with cardiac strain/injury or potentially mismatch. Urinalysis did not show infection. COVID test returned negative. Chest x-ray did not show findings of heart failure or pneumonia. Pelvis film did not show hip or pelvic fracture. Brain CT showed no acute bleed or mass-effect. CT i maging of the cervical, thoracic and lumbar spines did not show any acute fracture. On exam, the patient was wheezing. The patient presents after an unwitnessed fall. She, by report, had a change in her mental status noted after the fall. I did not find any evidence for significant injury from this fall. I did speak with the patient's daughter over the phone. I spoke with the granddaughter who was at bedside. Patient was ordered for a DuoNeb for the wheezing. She was placed on nasal justine peyman O2 as she became hypoxic during her ED stay. Respiratory bio fire has been ordered, this result is pending. Given the fall, given the mental status change, given the hypoxia, given the wheezing and now the elevated troponin values, I do think a hospital stay is warranted. At this point, the cause of the fall is unclear. Of note, the patient has a seizure history so seizure is a consideration. I did speak with case management, the on-call hospitalist was consulted. I discussed all my findings with the family at bedside. 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 History of - pneumonia (11/24/12) History of - tubal ligation (11/24/12) History of bronchitis (11/24/12) History of chronic lymphocytic leukemia History of stroke Hyperlipidemia Hypertension Osteopenia RLL pneumonia (03/02/14) Surgical History History of appendectomy (11/24/12) History of resection of meningioma History of resection of meningioma S/P cholecystectomy S/P tonsillectomy and adenoidectomy S/P tubal ligation Family History Mother Heart disease Myocardial infarction Father Heart disease Myocardial infarction Grandfather Heart disease Myocardial infarction Brother Myocardial infarction Grandmother (Maternal) Myocardial infarction Other No pertinent family history Denies family history of Ovarian cancer Prostate cancer Breast cancer Colorectal cancer Social History Smoking Status: Unknown if ever smoked Second Hand Exposure: Yes; Hx Alcohol Use: No Hx Substance Use: No Preferred Language: Egyptian Communication Ability: Impaired Visual Impairment: Partially Limited Hearing Ability: Normal Water[employer] Traffic Checker Required: No Beliefs That Will Affect Care: None marital status: / Current Living Situation: Personal Care Facility Current Living Situation Comment: [facility] current occupational status: retired How many Children do You have: 2 How many Children do You have Comment: 1 boy 1 girl Feels Safe at Home: Declines to Answer Childhood Exposure to Second-Hand Smoke: No during the past year weight has: remained stable Dental Care, Regularly: Yes Physical Activity Frequency: Daily Seatbelt Use: always Sunscreen Use: Yes Assistive Devices: None Allergies Allergies Allergy/AdvReac Type Severity Reaction Status Date / Time Penicillins Allergy Mild RASH Verified 02/02/22 23:02 Sulfa (Sulfonamide Allergy Mild RASH Verified 02/02/22 23:02 Antibiotics) aspirin AdvReac Intermediate BLEEDING Verified 02/02/22 23:02 Home Meds Home Medications Medication Instructions Recorded Confirmed cholecalciferol (vitamin D3) 50 2,000 unit PO DAILY #30 tabs 07/16/18 02/02/22 mcg (2,000 unit) tablet latanoprost 0.005 % eye drops 1 drops OPB HS 08/27/18 02/02/22 ferrous sulfate 325 mg (65 mg 325 mg PO DAILY 07/27/20 02/02/22 iron) tablet ondansetron 4 mg disintegrating 4 mg PO Q6H PRN NAUSEA/VOMITING 07/29/21 02/02/22 tablet acetaminophen 325 mg tablet 650 mg PO TID PRN Pain 02/02/22 02/02/22 (Tylenol) levetiracetam 1,000 mg tablet 1,000 mg PO Q12H 02/02/22 02/02/22 lidocaine 4 % topical cream 1 applic topical TID PRN Pain 02/02/22 02/02/22 lidocaine 4 % topical patch 1 patch topical DAILY PRN LOWER 02/02/22 02/02/22 BACK PAIN multivitamin (Daily-Celia tablet) 1 tab PO DAILY 02/02/22 02/02/22 Previous Rx's Medication Instructions Recorded atorvastatin 40 mg tablet 40 mg PO DAILY 30 days #30 tabs 02/08/21 pantoprazole 40 mg tablet,delayed 40 mg PO BID #180 tabs 04/08/21 release loperamide 2 mg capsule 2 mg PO UD PRN loose stools #30 05/13/21 caps famotidine 20 mg tablet 20 mg PO DAILY #30 tabs 11/06/21 lisinopril 5 mg tablet 5 mg PO DAILY #30 tabs 11/09/21 amiodarone 200 mg tablet 200 mg PO BID #180 tabs 11/30/21 Results & Data (ED) Vital Signs Vital Signs - 24 hr 02/02/22 22:24 02/02/22 22:45 02/03/22 01:30 Temperature 37.5 C Temperature Source Oral Pulse Rate 76 Pulse Rate [Finger] 71 Respiratory Rate 20 20 Blood Pressure 161/83 H Blood Pressure [Right Arm] 141/64 H Blood Pressure Mean 109 Blood Pressure Mean [Right Arm] 89 Pulse Oximetry 92 90 93 Oxygen Delivery Method Room Air Room Air Nasal Cannula Oxygen Flow Rate 2 Sepsis Recent Fever Within 48 Hours No Sepsis New/Unexplained Change in Mental Status No Sepsis Action Taken by Nursing No Action Required Home Medications Current Medication List: was personally reviewed by me Laboratory Data Attestation: I reviewed the patient's lab results. Result diagrams: 02/03/22 00:18 02/02/22 22:34 Lab Results 02/02/22 02/02/22 02/02/22 Range/Units 22:34 22:34 22:53 WBC Cancelled RBC Cancelled Hgb Cancelled Hct Cancelled MCV Cancelled MCH Cancelled MCHC Cancelled RDW Std Deviation Cancelled RDW Coeff of Esteban Cancelled Plt Count Cancelled MPV Cancelled Immature Gran % (Auto) Cancelled Neut % (Auto) Cancelled Lymph % (Auto) Cancelled [place] % (Auto) Cancelled Eos % (Auto) Cancelled Baso % (Auto) Cancelled Neut # (Auto) Cancelled Lymph # (Auto) Cancelled [place] # (Auto) Cancelled Eos # (Auto) Cancelled Baso # (Auto) Cancelled Immature Gran # (Auto) Cancelled Absolute Nucleated RBC Cancelled Nucleated RBC % (auto) Cancelled Neutrophils % (Manual) Cancelled Band Neutrophils % Cancelled Lymphocytes % (Manual) Cancelled Prolymphocyte % Cancelled Reactive Lymphs % (Man) Cancelled Monocytes % (Manual) Cancelled Eosinophils % (Manual) Cancelled Basophils % (Manual) Cancelled Metamyelocytes % (Man) Cancelled Myelocytes % (Man) Cancelled Promyelocytes % (Man) Cancelled Blast Cells % (Manual) Cancelled Plasma Cell % (Manual) Cancelled Other Cells % Cancelled Nucleated RBC % Cancelled Neutrophils # (Manual) Cancelled Band Neutrophils # Cancelled Total Absolute Neuts Cancelled Lymphocytes # (Manual) Cancelled Prolymphocyte # Cancelled Reactive Lymphs # Cancelled Total Abs Lymphocytes Cancelled Monocytes # (Manual) Cancelled Eosinophils # (Manual) Cancelled Basophils # (Manual) Cancelled Metamyelocytes # (Man) Cancelled Myelocytes # (Manual) Cancelled Promyelocytes # (Man) Cancelled Blast Cells # (Man) Cancelled Plasma Cell # (Manual) Cancelled Other Cells # Cancelled Nucleated RBCs # (Man) Cancelled Hypersegmented Neuts Cancelled Hyposegmented Neuts Cancelled Hypogranular Neuts Cancelled Large Granular Lymphs Cancelled # Lrg Granular Lymphs Cancelled Hairy Cells Cancelled Smudge Cells Cancelled Toxic Granulation Cancelled Toxic Vacuolation Cancelled Dohle Bodies Cancelled Niki Rods Cancelled Platelet Estimate Cancelled Hypogranular Platelets Cancelled Clumped Platelets Cancelled Giant Platelets Cancelled Platelet Satelliting Cancelled RBC Morphology Cancelled Polychromasia Cancelled Hypochromasia Cancelled Poikilocytosis Cancelled Basophilic Stippling Cancelled Anisocytosis Cancelled Microcytosis Cancelled Macrocytosis Cancelled Spherocytes Cancelled Pappenheimer Bodies Cancelled Sickle Cells Cancelled Target Cells Cancelled Tear Drop Cells Cancelled Ovalocytes Cancelled Stomatocytes Cancelled Harris-Lyford Bodies Cancelled Echinocytes Cancelled Acanthocytes (Spur) Cancelled Rouleaux Cancelled RBC Agglutinates Cancelled Schistocytes Cancelled Sezary Cell Cancelled Sodium 136 (136-145) mmol/L Potassium 4.2 (3.5-5.1) mmol/L Chloride 102 (98-107) mmol/L Carbon Dioxide 25 (21-32) mmol/L Anion Gap 9 (3-11) BUN 14 (6-23) mg/dl Creatinine 0.94 (0.6-1.2) mg/dl Est Cr Clr Drug Dosing Not Reportable Est GFR ( Amer) 62.3 ml/min Est GFR (Non-Af Amer) 53.8 ml/min BUN/Creatinine Ratio 14.9 (10-20) Glucose 122 H (70-99(Fasting)) mg/dl POC Glucose 116 H (70-99) mg/dl Calcium 8.8 (8.5-10.1) mg/dl Total Bilirubin 0.6 (0.2-1.0) mg/dl AST 35 (13-39) U/L ALT 30 (7-52) U/L Alkaline Phosphatase 79 (34-104) U/L Troponin I High Sens 36.9 H D (0-14) pg/ml Total Protein 6.4 (6.0-8.3) gm/dl Albumin 3.9 (3.4-5.0) gm/dl Globulin 2.5 (2.5-4.0) gm/dl Albumin/Globulin Ratio 1.6 (0.9-2) Urine Color Urine Appearance (Clear) Urine pH (4.5-7.5) Ur Specific [place] (1.000-1.030) Urine Protein (Negative) Urine Glucose (UA) (Negative) Urine Ketones (Negative) Urine Blood (Negative) Urine Nitrite (Negative) Urine Bilirubin (Negative) Urine Urobilinogen (Negative) Ur Leukocyte Esterase (Negative) Urine RBC (0-4) /hpf Urine WBC (0-5) /hpf Ur Epithelial Cells (0-5) /lpf Calcium Oxalate Crystal (None Prsent) Urine Bacteria (Negative) SARS-CoV-2, RNA, NAAT (NEGATIVE) Blood Parasites ID Cancelled 02/02/22 02/02/22 02/03/22 Range/Units 22:55 23:50 00:18 WBC 40.62 H* RBC 3.93 Hgb 12.8 Hct 38.8 MCV 98.7 MCH 32.6 MCHC 33.0 RDW Std Deviation 51.9 H RDW Coeff of Esteban 14.5 Plt Count 204 MPV 9.6 Immature Gran % (Auto) 0.3 Neut % (Auto) 23.6 Lymph % (Auto) 73.3 [place] % (Auto) 2.6 Eos % (Auto) 0.0 Baso % (Auto) 0.2 Neut # (Auto) 9.57 H Lymph # (Auto) 29.77 H [place] # (Auto) 1.06 H Eos # (Auto) 0.02 Baso # (Auto) 0.07 Immature Gran # (Auto) 0.13 H Absolute Nucleated RBC Nucleated RBC % (auto) Neutrophils % (Manual) Band Neutrophils % Lymphocytes % (Manual) Prolymphocyte % Reactive Lymphs % (Man) Monocytes % (Manual) Eosinophils % (Manual) Basophils % (Manual) Metamyelocytes % (Man) Myelocytes % (Man) Promyelocytes % (Man) Blast Cells % (Manual) Plasma Cell % (Manual) Other Cells % Nucleated RBC % Neutrophils # (Manual) Band Neutrophils # Total Absolute Neuts Lymphocytes # (Manual) Prolymphocyte # Reactive Lymphs # Total Abs Lymphocytes Monocytes # (Manual) Eosinophils # (Manual) Basophils # (Manual) Metamyelocytes # (Man) Myelocytes # (Manual) Promyelocytes # (Man) Blast Cells # (Man) Plasma Cell # (Manual) Other Cells # Nucleated RBCs # (Man) Hypersegmented Neuts Hyposegmented Neuts Hypogranular Neuts Large Granular Lymphs # Lrg Granular Lymphs Hairy Cells Smudge Cells Present Toxic Granulation Toxic Vacuolation Dohle Bodies Niki Rods Platelet Estimate Hypogranular Platelets Clumped Platelets Giant Platelets Platelet Satelliting RBC Morphology Polychromasia Hypochromasia Poikilocytosis Basophilic Stippling Anisocytosis Microcytosis Macrocytosis Spherocytes Pappenheimer Bodies Sickle Cells Target Cells Tear Drop Cells Ovalocytes Stomatocytes Harris-Lyford Bodies Echinocytes Acanthocytes (Spur) Rouleaux RBC Agglutinates Schistocytes Sezary Cell Sodium (136-145) mmol/L Potassium (3.5-5.1) mmol/L Chloride (98-107) mmol/L Carbon Dioxide (21-32) mmol/L Anion Gap (3-11) BUN (6-23) mg/dl Creatinine (0.6-1.2) mg/dl Est Cr Clr Drug Dosing Est GFR ( Amer) ml/min Est GFR (Non-Af Amer) ml/min BUN/Creatinine Ratio (10-20) Glucose (70-99(Fasting)) mg/dl POC Glucose (70-99) mg/dl Calcium (8.5-10.1) mg/dl Total Bilirubin (0.2-1.0) mg/dl AST (13-39) U/L ALT (7-52) U/L Alkaline Phosphatase (34-104) U/L Troponin I High Sens (0-14) pg/ml Total Protein (6.0-8.3) gm/dl Albumin (3.4-5.0) gm/dl Globulin (2.5-4.0) gm/dl Albumin/Globulin Ratio (0.9-2) Urine Color Yellow Urine Appearance Cloudy A (Clear) Urine pH 5.5 (4.5-7.5) Ur Specific [place] 1.025 (1.000-1.030) Urine Protein 1+ H (Negative) Urine Glucose (UA) Negative (Negative) Urine Ketones Negative (Negative) Urine Blood Trace-intact H (Negative) Urine Nitrite Negative (Negative) Urine Bilirubin Negative (Negative) Urine Urobilinogen Negative (Negative) Ur Leukocyte Esterase 1+ H (Negative) Urine RBC 0-4 (0-4) /hpf Urine WBC 0-5 (0-5) /hpf Ur Epithelial Cells >30 H (0-5) /lpf Calcium Oxalate Crystal Present A (None Prsent) Urine Bacteria 2+ H (Negative) SARS-CoV-2, RNA, NAAT NEGATIVE (NEGATIVE) Blood Parasites ID 02/03/22 Range/Units 00:23 WBC RBC Hgb Hct MCV MCH MCHC RDW Std Deviation RDW Coeff of Esteban Plt Count MPV Immature Gran % (Auto) Neut % (Auto) Lymph % (Auto) [place] % (Auto) Eos % (Auto) Baso % (Auto) Neut # (Auto) Lymph # (Auto) [place] # (Auto) Eos # (Auto) Baso # (Auto) Immature Gran # (Auto) Absolute Nucleated RBC Nucleated RBC % (auto) Neutrophils % (Manual) Band Neutrophils % Lymphocytes % (Manual) Prolymphocyte % Reactive Lymphs % (Man) Monocytes % (Manual) Eosinophils % (Manual) Basophils % (Manual) Metamyelocytes % (Man) Myelocytes % (Man) Promyelocytes % (Man) Blast Cells % (Manual) Plasma Cell % (Manual) Other Cells % Nucleated RBC % Neutrophils # (Manual) Band Neutrophils # Total Absolute Neuts Lymphocytes # (Manual) Prolymphocyte # Reactive Lymphs # Total Abs Lymphocytes Monocytes # (Manual) Eosinophils # (Manual) Basophils # (Manual) Metamyelocytes # (Man) Myelocytes # (Manual) Promyelocytes # (Man) Blast Cells # (Man) Plasma Cell # (Manual) Other Cells # Nucleated RBCs # (Man) Hypersegmented Neuts Hyposegmented Neuts Hypogranular Neuts Large Granular Lymphs # Lrg Granular Lymphs Hairy Cells Smudge Cells Toxic Granulation Toxic Vacuolation Dohle Bodies Niki Rods Platelet Estimate Hypogranular Platelets Clumped Platelets Giant Platelets Platelet Satelliting RBC Morphology Polychromasia Hypochromasia Poikilocytosis Basophilic Stippling Anisocytosis Microcytosis Macrocytosis Spherocytes Pappenheimer Bodies Sickle Cells Target Cells Tear Drop Cells Ovalocytes Stomatocytes Harris-Lyford Bodies Echinocytes Acanthocytes (Spur) Rouleaux RBC Agglutinates Schistocytes Sezary Cell Sodium (136-145) mmol/L Potassium (3.5-5.1) mmol/L Chloride (98-107) mmol/L Carbon Dioxide (21-32) mmol/L Anion Gap (3-11) BUN (6-23) mg/dl Creatinine (0.6-1.2) mg/dl Est Cr Clr Drug Dosing Est GFR ( Amer) ml/min Est GFR (Non-Af Amer) ml/min BUN/Creatinine Ratio (10-20) Glucose (70-99(Fasting)) mg/dl POC Glucose (70-99) mg/dl Calcium (8.5-10.1) mg/dl Total Bilirubin (0.2-1.0) mg/dl AST (13-39) U/L ALT (7-52) U/L Alkaline Phosphatase (34-104) U/L Troponin I High Sens 56.2 H* D (0-14) pg/ml Total Protein (6.0-8.3) gm/dl Albumin (3.4-5.0) gm/dl Globulin (2.5-4.0) gm/dl Albumin/Globulin Ratio (0.9-2) Urine Color Urine Appearance (Clear) Urine pH (4.5-7.5) Ur Specific [place] (1.000-1.030) Urine Protein (Negative) Urine Glucose (UA) (Negative) Urine Ketones (Negative) Urine Blood (Negative) Urine Nitrite (Negative) Urine Bilirubin (Negative) Urine Urobilinogen (Negative) Ur Leukocyte Esterase (Negative) Urine RBC (0-4) /hpf Urine WBC (0-5) /hpf Ur Epithelial Cells (0-5) /lpf Calcium Oxalate Crystal (None Prsent) Urine Bacteria (Negative) SARS-CoV-2, RNA, NAAT (NEGATIVE) Blood Parasites ID Imaging Data My Impression: Chest x-ray: There is some chronic change, no focal pneumonia or CHF per my review. The film looks similar to previous films. Pelvis film: There is no fracture, some bony change seen consistent with her age. No dislocation. Radiologist's Impression: Thoracic spine CT: No thoracic fracture or malalignment. Old L1 compression fracture incidentally noted. Lumbar spine CT: Old L1 compression fracture. No acute fracture. Brain CT: No intracranial hemorrhage, mass-effect or edema. No acute cortical stroke. Old infarcts seen. Sinuses are clear. C-spine CT: No fracture or subluxation noted. Cervical canal and foraminal stenosis seen. Discharge Plan Visit Data Chief Complaint: Altered Mental Status Stated Complaint: Decreased mental status s/p Fall ED Provider: Conner King Discharge Problem: Hypoxia, Fall, Chronic lymphocytic leukemia, Altered mental status, Lower back pain, Elevated troponin Patient Disposition: Admitted As Inpatient Condition: Fair Forms Stand Alone Forms: My [facility], Virtual Emergency Department, Important Visit Information Prescriptions Prescriptions: No Action atorvastatin 40 mg tablet 40 mg PO DAILY 30 Days Qty: 30 5RF pantoprazole 40 mg tablet,delayed release (DR/EC) 40 mg PO BID Qty: 180 3RF loperamide 2 mg capsule 2 mg PO UD MDD 8 caps PRN (Reason: loose stools) Qty: 30 1RF Rx Instructions: take 2 caps after 1st loose stool,then 1 cap thereafter, max 8 cap/24hr lisinopril 5 mg tablet 5 mg PO DAILY Qty: 30 3RF Rx Instructions: HOLD FOR SBP <100 amiodarone 200 mg tablet 200 mg PO BID Qty: 180 3RF ondansetron 4 mg tablet,disintegrating 4 mg PO Q6H PRN (Reason: NAUSEA/VOMITING) cholecalciferol (vitamin D3) 2,000 unit tablet 2,000 unit PO DAILY Qty: 30 latanoprost 0.005 % drops 1 drops OPB HS ferrous sulfate 325 mg (65 mg iron) Tablet 325 mg PO DAILY famotidine 20 mg tablet 20 mg PO DAILY Qty: 30 0RF multivitamin [Daily-Celia] Tablet 1 tab PO DAILY acetaminophen [Tylenol] 325 mg Tablet 650 mg PO TID MDD 3 GRAMS/24 HOURS PRN (Reason: Pain) lidocaine 4 % Cream 1 applic TOPICAL TID PRN (Reason: Pain) lidocaine 4 % adhesive patch,medicated 1 patch topical DAILY PRN (Reason: LOWER BACK PAIN) Rx Instructions: APPLY QAM IF NEEDED, THEN REMOVE AT HS. levetiracetam 1,000 mg tablet 1,000 mg PO Q12H Referrals Referrals: EMMA Hathaway [Primary Care Provider] -
[2022-02-02 23:16] LABS: Alanine Aminotransferase 30 U/L (7-52); Albumin Globulin Ratio 1.6 (0.9-2); Albumin Level 3.9 gm/dl (3.4-5.0); Alkaline Phosphatase 79 U/L (34-104); Anion Gap 9 (3-11); Aspartate Aminotransferase 35 U/L (13-39); BUN Creatinine Ratio 14.9 (10-20); Bilirubin,Total 0.6 mg/dl (0.2-1.0); Blood Urea Nitrogen 14 mg/dl (6-23); Calcium 8.8 mg/dl (8.5-10.1); Carbon Dioxide 25 mmol/L (21-32); Chloride 102 mmol/L (98-107); Est GFR (African American) 62.3 ml/min; Est GFR (Non-African American) 53.8 ml/min; Globulin 2.5 gm/dl (2.5-4.0); Glucose 122 mg/dl (70-99(Fasting)); Potassium 4.2 mmol/L (3.5-5.1); Sodium 136 mmol/L (136-145); Total Protein 6.4 gm/dl (6.0-8.3)
[2022-02-02 23:19] LABS: Troponin I High Sensitivity 36.9 pg/ml (0-14)
[2022-02-03 00:02] LABS: Appearance Urine Cloudy (Clear); Bilirubin Urine Negative (Negative); Blood Urine Trace-intact (Negative); Color Urine Yellow; Glucose Urine UA Negative (Negative); Ketones Urine Negative (Negative); Leukocyte Esterase Urine 1+ (Negative); Nitrite Urine Negative (Negative); Protein Urine 1+ (Negative); Specific Gravity Urine 1.025 (1.000-1.030); Urobilinogen Urine Negative (Negative); pH Urine 5.5 (4.5-7.5)
[2022-02-03 00:12] LABS: Epithelial Cell Urine >30 /lpf (0-5)
[2022-02-03 00:13] LABS: Bacteria Urine 2+ (Negative); Calcium Oxalate Crystals Urine Present (None Prsent); RBC Urine 0-4 /hpf (0-4); WBC Urine 0-5 /hpf (0-5)
[2022-02-03 00:40] LABS: Hematocrit (blood only) 38.8 % (34.1-44.9); Hemoglobin 12.8 g/dl (12.0-16.0); Mean Corpuscular Hemoglobin 32.6 pg (25.0-34.0); Mean Corpuscular Volume 98.7 fL (80.0-100.0); Mean Platelet Volume 9.6 fL (9.4-12.3); Platelet Count 204 K/uL (130-400); RDW Coefficient of Variation 14.5 % (11.5-14.5); RDW Standard Deviation 51.9 fL (36.4-46.3); Red Blood Count 3.93 M/uL (3.93-5.22); White Blood Count 40.62 K/ul (4.8-10.8)
[2022-02-03 01:34] LABS: Basophils # (auto) 0.07 K/uL (0-0.2); Basophils % (auto) 0.2 %; Eosinophils # (auto) 0.02 K/uL (0-0.50); Immature Granulocytes # (auto) 0.13 K/uL (0.00-0.02); Immature Granulocytes % (auto) 0.3 %; Lymphocytes # (auto) 29.77 K/uL (1.2-3.4); Lymphocytes % (auto) 73.3 %; Monocytes # (auto) 1.06 K/uL (0.24-0.82); Monocytes % (auto) 2.6 %; Neutrophils # (auto) 9.57 K/uL (1.4-6.5); Neutrophils % (auto) 23.6 %; Smudge Cells Present
[2022-02-03] MEDS ORDERED: ALBUT/IPRATROP 3MG/0.5MG NEB 3 ML VIAL NEB STA (01:45)
[2022-02-03 03:12] LABS: Adenovirus PCR Not Detected (NotDetected); Bordetella parapertussis PCR Not Detected (NotDetected); Bordetella pertussis PCR Not Detected (NotDetected); Chlamydia pneumoniae PCR Not Detected (NotDetected); Coronavirus 229E PCR Not Detected (NotDetected); Coronavirus CoV-2 (COVID19)PCR Not Detected (NotDetected); Coronavirus HKU1 PCR Not Detected (NotDetected); Coronavirus NL63 PCR Not Detected (NotDetected); Coronavirus OC43PCR Not Detected (NotDetected); Human Metapneumovirus PCR Not Detected (NotDetected); Influenza B PCR Not Detected (NotDetected); Mycoplasma pneumoniae PCR Not Detected (NotDetected); Parainfluenza Virus 1 PCR Not Detected (NotDetected); Parainfluenza Virus 2 PCR Not Detected (NotDetected); Parainfluenza Virus 3 PCR Not Detected (NotDetected); Parainfluenza Virus 4 PCR Not Detected (NotDetected); Respiratory Syncytial VirusPCR Not Detected (NotDetected); Rhinovirus/Enterovirus PCR Not Detected (NotDetected)
[2022-02-03 03:14] LABS: Influenza A (H1 2009) PCR DETECTED (NotDetected)
--- NOTE | 2022-02-03 03:31 | History & Physical Report ---
Date of Service February 03, 2022 Assessment & Plan (1) Influenza A virus subtype H1 2009 pandemic strain present: Plan: With hypoxia Solu-Medrol 60 mg IV in the ED, then 40 mg IV every 8 hours Guaifenesin extended release 12 mg p.o. twice daily Duonebs every 4 hours while awake and every 2 hours when necessary. Tamiflu Nasal cannula oxygen, titrate to keep pulse ox 92-94% (2) Fall: Plan: Status post fall, likely secondary to generalized weakness from the above Activity with assistance May need PT/OT prior to discharge (3) Chronic lymphocytic leukemia: Plan: WBC within her usual range at 40.62, will follow serially (4) Altered mental status: Plan: Secondary to above (5) Hypoxia: (6) Elevated troponin: Plan: Elevated troponin/severe aortic stenosis/A. fib with RVR- Troponin at 56.2. Was 36.9 on 02/02/2022, and 151.9 on 11/04/2021 The patient will be admitted to telemetry for serial cardiac enzymes, serial EKG's, cardiac rhythm monitoring. Continue amiodarone 30 mg p.o. 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 The patient's HPI and ROS are limited due to her history of expressive aphasia due to a previous stroke. Primary Care Provider: [facility] The patient is a 89-year-old female with a past medical history including CLL, elevated troponin, combined receptive and expressive aphasia as late effect of CVA, severe aortic stenosis, shingles, atrial for with RVR, ischemic stroke, GERD, seizure disorder, hypertension, hyperlipidemia, glaucoma, focal epilepsy with impairment of consciousness, allergic rhinitis and asthma. The patient was brought to the emergency department after report of an unwitnessed fall with worsening confusion post fall. The patient denies any chest pain or shortness of breath, any lightheadedness or dizziness, any palpitations as a precursor to the fall. Allergies Allergy/AdvReac Type Severity Reaction Status Date / Time Penicillins Allergy Mild RASH Verified 02/02/22 23:02 Sulfa (Sulfonamide Allergy Mild RASH Verified 02/02/22 23:02 Antibiotics) aspirin AdvReac Intermediate BLEEDING Verified 02/02/22 23:02 Home Medications Medication Instructions Recorded Confirmed Type cholecalciferol (vitamin D3) 50 2,000 unit PO DAILY #30 tabs 07/16/18 02/02/22 History mcg (2,000 unit) tablet latanoprost 0.005 % eye drops 1 drops OPB HS 08/27/18 02/02/22 History ferrous sulfate 325 mg (65 mg 325 mg PO DAILY 07/27/20 02/02/22 History iron) tablet atorvastatin 40 mg tablet 40 mg PO DAILY 30 days #30 tabs 02/08/21 02/02/22 Rx pantoprazole 40 mg tablet,delayed 40 mg PO BID #180 tabs 04/08/21 02/02/22 Rx release loperamide 2 mg capsule 2 mg PO UD PRN loose stools #30 05/13/21 02/02/22 Rx caps ondansetron 4 mg disintegrating 4 mg PO Q6H PRN NAUSEA/VOMITING 07/29/21 02/02/22 History tablet famotidine 20 mg tablet 20 mg PO DAILY #30 tabs 11/06/21 02/02/22 Rx lisinopril 5 mg tablet 5 mg PO DAILY #30 tabs 11/09/21 02/02/22 Rx amiodarone 200 mg tablet 200 mg PO BID #180 tabs 11/30/21 02/02/22 Rx acetaminophen 325 mg tablet 650 mg PO TID PRN Pain 02/02/22 02/02/22 History (Tylenol) levetiracetam 1,000 mg tablet 1,000 mg PO Q12H 02/02/22 02/02/22 History lidocaine 4 % topical cream 1 applic topical TID PRN Pain 02/02/22 02/02/22 History lidocaine 4 % topical patch 1 patch topical DAILY PRN LOWER 02/02/22 02/02/22 History BACK PAIN multivitamin (Daily-Celia tablet) 1 tab PO DAILY 02/02/22 02/02/22 History 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 History of - pneumonia (11/24/12) History of - tubal ligation (11/24/12) History of bronchitis (11/24/12) History of chronic lymphocytic leukemia History of stroke Hyperlipidemia Hypertension Osteopenia RLL pneumonia (03/02/14) Surgical History History of appendectomy (11/24/12) History of resection of meningioma History of resection of meningioma S/P cholecystectomy S/P tonsillectomy and adenoidectomy S/P tubal ligation Family History Mother Heart disease Myocardial infarction Father Heart disease Myocardial infarction Grandfather Heart disease Myocardial infarction Brother Myocardial infarction Grandmother (Maternal) Myocardial infarction Other No pertinent family history Denies family history of Ovarian cancer Prostate cancer Breast cancer Colorectal cancer Social History Smoking Status: Unknown if ever smoked Second Hand Exposure: Yes; Hx Alcohol Use: No Hx Substance Use: No Preferred Language: Yoruba Communication Ability: Impaired Visual Impairment: Partially Limited Hearing Ability: Normal Rn Stars Required: No Beliefs That Will Affect Care: None marital status: / Current Living Situation: Personal Care Facility Current Living Situation Comment: [facility] current occupational status: retired How many Children do You have: 2 How many Children do You have Comment: 1 boy 1 girl Feels Safe at Home: Declines to Answer Childhood Exposure to Second-Hand Smoke: No during the past year weight has: remained stable Dental Care, Regularly: Yes Physical Activity Frequency: Daily Seatbelt Use: always Sunscreen Use: Yes Assistive Devices: None Review of Systems Review of Systems: Limited due to patient's mental state Physical Exam Physical Exam: The patient is awake, alert, well developed and well nourished, normocephalic and atraumatic, lying in bed and in no acute distress. HEENT--PERRL, EOMI, mucous membranes and oropharynx dry. Neck--supple. No JVD. No bruits. Thyroid normal, trachea midline, no adenopathy. Heart--normal S1 and S2. No murmurs, rubs or gallops. Lungs--clear bilaterally, no respiratory distress, no accessory muscle use. Abdomen--normal bowel sounds and soft. Nontender. Nondistended, no hernias or masses, no organomegaly. Extremities--no cyanosis or clubbing. No edema. Dermatologic--normal skin turgor, normal color, no abnormal lymph nodes, no rash. Neurologic--cranial nerves II through XII grossly intact. Rheumatologic--normal range of motion. Psychiatric--cooperative. Results & Data Results & Data ([facility]) Vital Signs (Past 12 Hours) Vital Signs Temp Pulse Pulse Resp BP BP Pulse Ox 02/03/22 01:30 71 20 141/64 H 93 02/02/22 22:45 90 02/02/22 22:24 37.5 C 76 20 161/83 H 92 O2 Del Method O2 Flow Rate 02/03/22 01:30 Nasal Cannula 2 02/02/22 22:45 Room Air 02/02/22 22:24 Room Air Laboratory Results Home Medications Medication Instructions Recorded Confirmed cholecalciferol (vitamin D3) 50 2,000 unit PO DAILY #30 tabs 07/16/18 02/02/22 mcg (2,000 unit) tablet latanoprost 0.005 % eye drops 1 drops OPB HS 08/27/18 02/02/22 ferrous sulfate 325 mg (65 mg 325 mg PO DAILY 07/27/20 02/02/22 iron) tablet ondansetron 4 mg disintegrating 4 mg PO Q6H PRN NAUSEA/VOMITING 07/29/21 02/02/22 tablet acetaminophen 325 mg tablet 650 mg PO TID PRN Pain 02/02/22 02/02/22 (Tylenol) levetiracetam 1,000 mg tablet 1,000 mg PO Q12H 02/02/22 02/02/22 lidocaine 4 % topical cream 1 applic topical TID PRN Pain 02/02/22 02/02/22 lidocaine 4 % topical patch 1 patch topical DAILY PRN LOWER 02/02/22 02/02/22 BACK PAIN multivitamin (Daily-Celia tablet) 1 tab PO DAILY 02/02/22 02/02/22 Previous Rx's Medication Instructions Recorded atorvastatin 40 mg tablet 40 mg PO DAILY 30 days #30 tabs 02/08/21 pantoprazole 40 mg tablet,delayed 40 mg PO BID #180 tabs 04/08/21 release loperamide 2 mg capsule 2 mg PO UD PRN loose stools #30 05/13/21 caps famotidine 20 mg tablet 20 mg PO DAILY #30 tabs 11/06/21 lisinopril 5 mg tablet 5 mg PO DAILY #30 tabs 11/09/21 amiodarone 200 mg tablet 200 mg PO BID #180 tabs 11/30/21 Code Status & VTE Plan Code Status DNR/DNI VTE Prophylaxis Plan VTE Prophylaxis will be ordered: Yes (1) Fall Encounter type: initial encounter Qualified Code(s): W19.XXXA - Unspecified fall, initial encounter (2) Altered mental status Altered mental status type: unspecified Qualified Code(s): R41.82 - Altered m ental status, unspecified (3) GERD (gastroesophageal reflux disease) Esophagitis presence: without esophagitis Qualified Code(s): K21.9 - Gastro- esophageal reflux disease without esophagitis (4) Hypertension Hypertension type: essential hypertension Qualified Code(s): I10 - Essential (primary) hypertension (5) Hyperlipidemia Hyperlipidemia type: unspecified Qualified Code(s): E78.5 - Hyperlipidemia, unspecified
[2022-02-03] MEDS ORDERED: ACETAMINOPHEN 325 MG TAB PO PRN (04:18)
[2022-02-03] MEDS ORDERED: methylPREDNISolone 125 MG/2 ML VIAL IV STA (04:18)
[2022-02-03] MEDS ORDERED: methylPREDNISolone 60 MG in SYRINGE 0 ML IV STA (04:35)
[2022-02-03] MEDS ORDERED: LIDOCAINE 5% 1 PATCH TD PRN (05:00)
[2022-02-03] MEDS ORDERED: PNEUMOCOCCAL Polysaccharide Vaccine 25mcg/0.5mL vial/Syr IM ONE (05:30)
[2022-02-03] MEDS ORDERED: Flu Vaccine-High Dose (Fluzone-HD) PF 65+ 0.7mL SYR IM ONE (05:30)
--- NOTE | 2022-02-03 06:59 | CT Scan Report ---
CT SCAN OF THE LUMBAR SPINE WITHOUT IV CONTRAST CLINICAL HISTORY: Fall. Low back pain. COMPARISON STUDY: Radiographs of the lumbar spine dated 08/19/2015. Abdominal CT dated 10/29/2020. TECHNIQUE: CT scan of the lumbar spine is performed from the lower thoracic spine to the sacrum. Imag es are reviewed in the axial, sagittal, and coronal planes. IV contrast was not administered for this examination. A dose lowering technique was utilized adhering to the principles of ALARA. FINDINGS: The skeletal structures are osteopenic. There is no evidence of acute fracture or malalignm ent. There is a mild chronic compression deformity of L1 which is unchanged from previous. Vertebral body height is otherwise maintained throughout the lumbar spine. There is minimal anterolisthesis at L3-L4. Alignment is otherwise preserved. Anterior and lateral marginal osteophytes are seen throughou t. The transverse and spinous processes appear intact. There is no evidence of spondylolysis. No lyti c or blastic lesion is seen. There is advanced disc space narrowing at T12-L1 and L4-L5 with associat ed vacuum phenomenon. Only mild disc space narrowing is seen at the remaining lumbar levels. Tiny pos terior disc osteophyte complexes are seen at most levels, greatest at L4-L5. There is no CT evidence of large disc herniation or high-grade central canal stenosis. There is a left lateral disc extrusion at L3-L4. This contributes to left-sided neural foraminal stenosis and likely impinges the pancreas and left L3 nerve root. Lateral disc bulges at L4-L5 contributes to articular stenosis and may imping e on the exiting bilateral L4 nerve roots. The visualized sacrum and bony pelvis appear intact. A lef t hemitransitional lumbosacral segment is incidentally noted. The paraspinous soft tissues are normal as visualized noting fatty atrophy of the paraspinous musculature. There is advanced atherosclerotic calcification of the normal caliber abdominal aorta. Cholecystectomy clips are noted. No retroperito arlette lymphadenopathy is identified. There are punctate bilateral nonobstructing renal calculi. IMPRESSION: 1. There is no evidence of acute fracture or malalignment involving the lumbar spine. 2. There is a mild chronic compression deformity of L1. 3. Osteopenia and spondylotic change as above. 4. Bilateral nephrolithiasis. ACT 112: Negative or not required by law. Dictated: 02/03/2022 6:37 AM Transcribed: 02/03/2022 6:50 AM Sherrell [id number] LIZETH_Birdie Electronically signed by: Conner Wilson M.D. 02/03/2022 6:58 AM
--- NOTE | 2022-02-03 07:05 | CT Scan Report ---
CT SCAN OF THE CERVICAL SPINE CLINICAL HISTORY: Fall. Neck pain. COMPARISON STUDY: CT angiogram of the neck dated 07/28/2020. TECHNIQUE: CT scan of the cervical spine is performed from the skull base to the upper thoracic spine . Images are reviewed in the axial, sagittal, and coronal planes. IV contrast was not administered fo r this examination. A dose lowering technique was utilized adhering to the principles of ALARA. FINDINGS: Skeletal structures: The skeletal structures are osteopenic. There is no evidence of fracture or subl uxation involving the cervical spine. Vertebral body height and alignment are maintained. There is st raightening of cervical lordosis. Anterior osteophytes are seen throughout. The odontoid process and lateral masses are intact. The atlantoaxial articulation is preserved note is productive degenerative change. The spinous processes appear intact. There is mild multilevel facet arthropathy. Intervertebral discs: There is moderate to severe disc space narrowing at all cervical levels between C3-C4 and C6-C7. Central canal: Posterior disc osteophyte complexes are seen at all levels between C3-C4 and C6-C7. Th is likely contributes to multilevel acquired compromise of the central canal. Soft tissues: The prevertebral and paraspinous soft tissues are within normal limits. There is athero sclerotic calcification of the carotid bulbs. Calvarium: The visualized calvarium at the skull base appears intact. Brain parenchyma: Partially visualized brain parenchyma at the skull base is within normal limits. Sinuses and mastoids: There is moderate mucosal thickening in the left sphenoid sinus. Mucosal thicke keon is also seen within the ethmoid and left maxillary sinuses. The mastoid air cells are well pneum atized. Lung apices: Clear as visualized. IMPRESSION: 1. There is no evidence of fracture or subluxation involving the cervical spine. 2. Osteopenia and spondylotic change as above. ACT 112: Negative or not required by law. Electronically signed by: Conner Wilson M.D. 02/03/2022 7:02 AM
--- NOTE | 2022-02-03 07:19 | CT Scan Report ---
CT SCAN OF THE THORACIC SPINE WITHOUT IV CONTRAST CLINICAL HISTORY: Fall. Thoracic back pain. COMPARISON STUDY: Chest CT dated 01/10/2021. TECHNIQUE: CT scan of the thoracic spine is performed from the lower cervical spine to the upper lumb ar spine. Images are reviewed in the axial, sagittal, and coronal planes. IV contrast was not adminis tered for this examination. A dose lowering technique was utilized adhering to the principles of ALAR Tomi. CT DOSE: 2369.53 mGy.cm FINDINGS: The skeletal structures are osteopenic. There is no evidence of fracture or malalignment in volving the thoracic spine. Vertebral body height and alignment are maintained throughout the thoraci c spine. There is a mild chronic compression deformity of L1. Anterior osteophytes are seen throughou t. There is mild hyperkyphosis. The transverse and spinous processes appear intact. Multilevel disc s pace narrowing is seen throughout the thoracic region. There is no CT evidence of large disc herniati on or high-grade central canal stenosis. Broad-based posterior disc bulge is noted at T11-T12. The pa raspinous soft tissues are normal as visualized. The visualized posterior ribs appear intact. The candice ged lung parenchyma appears clear noting bibasilar scarring/atelectasis. There is a large hiatal speedy ia. The heart is enlarged noting atherosclerotic calcification of the coronary arteries. The mitral a nnulus is densely calcified. There are tiny bilateral nonobstructing renal calculi. Cholecystectomy c lips are noted. IMPRESSION: 1. There is no evidence of fracture or malalignment involving the thoracic spine. 2. Osteopenia and mild spondylotic change as above. 3. Large hiatal hernia. 4. Additional findings as above. ACT 112: Negative or not required by law. Dictated: 02/03/2022 7:03 AM Transcribed: 02/03/2022 7:17 AM Sherrell [id number] LIZETH_Birdie Electronically signed by: Conner Wilson M.D. 02/03/2022 7:18 AM
--- NOTE | 2022-02-03 07:19 | CT Scan Report ---
CT SCAN OF THE BRAIN WITHOUT IV CONTRAST CLINICAL HISTORY: Fall. Head injury. COMPARISON STUDY: CT of the brain dated 07/28/2020. TECHNIQUE: Unenhanced axial CT scan of the brain is performed from the vertex to the skull base. A do se lowering technique was utilized adhering to the principles of ALARA. FINDINGS: Brain parenchyma: There are large foci of bifrontal encephalomalacia, as well as foci of left tempora l encephalomalacia consistent with remote insults. There is age-related involutional change noting mo derate subcortical and periventricular microangiopathic disease. There is no hemorrhage, mass effect, or evidence of acute territorial ischemia by CT criteria. Stanley-white matter differentiation is prese rved. No extra-axial fluid collection is seen. Ventricles, sulci, cisterns: Prominent secondary to involutional change. Intracranial vasculature: There is atherosclerotic calcification of the cavernous carotid and vertebr al arteries. Calvarium: The skeletal structures are osteopenic. There is evidence of previous craniotomy. No depre ssed calvarial fracture is identified. Sinuses and mastoids: There is mild to moderate mucosal thickening within the left maxillary antrum a nd left sphenoid sinus. Mild mucosal thickening is present in the ethmoid sinuses. The mastoid air ce lls are well pneumatized. Orbits: The bony orbits are grossly intact. There are bilateral ocular lens implants. IMPRESSION: Chronic and postoperative changes as above with no hemorrhage, mass effect, or evidence o f acute territorial ischemia by CT criteria. ACT 112: Negative or not required by law. Electronically signed by: Conner Wilson M.D. 02/03/2022 7:18 AM
[2022-02-03] MEDS: ALBUT/IPRATROP 3MG/0.5MG NEB 3 ML VIAL NEB SCH ×4 (07:44→19:35)
--- NOTE | 2022-02-03 07:45 | XRay Report ---
SINGLE VIEW CHEST CLINICAL HISTORY: Fall. FINDINGS: An AP, portable, upright chest radiograph is compared to study dated 11/04/2021 and correlat ed with chest CT dated 01/10/2021. The heart is mildly enlarged noting atherosclerotic calcification of the thoracic aorta. The pulmonary vasculature is noncongested. The mitral annulus is densely calci fied. Chronic interstitial thickening is similar to previous. There are low lung volumes. Scarring/at electasis is noted at the lung bases. No airspace consolidation or large pleural effusion is identifi ed. No pneumothorax is seen. The skeletal structures are osteopenic. The bony thorax is grossly intac t. IMPRESSION: Cardiomegaly with no acute cardiopulmonary abnormality identified. ACT 112: Negative or not required by law. Electronically signed by: Conner Wilson M.D. 02/03/2022 7:44 AM
--- NOTE | 2022-02-03 07:47 | XRay Report ---
SINGLE VIEW PELVIS CLINICAL HISTORY: Fall. FINDINGS: AP, portable, supine pelvic radiograph is compared to study dated 04/11/2016 and correlated with pelvic CT dated 10/29/2020. The skeletal structures are osteopenic. There is no radiographic evid ence of acute fracture involving the hips or bony pelvis. Moderate to advanced arthritic change is se en in the hips, right greater than left. The sacroiliac joints are normal. Lumbosacral spondylosis is partially visualized. The overlying soft tissues are within normal limits. There is no evidence of b owel obstruction. IMPRESSION: No acute bony abnormality is identified. Electronically signed by: Conner Wilson M.D. 02/03/2022 7:46 AM
[2022-02-03] MEDS: guaiFENesin 600 MG TABCR PO SCH ×2 (08:18→20:06)
[2022-02-03] MEDS: MULTIVITAMIN TAB PO SCH (08:18)
[2022-02-03] MEDS: levETIRAcetam 500 MG TAB PO SCH ×2 (08:18→20:07)
[2022-02-03] MEDS: lisinopril 5 MG TAB PO SCH (08:19)
[2022-02-03] MEDS: PANTOprazole 40 MG TAB PO SCH ×2 (08:19→20:05)
[2022-02-03] MEDS: FERROUS SULFATE 325 MG TAB PO SCH (08:19)
[2022-02-03] MEDS: ATORVASTATIN 40 MG TAB PO SCH (08:20)
[2022-02-03] MEDS: CHOLECALCIFEROL 1,000 UNITS 25 MCG TAB PO SCH (08:20)
[2022-02-03] MEDS: AMIODARONE 200 MG TAB PO SCH ×2 (08:20→20:08)
[2022-02-03] MEDS: AZITHROMYCIN 500 MG in DEXTROSE 5% 250 ML IV SCH (08:23)
[2022-02-03] MEDS: OSELTAMIVIR PHOSPHATE SUSP 30 MG/5 ML UDP PO SCH ×2 (08:23→20:08)
--- NOTE | 2022-02-03 10:26 | Electrocardiogram Report ---
Test Reason : Blood Pressure : / mmHG Vent. Rate : 073 BPM Atrial Rate : 073 BPM P-R Int : 152 ms QRS Dur : 096 ms QT Int : 408 ms P-R-T Axes : -01 -25 016 degrees QTc Int : 449 ms Normal sinus rhythm Incomplete right bundle branch block Borderline ECG When compared with ECG of 04-NOV-2021 11:30, No significant change was found Confirmed by Felipe Martinez ([id number]) on 02/03/2022 10:25:48 AM Referred By: SANDRA Lebron Confirmed By:Felipe Martinez
[2022-02-03] MEDS ORDERED: methylPREDNISolone 40 MG in SYRINGE 0 ML IV SCH (14:00)
[2022-02-03] MEDS: LATANOPROST 0.005% OP SOLN 2.5 ML BTL OPB SCH (20:08)
[2022-02-03] MEDS: FAMOTIDINE 20 MG TAB PO SCH (20:08)
[2022-02-03] MEDS ORDERED: ALBUT/IPRATROP 3MG/0.5MG NEB 3 ML VIAL NEB PRN (21:09)
--- NOTE | 2022-02-03 21:41 | Hospitalist Progress Note ---
Date of Service February 03, 2022 Assessment & Plan (1) Influenza A virus subtype H1 2009 pandemic strain present: Plan: With hypoxia Solu-Medrol 60 mg IV in the ED, then 40 mg IV every 8 hours Guaifenesin extended release 12 mg p.o. twice daily Duonebs every 4 hours while awake and every 2 hours when necessary. Tamiflu Nasal cannula oxygen, titrate to keep pulse ox 92-94% (2) Fall: Plan: Status post fall, likely secondary to generalized weakness from the above Activity with assistance May need PT/OT prior to discharge (3) Chronic lymphocytic leukemia: Plan: WBC within her usual range at 40.62, will follow serially (4) Altered mental status: Plan: Secondary to above (5) Hypoxia: (6) Elevated troponin: Plan: Elevated troponin/severe aortic stenosis/A. fib with RVR- Troponin at 56.2. Was 36.9 on 02/02/2022, and 151.9 on 11/04/2021 The patient will be admitted to telemetry for serial cardiac enzymes, serial EKG's, cardiac rhythm monitoring. Continue amiodarone 30 mg p.o. 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): Plan: Limiting HPI and ROS (13) Hyperlipidemia: (14) Asthma: Admission and Anticipated Discharge Date Admission Date: February 03, 2022 Results & Data Results & Data ([facility]) Vital Signs (Past 12 Hours) Vital Signs Temp Pulse Pulse Resp BP BP Pulse Ox 02/03/22 20:02 147/81 H 02/03/22 19:48 36.4 C L 74 20 176/76 H 95 02/03/22 19:35 65 16 94 02/03/22 16:15 36.6 C 79 18 128/72 93 02/03/22 15:41 69 02/03/22 15:31 64 16 94 02/03/22 13:19 92 02/03/22 11:56 02/03/22 11:21 36.7 C 72 18 122/70 90 02/03/22 11:48 69 02/03/22 11:16 67 18 95 O2 Del Method O2 Flow Rate 02/03/22 20:02 02/03/22 19:48 Room Air 02/03/22 19:35 Room Air 02/03/22 16:15 Room Air 02/03/22 15:41 02/03/22 15:31 Room Air 02/03/22 13:19 Room Air 02/03/22 11:56 Room Air 02/03/22 11:21 Room Air 02/03/22 11:48 02/03/22 11:16 Nasal Cannula 2 PG Care Time/CCT Total # of Minutes Spent Total Time Spent with Patient: Total time spent is greater than 50% in coordination of care (as documented) at patient's floor/unit and/or counseling patient: Coding Diagnoses Influenza A virus subtype H1 2009 pandemic strain present J10.1 Fall W19.XXXA Encounter type: initial encounter Chronic lymphocytic leukemia C91.10 Altered mental status R41.82 Altered mental status type: unspecified Hypoxia R09.02 Elevated troponin R77.8 Severe aortic stenosis I35.0 Atrial fibrillation with RVR I48.91 GERD (gastroesophageal reflux disease) K21.9 Esophagitis presence: without esophagitis Seizure disorder G40.909 Hypertension I10 Hypertension type: essential hypertension 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 (1) Fall Encounter type: initial encounter Qualified Code(s): W19.XXXA - Unspecified fall, initial encounter (2) Altered mental status Altered mental status type: unspecified Qualified Code(s): R41.82 - Altered mental status, unspecified (3) GERD (gastroesophageal reflux disease) Esophagitis presence: without esophagitis Qualified Code(s): K21.9 - Gastro- esophageal reflux disease without esophagitis (4) Hypertension Hypertension type: essential hypertension Qualified Code(s): I10 - Essential (primary) hypertension (5) Hyperlipidemia Hyperlipidemia type: unspecified Qualified Code(s): E78.5 - Hyperlipidemia, unspecified
[2022-02-04 06:37] LABS: Hematocrit (blood only) 38.1 % (34.1-44.9); Hemoglobin 12.4 g/dl (12.0-16.0); Mean Corpuscular Hgb Conc 32.5 g/dL (32.0-36.0); Mean Corpuscular Volume 98.2 fL (80.0-100.0); Mean Platelet Volume 10.6 fL (9.4-12.3); Nucleated RBC # (auto) 0.17 K/uL (0-0); Nucleated RBC % (auto) 0.4 %; Platelet Count 168 K/uL (130-400); RDW Coefficient of Variation 14.4 % (11.5-14.5); Red Blood Count 3.88 M/uL (3.93-5.22)
[2022-02-04 06:47] LABS: Albumin Level 3.5 gm/dl (3.4-5.0); BUN Creatinine Ratio 15.7 (10-20); Calcium 8.6 mg/dl (8.5-10.1); Creatinine Clr Calc Pharmacy 42.4 ml/min; Est GFR (African American) 66.6 ml/min; Est GFR (Non-African American) 57.5 ml/min; Phosphorus 3.3 mg/dl (2.5-4.9); Potassium 4.3 mmol/L (3.5-5.1)
[2022-02-04 07:35] LABS: Acanthocytes 1+; Basophils # (auto) 0.21 K/uL (0-0.2); Basophils % (auto) 0.4 %; Eosinophils # (auto) 0.01 K/uL (0-0.50); Immature Granulocytes # (auto) 0.21 K/uL (0.00-0.02); Immature Granulocytes % (auto) 0.4 %; Lymphocytes # (auto) 32.49 K/uL (1.2-3.4); Monocytes # (auto) 0.72 K/uL (0.24-0.82); Monocytes % (auto) 1.5 %; Neutrophils # (auto) 14.16 K/uL (1.4-6.5); Neutrophils % (auto) 29.7 %; Smudge Cells Present
--- NOTE | 2022-02-04 09:02 | Electrocardiogram Report ---
Test Reason : Blood Pressure : / mmHG Vent. Rate : 072 BPM Atrial Rate : 072 BPM P-R Int : 162 ms QRS Dur : 090 ms QT Int : 412 ms P-R-T Axes : 038 -25 002 degrees QTc Int : 451 ms Poor data quality, interpretation may be adversely affected Normal sinus rhythm Incomplete right bundle branch block Borderline ECG When compared with ECG of 02-FEB-2022 22:30, No significant change was found Confirmed by Felipe Martinez ([id number]) on 02/04/2022 9:01:39 AM Referred By: [facility] Daniel Walford Confirmed By:Felipe Martinez
--- NOTE | 2022-02-04 09:14 | Electrocardiogram Report ---
Test Reason : Blood Pressure : / mmHG Vent. Rate : 069 BPM Atrial Rate : 069 BPM P-R Int : 162 ms QRS Dur : 096 ms QT Int : 422 ms P-R-T Axes : 044 -21 023 degrees QTc Int : 452 ms Normal sinus rhythm Incomplete right bundle branch block Borderline ECG When compared with ECG of 03-FEB-2022 04:40, No significant change was found Confirmed by Felipe Martinez ([id number]) on 02/04/2022 9:13:51 AM Referred By: SANDRA Lebron Confirmed By:Felipe Martinez
[2022-02-04] MEDS: AZITHROMYCIN 500 MG in DEXTROSE 5% 250 ML IV SCH (09:15)
[2022-02-04] MEDS: levETIRAcetam 500 MG TAB PO SCH ×2 (09:15→20:06)
[2022-02-04] MEDS: AMIODARONE 200 MG TAB PO SCH ×2 (09:15→20:07)
[2022-02-04] MEDS: OSELTAMIVIR PHOSPHATE SUSP 30 MG/5 ML UDP PO SCH ×2 (09:15→20:07)
[2022-02-04] MEDS: PANTOprazole 40 MG TAB PO SCH ×2 (09:16→20:05)
[2022-02-04] MEDS: guaiFENesin 600 MG TABCR PO SCH ×2 (09:16→20:07)
[2022-02-04] MEDS: MULTIVITAMIN TAB PO SCH (09:16)
[2022-02-04] MEDS: CHOLECALCIFEROL 1,000 UNITS 25 MCG TAB PO SCH (09:16)
[2022-02-04] MEDS: ATORVASTATIN 40 MG TAB PO SCH (09:17)
[2022-02-04] MEDS: lisinopril 5 MG TAB PO SCH (09:17)
[2022-02-04] MEDS: FERROUS SULFATE 325 MG TAB PO SCH (09:17)
[2022-02-04] MEDS: FAMOTIDINE 20 MG TAB PO SCH (20:06)
[2022-02-04] MEDS: LATANOPROST 0.005% OP SOLN 2.5 ML BTL OPB SCH (20:07)
--- NOTE | 2022-02-04 21:21 | Hospitalist Progress Note ---
Date of Service February 04, 2022 Assessment & Plan (1) Influenza A virus subtype H1 2009 pandemic strain present: Plan: With hypoxia Corticosteroids will no longer be given as oxygen level has improved and corticosteroids may increase mortality. Guaifenesin extended release 12 mg p.o. twice daily Duonebs every 4 hours while awake and every 2 hours when necessary. Tamiflu: will continue this medication Patient no longer requiring oxygen. (2) Fall: Plan: Status post fall, likely secondary to generalized weakness from the above Activity with assistance PT/OT recommending dicharge back to regular home setting (3) Chronic lymphocytic leukemia: Plan: WBC within her usual range at 40.62, will follow serially (4) Altered mental status: Plan: Secondary to above (5) Hypoxia: (6) Elevated troponin: Plan: Elevated troponin/severe aortic stenosis/A. fib with RVR- Troponin at 56.2. Was 36.9 on 02/02/2022, and 151.9 on 11/04/2021 The patient will be admitted to telemetry for serial cardiac enzymes, serial EKG's, cardiac rhythm monitoring. Continue amiodarone 30 mg p.o. 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 HEENT--PERRL, EOMI, mucous membranes and oropharynx dry. Neck--supple. No JVD. No bruits. Thyroid normal, trachea midline, no adenopathy. Heart--normal S1 and S2. No murmurs, rubs or gallops. Lungs--clear bilaterally, no respiratory distress, no accessory muscle use. Abdomen--normal bowel sounds and soft. Nontender. Nondistended, no hernias or masses, no organomegaly. Extremities--no cyanosis or clubbing. No edema. Dermatologic--normal skin turgor, normal color, no abnormal lymph nodes, no rash. Neurologic--cranial nerves II through XII grossly intact. Rheumatologic--normal range of motion. Psychiatric--cooperative. Results & Data Results & Data ([facility]) Vital Signs (Past 12 Hours) Vital Signs Temp Pulse Pulse Resp BP Pulse Ox O2 Del Method 02/04/22 19:08 37 C 63 18 150/83 H 93 Room Air 02/04/22 14:15 63 02/04/22 15:31 36.8 C 61 18 150/80 H 94 Room Air 02/04/22 11:38 36.6 C 64 18 145/66 H 96 Room Air PG Care Time/CCT Total # of Minutes Spent Total Time Spent with Patient: Total time spent is greater than 50% in coordination of care (as documented) at patient's floor/unit and/or counseling patient: Coding Level of Care Code 87681 Subseq Hosp Care Lvl 3 Diagnoses Influenza A virus subtype H1 2009 pandemic strain present J10.1 Fall W19.XXXA Encounter type: initial encounter Chronic lymphocytic leukemia C91.10 Altered mental status R41.82 Altered mental status type: unspecified Hypoxia R09.02 Elevated troponin R77.8 Severe aortic stenosis I35.0 Atrial fibrillation with RVR I48.91 GERD (gastroesophageal reflux disease) K21.9 Esophagitis presence: without esophagitis Seizure disorder G40.909 Hypertension I10 Hypertension type: essential hypertension 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 Time Spent (min) 35 Comment updated family on phone (1) Fall Encounter type: initial encounter Qualified Code(s): W19.XXXA - Unspecified fall, initial encounter (2) Altered mental status Altered mental status type: unspecified Qualified Code(s): R41.82 - Altered mental status, unspecified (3) GERD (gastroesophageal reflux disease) Esophagitis presence: without esophagitis Qualified Code(s): K21.9 - Gastro- esophageal reflux disease without esophagitis (4) Hypertension Hypertension type: essential hypertension Qualified Code(s): I10 - Essential (primary) hypertension (5) Hyperlipidemia Hyperlipidemia type: unspecified Qualified Code(s): E78.5 - Hyperlipidemia, unspecified
[2022-02-05 07:08] LABS: Albumin Level 3.6 gm/dl (3.4-5.0); BUN Creatinine Ratio 23.3 (10-20); Calcium 8.5 mg/dl (8.5-10.1); Creatinine Clr Calc Pharmacy 41.9 ml/min; Est GFR (African American) 65.7 ml/min; Est GFR (Non-African American) 56.7 ml/min; Magnesium 1.9 mg/dl (1.7-2.4); Potassium 4.2 mmol/L (3.5-5.1)
[2022-02-05 07:08] LABS: Hematocrit (blood only) 41.2 % (34.1-44.9); Hemoglobin 13.5 g/dl (12.0-16.0); Mean Corpuscular Hemoglobin 32.1 pg (25.0-34.0); Mean Corpuscular Hgb Conc 32.8 g/dL (32.0-36.0); Mean Corpuscular Volume 97.9 fL (80.0-100.0); Mean Platelet Volume 9.6 fL (9.4-12.3); Platelet Count 214 K/uL (130-400); RDW Coefficient of Variation 14.5 % (11.5-14.5); RDW Standard Deviation 52.1 fL (36.4-46.3); Red Blood Count 4.21 M/uL (3.93-5.22); White Blood Count 47.91 K/ul (4.8-10.8)
--- NOTE | 2022-02-05 07:15 | Electrocardiogram Report ---
Test Reason : Blood Pressure : / mmHG Vent. Rate : 067 BPM Atrial Rate : 067 BPM P-R Int : 150 ms QRS Dur : 094 ms QT Int : 434 ms P-R-T Axes : 018 -16 037 degrees QTc Int : 458 ms Normal sinus rhythm Normal ECG When compared with ECG of 04-FEB-2022 05:07, Incomplete right bundle branch block is no longer Present Confirmed by José Miguel Billingsley ([id number]) on 02/05/2022 7:14:52 AM Referred By: SANDRA Lebron Confirmed By:Jason Billingsley
[2022-02-05 08:01] LABS: Basophils # (auto) 0.04 K/uL (0-0.2); Basophils % (auto) 0.1 %; Eosinophils # (auto) 0.02 K/uL (0-0.50); Immature Granulocytes # (auto) 0.21 K/uL (0.00-0.02); Immature Granulocytes % (auto) 0.4 %; Lymphocytes # (auto) 33.75 K/uL (1.2-3.4); Lymphocytes % (auto) 70.4 %; Monocytes # (auto) 1.05 K/uL (0.24-0.82); Monocytes % (auto) 2.2 %; Neutrophils # (auto) 12.84 K/uL (1.4-6.5); Neutrophils % (auto) 26.9 %
[2022-02-05] MEDS: FERROUS SULFATE 325 MG TAB PO SCH (09:01)
[2022-02-05] MEDS: MULTIVITAMIN TAB PO SCH (09:01)
[2022-02-05] MEDS: ATORVASTATIN 40 MG TAB PO SCH (09:01)
[2022-02-05] MEDS: AMIODARONE 200 MG TAB PO SCH (09:02)
[2022-02-05] MEDS: levETIRAcetam 500 MG TAB PO SCH (09:02)
[2022-02-05] MEDS: guaiFENesin 600 MG TABCR PO SCH (09:02)
[2022-02-05] MEDS: lisinopril 5 MG TAB PO SCH (09:02)
[2022-02-05] MEDS: CHOLECALCIFEROL 1,000 UNITS 25 MCG TAB PO SCH (09:02)
[2022-02-05] MEDS: PANTOprazole 40 MG TAB PO SCH (09:03)
[2022-02-05] MEDS: OSELTAMIVIR PHOSPHATE SUSP 30 MG/5 ML UDP PO SCH (09:08)
[2022-02-05] MEDS: AZITHROMYCIN 500 MG in DEXTROSE 5% 250 ML IV SCH (09:08)
[2022-02-05] MEDS ORDERED: OSELTAMIVIR PHOSPHATE SUSP 30 MG/5 ML UDP PO SCH (15:15)
--- NOTE | 2022-02-09 16:17 | Discharge Summary ---
Date of Service February 05, 2022 Admission HPI Per Admitting Provider The patient is a 89-year-old female with a past medical history including CLL, elevated troponin, combined receptive and expressive aphasia as late effect of CVA, severe aortic stenosis, shingles, atrial for with RVR, ischemic stroke, GERD, seizure disorder, hypertension, hyperlipidemia, glaucoma, focal epilepsy with impairment of consciousness, allergic rhinitis and asthma. The patient was brought to the emergency department after report of an unwitnessed fall with worsening confusion post fall. The patient denies any chest pain or shortness of breath, any lightheadedness or dizziness, any palpitations as a precursor to the fall. Principal Diagnosis influenza Discharge Exam The patient is awake, alert, well developed and well nourished, normocephalic and atraumatic, lying in bed and in no acute distress. HEENT--PERRL, EOMI, mucous membranes and oropharynx dry. Neck--supple. No JVD. No bruits. Thyroid normal, trachea midline, no adenopathy. Heart--normal S1 and S2. No murmurs, rubs or gallops. Lungs--clear bilaterally, no respiratory distress, no accessory muscle use. Abdomen--normal bowel sounds and soft. Nontender. Nondistended, no hernias or masses, no organomegaly. Extremities--no cyanosis or clubbing. No edema. Dermatologic--normal skin turgor, normal color, no abnormal lymph nodes, no rash. Neurologic--cranial nerves II through XII grossly intact. Rheumatologic--normal range of motion. Psychiatric--cooperative. Discharge Data Allergies Allergy/AdvReac Type Severity Reaction Status Date / Time Penicillins Allergy Mild RASH Verified 02/02/22 23:02 Sulfa (Sulfonamide Allergy Mild RASH Verified 02/02/22 23:02 Antibiotics) aspirin AdvReac Intermediate BLEEDING Verified 02/02/22 23:02 Consultations 02/03/22 01:48 ED Decision to Admit Stat Ordered Studies 02/02/22 22:22 CT cervical spine wo con Urgent CT head/brain wo con Urgent CT lumbar spine wo con Urgent CT thoracic spine wo con Urgent Hospital Course (1) Influenza A virus subtype H1 2009 pandemic strain present: With hypoxia Corticosteroids will no longer be given as oxygen level has improved and corticosteroids may increase mortality. Guaifenesin extended release 12 mg p.o. twice daily Duonebs every 4 hours while awake and every 2 hours when necessary. Tamiflu: will continue this medication. will complete 5 day course. Patient can be discharged as patient no longer requiring oxygen. (2) Fall: Status post fall, likely secondary to generalized weakness from the above Activity with assistance PT/OT recommending dicharge back to regular home setting (3) Chronic lymphocytic leukemia: WBC within her usual range at 40.62, will follow serially (4) Altered mental status: Secondary to above (5) Hypoxia: (6) Elevated troponin: Elevated troponin/severe aortic stenosis/A. fib with RVR- Troponin at 56.2. Was 36.9 on 02/02/2022, and 151.9 on 11/04/2021 The patient will be admitted to telemetry for serial cardiac enzymes, serial E KG's, cardiac rhythm monitoring. Continue amiodarone 30 mg p.o. 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 This caused your weakness and required you to use supplemental oxygen. Thankfully, you improved with the medications provided. The only change will be to continue tamiflu tonight. This will be twice a day. We will provide you with 3 doses and you can picker tender the final 2 doses on Monday. Pending Studies at Discharge: No Stand-Alone Forms: [employer], Smoking Cessation Skilled Items Patient informed of condition?: Yes DNR: No Discharge Level of Care: Other Communicable Disease: Yes Discharge Prognosis: Stable Lines: None Urinary Catheter: No Medications and DC Order Prescriptions: New guaifenesin [Mucinex] 600 mg Tablet Extended Release 12hr 1,200 mg PO Q12 Qty: 10 0RF Continued pantoprazole 40 mg tablet,delayed release (DR/EC) 40 mg PO BID Qty: 180 3RF loperamide 2 mg capsule 2 mg PO UD MDD 8 caps PRN (Reason: loose stools) Qty: 30 1RF Rx Instructions: take 2 caps after 1st loose stool,then 1 cap thereafter, max 8 cap/24hr lisinopril 5 mg tablet 5 mg PO DAILY Qty: 30 3RF Rx Instructions: HOLD FOR SBP <100 amiodarone 200 mg tablet 200 mg PO BID Qty: 180 3RF ondansetron 4 mg tablet,disintegrating 4 mg PO Q6H PRN (Reason: NAUSEA/VOMITING) cholecalciferol (vitamin D3) 2,000 unit tablet 2,000 unit PO DAILY Qty: 30 latanoprost 0.005 % drops 1 drops OPB HS ferrous sulfate 325 mg (65 mg iron) Tablet 325 mg PO DAILY famotidine 20 mg tablet 20 mg PO DAILY Qty: 30 0RF multivitamin [Daily-Celia] Tablet 1 tab PO DAILY acetaminophen [Tylenol] 325 mg Tablet 650 mg PO TID MDD 3 GRAMS/24 HOURS PRN (Reason: Pain) lidocaine 4 % Cream 1 applic TOPICAL TID PRN (Reason: Pain) lidocaine 4 % adhesive patch,medicated 1 patch topical DAILY PRN (Reason: LOWER BACK PAIN) Rx Instructions: APPLY QAM IF NEEDED, THEN REMOVE AT HS. levetiracetam 1,000 mg tablet 1,000 mg PO Q12H No Action atorvastatin 40 mg tablet 40 mg PO DAILY 30 Days Qty: 30 5RF Discharge Orders: Discharge Order (Routine); Ordered 02/05/22 Ordered By: Piotr Ortiz Admission Data Admit Date/Time: 02/03/22 02:24 Attending Provider: Piotr Ortiz Admit Provider: cSot Stallings Primary Care Provider: SANDRA Hathaway Other Providers: Scot Stallings Other Interventions: Discharge Summary Assessment (RN) Last Done: 02/05/22 16:01 Coding Level of Care Code D/C DAY MANAGEMENT >30 MINS Diagnoses Influenza A virus subtype H1 2009 pandemic strain present J10.1 Fall W19.XXXA Encounter type: initial encounter Chronic lymphocytic leukemia C91.10 Altered mental status R41.82 Altered mental status type: unspecified Hypoxia R09.02 Elevated troponin R77.8 Severe aortic stenosis I35.0 Atrial fibrillation with RVR I48.91 GERD (gastroesophageal reflux disease) K21.9 Esophagitis presence: without esophagitis Seizure disorder G40.909 Hypertension I10 Hypertension type: essential hypertension 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
== END 2022-02-05 17:47 | disposition home or self-care (01) | DRG 194 ==
LOC: ED 22:14 → 2S 02-03 02:24 → SUATTDRO 02-03 02:24 → INTOOBSV 02-03 02:24 → 2S 02-03 04:19